=== PATIENT | female | born 1950 | race Caucasian/White ===

== ENCOUNTER 2016-08-17 13:29 | Outpatient (RCR) | payer MEDICARE, OTHER ==
[~2016-08-17 13:29] MED LIST: ACET1TAB38 PO; ALBU8.5H2 IH; ASA; ASP325TEC PO; CA C1TAB26 PO; FRSM40T PO; HCT25T PO; LASIX; LOVA40TA2 PO; METR500T PO; MNTL10T PO; MTF500T PO; OMEG1CAP74 PO; OMEP10CA2 PO; OXYC-12 PO; PGLT30T; PIOG45TA PO; POTA20TA15 PO; TR025C15 TOP
[2016-08-17 13:42] LABS: BASOPHILS % (AUTO) 0 % (0-10); EOSINOPHILS # (AUTO) 0.4 10^3/uL (0.0-0.3); EOSINOPHILS % (AUTO) 4 % (0-10); LYMPHOCYTES # (AUTO) 3.1 X 10^3 (1.0-4.0); LYMPHOCYTES % (AUTO) 29 % (12-44); MEAN CORPUSCULAR HEMOGLOBIN 28 PG (25-34); MEAN CORPUSCULAR HGB CONC 32 G/DL (32-36); MEAN CORPUSCULAR VOLUME 86 FL (80-99); MEAN PLATELET VOLUME 8.5 FL (7.4-10.4); MONOCYTES # (AUTO) 0.7 X 10^3 (0.0-1.0); MONOCYTES % (AUTO) 6 % (0-12); NEUTROPHILS # (AUTO) 6.5 X 10^3 (1.8-7.8); NEUTROPHILS % (AUTO) 61 % (42-75); PLATELET COUNT 478 10^3/uL (130-400); RED BLOOD COUNT 4.18 10^6/uL (4.35-5.85); WHITE BLOOD COUNT 10.7 10^3/uL (4.3-11.0)
[2016-08-17 14:35] LABS: ALANINE AMINOTRANSFERASE 19 U/L (0-55); ALBUMIN 4.3 G/DL (3.2-4.5); ANION GAP 11 MMOL/L (5-14); ASPARTATE AMINO TRANSFERASE 17 U/L (5-34); BILIRUBIN,TOTAL 0.3 MG/DL (0.1-1.0); BLOOD UREA NITROGEN 20 MG/DL (7-18); BUN/CREATININE RATIO 23; CALCIUM 9.7 MG/DL (8.5-10.1); CARBON DIOXIDE 24 MMOL/L (21-32); CHLORIDE 105 MMOL/L (98-107); CREATININE SERUM 0.86 MG/DL (0.60-1.30); GFR ESTIMATED > 60; GLUCOSE 91 MG/DL (70-105); POTASSIUM 4.3 MMOL/L (3.6-5.0); SODIUM 140 MMOL/L (135-145)
[2016-08-17 14:56] LABS: THYROID STIMULATING HORMONE 3.47 UIU/ML (0.35-4.94)
[2016-08-19 15:23] LABS: JAK2 MUTATION Not Detected
== END 2016-11-15 | disposition home or self-care (01) ==
LOC: ONC 13:29
PROVIDERS: ATTEND Internal Medicine Hematology & Oncology
DX: D05.12 Intraductal carcinoma in situ of left breast (principal); D47.3 Essential (hemorrhagic) thrombocythemia; E11.9 Type 2 diabetes mellitus without complications; I10 Essential (primary) hypertension; I25.10 Atherosclerotic heart disease of native coronary artery without angina pectoris; K21.9 Gastro-esophageal reflux disease without esophagitis; E66.01 Morbid (severe) obesity due to excess calories; Z68.42 Body mass index [BMI] 45.0-49.9, adult; Z79.899 Other long term (current) drug therapy; Z92.3 Personal history of irradiation
CPT/HCPCS: 36415; 80053; 81270; 84443; 85025; 86300; 99213

== ENCOUNTER 2017-02-22 12:53 | Outpatient (RCR) | payer MEDICARE, OTHER ==
[2017-02-22 13:29] LABS: BASOPHILS % (AUTO) 0 % (0-10); EOSINOPHILS # (AUTO) 0.4 10^3/uL (0.0-0.3); EOSINOPHILS % (AUTO) 6 % (0-10); LYMPHOCYTES # (AUTO) 1.9 X 10^3 (1.0-4.0); LYMPHOCYTES % (AUTO) 28 % (12-44); MEAN CORPUSCULAR HEMOGLOBIN 27 PG (25-34); MEAN CORPUSCULAR HGB CONC 32 G/DL (32-36); MEAN CORPUSCULAR VOLUME 85 FL (80-99); MEAN PLATELET VOLUME 9.1 FL (7.4-10.4); MONOCYTES # (AUTO) 0.7 X 10^3 (0.0-1.0); MONOCYTES % (AUTO) 11 % (0-12); NEUTROPHILS # (AUTO) 3.8 X 10^3 (1.8-7.8); NEUTROPHILS % (AUTO) 55 % (42-75); PLATELET COUNT 382 10^3/uL (130-400); RED BLOOD COUNT 4.14 10^6/uL (4.35-5.85); RED CELL DISTRIBUTION WIDTH 14.9 % (10.0-14.5)
[2017-02-22 13:53] LABS: BILIRUBIN,TOTAL 0.4 MG/DL (0.1-1.0); CALCIUM 9.3 MG/DL (8.5-10.1); CREATININE SERUM 1.03 MG/DL (0.60-1.30); POTASSIUM 4.5 MMOL/L (3.6-5.0); TOTAL PROTEIN 6.9 G/DL (6.4-8.2)
== END 2017-05-23 | disposition home or self-care (01) ==
LOC: ONC 12:53
PROVIDERS: ATTEND Internal Medicine Hematology & Oncology
DX: D05.12 Intraductal carcinoma in situ of left breast (principal); D64.9 Anemia, unspecified; E11.9 Type 2 diabetes mellitus without complications; I25.10 Atherosclerotic heart disease of native coronary artery without angina pectoris; I10 Essential (primary) hypertension; E78.5 Hyperlipidemia, unspecified; E66.01 Morbid (severe) obesity due to excess calories; Z68.42 Body mass index [BMI] 45.0-49.9, adult; Z92.3 Personal history of irradiation; Z79.84 Long term (current) use of oral hypoglycemic drugs; Z79.899 Other long term (current) drug therapy
CPT/HCPCS: 36415; 80053; 85025; 86300; 99213

== ENCOUNTER → 2017-02-22 | Outpatient (CLI) | payer MEDICARE, OTHER ==
--- NOTE | 2017-02-24 16:07 | Diagnostic Imaging Report ---
EXAMINATION: Bilateral screening mammogram with a Computer Aided Detection (CAD) system. INDICATION: Screening. PERSONAL HISTORY: No current complaints stated on the questionnaire. COMPARISON: 01/27/2016. FINDINGS: Scarring and post surgical changes are seen at the lumpectomy site in the upper outer aspect of the left breast. Benign-appearing calcifications are seen. There is no developing mass, architectural distortion, or suspicious cluster of calcifications. Allowing for technique and positional differences, no suspicious change is seen. IMPRESSION: No significant change. ACR BI-RADS Category 2: Benign findings. Result letter will be mailed to the patient. Note: At least 10% of breast cancer is not imaged by mammography. Dictated on workstation # [id number]
== END ==
LOC: RAD 11:42
PROVIDERS: ATTEND Internal Medicine Hematology & Oncology
DX: Z12.31 Encounter for screening mammogram for malignant neoplasm of breast (principal)
CPT/HCPCS: 77067

== ENCOUNTER 2017-11-28 16:22 | Inpatient (IN) | payer MEDICARE, OTHER ==
[~2017-11-28] VITALS: Ht 157.5 cm; Wt 122.3 kg
--- OUTSIDE RECORDS SUMMARY | 2017-11-28 18:01 | XMS REPORT | Clinical Summary ---
Author Author User, [employer] Organization Padma Sanchez DO, FACP Address Unknown Phone Allergies, Adverse Reactions, Alerts Allergy Name Reaction Description Start Date Severity Status Provider CEPHALOSPORINS Critical Active Padma Sanchez Conditions or Problems Problem Name Problem Code Onset Date Status Entry Date Provider Comment Standard Description Annotate UTI 599.0 Resolved Padma Sanchez Urinary tract infection, site not specified DIABETES MELLITUS, NONINSULIN DEPENDENT (NIDDM) 250.02 Active Padma Sanchez Diabetes mellitus without mention of complication, type II or unspecified type, uncontrolled HYPERTENSION 401.1 Active Padma Sanchez Benign essential hypertension HYPERCHOLESTEROLEMIA 272.0 Active Padma Sanchez Pure hypercholesterolemia UTI'S, RECURRENT 599.0 Resolved Padma Sanchez Urinary tract infection, site not specified INTERSTITIAL CYSTITIS 595.1 Active Padma Sanchez Chronic interstitial cystitis VAGINITIS, ATROPHIC 627.3 Resolved Padma Sanchez Postmenopausal atrophic vaginitis BRONCHITIS 490 Resolved Padma Sanchez Bronchitis, not specified as acute or chronic CELLULITIS 682.9 Resolved Padma Sanchez Cellulitis and abscess of unspecified sites ANKLE SPRAIN 845.00 Resolved Padma Sanchez Unspecified site of ankle sprain ANKLE PAIN, LEFT 719.47 Resolved Padma Sanchez Pain in joint involving ankle and foot THUMB PAIN, LEFT 729.5 Resolved Padma Sanchez Pain in limb ABNORMAL MAMMOGRAM 793.80 Resolved Padma Sanchez Abnormal mammogram, unspecified ADENOCARCINOMA, LEFT BREAST 174.9 Active Padma Sanchez Malignant neoplasm of breast (female), unspecified PALPITATIONS, OCCASIONAL 785.1 Resolved Padma Sanchez Palpitations VERTIGO 780.4 Resolved Padma Sanchez Dizziness and giddiness LYMPHADENOPATHY, LEFT AXILLA 785.6 Resolved Padma Sanchez Enlargement of lymph nodes WHEEZING 786.07 Resolved Padma Sanchez Wheezing COUGH 786.2 Resolved Padma Sanchez Cough ALLERGIC RHINITIS CAUSE UNSPECIFIED 477.9 Active Padma Sanchez Allergic rhinitis, cause unspecified HERPES LABIALIS 054.9 Active Padma Sanchez Herpes simplex without mention of complication HEALTH SCREENING V70.0 Inactive Padma Sanchez Routine general medical examination at a health care facility ASTHMA, CHRN OBST W/(ACUTE) EXACERBATION 493.22 Resolved Padma Sanchez Chronic obstructive asthma, with (acute) exacerbation BRONCHITIS 490 Resolved Padma Sanchez Bronchitis, not specified as acute or chronic HEALTH SCREENING V70.0 Resolved Padma Sanchez Routine general medical examination at a health care facility DEPRESSION 311 Active Padma Sanchez Depressive disorder, not elsewhere classified MEMORY LOSS 780.93 Active Padma Sanchez Memory loss ANXIETY 300.00 Active Padma Sanchez Anxiety state, unspecified Medication List Medication Instructions Start Date Stop Date Generic Name [facility] Status Provider Patient Instruction XANAX 0.25 MG TABS 1 PO Q6hrs prn ALPRAZOLAM 48596664856 Active Padma Sanchez CYMBALTA 30 MG CPEP 1 PO daily DULOXETINE HCL 07080268371 Active Elizabeth Sheridan TOPROL XL 25 MG TB24 1 PO daily METOPROLOL SUCCINATE 28527216459 Active Padma Sanchez ADVAIR DISKUS 100-50 MCG/DOSE MISC 1 puff BID FLUTICASONE-SALMETEROL 86984187716 Active Elizabeth Sheridan GLYBURIDE 1.25 MG TABS 1 PO QD GLYBURIDE 10402060363 Active Elizabeth Sheridan POTASSIUM CHLORIDE ER 10 MEQ CR-CAPS 2 PO DAILY POTASSIUM CHLORIDE 15948052222 Active Elizabeth Sher[facility]: 250.02 [facility] NAMED [facility] 38271043655 No Longer Active Padma Sanchez VALTREX 1 GM TAB 1 PO BID for 3 days at first sign of cold sore as needed VALACYCLOVIR HCL 53208995134 No Longer Active Padma Sanchez VITAMIN D 1000 UNIT TABS 1 PO Daily CHOLECALCIFEROL 97339044860 Active Padma Sanchez LISINOPRIL 10 MG TABS 1 PO daily LISINOPRIL 74623797773 Active Padma Sanchez PREDNISONE 10 MG TAB 2 PO at one time daily for 3 days then one PO daily for 3 days PREDNISONE 93013780943 No Longer Active Padma Sanchez SPIRIVA HANDIHALER 18 MCG CAPS 1 puff daily TIOTROPIUM BROMIDE MONOHYDRATE 30431776167 Active Padma Sanchez ALBUTEROL SULFATE 0.083 % NEBU SOLN 1 nebulizer treatment BID ALBUTEROL SULFATE 24375389295 Active Padma Sanchez PREDNISONE 10 MG TAB 2 PO daily at 1 time for 3 days then 1 PO daily for 3 days. PREDNISONE 35657696471 No Longer Active Padma Sanchez BIAXIN 500 MG TAB 1 PO BID CLARITHROMYCIN 49024535027 No Longer Active Padma Sanchez LEVAQUIN 500 MG TAB 1 PO QD LEVOFLOXACIN 43418084582 No Longer Active Elizabeth hSeridan PYRIDIUM 200 MG TAB 1 PO TID prn urinary urgency PHENAZOPYRIDINE HCL 00547600541 No Longer Active Elizabeth Sheridan DIFLUCAN 100 MG TAB 1 po daily FLUCONAZOLE 59026539465 No Longer Active Padma Sanchez PREDNISONE 20 MG TAB 1 PO daily for 3 days then 1/2 PO daily for 3 days. 2013 PREDNISONE 88151227686 No Longer Active Padma Sanchez ONETOUCH TEST STRP check sugar BID DX: 250.02 GLUCOSE BLOOD 01437915526 Active Elizabeth FAJARDO PROBIOTIC COMPLEX TABS 1 po daily PROBIOTIC PRODUCT 03748008500 Active Padma Sanchez CENTRUM SILVER ULTRA WOMENS TABS 1 po daily MULTIPLE VITAMINS-MINERALS 42825472756 Active Padma Sanchez LEVAQUIN 500 MG TAB 1 PO QD LEVOFLOXACIN 04346828838 No Longer Active Padma Sanchez PREDNISONE 20 MG TAB 2 pills at once for 2 days then 1 pill daily for 5 days PREDNISONE 82825670488 No Longer Active Padma Sanchez PRILOSEC 10 MG CAP CR OMEPRAZOLE 66268339171 No Longer Active Padma Sanchez TRIAMCINOLONE ACETONIDE 0.025 % CREA apply daily prn sparingly TRIAMCINOLONE ACETONIDE (TOP) 81875743743 No Longer Active Padma Sanchez CORICIDIN HBP CONGESTION/COUGH CAPS As Directed PRN DEXTROMETHORPHAN-GUAIFENESIN CAPS 93391821380 No Longer Active Padma Sanchez CICLOPIROX OLAMINE 0.77 % CREA Apply to affected area twice daily CICLOPIROX OLAMINE 56475867007 No Longer Active Padma Sanchez ROBITUSSIN A-C 10-100 MG/5ML SYRUP 1 teaspoon PO Q 4-6 hr prn ROBITUSSIN A-C 10-100 MG/5ML SYRUP No Longer Active Elizabeth Sheridan ATROVENT 0.06 % SOLN 2 puffs each nostril TID prn runny nose 2012 IPRATROPIUM BROMIDE 57475557333 No Longer Active Padma Sanchez DIFLUCAN 150 MG TAB 1 PO QD for 3 days FLUCONAZOLE 84766186056 No Longer Active Yesenia Carlos ADVAIR DISKUS 100-50 MCG/DOSE MISC 1 puff BID FLUTICASONE-SALMETEROL 66383715750 No Longer Active Padma SALCIDO'Flex NASAL SPRAY (DEXAMETHASONE, GENTAMICIN, SALINE) 2 puffs each nostril TID for [address] SALCIDO'Flex NASAL SPRAY ( DEXAMETHASONE, GENTAMICIN, SALINE) No Longer Active Padma Sanchez PREDNISONE 20 MG TAB 2 pills at once for 3 days then 1 pill daily for 2 days PREDNISONE 11196796820 No Longer Active Padma Sanchez LEVAQUIN 500 MG TAB 1 PO QD LEVOFLOXACIN 21641429758 No Longer Active Padma Sanchez TRANSDERM-SCOP 1.5 MG PT72 1 patch behind ear and change every 3 days SCOPOLAMINE BASE 12948763250 No Longer Active Padma Sanchez JANUVIA 100 MG TABS 1 PO daily SITAGLIPTIN PHOSPHATE 60753538800 Active Elizabeth Sheridan CLARITIN 10 MG TAB 1 PO daily LORATADINE 75028693592 Active Elizabeth Sheridan ACTOS 45 MG TABS 1 PO daily PIOGLITAZONE HCL 18295266763 No Longer Active Padma Sanchez FISH OIL 1000 MG CAPS 1 PO daily OMEGA-3 FATTY ACIDS 48296211074 Active Padmaalirio Sanchez BIAXIN XL PAC 500 MG TB24 2 pills at same time daily for 7 days CLARITHROMYCIN 60558433615 No Longer Active Padmaalirio Sanchez SINGULAIR 10 MG TABS 1 po daily MONTELUKAST SODIUM 29086960028 Active Elizabeth Sheridan SINGULAIR 10 MG TABS 1 PO daily MONTELUKAST SODIUM 41826893628 No Longer Active Padma Sanchez SILVADENE 1 % CREA Apply to left lateral foot affected area TID and apply dressing. SILVER SULFADIAZINE 28608338808 No Longer Active Padmaalirio Sanchez PREMARIN 0.625 MG/GM CREA 1 gm intravaginally HS 3 times a week for 4 weeks then twice a week ESTROGENS, CONJUGATED VAGINAL 77610780058 No Longer Active Padma Sanchez BIAXIN XL PAC 500 MG TB24 2 pills at same time daily for 7 days CLARITHROMYCIN 30854438669 No Longer Active Padma Sanchez GLUCOPHAGE 500 MG TABS 2 PO BID METFORMIN HCL 83982959767 Active Elizabeth Sheridan PYRIDIUM 200 MG TAB 1 PO TID prn urinary urgency PHENAZOPYRIDINE HCL 53902024835 No Longer Active Padma Sanchez AMOXICILLIN 500 MG CAP 1 PO TID AMOXICILLIN 45377320554 No Longer Active Padma Sanchez PROAIR HFA 108 (90 BASE) MCG/ACT AERS 2 puffs every 6 hrs prn ALBUTEROL SULFATE 93337978598 Active Phyllis Fisher ACIPHEX 20 MG TBEC 1 PO daily RABEPRAZOLE SODIUM 37576935479 No Longer Active Elizabeth Sheridan HYDROCHLOROTHIAZIDE 25 MG TAB 1 PO QD HYDROCHLOROTHIAZIDE 33959606946 Active Elizabeth Sheridan LASIX 40 MG TAB 1 PO daily FUROSEMIDE 60731394069 Active Elizabeth Sheridan ALTOPREV 40 MG TB24 1 PO daily LOVASTATIN 15037743104 Active Elizabeth Sheridan Immunizations Vaccine Administration Date Value Standard Description Influenza vaccine given DONE influenza virus vaccine, unspecified formulation Influenza vaccine given Done influenza virus vaccine, unspecified formulation Vital Signs Date Name Value Unit Range Description blood pressure, diastolic - 8462-4 80 mm[Hg] BP garcia blood pressure, systolic - 8480-6 136 mm[Hg] BP sys pulse rate E&M - 8867-4 64 /min Heart rate respiratory rate E&M - 9279-1 14 /min Resp rate temperature E&M 97.5 [degF] Body temperature weight E&M - 3141-9 272 [lb_av] Weight Measured blood pressure, diastolic - 8462-4 80 mm[Hg] BP garcia blood pressure, systolic - 8480-6 144 mm[Hg] BP sys pulse rate E&M - 8867-4 68 /min Heart rate respiratory rate E&M - 9279-1 14 /min Resp rate temperature E&M 98.6 [degF] Body temperature weight E&M - 3141-9 275 [lb_av] Weight Measured blood pressure, diastolic - 8462-4 85 mm[Hg] BP garcia blood pressure, systolic - 8480-6 135 mm[Hg] BP sys pulse rate E&M - 8867-4 66 /min Heart rate respiratory rate E&M - 9279-1 14 /min Resp rate weight E&M - 3141-9 272 [lb_av] Weight Measured blood pressure, diastolic - 8462-4 72 mm[Hg] BP garcia blood pressure, systolic - 8480-6 148 mm[Hg] BP sys pulse rate E&M - 8867-4 80 /min Heart rate respiratory rate E&M - 9279-1 14 /min Resp rate weight E&M - 3141-9 282 [lb_av] Weight Measured blood pressure, diastolic - 8462-4 70 mm[Hg] BP garcia blood pressure, systolic - 8480-6 140 mm[Hg] BP sys pulse rate E&M - 8867-4 72 /min Heart rate respiratory rate E&M - 9279-1 14 /min Resp rate temperature E&M 98.6 [degF] Body temperature weight E&M - 3141-9 274 [lb_av] Weight Measured blood pressure, diastolic - 8462-4 80 mm[Hg] BP garcia blood pressure, systolic - 8480-6 120 mm[Hg] BP sys pulse rate E&M - 8867-4 60 /min Heart rate respiratory rate E&M - 9279-1 14 /min Resp rate temperature E&M 98.6 [degF] Body temperature weight E&M - 3141-9 276 [lb_av] Weight Measured blood pressure, diastolic - 8462-4 80 mm[Hg] BP garcia blood pressure, systolic - 8480-6 130 mm[Hg] BP sys pulse rate E&M - 8867-4 66 /min Heart rate respiratory rate E&M - 9279-1 14 /min Resp rate temperature E&M 97.8 [degF] Body temperature Diagnostic Results Date Name Value Unit Range Description Clinical Lists Update: CBC,CMP,TSH,HGA1C - Chemistry Estimated Glomerular Filtration Rate (calc) 89 mL/min/1.73m2 albumin, serum 4.0 g/dL alkaline phosphatase, serum 61 U/L urea nitrogen, blood 17 mg/dL calcium, serum 9.2 mg/dL chloride, serum 99 mmol/L cholesterol, serum 186 mg/dL carbon dioxide, venous blood 31.0 mmol/L creatinine, serum 0.7 mg/dL HDL cholesterol, serum 43.0 mg/dL hemoglobin A1C, blood, as % of total hemoglobin 7.4 % thyroid stimulating hormone, serum 3.41 u[iU]/mL LDL cholesterol, serum 115 mg/dL potassium, serum 4.2 mmol/L protein, total, serum 6.3 g/dL aspartate aminotransferase (SGOT), serum 13 U/L alanine aminotransferase (SGPT), serum 17 U/L bilirubin, serum, total 0.4 mg/dL triglyceride, serum, fasting 141 mg/dL sodium, serum 135 mmol/L anion gap, serum 9 cholesterol/HDL ratio, serum, percent 4.3 glucose, plasma fasting 141 mg/dL Clinical Lists Update: CBC,CMP,TSH,HGA1C - Hematology hematocrit, blood 36 % hemoglobin, blood 11.3 g/dL platelet count 389 10*3/mm3 erythrocyte (RBC) count 4.15 10*6/mm3 mean corpuscular volume, RBC 88 fL red blood cell distribution width 17.3 % leukocyte count, blood 8.9 10*3/mm3 Clinical Lists Update: CMP,Chol,Trig,HgA1c - Chemistry chloride, serum 100 mmol/L alanine aminotransferase (SGPT), serum 18 U/L bilirubin, serum, total 0.3 mg/dL cholesterol, serum 176 mg/dL triglyceride, serum, fasting 166 mg/dL sodium, serum 138 mmol/L carbon dioxide, venous blood 29.0 mmol/L anion gap, serum 13 albumin, serum 4.1 g/dL creatinine, serum 0.8 mg/dL glucose, plasma fasting 168 mg/dL aspartate aminotransferase (SGOT), serum 13 U/L protein, total, serum 6.5 g/dL calcium, serum 9.5 mg/dL potassium, serum 4.2 mmol/L urea nitrogen, blood 30 mg/dL Estimated Glomerular Filtration Rate (calc) 75 mL/min/1.73m2 hemoglobin A1C, blood, as % of total hemoglobin 8.4 % alkaline phosphatase, serum 74 U/L Clinical Lists Update: CMP,FLP,HgA1c,Microalbumin - Chemistry Estimated Glomerular Filtration Rate (calc) 98 mL/min/1.73m2 glucose, plasma fasting 132 mg/dL cholesterol/HDL ratio, serum, percent 4.2 anion gap, serum 11 sodium, serum 138 mmol/L triglyceride, serum, fasting 124 mg/dL bilirubin, serum, total 0.3 mg/dL alanine aminotransferase (SGPT), serum 18 U/L aspartate aminotransferase (SGOT), serum 13 U/L protein, total, serum 6.5 g/dL potassium, serum 4.2 mmol/L LDL cholesterol, serum 108 mg/dL hemoglobin A1C, blood, as % of total hemoglobin 7.2 % HDL cholesterol, serum 42.0 mg/dL creatinine, serum 0.7 mg/dL carbon dioxide, venous blood 31.0 mmol/L cholesterol, serum 175 mg/dL chloride, serum 100 mmol/L calcium, serum 9.3 mg/dL urea nitrogen, blood 20 mg/dL alkaline phosphatase, serum 70 U/L albumin, serum 4.1 g/dL Clinical Lists Update: CMP,FLP,HgA1c,Microalbumin - Urinalysis microalbumin, urine, semiquantitative 0.5 mg/dL Encounters Code Encounter Date Provider Facility CPT-66806 Ofc Vst, Est Level III 15:08:45 CDT Padma Houghcindy Sanchez [facility] CPT-94938 Ofc Vst, Est Level IV 17:59:31 CDT Padma Yamila Daniel [facility] CPT-59329 Ofc Vst, Est Level IV 20:35:52 CDT Padma Yamila Daniel Sanchez, DO, FACP CPT-50473 Ofc Vst, Est Level IV 17:39:19 [employer] Padma Yamila Daniel Sanchez, DO, FACP CPT-74727 Ofc Vst, Est Level IV 15:29:57 CDT Padmaalirio Driscoll Daniel [facility] CPT-24096 Ofc Vst, Est Level III 16:04:17 CDT Padma Yamila Daniel Jamaner, DO, FACP CPT-18059 Ofc Vst, Est Level IV 14:48:46 CDT Padma Yamila Daniel Sanchez, DO, FACP CPT-14447 Ofc Vst, Est Level IV 16:21:06 CDT Padma Yamilazeyad Sanchez, DO, FACP CPT-44075 Ofc Vst, Est Level IV 15:36:57 CDT Padma Yamilazeyad Jamaner, DO, FACP CPT-63349 Ofc Vst, Est Level IV 15:35:57 [employer] Padma Yamilazeyad Sanchez, DO, FACP CPT-19387 Ofc Vst, Est Level IV 13:46:44 [employer] Padma Sanchez, DO, FACP CPT-82604 Ofc Vst, Est Level IV 14:20:29 CDT Padma [facility] OFFICE CPT-74678 Ofc Vst, Est Level IV 14:05:36 [facility]18 Ofc Vst, Est Level IV 13:54:42 CDT Padma [facility] CPT-88444 Ofc Vst, Est Level IV 13:48:44 [employer] Padma [facility] CPT-92633 Ofc Vst, Est Level IV 14:16:17 CDT Padma [facility] CPT-98405 Ofc Vst, Est Level IV 14:06:24 [facility] Ofc Vst, Est Level IV 14:03:09 [employer] Padma [facility] CPT-87975 Ofc Vst, Est Level IV 14:31:46 [employer] Padma [facility] OFF[facility] CPT-39202 Ofc Vst, Est Level III 14:19:18 CDT Padma [facility] CPT-44132 Ofc Vst, Est Level IV 14:17:24 CDT Padma [facility] CPT-51860 Ofc Vst, Est Level IV 14:16:13 CDT Padma [facility] CPT-88041 Ofc Vst, Est Level III 14:46:11 CDT Padma [facility] CPT-30962 Ofc Vst, Est Level III 15:28:13 CDT Padma [facility] CPT-52091 Ofc Vst, Est Level IV 14:51:56 [employer] [facility] OFFICE CPT-33914 Ofc Vst, Est Level III 13:59:11 [employer] Padma [facility] CPT-89550 Ofc Vst, Est Level IV 14:03:19 CDT [facility] CPT-26921 Ofc Vst, Est Level IV 15:24:50 CDT [facility] OFFICE CPT-21649 Ofc Vst, New Level IV 13:42:26 CDT [facility] Procedures Code Procedure Name Date Entry Date Standard Description CPT-50994 Preventive, Est, (40-64) 11:40:53 CDT CPT-70921 Preventive, Est, (40-64) 14:46:08 CDT
--- OUTSIDE RECORDS SUMMARY | 2017-11-28 18:01 | XMS REPORT | Clinical Summary ---
Author Author User, [employer] Padma Sanchez DO, FACP Address Unknown [...] site not specified INTERSTITIAL CYSTITIS 595.1 Active Padam Sanchez Chronic interstitial cystitis VAGINITIS, ATROPHIC 627.3 [...] Instructions Start Date Stop Date Generic Name ND Status Provider Patient Instruction XANAX 0.25 MG TABS 1 PO Q6hrs prn ALPRAZOLAM 19077727582 Active Padma Sanchez CYMBALTA 30 MG CPEP 1 PO daily DULOXETINE HCL 48047057425 Active Elizabeth Sheridan TOPROL XL 25 MG TB24 1 PO daily METOPROLOL SUCCINATE 12647437477 Active Padma Sanchez ADVAIR DISKUS 100-50 MCG/DOSE MISC 1 puff BID FLUTICASONE-SALMETEROL 15709067122 Active Elizabeth Sheridan GLYBURIDE 1.25 MG TABS 1 PO QD GLYBURIDE 07599772836 Active Elizabeth Sheridan POTASSIUM CHLORIDE ER 10 MEQ CR-CAPS 2 PO DAILY POTASSIUM CHLORIDE 13158612302 Active Elizabeth Sheridan [facility] MISC DIRECTED DX: 250.02 [facility] 62055695213 No Longer Active Padma Sanchez VALTREX 1 GM TAB 1 PO BID for 3 days at first sign of cold sore as needed VALACYCLOVIR HCL 72504056649 No Longer Active Padma Sanchez VITAMIN D 1000 UNIT TABS 1 PO Daily CHOLECALCIFEROL 60082864483 Active Padma Sanchez LISINOPRIL 10 MG TABS 1 PO daily LISINOPRIL 83295895237 Active Padma Sanchez PREDNISONE 10 MG TAB 2 PO at one time daily for 3 days then one PO daily for 3 days PREDNISONE 47118197346 No Longer Active Padma Sanchez SPIRIVA HANDIHALER 18 MCG CAPS 1 puff daily TIOTROPIUM BROMIDE MONOHYDRATE 95710100930 Active Padma Sanchez ALBUTEROL SULFATE 0.083 % NEBU SOLN 1 nebulizer treatment BID ALBUTEROL SULFATE 02689952357 Active Padma Sanchez PREDNISONE 10 MG TAB 2 PO daily at 1 time for 3 days then 1 PO daily for 3 days. PREDNISONE 30144826241 No Longer Active Padma Sanchez BIAXIN 500 MG TAB 1 PO BID CLARITHROMYCIN 56865406055 No Longer Active Padma Sanchez LEVAQUIN 500 MG TAB 1 PO QD LEVOFLOXACIN 36640352399 No Longer Active Elizabeth Sheridan PYRIDIUM 200 MG TAB 1 PO TID prn urinary urgency PHENAZOPYRIDINE HCL 32270991246 No Longer Active Elizabeth Sheridan DIFLUCAN 100 MG TAB 1 po daily FLUCONAZOLE 77488983546 No Longer Active Padma Sanchez PREDNISONE 20 MG TAB 1 PO daily for 3 days then 1/2 PO daily for 3 days. 2013 PREDNISONE 58488048111 No Longer Active Padma Sanchez ONETOUCH TEST STRP check sugar BID DX: 250.02 GLUCOSE BLOOD 02253751744 Active Elizabeth FAJARDO PROBIOTIC COMPLEX TABS 1 po daily PROBIOTIC PRODUCT 80828329685 Active Padma Sanchez CENTRUM SILVER ULTRA WOMENS TABS 1 po daily MULTIPLE VITAMINS-MINERALS 02980261838 Active Padma Sanchez LEVAQUIN 500 MG TAB 1 PO QD LEVOFLOXACIN 16355038410 No Longer Active Padma Sanchez PREDNISONE 20 MG TAB 2 pills at once for 2 days then 1 pill daily for 5 days PREDNISONE 43829462237 No Longer Active Padma Sanchez PRILOSEC 10 MG CAP CR OMEPRAZOLE 68583970791 No Longer Active Padma Sanchez TRIAMCINOLONE ACETONIDE 0.025 % CREA apply daily prn sparingly TRIAMCINOLONE ACETONIDE (TOP) 00162580662 No Longer Active Padma Sanchez CORICIDIN HBP CONGESTION/COUGH CAPS As Directed PRN DEXTROMETHORPHAN-GUAIFENESIN CAPS 95776869868 No Longer Active Padma Sanchez CICLOPIROX OLAMINE 0.77 % CREA Apply to affected area twice daily CICLOPIROX OLAMINE 37518617758 No Longer Active Padma Sanchez ROBITUSSIN A-C 10-100 MG/5ML SYRUP 1 teaspoon PO Q 4-6 hr prn ROBITUSSIN A-C 10-100 MG/5ML SYRUP No Longer Active Elizabeth Sheridan ATROVENT 0.06 % SOLN 2 puffs each nostril TID prn runny nose 2012 IPRATROPIUM BROMIDE 33714790201 No Longer Active Padma Sanchez DIFLUCAN 150 MG TAB 1 PO QD for 3 days FLUCONAZOLE 58446815459 No Longer Active Yesenia Carlos ADVAIR DISKUS 100-50 MCG/DOSE MISC 1 puff BID FLUTICASONE-SALMETEROL 52887807201 No Longer Active Padma SALCIDO'S NASAL SPRAY (DEXAMETHASONE, GENTAMICIN, SALINE) 2 puffs each nostril TID for [address] SALCIDO'Flex NASAL SPRAY ( DEXAMETHASONE, GENTAMICIN, SALINE) No Longer Active Padma Sanchez PREDNISONE 20 MG TAB 2 pills at once for 3 days then 1 pill daily for 2 days PREDNISONE 06181210939 No Longer Active Padma Sanchez LEVAQUIN 500 MG TAB 1 PO QD LEVOFLOXACIN 99655068095 No Longer Active Padma Sanchez TRANSDERM-SCOP 1.5 MG PT72 1 patch behind ear and change every 3 days SCOPOLAMINE BASE 26117490602 No Longer Active Padma Sanchez JANUVIA 100 MG TABS 1 PO daily SITAGLIPTIN PHOSPHATE 73033716234 Active Elizabeth Sheridan CLARITIN 10 MG TAB 1 PO daily LORATADINE 22147546520 Active Elizabeth Sheridan ACTOS 45 MG TABS 1 PO daily PIOGLITAZONE HCL 97561304656 No Longer Active Padmaalirio Sanchez FISH OIL 1000 MG CAPS 1 PO daily OMEGA-3 FATTY ACIDS 66436009208 Active Padmaalirio Sanchez BIAXIN XL PAC 500 MG TB24 2 pills at same time daily for 7 days CLARITHROMYCIN 79852254421 No Longer Active Padmaalirio Sanchez SINGULAIR 10 MG TABS 1 po daily MONTELUKAST SODIUM 01532429254 Active Elizabeth Sheridan SINGULAIR 10 MG TABS 1 PO daily MONTELUKAST SODIUM 20695230481 No Longer Active Padma Sanchez SILVADENE 1 % CREA Apply to left lateral foot affected area TID and apply dressing. SILVER SULFADIAZINE 55922404242 No Longer Active Padmaalirio Sanchez PREMARIN 0.625 MG/GM CREA 1 gm intravaginally HS 3 times a week for 4 weeks then twice a week ESTROGENS, CONJUGATED VAGINAL 49097871825 No Longer Active Padma Sanchez BIAXIN XL PAC 500 MG TB24 2 pills at same time daily for 7 days CLARITHROMYCIN 40358198431 No Longer Active Padma Sanchez GLUCOPHAGE 500 MG TABS 2 PO BID METFORMIN HCL 99792884556 Active Elizabeth Sheridan PYRIDIUM 200 MG TAB 1 PO TID prn urinary urgency PHENAZOPYRIDINE HCL 36789587920 No Longer Active Padma Sanchez AMOXICILLIN 500 MG CAP 1 PO TID AMOXICILLIN 22391233331 No Longer Active Padmaalirio Sanchez PROAIR HFA 108 (90 BASE) MCG/ACT AERS 2 puffs every 6 hrs prn ALBUTEROL SULFATE 79799926391 Active Phyllis Fisher ACIPHEX 20 MG TBEC 1 PO daily RABEPRAZOLE SODIUM 36696661930 No Longer Active Elizabeth Sheridan HYDROCHLOROTHIAZIDE 25 MG TAB 1 PO QD HYDROCHLOROTHIAZIDE 60673456959 Active Elizabeth Sheridan LASIX 40 MG TAB 1 PO daily FUROSEMIDE 59342870671 Active Elizabeth Sheridan ALTOPREV 40 MG TB24 1 PO daily LOVASTATIN 31468245012 Active Elizabeth Sheridan Immunizations Vaccine Administration Date [...] mg/dL Encounters Code Encounter Date Provider Facility CPT-15581 Ofc Vst, Est Level III 15:08:45 CDT Padma Yamilazeyad Sanchez [facility] CPT-73437 Ofc Vst, Est Level IV 17:59:31 CDT Padma Yamilazeyad Sanchez [facility] CPT-43109 Ofc Vst, Est Level IV 20:35:52 CDT Padma Yamilazeyad Sanchez, DO, FACP CPT-40428 Ofc Vst, Est Level IV 17:39:19 PLANT PHYSIOLOGIST Padma Sanchez, DO, FACP CPT-55138 Ofc Vst, Est Level IV 15:29:57 CDT Padma Yamilazeyad Sanchez [facility] CPT-09238 Ofc Vst, Est Level III 16:04:17 CDT Padma Yamilazeyad Jamaner, DO, FACP CPT-15624 Ofc Vst, Est Level IV 14:48:46 CDT Padma Sanchez, DO, FACP CPT-01364 Ofc Vst, Est Level IV 16:21:06 CDT Padma Sanchez, DO, FACP CPT-96929 Ofc Vst, Est Level IV 15:36:57 CDT Padma Sanchez, DO, FACP CPT-14906 Ofc Vst, Est Level IV 15:35:57 PLANT PHYSIOLOGIST Padma Sanchez, DO, FACP CPT-02277 Ofc Vst, Est Level IV 13:46:44 PLANT PHYSIOLOGIST Padma Sanchez, DO, FACP CPT-47718 Ofc Vst, Est Level IV 14:20:29 CDT Padma [facility] OFFICE CPT-65608 Ofc Vst, Est Level IV 14:05:36 CDT Padma [facility] CPT-27815 Ofc Vst, Est Level IV 13:54:42 CDT Padma [facility] CPT-62437 Ofc Vst, Est Level IV 13:48:44 PLANT PHYSIOLOGIST Padma [facility] CPT-87017 Ofc Vst, Est Level IV 14:16:17 CDT Padma [facility] CPT-29604 Ofc Vst, Est Level IV 14:06:24 [facility] Ofc Vst, Est Level IV 14:03:09 PLANT PHYSIOLOGIST Padma [facility] CPT-44729 Ofc Vst, Est Level IV 14:31:46 PLANT PHYSIOLOGIST Padma [facility] CPT-91460 Ofc Vst, Est Level III 14:19:18 CDT Padma [facility] CPT-74163 Ofc Vst, Est Level IV 14:17:24 CDT Padma [facility] CPT-16184 Ofc Vst, Est Level IV 14:16:13 CDT Padma [facility] CPT-94315 Ofc Vst, Est Level III 14:46:11 CDT Padma [facility] CPT-62198 Ofc Vst, Est Level III 15:28:13 CDT Padma [facility] CPT-51349 Ofc Vst, Est Level IV 14:51:56 PLANT PHYSIOLOGIST [place] [facility] CPT-39488 Ofc Vst, Est Level III 13:59:11 PLANT PHYSIOLOGIST Padma [facility] OFFICE CPT-87375 Ofc Vst, Est Level IV 14:03:19 CDT [facility] CPT-34254 Ofc Vst, Est Level IV 15:24:50 CDT [place] [facility] CPT-48495 Ofc Vst, New Level IV 13:42:26 CDT [facility] Procedures Code Procedure Name Date Entry Date Standard Description CPT-46365 Preventive, Est, (40-64) 11:40:53 CDT CPT-60849 Preventive, Est, (40-64) 14:46:08 CDT
--- OUTSIDE RECORDS SUMMARY | 2017-11-28 18:02 | XMS REPORT | Clinical Summary ---
Author Author User, [email or web address] Organization Padma Sanchez DO, FACP Address Unknown [...] MG TABS 1 PO Q6hrs prn ALPRAZOLAM 80750339305 Active Padma Sanchez CYMBALTA 30 MG CPEP 1 PO daily DULOXETINE HCL 29975218334 Active Elizabeth Sheridan TOPROL XL 25 MG TB24 1 PO daily METOPROLOL SUCCINATE 64242905536 Active Padma Sanchez ADVAIR DISKUS 100-50 MCG/DOSE MISC 1 puff BID FLUTICASONE-SALMETEROL 17950386376 Active Elizabeth Sheridan GLYBURIDE 1.25 MG TABS 1 PO QD GLYBURIDE 89228800289 Active Elizabeth Sheridan POTASSIUM CHLORIDE ER 10 MEQ CR-CAPS 2 PO DAILY POTASSIUM CHLORIDE 58088382350 Active Elizabeth Sher[facility]: [facility].02 [facility] 68984883397 No Longer Active Padma Sanchez VALTREX 1 GM TAB 1 PO BID for 3 days at first sign of cold sore as needed VALACYCLOVIR HCL 24264317237 No Longer Active Padma Sanchez VITAMIN D 1000 UNIT TABS 1 PO Daily CHOLECALCIFEROL 65029187286 Active Padma Sanchez LISINOPRIL 10 MG TABS 1 PO daily LISINOPRIL 40098063286 Active Padma Sanchez PREDNISONE 10 MG TAB 2 PO at one time daily for 3 days then one PO daily for 3 days PREDNISONE 25411820807 No Longer Active Padma Sanchez SPIRIVA HANDIHALER 18 MCG CAPS 1 puff daily TIOTROPIUM BROMIDE MONOHYDRATE 65849369525 Active Padma Sanchez ALBUTEROL SULFATE 0.083 % NEBU SOLN 1 nebulizer treatment BID ALBUTEROL SULFATE 36062356583 Active Padma Sanchez PREDNISONE 10 MG TAB 2 PO daily at 1 time for 3 days then 1 PO daily for 3 days. PREDNISONE 49613039528 No Longer Active Padma Sanchez BIAXIN 500 MG TAB 1 PO BID CLARITHROMYCIN 27755107760 No Longer Active Padma Sanchez LEVAQUIN 500 MG TAB 1 PO QD LEVOFLOXACIN 48696782254 No Longer Active Elizabeth Sheridan PYRIDIUM 200 MG TAB 1 PO TID prn urinary urgency PHENAZOPYRIDINE HCL 71488444686 No Longer Active Elizabeth Sheridan DIFLUCAN 100 MG TAB 1 po daily FLUCONAZOLE 47907673017 No Longer Active Padma Sanchez PREDNISONE 20 MG TAB 1 PO daily for 3 days then 1/2 PO daily for 3 days. 2013 PREDNISONE 85976663034 No Longer Active Padma Sanchez ONETOUCH TEST STRP check sugar BID DX: 250.02 GLUCOSE BLOOD 67404760206 Active Elizabeth FAJARDO PROBIOTIC COMPLEX TABS 1 po daily PROBIOTIC PRODUCT 72176761247 Active Padma Sanchez CENTRUM SILVER ULTRA WOMENS TABS 1 po daily MULTIPLE VITAMINS-MINERALS 89287311055 Active Padma Sanchez LEVAQUIN 500 MG TAB 1 PO QD LEVOFLOXACIN 97582691430 No Longer Active Padma Sanchez PREDNISONE 20 MG TAB 2 pills at once for 2 days then 1 pill daily for 5 days PREDNISONE 84989000833 No Longer Active Padma Sanchez PRILOSEC 10 MG CAP CR OMEPRAZOLE 24715182477 No Longer Active Padma Sanchez TRIAMCINOLONE ACETONIDE 0.025 % CREA apply daily prn sparingly TRIAMCINOLONE ACETONIDE (TOP) 49843375214 No Longer Active Padma Sanchez CORICIDIN HBP CONGESTION/COUGH CAPS As Directed PRN DEXTROMETHORPHAN-GUAIFENESIN CAPS 83323352646 No Longer Active Padma Sanchez CICLOPIROX OLAMINE 0.77 % CREA Apply to affected area twice daily CICLOPIROX OLAMINE 50354982776 No Longer Active Padma Sanchez ROBITUSSIN A-C 10-100 MG/5ML SYRUP 1 teaspoon PO Q 4-6 hr prn ROBITUSSIN A-C 10-100 MG/5ML SYRUP No Longer Active Elizabeth Sheridan ATROVENT 0.06 % SOLN 2 puffs each nostril TID prn runny nose 2012 IPRATROPIUM BROMIDE 01779572230 No Longer Active Padma Sanchez DIFLUCAN 150 MG TAB 1 PO QD for 3 days FLUCONAZOLE 90361072185 No Longer Active Yesenia Carlos ADVAIR DISKUS 100-50 MCG/DOSE MISC 1 puff BID FLUTICASONE-SALMETEROL 03536574882 No Longer Active Padma SALCIDO'S NASAL SPRAY (DEXAMETHASONE, GENTAMICIN, SALINE) 2 puffs each nostril TID for [address] SALCIDO'Flex NASAL SPRAY ( DEXAMETHASONE, GENTAMICIN, SALINE) No Longer Active Padma Sanchez PREDNISONE 20 MG TAB 2 pills at once for 3 days then 1 pill daily for 2 days PREDNISONE 18357234257 No Longer Active Padma Sanchez LEVAQUIN 500 MG TAB 1 PO QD LEVOFLOXACIN 09679947635 No Longer Active Padma Sanchez TRANSDERM-SCOP 1.5 MG PT72 1 patch behind ear and change every 3 days SCOPOLAMINE BASE 10217514944 No Longer Active Padma Sanchez JANUVIA 100 MG TABS 1 PO daily SITAGLIPTIN PHOSPHATE 27946910009 Active Elizabeth Sheridan CLARITIN 10 MG TAB 1 PO daily LORATADINE 38583423258 Active Elizabeth Sheridan ACTOS 45 MG TABS 1 PO daily PIOGLITAZONE HCL 56735624622 No Longer Active Padmaalirio Sanchez FISH OIL 1000 MG CAPS 1 PO daily OMEGA-3 FATTY ACIDS 17526811493 Active Padmaalirio Sanchez BIAXIN XL PAC 500 MG TB24 2 pills at same time daily for 7 days CLARITHROMYCIN 39757674687 No Longer Active Padmaalirio Sanchez SINGULAIR 10 MG TABS 1 po daily MONTELUKAST SODIUM 06713675723 Active Elizabeth Sheridan SINGULAIR 10 MG TABS 1 PO daily MONTELUKAST SODIUM 61567417280 No Longer Active Padma Sanchez SILVADENE 1 % CREA Apply to left lateral foot affected area TID and apply dressing. SILVER SULFADIAZINE 53714113618 No Longer Active Padmaalirio Sanchez PREMARIN 0.625 MG/GM CREA 1 gm intravaginally HS 3 times a week for 4 weeks then twice a week ESTROGENS, CONJUGATED VAGINAL 08518349642 No Longer Active Padma Sanchez BIAXIN XL PAC 500 MG TB24 2 pills at same time daily for 7 days CLARITHROMYCIN 07255731085 No Longer Active Padma Sanchez GLUCOPHAGE 500 MG TABS 2 PO BID METFORMIN HCL 74343339106 Active Elizabeth Sheridan PYRIDIUM 200 MG TAB 1 PO TID prn urinary urgency PHENAZOPYRIDINE HCL 56184121908 No Longer Active Padma Sanchez AMOXICILLIN 500 MG CAP 1 PO TID AMOXICILLIN 16288043452 No Longer Active Padmaalirio Sanchez PROAIR HFA 108 (90 BASE) MCG/ACT AERS 2 puffs every 6 hrs prn ALBUTEROL SULFATE 17383801991 Active Phyllis Fisher ACIPHEX 20 MG TBEC 1 PO daily RABEPRAZOLE SODIUM 58322471723 No Longer Active Elizabeth Sheridan HYDROCHLOROTHIAZIDE 25 MG TAB 1 PO QD HYDROCHLOROTHIAZIDE 86578882748 Active Elizabeth Sheridan LASIX 40 MG TAB 1 PO daily FUROSEMIDE 32423133627 Active Elizabeth Sheridan ALTOPREV 40 MG TB24 1 PO daily LOVASTATIN 13399437874 Active Elizabeth Sheridan Immunizations Vaccine Administration Date [...] mg/dL Encounters Code Encounter Date Provider Facility CPT-40183 Ofc Vst, Est Level III 15:08:45 CDT Padma Yamilazeyad Sanchez [facility] CPT-87238 Ofc Vst, Est Level IV 17:59:31 CDT Padma Yamilazeyad Sanchez [facility] CPT-67252 Ofc Vst, Est Level IV 20:35:52 CDT Padma Yamilazeyad Sanchez, DO, FACP CPT-93770 Ofc Vst, Est Level IV 17:39:19 STUDIO CAMERA OPERATOR Padma Sanchez, DO, FACP CPT-16593 Ofc Vst, Est Level IV 15:29:57 CDT Padma Yamilazeyad Sanchez [facility] CPT-16724 Ofc Vst, Est Level III 16:04:17 CDT Padma Yamilazeyad Jamaner, DO, FACP CPT-97235 Ofc Vst, Est Level IV 14:48:46 CDT Padma Sanchez, DO, FACP CPT-33278 Ofc Vst, Est Level IV 16:21:06 CDT Padma Sanchez, DO, FACP CPT-32601 Ofc Vst, Est Level IV 15:36:57 CDT Padma Sanchez, DO, FACP CPT-39233 Ofc Vst, Est Level IV 15:35:57 STUDIO CAMERA OPERATOR Padma Sanchez, DO, FACP CPT-45253 Ofc Vst, Est Level IV 13:46:44 STUDIO CAMERA OPERATOR Padma Sanchez, DO, FACP CPT-71343 Ofc Vst, Est Level IV 14:20:29 CDT Padma [facility]ICE CPT-82909 Ofc Vst, Est Level IV 14:05:36 CDT Padma [facility] CPT-85502 Ofc Vst, Est Level IV 13:54:42 CDT Padma [facility] CPT-16676 Ofc Vst, Est Level IV 13:48:44 STUDIO CAMERA OPERATOR Padma [facility] CPT-06994 Ofc Vst, Est Level IV 14:16:17 CDT Padma [facility] CPT-57261 Ofc Vst, Est Level IV 14:06:24 CDT [facility] Ofc Vst, Est Level IV 14:03:09 STUDIO CAMERA OPERATOR Padma [facility] CPT-35852 Ofc Vst, Est Level IV 14:31:46 STUDIO CAMERA OPERATOR Padma [facility] CPT-17331 Ofc Vst, Est Level III 14:19:18 CDT Padma [facility] CPT-76563 Ofc Vst, Est Level IV 14:17:24 CDT Padma [facility] CPT-66153 Ofc Vst, Est Level IV 14:16:13 CDT Padma [facility] CPT-29765 Ofc Vst, Est Level III 14:46:11 CDT Padma [facility] CPT-64819 Ofc Vst, Est Level III 15:28:13 CDT Padma [facility] CPT-62436 Ofc Vst, Est Level IV 14:51:56 STUDIO CAMERA OPERATOR [facility]ICE CPT-99539 Ofc Vst, Est Level III 13:59:11 STUDIO CAMERA OPERATOR Padma [facility] CPT-71199 Ofc Vst, Est Level IV 14:03:19 CDT [facility] CPT-66445 Ofc Vst, Est Level IV 15:24:50 CDT [facility] CPT-78563 Ofc Vst, New Level IV 13:42:26 CDT [facility] Procedures Code Procedure Name Date Entry Date Standard Description CPT-01476 Preventive, Est, (40-64) 11:40:53 CDT CPT-11137 Preventive, Est, (40-64) 14:46:08 CDT
--- OUTSIDE RECORDS SUMMARY | 2017-11-28 18:02 | XMS REPORT | Clinical Summary ---
Author Author User, Mojostreet Organization Padma Sanchez DO, FACP Address Unknown [...] 300.00 Active Padma Sanchez Anxiety state, unspecified ASTHMA, CHRN OBST W/(ACUTE) EXACERBATION 493.22 Active Padma Sanchez Chronic obstructive asthma, with (acute) exacerbation Medication List Medication Instructions Start Date Stop Date Generic Name [facility] Status Provider Patient Instruction ROBITUSSIN A-C 10-100 MG/5ML SYRUP 1 teaspoon PO Q 4-6 hr prn ROBITUSSIN A-C 10-100 MG/5ML SYRUP No Longer Active Padma Sanchez LEVAQUIN 500 MG TAB 1 PO QD LEVOFLOXACIN 82387727698 No Longer Active Padma Sanchez XANAX 0.25 MG TABS 1 PO Q6hrs prn ALPRAZOLAM 37178174929 Active Padma Sanchez CYMBALTA 30 MG CPEP 1 PO daily DULOXETINE HCL 24922562177 Active Elizabeth Sheridan TOPROL XL 25 MG TB24 1 PO daily METOPROLOL SUCCINATE 07948119923 Active Padma Sanchez ADVAIR DISKUS 100-50 MCG/DOSE MISC 1 puff BID FLUTICASONE-SALMETEROL 35781461881 Active Elizabeth Sheridan GLYBURIDE 1.25 MG TABS 1 PO QD GLYBURIDE 59622260079 Active Elizabeth Sheridan POTASSIUM CHLORIDE ER 10 MEQ CR-CAPS 2 PO DAILY POTASSIUM CHLORIDE 76225499262 Active Elizabeth Sher[facility] 56859711491 No Longer Active Padma Sanchez VALTREX 1 GM TAB 1 PO BID for 3 days at first sign of cold sore as needed VALACYCLOVIR HCL 55832447771 No Longer Active Padma Sanchez VITAMIN D 1000 UNIT TABS 1 PO Daily CHOLECALCIFEROL 11931861255 Active Padma Sanchez LISINOPRIL 10 MG TABS 1 PO daily LISINOPRIL 13342416999 Active Padma Sanchez PREDNISONE 10 MG TAB 2 PO at one time daily for 3 days then one PO daily for 3 days PREDNISONE 32157108166 No Longer Active Padma Sanchez SPIRIVA HANDIHALER 18 MCG CAPS 1 puff daily TIOTROPIUM BROMIDE MONOHYDRATE 58404482792 Active Padma Sanchez ALBUTEROL SULFATE 0.083 % NEBU SOLN 1 nebulizer treatment BID ALBUTEROL SULFATE 82579346277 Active Padma Sanchez PREDNISONE 10 MG TAB 2 PO daily at 1 time for 3 days then 1 PO daily for 3 days. PREDNISONE 78800887881 No Longer Active Padma Sanchez BIAXIN 500 MG TAB 1 PO BID CLARITHROMYCIN 30013862521 No Longer Active Padma Sanchez LEVAQUIN 500 MG TAB 1 PO QD LEVOFLOXACIN 59147620736 No Longer Active Elizabeth Sheridan PYRIDIUM 200 MG TAB 1 PO TID prn urinary urgency PHENAZOPYRIDINE HCL 28894905384 No Longer Active Elizabeth Sheridan DIFLUCAN 100 MG TAB 1 po daily FLUCONAZOLE 77139423206 No Longer Active Padma Sanchez PREDNISONE 20 MG TAB 1 PO daily for 3 days then 1/2 PO daily for 3 days. 2013 PREDNISONE 42612168310 No Longer Active Padma Sanchez ONETOUCH TEST STRP check sugar BID DX: 250.02 GLUCOSE BLOOD 23636271601 Active Elizabeth Sheridan PA PROBIOTIC COMPLEX TABS 1 po daily PROBIOTIC PRODUCT 38213476817 Active Padma Sanchez CENTRUM SILVER ULTRA WOMENS TABS 1 po daily MULTIPLE VITAMINS-MINERALS 80815039815 Active Padma Sanchez LEVAQUIN 500 MG TAB 1 PO QD LEVOFLOXACIN 92214925210 No Longer Active Padma Sanchez PREDNISONE 20 MG TAB 2 pills at once for 2 days then 1 pill daily for 5 days PREDNISONE 49916567189 No Longer Active Padma Sanchez PRILOSEC 10 MG CAP CR OMEPRAZOLE 36745068657 No Longer Active Padma Sanchez TRIAMCINOLONE ACETONIDE 0.025 % CREA apply daily prn sparingly TRIAMCINOLONE ACETONIDE (TOP) 40900367289 No Longer Active Padma Sanchez CORICIDIN HBP CONGESTION/COUGH CAPS As Directed PRN DEXTROMETHORPHAN-GUAIFENESIN CAPS 11385976267 No Longer Active Padma Sanchez CICLOPIROX OLAMINE 0.77 % CREA Apply to affected area twice daily CICLOPIROX OLAMINE 37587248408 No Longer Active Padma Sanchez ROBITUSSIN A-C 10-100 MG/5ML SYRUP 1 teaspoon PO Q 4-6 hr prn ROBITUSSIN A-C 10-100 MG/5ML SYRUP No Longer Active Elizabeth Hulen ATROVENT 0.06 % SOLN 2 puffs each nostril TID prn runny nose 2012 IPRATROPIUM BROMIDE 09029265472 No Longer Active Padma Sanchez DIFLUCAN 150 MG TAB 1 PO QD for 3 days FLUCONAZOLE 55830356936 No Longer Active Yesenia Carlos ADVAIR DISKUS 100-50 MCG/DOSE MISC 1 puff BID FLUTICASONE-SALMETEROL 81903348906 No Longer Active Padma SALCIDO'Flex NASAL SPRAY (DEXAMETHASONE, GENTAMICIN, SALINE) 2 puffs each nostril TID for [address] OSEI NASAL SPRAY ( DEXAMETHASONE, GENTAMICIN, SALINE) No Longer Active Padma Sanchez PREDNISONE 20 MG TAB 2 pills at once for 3 days then 1 pill daily for 2 days PREDNISONE 34488786372 No Longer Active Padmaalirio Sanchez LEVAQUIN 500 MG TAB 1 PO QD LEVOFLOXACIN 66073840927 No Longer Active Padma Yamila Sanchez TRANSDERM-SCOP 1.5 MG PT72 1 patch behind ear and change every 3 days SCOPOLAMINE BASE 99095099855 No Longer Active Padma Yamila Sanchez JANUVIA 100 MG TABS 1 PO daily SITAGLIPTIN PHOSPHATE 48309228387 Active Elizabeth Sheridan CLARITIN 10 MG TAB 1 PO daily LORATADINE 75671621960 Active Elizabeth Sheridan ACTOS 45 MG TABS 1 PO daily PIOGLITAZONE HCL 36002013572 No Longer Active Padmaalirio Sanchez FISH OIL 1000 MG CAPS 1 PO daily OMEGA-3 FATTY ACIDS 55535270135 Active Padmaalirio Sanchez BIAXIN XL PAC 500 MG TB24 2 pills at same time daily for 7 days CLARITHROMYCIN 00110762630 No Longer Active Padmaalirio Sanchez SINGULAIR 10 MG TABS 1 po daily MONTELUKAST SODIUM 90310411286 Active Elizabeth Sheridan SINGULAIR 10 MG TABS 1 PO daily MONTELUKAST SODIUM 07093401788 No Longer Active Padmaalirio Sanchez SILVADENE 1 % CREA Apply to left lateral foot affected area TID and apply dressing. SILVER SULFADIAZINE 64768880355 No Longer Active Padmaalirio Sanchez PREMARIN 0.625 MG/GM CREA 1 gm intravaginally HS 3 times a week for 4 weeks then twice a week ESTROGENS, CONJUGATED VAGINAL 56412928879 No Longer Active Padmaalirio Sanchez BIAXIN XL PAC 500 MG TB24 2 pills at same time daily for 7 days CLARITHROMYCIN 93233787886 No Longer Active Padmaalirio Sanchez GLUCOPHAGE 500 MG TABS 2 PO BID METFORMIN HCL 86072745929 Active Elizabeth Sheridan PYRIDIUM 200 MG TAB 1 PO TID prn urinary urgency PHENAZOPYRIDINE HCL 76232627510 No Longer Active Padma Sanchez AMOXICILLIN 500 MG CAP 1 PO TID AMOXICILLIN 61632002881 No Longer Active Padma Sanchez PROAIR HFA 108 (90 BASE) MCG/ACT AERS 2 puffs every 6 hrs prn ALBUTEROL SULFATE 25672196454 Active Phyllis Fisher ACIPHEX 20 MG TBEC 1 PO daily RABEPRAZOLE SODIUM 35169214739 No Longer Active Elizabeth Sheridan HYDROCHLOROTHIAZIDE 25 MG TAB 1 PO QD HYDROCHLOROTHIAZIDE 90593356729 Active Elizabeth Sheridan LASIX 40 MG TAB 1 PO daily FUROSEMIDE 59879303932 Active Elizabeth Sheridan ALTOPREV 40 MG TB24 1 PO daily LOVASTATIN 32905919140 Active Elizabeth Sheridan Immunizations Vaccine Administration Date Value Standard Description Influenza vaccine given DONE influenza virus vaccine, unspecified formulation Influenza vaccine given Done influenza virus vaccine, unspecified formulation Vital Signs Date Name Value Unit Range Description pulse rate E&M - 8867-4 84 /min Heart rate respiratory rate E&M - 9279-1 14 /min Resp rate temperature E&M 97.8 [degF] Body temperature weight E&M - 3141-9 273 [lb_av] Weight Measured blood pressure, diastolic - [...] E&M - 3141-9 274 [lb_av] Weight Measured Diagnostic Results Date Name Value Unit Range Description Clinical Lists Update: CBC,CMP,TSH,HGA1C - Chemistry Estimated Glomerular Filtration Rate (calc) 89 mL/min/1.73m2 glucose, plasma fasting 141 mg/dL albumin, serum 4.0 g/dL alkaline phosphatase, serum 61 U/L urea nitrogen, blood 17 mg/dL calcium, serum 9.2 mg/dL chloride, serum 99 mmol/L cholesterol, serum 186 mg/dL cholesterol/HDL ratio, serum, percent 4.3 anion gap, serum 9 sodium, serum 135 mmol/L triglyceride, serum, fasting 141 mg/dL bilirubin, serum, total 0.4 mg/dL alanine aminotransferase (SGPT), serum 17 U/L aspartate aminotransferase (SGOT), serum 13 U/L protein, total, serum 6.3 g/dL potassium, serum 4.2 mmol/L LDL cholesterol, serum 115 mg/dL thyroid stimulating hormone, serum 3.41 u[iU]/mL hemoglobin A1C, blood, as % of total hemoglobin 7.4 % HDL cholesterol, serum 43.0 mg/dL creatinine, serum 0.7 mg/dL carbon dioxide, venous blood 31.0 mmol/L Clinical Lists Update: CBC,CMP,TSH,HGA1C - Hematology leukocyte count, blood 8.9 10*3/mm3 mean corpuscular volume, RBC 88 fL red blood cell distribution width 17.3 % hemoglobin, blood 11.3 g/dL platelet count 389 10*3/mm3 erythrocyte (RBC) count 4.15 10*6/mm3 hematocrit, blood 36 % Clinical Lists Update: CMP,CHOL,TRIG,HGA1C - Chemistry Estimated Glomerular Filtration Rate (calc) 80 mL/min/1.73m2 glucose, plasma fasting 216 mg/dL anion gap, serum 11 sodium, serum 132 mmol/L triglyceride, serum, fasting 160 mg/dL bilirubin, serum, total 0.3 mg/dL alanine aminotransferase (SGPT), serum 21 U/L aspartate aminotransferase (SGOT), serum 15 U/L protein, total, serum 6.7 g/dL potassium, serum 3.7 mmol/L hemoglobin A1C, blood, as % of total hemoglobin 8.0 % creatinine, serum 0.8 mg/dL carbon dioxide, venous blood 33.0 mmol/L cholesterol, serum 165 mg/dL chloride, serum 92 mmol/L calcium, serum 9.4 mg/dL urea nitrogen, blood 18 mg/dL alkaline phosphatase, serum 95 U/L albumin, serum 4.1 g/dL Clinical Lists Update: CMP,FLP,HgA1c,Microalbumin - Chemistry Estimated [...] mg/dL Encounters Code Encounter Date Provider Facility CPT-59396 Ofc Vst, Est Level III 16:39:25 CDT Padma Yamila [facility] CPT-60130 Ofc Vst, Est Level III 15:08:45 CDT Padma Yamila Sanchez [facility] CPT-66171 Ofc Vst, Est Level IV 17:59:31 CDT Padma Yamilazeyad Sanchez [facility] CPT-34689 Ofc Vst, Est Level IV 20:35:52 CDT Padmaalirio Sanchez, DO, FACP CPT-78060 Ofc Vst, Est Level IV 17:39:19 [facility] Padma Sanchez, DO, FACP CPT-40586 Ofc Vst, Est Level IV 15:29:57 CDT Padmaalirio Houghcindy Sanchez [facility] CPT-75985 Ofc Vst, Est Level III 16:04:17 CDT Padma Sanchez, DO, FACP CPT-20287 Ofc Vst, Est Level IV 14:48:46 CDT Padma Sanchez, DO, FACP CPT-24144 Ofc Vst, Est Level IV 16:21:06 CDT Padma Sanchez, DO, FACP CPT-85034 Ofc Vst, Est Level IV 15:36:57 CDT Padma Sanchez, DO, FACP CPT-64368 Ofc Vst, Est Level IV 15:35:57 [facility] Padma Sanchez, DO, FACP CPT-35368 Ofc Vst, Est Level IV 13:46:44 [facility] Padma Sanchez, DO, FACP CPT-83130 Ofc Vst, Est Level IV 14:20:29 CDT Padma [facility] CPT-63832 Ofc Vst, Est Level IV 14:05:36 CDT Padma [facility] CPT-56541 Ofc Vst, Est Level IV 13:54:42 CDT Padma [facility] CPT-24820 Ofc Vst, Est Level IV 13:48:44 [facility] CPT-46292 Ofc Vst, Est Level IV 14:16:17 CDT [facility] CPT-69287 Ofc Vst, Est Level IV 14:06:24 CDT [facility] CPT-89731 Ofc Vst, Est Level IV 14:03:09 [facility] CPT-12030 Ofc Vst, Est Level IV 14:31:46 [facility] CPT-06753 Ofc Vst, Est Level III 14:19:18 CDT [facility] CPT-33105 Ofc Vst, Est Level IV 14:17:24 CDT [facility] CPT-30472 Ofc Vst, Est Level IV [facility]16[facility], Est Level III 14:46:[facility] Ofc Vst, Est Level III 15:28:13 CDT [facility] CPT-87282 Ofc Vst, Est Level IV 14:51:56 [facility] CPT-97919 Ofc Vst, Est Level III 13:59:11 [facility] CPT-50766 Ofc Vst, Est Level IV 14:03:19 CDT [facility] CPT-14758 Ofc Vst, Est Level IV 15:24:50 CDT [facility] CPT-92428 Ofc Vst, New Level IV 13:42:26 CDT [facility] Procedures Code Procedure Name Date Entry Date Standard Description CPT-73313 Preventive, Est, (40-64) 11:40:53 CDT CPT-63773 Preventive, Est, (40-64) 14:46:08 CDT
--- OUTSIDE RECORDS SUMMARY | 2017-11-28 18:03 | XMS REPORT | Clinical Summary ---
Author Author User, PharmMD Organization Padma Sanchez DO, FACP Address Unknown [...] MG TABS 1 PO Q6hrs prn ALPRAZOLAM 73512588450 Active Padma Sanchez CYMBALTA 30 MG CPEP 1 PO daily DULOXETINE HCL 88163623100 Active Elizabeth Sheridan TOPROL XL 25 MG TB24 1 PO daily METOPROLOL SUCCINATE 71101507186 Active Padma Sanchez ADVAIR DISKUS 100-50 MCG/DOSE MISC 1 puff BID FLUTICASONE-SALMETEROL 55817794319 Active Elizabeth Sheridan GLYBURIDE 1.25 MG TABS 1 PO QD GLYBURIDE 34554235033 Active Elizabeth Sheridan POTASSIUM CHLORIDE ER 10 MEQ CR-CAPS 2 PO DAILY POTASSIUM CHLORIDE 20810606436 Active Elizabeth Sheridan [facility] MISC DIRECTED DX: 250.02 [facility] 44707019068 No Longer Active Padma Sanchez VALTREX 1 GM TAB 1 PO BID for 3 days at first sign of cold sore as needed VALACYCLOVIR HCL 69841045136 No Longer Active Padma Sanchez VITAMIN D 1000 UNIT TABS 1 PO Daily CHOLECALCIFEROL 40576073465 Active Padma Sanchez LISINOPRIL 10 MG TABS 1 PO daily LISINOPRIL 63693079309 Active Padma Sanchez PREDNISONE 10 MG TAB 2 PO at one time daily for 3 days then one PO daily for 3 days PREDNISONE 83311383957 No Longer Active Padma Sanchez SPIRIVA HANDIHALER 18 MCG CAPS 1 puff daily TIOTROPIUM BROMIDE MONOHYDRATE 38430325819 Active Padma Sanchez ALBUTEROL SULFATE 0.083 % NEBU SOLN 1 nebulizer treatment BID ALBUTEROL SULFATE 01047888301 Active Padma Sanchez PREDNISONE 10 MG TAB 2 PO daily at 1 time for 3 days then 1 PO daily for 3 days. PREDNISONE 60581956977 No Longer Active Padma Sanchez BIAXIN 500 MG TAB 1 PO BID CLARITHROMYCIN 78077573649 No Longer Active Padma Sanchez LEVAQUIN 500 MG TAB 1 PO QD LEVOFLOXACIN 37513228337 No Longer Active Elizabeth Sheridan PYRIDIUM 200 MG TAB 1 PO TID prn urinary urgency PHENAZOPYRIDINE HCL 42887066226 No Longer Active Elizabeth Sheridan DIFLUCAN 100 MG TAB 1 po daily FLUCONAZOLE 42189101348 No Longer Active Padma Sanchez PREDNISONE 20 MG TAB 1 PO daily for 3 days then 1/2 PO daily for 3 days. 2013 PREDNISONE 85946024558 No Longer Active Padma Sanchez ONETOUCH TEST STRP check sugar BID DX: 250.02 GLUCOSE BLOOD 18602976949 Active Elizabeth FAJARDO PROBIOTIC COMPLEX TABS 1 po daily PROBIOTIC PRODUCT 46251930879 Active Padma Sanchez CENTRUM SILVER ULTRA WOMENS TABS 1 po daily MULTIPLE VITAMINS-MINERALS 22379093010 Active Padma Snachez LEVAQUIN 500 MG TAB 1 PO QD LEVOFLOXACIN 78389731046 No Longer Active Padma Sanchez PREDNISONE 20 MG TAB 2 pills at once for 2 days then 1 pill daily for 5 days PREDNISONE 69403134130 No Longer Active Padma Sanchez PRILOSEC 10 MG CAP CR OMEPRAZOLE 83982004383 No Longer Active Padma Sanchez TRIAMCINOLONE ACETONIDE 0.025 % CREA apply daily prn sparingly TRIAMCINOLONE ACETONIDE (TOP) 66444662213 No Longer Active Padma Sanchez CORICIDIN HBP CONGESTION/COUGH CAPS As Directed PRN DEXTROMETHORPHAN-GUAIFENESIN CAPS 61191690870 No Longer Active Padma Sanchez CICLOPIROX OLAMINE 0.77 % CREA Apply to affected area twice daily CICLOPIROX OLAMINE 48597883576 No Longer Active Padma Sanchez ROBITUSSIN A-C 10-100 MG/5ML SYRUP 1 teaspoon PO Q 4-6 hr prn ROBITUSSIN A-C 10-100 MG/5ML SYRUP No Longer Active Elizabeth Sheridan ATROVENT 0.06 % SOLN 2 puffs each nostril TID prn runny nose 2012 IPRATROPIUM BROMIDE 73752670921 No Longer Active Padma Sanchez DIFLUCAN 150 MG TAB 1 PO QD for 3 days FLUCONAZOLE 06386449768 No Longer Active Yesenia Carlos ADVAIR DISKUS 100-50 MCG/DOSE MISC 1 puff BID FLUTICASONE-SALMETEROL 87491949579 No Longer Active Padma SALCIDO'S NASAL SPRAY (DEXAMETHASONE, GENTAMICIN, SALINE) 2 puffs each nostril TID for [address] SALCIDO'Flex NASAL SPRAY ( DEXAMETHASONE, GENTAMICIN, SALINE) No Longer Active Padma Sanchez PREDNISONE 20 MG TAB 2 pills at once for 3 days then 1 pill daily for 2 days PREDNISONE 43089774093 No Longer Active Padma Sanchez LEVAQUIN 500 MG TAB 1 PO QD LEVOFLOXACIN 40987583512 No Longer Active Padma Sanchez TRANSDERM-SCOP 1.5 MG PT72 1 patch behind ear and change every 3 days SCOPOLAMINE BASE 54732479020 No Longer Active Padma Sanchez JANUVIA 100 MG TABS 1 PO daily SITAGLIPTIN PHOSPHATE 32289888290 Active Elizabeth Sheridan CLARITIN 10 MG TAB 1 PO daily LORATADINE 42084344718 Active Elizabeth Sheridan ACTOS 45 MG TABS 1 PO daily PIOGLITAZONE HCL 90634510458 No Longer Active Padmaalirio Sanchez FISH OIL 1000 MG CAPS 1 PO daily OMEGA-3 FATTY ACIDS 43552153744 Active Padmaalirio Sanchez BIAXIN XL PAC 500 MG TB24 2 pills at same time daily for 7 days CLARITHROMYCIN 03602379889 No Longer Active Padmaalirio Sanchez SINGULAIR 10 MG TABS 1 po daily MONTELUKAST SODIUM 40881036916 Active Elizabeth Sheridan SINGULAIR 10 MG TABS 1 PO daily MONTELUKAST SODIUM 52781392425 No Longer Active Padma Sanchez SILVADENE 1 % CREA Apply to left lateral foot affected area TID and apply dressing. SILVER SULFADIAZINE 78308543799 No Longer Active Padmaalirio Sanchez PREMARIN 0.625 MG/GM CREA 1 gm intravaginally HS 3 times a week for 4 weeks then twice a week ESTROGENS, CONJUGATED VAGINAL 54864110883 No Longer Active Padma Sanchez BIAXIN XL PAC 500 MG TB24 2 pills at same time daily for 7 days CLARITHROMYCIN 75579737341 No Longer Active Padma Sanchez GLUCOPHAGE 500 MG TABS 2 PO BID METFORMIN HCL 23900781007 Active Elizabeth Sheridan PYRIDIUM 200 MG TAB 1 PO TID prn urinary urgency PHENAZOPYRIDINE HCL 76427412348 No Longer Active Padma Sanchez AMOXICILLIN 500 MG CAP 1 PO TID AMOXICILLIN 16408403590 No Longer Active Padmaalirio Sanchez PROAIR HFA 108 (90 BASE) MCG/ACT AERS 2 puffs every 6 hrs prn ALBUTEROL SULFATE 07391916112 Active Phyllis Fisher ACIPHEX 20 MG TBEC 1 PO daily RABEPRAZOLE SODIUM 96992137167 No Longer Active Elizabeth Sheridan HYDROCHLOROTHIAZIDE 25 MG TAB 1 PO QD HYDROCHLOROTHIAZIDE 02824933287 Active Elizabeth Sheridan LASIX 40 MG TAB 1 PO daily FUROSEMIDE 24049634655 Active Elizabeth Sheridan ALTOPREV 40 MG TB24 1 PO daily LOVASTATIN 18116411111 Active Elizabeth Sheridan Immunizations Vaccine Administration Date [...] mg/dL Encounters Code Encounter Date Provider Facility CPT-54304 Ofc Vst, Est Level III 15:08:45 CDT Padma Yamilazeyad [facility] CPT-01766 Ofc Vst, Est Level IV 17:59:31 CDT Padma Yamilazeyad Sanchez [facility] CPT-06731 Ofc Vst, Est Level IV 20:35:52 CDT Padma Yamilazeyad Sanchez, DO, FACP CPT-23262 Ofc Vst, Est Level IV 17:39:19 [facility] Padma Sanchez, DO, FACP CPT-81947 Ofc Vst, Est Level IV 15:29:57 CDT Padma Yamilazeyad Sanchez [facility] CPT-45793 Ofc Vst, Est Level III 16:04:17 CDT Padma Yamilazeyad Jamaner, DO, FACP CPT-21643 Ofc Vst, Est Level IV 14:48:46 CDT Padma Sanchez, DO, FACP CPT-46988 Ofc Vst, Est Level IV 16:21:06 CDT Padma Sanchez, DO, FACP CPT-35203 Ofc Vst, Est Level IV 15:36:57 CDT Padma Sanchez, DO, FACP CPT-56632 Ofc Vst, Est Level IV 15:35:57 [facility] Padma Sanchez, DO, FACP CPT-10319 Ofc Vst, Est Level IV 13:46:44 [facility] Padma Sanchez, DO, FACP CPT-25623 Ofc Vst, Est Level IV 14:20:29 CDT Padma [facility] OFFICE CPT-28822 Ofc Vst, Est Level IV 14:05:36 CDT Padma [facility] CPT-42942 Ofc Vst, Est Level IV 13:54:42 CDT Padma [facility] CPT-58504 Ofc Vst, Est Level IV 13:48:44 [facility] Padma [facility] CPT-13125 Ofc Vst, Est Level IV 14:16:17 CDT Padma [facility] CPT-31097 Ofc Vst, Est Level IV 14:06:24 CDT [facility] Ofc Vst, Est Level IV 14:03:09 [facility] Padma [facility] CPT-65636 Ofc Vst, Est Level IV 14:31:46 [facility] [employer] Padma [facility] CPT-97915 Ofc Vst, Est Level III 14:19:18 CDT Padma [facility] CPT-60351 Ofc Vst, Est Level IV 14:17:24 CDT Padma [facility] CPT-14733 Ofc Vst, Est Level IV 14:16:13 CDT Padma [facility] CPT-51764 Ofc Vst, Est Level III 14:46:11 CDT Padma [facility] CPT-44001 Ofc Vst, Est Level III 15:28:13 CDT Padma [facility] CPT-97686 Ofc Vst, Est Level IV 14:51:56 HSPT T[facility] OFFICE CPT-72720 Ofc Vst, Est Level III 13:59:11 [facility] Padma [facility] CPT-46737 Ofc Vst, Est Level IV 14:03:19 CDT [facility] CPT-71604 Ofc Vst, Est Level IV 15:24:50 CDT [facility] CPT-86765 Ofc Vst, New Level IV 13:42:26 CDT [facility] Procedures Code Procedure Name Date Entry Date Standard Description CPT-60104 Preventive, Est, (40-64) 11:40:53 CDT CPT-77324 Preventive, Est, (40-64) 14:46:08 CDT
--- OUTSIDE RECORDS SUMMARY | 2017-11-28 18:04 | XMS REPORT | Clinical Summary ---
Author Author User, [employer] Organization Padma Sanchez DO, FACP Address Unknown [...] Instructions Start Date Stop Date Generic Name [facility] Status Provider Patient Instruction XANAX 0.25 MG TABS 1 PO Q6hrs prn ALPRAZOLAM 75294364571 Active Padma Sanchez CYMBALTA 30 MG CPEP 1 PO daily DULOXETINE HCL 55182540975 Active Elizabeth Sheridan TOPROL XL 25 MG TB24 1 PO daily METOPROLOL SUCCINATE 04476081722 Active Padma Sanchez ADVAIR DISKUS 100-50 MCG/DOSE MISC 1 puff BID FLUTICASONE-SALMETEROL 73172525001 Active Elizabeth Sheridan GLYBURIDE 1.25 MG TABS 1 PO QD GLYBURIDE 00459732783 Active Elizabeth Sheridan POTASSIUM CHLORIDE ER 10 MEQ CR-CAPS 2 PO DAILY POTASSIUM CHLORIDE 23969754356 Active [facility]: [facility] 03822829505 No Longer Active Padma Sanchez VALTREX 1 GM TAB 1 PO BID for 3 days at first sign of cold sore as needed VALACYCLOVIR HCL 10473965676 No Longer Active Padma Sanchez VITAMIN D 1000 UNIT TABS 1 PO Daily CHOLECALCIFEROL 31186864651 Active Padma Sanchez LISINOPRIL 10 MG TABS 1 PO daily LISINOPRIL 61737417289 Active Padma Sanchez PREDNISONE 10 MG TAB 2 PO at one time daily for 3 days then one PO daily for 3 days PREDNISONE 10158932689 No Longer Active Padma Sanchez SPIRIVA HANDIHALER 18 MCG CAPS 1 puff daily TIOTROPIUM BROMIDE MONOHYDRATE 40122564182 Active Padma Sanchez ALBUTEROL SULFATE 0.083 % NEBU SOLN 1 nebulizer treatment BID ALBUTEROL SULFATE 44026295546 Active Padma Sanchez PREDNISONE 10 MG TAB 2 PO daily at 1 time for 3 days then 1 PO daily for 3 days. PREDNISONE 29451743808 No Longer Active Padma Sanchez BIAXIN 500 MG TAB 1 PO BID CLARITHROMYCIN 77036098365 No Longer Active Padma Sanchez LEVAQUIN 500 MG TAB 1 PO QD LEVOFLOXACIN 99464571474 No Longer Active Elizabeth Sheridan PYRIDIUM 200 MG TAB 1 PO TID prn urinary urgency PHENAZOPYRIDINE HCL 60172138403 No Longer Active Elizabeth Sheridan DIFLUCAN 100 MG TAB 1 po daily FLUCONAZOLE 26679936567 No Longer Active Padma Sanchez PREDNISONE 20 MG TAB 1 PO daily for 3 days then 1/2 PO daily for 3 days. 2013 PREDNISONE 57788507206 No Longer Active Padma Sanchez ONETOUCH TEST STRP check sugar BID DX: 250.02 GLUCOSE BLOOD 93485044370 Active Elizabeth FAJARDO PROBIOTIC COMPLEX TABS 1 po daily PROBIOTIC PRODUCT 48744709329 Active Padma Sanchez CENTRUM SILVER ULTRA WOMENS TABS 1 po daily MULTIPLE VITAMINS-MINERALS 69954447378 Active Padma Sanchez LEVAQUIN 500 MG TAB 1 PO QD LEVOFLOXACIN 92770756154 No Longer Active Padma Sanchez PREDNISONE 20 MG TAB 2 pills at once for 2 days then 1 pill daily for 5 days PREDNISONE 83612131875 No Longer Active Padma Sanchez PRILOSEC 10 MG CAP CR OMEPRAZOLE 36895513490 No Longer Active Padma Sanchez TRIAMCINOLONE ACETONIDE 0.025 % CREA apply daily prn sparingly TRIAMCINOLONE ACETONIDE (TOP) 22459086707 No Longer Active Padma Sanchez CORICIDIN HBP CONGESTION/COUGH CAPS As Directed PRN DEXTROMETHORPHAN-GUAIFENESIN CAPS 80965647972 No Longer Active Padma Sanchez CICLOPIROX OLAMINE 0.77 % CREA Apply to affected area twice daily CICLOPIROX OLAMINE 90688039595 No Longer Active Padma Sanchez ROBITUSSIN A-C 10-100 MG/5ML SYRUP 1 teaspoon PO Q 4-6 hr prn ROBITUSSIN A-C 10-100 MG/5ML SYRUP No Longer Active Elizabeth Sheridan ATROVENT 0.06 % SOLN 2 puffs each nostril TID prn runny nose 2012 IPRATROPIUM BROMIDE 69674740219 No Longer Active Padma Sanchez DIFLUCAN 150 MG TAB 1 PO QD for 3 days FLUCONAZOLE 31469937053 No Longer Active Yesenia Carlos ADVAIR DISKUS 100-50 MCG/DOSE MISC 1 puff BID FLUTICASONE-SALMETEROL 53586805167 No Longer Active Padma SALCIDO'Flex NASAL SPRAY (DEXAMETHASONE, GENTAMICIN, SALINE) 2 puffs each nostril TID for [address] SALCIDO'Flex NASAL SPRAY ( DEXAMETHASONE, GENTAMICIN, SALINE) No Longer Active Padma Sanchez PREDNISONE 20 MG TAB 2 pills at once for 3 days then 1 pill daily for 2 days PREDNISONE 80798383157 No Longer Active Padma Sanchez LEVAQUIN 500 MG TAB 1 PO QD LEVOFLOXACIN 27381690609 No Longer Active Padma Sanchez TRANSDERM-SCOP 1.5 MG PT72 1 patch behind ear and change every 3 days SCOPOLAMINE BASE 21304858469 No Longer Active Padma Sanchez JANUVIA 100 MG TABS 1 PO daily SITAGLIPTIN PHOSPHATE 81165046287 Active Elizabeth Sheridan CLARITIN 10 MG TAB 1 PO daily LORATADINE 07127206897 Active Elizabeth Sheridan ACTOS 45 MG TABS 1 PO daily PIOGLITAZONE HCL 41898958366 No Longer Active Padma Sanchez FISH OIL 1000 MG CAPS 1 PO daily OMEGA-3 FATTY ACIDS 65011958150 Active Padmaalirio Sanchez BIAXIN XL PAC 500 MG TB24 2 pills at same time daily for 7 days CLARITHROMYCIN 00614607154 No Longer Active Padmaalirio Sanchez SINGULAIR 10 MG TABS 1 po daily MONTELUKAST SODIUM 14785329663 Active Elizabeth Sheridan SINGULAIR 10 MG TABS 1 PO daily MONTELUKAST SODIUM 49347354649 No Longer Active Padma Sanchez SILVADENE 1 % CREA Apply to left lateral foot affected area TID and apply dressing. SILVER SULFADIAZINE 74644890325 No Longer Active Padmaalirio Sanchez PREMARIN 0.625 MG/GM CREA 1 gm intravaginally HS 3 times a week for 4 weeks then twice a week ESTROGENS, CONJUGATED VAGINAL 25642561021 No Longer Active Padma Sanchez BIAXIN XL PAC 500 MG TB24 2 pills at same time daily for 7 days CLARITHROMYCIN 92673096809 No Longer Active Padma Sanchez GLUCOPHAGE 500 MG TABS 2 PO BID METFORMIN HCL 22175500791 Active Elizabeth Sheridan PYRIDIUM 200 MG TAB 1 PO TID prn urinary urgency PHENAZOPYRIDINE HCL 78191628928 No Longer Active Padma Sanchez AMOXICILLIN 500 MG CAP 1 PO TID AMOXICILLIN 37838788917 No Longer Active Padma Sanchez PROAIR HFA 108 (90 BASE) MCG/ACT AERS 2 puffs every 6 hrs prn ALBUTEROL SULFATE 74774204186 Active Phyllis Fisher ACIPHEX 20 MG TBEC 1 PO daily RABEPRAZOLE SODIUM 28378185309 No Longer Active Elizabeth Sheridan HYDROCHLOROTHIAZIDE 25 MG TAB 1 PO QD HYDROCHLOROTHIAZIDE 59820140859 Active Elizabeth Sheridan LASIX 40 MG TAB 1 PO daily FUROSEMIDE 31228833987 Active Elizabeth Sheridan ALTOPREV 40 MG TB24 1 PO daily LOVASTATIN 69206647074 Active Elizabeth Sheridan Immunizations Vaccine Administration Date [...] mg/dL Encounters Code Encounter Date Provider Facility CPT-87039 Ofc Vst, Est Level III 15:08:45 CDT Padma Houghcindy Sanchez [place] CPT-97107 Ofc Vst, Est Level IV 17:59:31 CDT Padma Yamila Daniel [place] [facility] CPT-07011 Ofc Vst, Est Level IV 20:35:52 CDT Padma Yamila Daniel Sanchez, DO, FACP CPT-13300 Ofc Vst, Est Level IV 17:39:19 [employer] Padma Yamila Daniel Sanchez, DO, FACP CPT-22760 Ofc Vst, Est Level IV 15:29:57 CDT Padmaalirio Driscoll Daniel [place] [facility] CPT-78051 Ofc Vst, Est Level III 16:04:17 CDT Padma Yamila Daniel Jamaner, DO, FACP CPT-74896 Ofc Vst, Est Level IV 14:48:46 CDT Padma Yamila Daniel Sanchez, DO, FACP CPT-70303 Ofc Vst, Est Level IV 16:21:06 CDT Padma Yamilazeyad Sanchez, DO, FACP CPT-30010 Ofc Vst, Est Level IV 15:36:57 CDT Padma Yamilazeyad Jamaner, DO, FACP CPT-50080 Ofc Vst, Est Level IV 15:35:57 [employer] Padma Yamilazeyad Sanchez, DO, FACP CPT-53217 Ofc Vst, Est Level IV 13:46:44 [employer] Padma Sanchez, DO, FACP CPT-05913 Ofc Vst, Est Level IV 14:20:29 [address]ma [facility] CPT-60788 Ofc Vst, Est Level IV 14:05:36 [facility] Ofc Vst, Est Level IV 13:54:42 [address] [facility] CPT-40533 Ofc Vst, Est Level IV 13:48:44 [employer] Padma [facility] CPT-23562 Ofc Vst, Est Level IV 14:16:17 CDT Padma [facility] CPT-25550 Ofc Vst, Est Level IV 14:06:24 [facility] Ofc Vst, Est Level IV 14:03:09 [employer] Padma [facility] CPT-17801 Ofc Vst, Est Level IV 14:31:46 [employer] Padma [facility] CPT-95918 Ofc Vst, Est Level III 14:19:18 CDT Padma [facility] CPT-96994 Ofc Vst, Est Level IV 14:17:24 CDT Padma [facility] CPT-76718 Ofc Vst, Est Level IV 14:16:13 CDT Padma [facility] CPT-51625 Ofc Vst, Est Level III 14:46:11 CD[address] Padma [facility] CPT-92654 Ofc Vst, Est Level III 15:28:13 CDT Padma [facility] CPT-39968 Ofc Vst, Est Level IV 14:51:56 [employer] [facility] CPT-67581 Ofc Vst, Est Level III 13:59:11 [employer] Padma [facility] CPT-43086 Ofc Vst, Est Level IV 14:03:19 CDT [facility] CPT-33118 Ofc Vst, Est Level IV 15:24:50 CDT [facility]ICE CPT-15765 Ofc Vst, New Level IV 13:42:26 CDT [facility] Procedures Code Procedure Name Date Entry Date Standard Description CPT-86325 Preventive, Est, (40-64) 11:40:53 CDT CPT-80685 Preventive, Est, (40-64) 14:46:08 CDT
--- OUTSIDE RECORDS SUMMARY | 2017-11-28 18:04 | XMS REPORT | Clinical Summary ---
Author Author User, [employer] Organization Padma Sanchez DO, FACP Address Unknown [...] MG TABS 1 PO Q6hrs prn ALPRAZOLAM 13924536144 Active Padma Sanchez CYMBALTA 30 MG CPEP 1 PO daily DULOXETINE HCL 09703171447 Active Elizabeth Sheridan TOPROL XL 25 MG TB24 1 PO daily METOPROLOL SUCCINATE 10885006651 Active Padma Sanchez ADVAIR DISKUS 100-50 MCG/DOSE MISC 1 puff BID FLUTICASONE-SALMETEROL 44899488089 Active Elizabeth Sheridan GLYBURIDE 1.25 MG TABS 1 PO QD GLYBURIDE 13566260112 Active Elizabeth Sheridan POTASSIUM CHLORIDE ER 10 MEQ CR-CAPS 2 PO DAILY POTASSIUM CHLORIDE 66209500730 Active Elizabeth Sheridan [facility] MISC DIRECTED DX: 250.02 [facility] 75231756148 No Longer Active Padma Sanchez VALTREX 1 GM TAB 1 PO BID for 3 days at first sign of cold sore as needed VALACYCLOVIR HCL 99234166488 No Longer Active Padma Sanchez VITAMIN D 1000 UNIT TABS 1 PO Daily CHOLECALCIFEROL 61731328069 Active Padma Sanchez LISINOPRIL 10 MG TABS 1 PO daily LISINOPRIL 24789587481 Active Padma Sanchez PREDNISONE 10 MG TAB 2 PO at one time daily for 3 days then one PO daily for 3 days PREDNISONE 60923588799 No Longer Active Padma Sanchez SPIRIVA HANDIHALER 18 MCG CAPS 1 puff daily TIOTROPIUM BROMIDE MONOHYDRATE 63150053467 Active Padma Sanchez ALBUTEROL SULFATE 0.083 % NEBU SOLN 1 nebulizer treatment BID ALBUTEROL SULFATE 58966124398 Active Padma Sanchez PREDNISONE 10 MG TAB 2 PO daily at 1 time for 3 days then 1 PO daily for 3 days. PREDNISONE 87778083081 No Longer Active Padma Sanchez BIAXIN 500 MG TAB 1 PO BID CLARITHROMYCIN 43339883509 No Longer Active Padma Sanchez LEVAQUIN 500 MG TAB 1 PO QD LEVOFLOXACIN 28124392966 No Longer Active Elizabeth Sheridan PYRIDIUM 200 MG TAB 1 PO TID prn urinary urgency PHENAZOPYRIDINE HCL 77045267977 No Longer Active Elizabeth Sheridan DIFLUCAN 100 MG TAB 1 po daily FLUCONAZOLE 88028902950 No Longer Active Padma Sanchez PREDNISONE 20 MG TAB 1 PO daily for 3 days then 1/2 PO daily for 3 days. 2013 PREDNISONE 57307994746 No Longer Active Padma Sanchez ONETOUCH TEST STRP check sugar BID DX: 250.02 GLUCOSE BLOOD 48500093856 Active Elizabeth FAJARDO PROBIOTIC COMPLEX TABS 1 po daily PROBIOTIC PRODUCT 02627325065 Active Padma Sanchez CENTRUM SILVER ULTRA WOMENS TABS 1 po daily MULTIPLE VITAMINS-MINERALS 96870953471 Active Padma Sanchez LEVAQUIN 500 MG TAB 1 PO QD LEVOFLOXACIN 22962154587 No Longer Active Padma Sanchez PREDNISONE 20 MG TAB 2 pills at once for 2 days then 1 pill daily for 5 days PREDNISONE 11473095660 No Longer Active Padma Sanchze PRILOSEC 10 MG CAP CR OMEPRAZOLE 87659922842 No Longer Active Padma Sanchez TRIAMCINOLONE ACETONIDE 0.025 % CREA apply daily prn sparingly TRIAMCINOLONE ACETONIDE (TOP) 42157155979 No Longer Active Padma Sanchez CORICIDIN HBP CONGESTION/COUGH CAPS As Directed PRN DEXTROMETHORPHAN-GUAIFENESIN CAPS 91633310411 No Longer Active Padam Sanchez CICLOPIROX OLAMINE 0.77 % CREA Apply to affected area twice daily CICLOPIROX OLAMINE 97852888713 No Longer Active Padma Sanchez ROBITUSSIN A-C 10-100 MG/5ML SYRUP 1 teaspoon PO Q 4-6 hr prn ROBITUSSIN A-C 10-100 MG/5ML SYRUP No Longer Active Elizabeth Sheridan ATROVENT 0.06 % SOLN 2 puffs each nostril TID prn runny nose 2012 IPRATROPIUM BROMIDE 95585311343 No Longer Active Padma Sanchez DIFLUCAN 150 MG TAB 1 PO QD for 3 days FLUCONAZOLE 67994692623 No Longer Active Yesenia Carlos ADVAIR DISKUS 100-50 MCG/DOSE MISC 1 puff BID FLUTICASONE-SALMETEROL 00514389089 No Longer Active Padma SALCIDO'S NASAL SPRAY (DEXAMETHASONE, GENTAMICIN, SALINE) 2 puffs each nostril TID for [address] SALCIDO'Flex NASAL SPRAY ( DEXAMETHASONE, GENTAMICIN, SALINE) No Longer Active Padma Sanchez PREDNISONE 20 MG TAB 2 pills at once for 3 days then 1 pill daily for 2 days PREDNISONE 90242543968 No Longer Active Padma Sanchez LEVAQUIN 500 MG TAB 1 PO QD LEVOFLOXACIN 47628303048 No Longer Active Padma Sanchez TRANSDERM-SCOP 1.5 MG PT72 1 patch behind ear and change every 3 days SCOPOLAMINE BASE 53051368449 No Longer Active Padma Sanchez JANUVIA 100 MG TABS 1 PO daily SITAGLIPTIN PHOSPHATE 51774018351 Active Elizabeth Sheridan CLARITIN 10 MG TAB 1 PO daily LORATADINE 25117398395 Active Elizabeth Sheridan ACTOS 45 MG TABS 1 PO daily PIOGLITAZONE HCL 91780555926 No Longer Active Padmaalirio Sanchez FISH OIL 1000 MG CAPS 1 PO daily OMEGA-3 FATTY ACIDS 99150156324 Active Padmaalirio Sanchez BIAXIN XL PAC 500 MG TB24 2 pills at same time daily for 7 days CLARITHROMYCIN 17096860226 No Longer Active Padmaalirio Sanchez SINGULAIR 10 MG TABS 1 po daily MONTELUKAST SODIUM 97903476999 Active Elizabeth Sheridan SINGULAIR 10 MG TABS 1 PO daily MONTELUKAST SODIUM 84602806267 No Longer Active Padma Sanchez SILVADENE 1 % CREA Apply to left lateral foot affected area TID and apply dressing. SILVER SULFADIAZINE 14115431643 No Longer Active Padmaalirio Sanchez PREMARIN 0.625 MG/GM CREA 1 gm intravaginally HS 3 times a week for 4 weeks then twice a week ESTROGENS, CONJUGATED VAGINAL 20236052813 No Longer Active Padma Sanchez BIAXIN XL PAC 500 MG TB24 2 pills at same time daily for 7 days CLARITHROMYCIN 54559664167 No Longer Active Padma Sanchez GLUCOPHAGE 500 MG TABS 2 PO BID METFORMIN HCL 43473146888 Active Elizabeth Sheridan PYRIDIUM 200 MG TAB 1 PO TID prn urinary urgency PHENAZOPYRIDINE HCL 92684058329 No Longer Active Padma Sanchez AMOXICILLIN 500 MG CAP 1 PO TID AMOXICILLIN 88504015799 No Longer Active Padmaalirio Sanchez PROAIR HFA 108 (90 BASE) MCG/ACT AERS 2 puffs every 6 hrs prn ALBUTEROL SULFATE 30056896605 Active Phyllis Fisher ACIPHEX 20 MG TBEC 1 PO daily RABEPRAZOLE SODIUM 84367599234 No Longer Active Elizabeth Sheridan HYDROCHLOROTHIAZIDE 25 MG TAB 1 PO QD HYDROCHLOROTHIAZIDE 86222683380 Active Elizabeth Sheridan LASIX 40 MG TAB 1 PO daily FUROSEMIDE 20840185016 Active Elizabeth Sheridan ALTOPREV 40 MG TB24 1 PO daily LOVASTATIN 82653487823 Active Elizabeth Sheridan Immunizations Vaccine Administration Date [...] mg/dL Encounters Code Encounter Date Provider Facility CPT-97638 Ofc Vst, Est Level III 15:08:45 CDT Padma Yamilazeyad Sanchez [place] [facility] CPT-73367 Ofc Vst, Est Level IV 17:59:31 CDT Padma Yamilazeyad Sanchez [facility] CPT-20714 Ofc Vst, Est Level IV 20:35:52 CDT Padma Yamilazeyad Sanchez, DO, FACP CPT-41143 Ofc Vst, Est Level IV 17:39:19 ECONOMIC CONSULTANT Padma Sanchez, DO, FACP CPT-14251 Ofc Vst, Est Level IV 15:29:57 CDT Padma Yamilazeyad Sanchez [place] CPT-22949 Ofc Vst, Est Level III 16:04:17 CDT Padma Yamilazeyad Jamaner, DO, FACP CPT-41504 Ofc Vst, Est Level IV 14:48:46 CDT Padma Sanchez, DO, FACP CPT-74858 Ofc Vst, Est Level IV 16:21:06 CDT Padma Sanchez, DO, FACP CPT-03842 Ofc Vst, Est Level IV 15:36:57 CDT Padma Sanchez, DO, FACP CPT-81017 Ofc Vst, Est Level IV 15:35:57 ECONOMIC CONSULTANT Padma Sanchez, DO, FACP CPT-09977 Ofc Vst, Est Level IV 13:46:44 ECONOMIC CONSULTANT Padma Sanchez, DO, FACP CPT-52389 Ofc Vst, Est Level IV 14:20:29 CDT Padma [facility] CPT-99092 Ofc Vst, Est Level IV 14:05:36 CDT Padma [facility] CPT-05020 Ofc Vst, Est Level IV 13:54:42 CDT Padma [facility] CPT-27451 Ofc Vst, Est Level IV 13:48:44 ECONOMIC CONSULTANT Padma [facility] CPT-90892 Ofc Vst, Est Level IV 14:16:17 CDT Padma [facility] CPT-94980 Ofc Vst, Est Level IV 14:06:24 [facility] Ofc Vst, Est Level IV 14:03:09 ECONOMIC CONSULTANT Padma [facility] CPT-01839 Ofc Vst, Est Level IV 14:31:46 ECONOMIC CONSULTANT Padma [facility] CPT-30965 Ofc Vst, Est Level III 14:19:18 CDT Padma [facility] CPT-91779 Ofc Vst, Est Level IV 14:17:24 CDT Padma [facility] CPT-21365 Ofc Vst, Est Level IV 14:16:13 CDT Padma [facility] CPT-69859 Ofc Vst, Est Level III 14:46:11 CDT Padma [facility] CPT-61454 Ofc Vst, Est Level III 15:28:13 CDT Padma [facility] CPT-09360 Ofc Vst, Est Level IV 14:51:56 ECONOMIC CONSULTANT [facility] OFFICE CPT-60268 Ofc Vst, Est Level III 13:59:11 ECONOMIC CONSULTANT Pad[facility] CPT-00763 Ofc Vst, Est Level IV 14:03:19 CDT [facility] CPT-20766 Ofc Vst, Est Level IV 15:24:50 CDT [facility] OFFICE CPT-27208 Ofc Vst, New Level IV 13:42:26 CDT [facility] Procedures Code Procedure Name Date Entry Date Standard Description CPT-47741 Preventive, Est, (40-64) 11:40:53 CDT CPT-54995 Preventive, Est, (40-64) 14:46:08 CDT
--- OUTSIDE RECORDS SUMMARY | 2017-11-28 18:05 | XMS REPORT | Clinical Summary ---
Author Author User, [employer] Organization Padma Sanchez DO, FACP Address Unknown [...] Instructions Start Date Stop Date Generic Name [facility] Status Provider Patient Instruction XANAX 0.25 MG TABS 1 PO Q6hrs prn ALPRAZOLAM 98388860827 Active Padma Sanchez CYMBALTA 30 MG CPEP 1 PO daily DULOXETINE HCL 21864194184 Active Elizabeth Sheridan TOPROL XL 25 MG TB24 1 PO daily METOPROLOL SUCCINATE 38711567561 Active Padma Sanchez ADVAIR DISKUS 100-50 MCG/DOSE MISC 1 puff BID FLUTICASONE-SALMETEROL 47761478109 Active Elizabeth Sheridan GLYBURIDE 1.25 MG TABS 1 PO QD GLYBURIDE 99489363724 Active Elizabeth Sheridan POTASSIUM CHLORIDE ER 10 MEQ CR-CAPS 2 PO DAILY POTASSIUM CHLORIDE 04793100369 Active [facility]: [facility]02 [facility] 64207157270 No Longer Active Padma Sanchez VALTREX 1 GM TAB 1 PO BID for 3 days at first sign of cold sore as needed VALACYCLOVIR HCL 28955052563 No Longer Active Padma Sanchez VITAMIN D 1000 UNIT TABS 1 PO Daily CHOLECALCIFEROL 97920640389 Active Padma Sanchez LISINOPRIL 10 MG TABS 1 PO daily LISINOPRIL 25861036791 Active Padma Sanchez PREDNISONE 10 MG TAB 2 PO at one time daily for 3 days then one PO daily for 3 days PREDNISONE 63359963278 No Longer Active Padma Sanchez SPIRIVA HANDIHALER 18 MCG CAPS 1 puff daily TIOTROPIUM BROMIDE MONOHYDRATE 88103436592 Active Padma Sanchez ALBUTEROL SULFATE 0.083 % NEBU SOLN 1 nebulizer treatment BID ALBUTEROL SULFATE 43759337924 Active Padma Sanchez PREDNISONE 10 MG TAB 2 PO daily at 1 time for 3 days then 1 PO daily for 3 days. PREDNISONE 73865720404 No Longer Active Padma Sanchez BIAXIN 500 MG TAB 1 PO BID CLARITHROMYCIN 11460626481 No Longer Active Padma Sanchez LEVAQUIN 500 MG TAB 1 PO QD LEVOFLOXACIN 04827885595 No Longer Active Elizabeth Sheridan PYRIDIUM 200 MG TAB 1 PO TID prn urinary urgency PHENAZOPYRIDINE HCL 11840692353 No Longer Active Elizabteh Sheridan DIFLUCAN 100 MG TAB 1 po daily FLUCONAZOLE 82076468279 No Longer Active Padma Sanchez PREDNISONE 20 MG TAB 1 PO daily for 3 days then 1/2 PO daily for 3 days. 2013 PREDNISONE 05751326930 No Longer Active Padma Sanchez ONETOUCH TEST STRP check sugar BID DX: 250.02 GLUCOSE BLOOD 61396764184 Active Elizabeth FAJARDO PROBIOTIC COMPLEX TABS 1 po daily PROBIOTIC PRODUCT 91985498225 Active Padma Sanchez CENTRUM SILVER ULTRA WOMENS TABS 1 po daily MULTIPLE VITAMINS-MINERALS 23972134856 Active Padma Sanchez LEVAQUIN 500 MG TAB 1 PO QD LEVOFLOXACIN 81300801024 No Longer Active Padma Sanchez PREDNISONE 20 MG TAB 2 pills at once for 2 days then 1 pill daily for 5 days PREDNISONE 84399726393 No Longer Active Padma Sanchez PRILOSEC 10 MG CAP CR OMEPRAZOLE 97093270152 No Longer Active Padma Sanchez TRIAMCINOLONE ACETONIDE 0.025 % CREA apply daily prn sparingly TRIAMCINOLONE ACETONIDE (TOP) 70720557016 No Longer Active Padma Sanchez CORICIDIN HBP CONGESTION/COUGH CAPS As Directed PRN DEXTROMETHORPHAN-GUAIFENESIN CAPS 05090798406 No Longer Active Padma Sanchez CICLOPIROX OLAMINE 0.77 % CREA Apply to affected area twice daily CICLOPIROX OLAMINE 66371725538 No Longer Active Padma Sanchez ROBITUSSIN A-C 10-100 MG/5ML SYRUP 1 teaspoon PO Q 4-6 hr prn ROBITUSSIN A-C 10-100 MG/5ML SYRUP No Longer Active Elizabeth Sheridan ATROVENT 0.06 % SOLN 2 puffs each nostril TID prn runny nose 2012 IPRATROPIUM BROMIDE 83582401804 No Longer Active Padma Sanchez DIFLUCAN 150 MG TAB 1 PO QD for 3 days FLUCONAZOLE 28452226156 No Longer Active Yesenia Carlos ADVAIR DISKUS 100-50 MCG/DOSE MISC 1 puff BID FLUTICASONE-SALMETEROL 75535607226 No Longer Active Padma SALCIDO'Flex NASAL SPRAY (DEXAMETHASONE, GENTAMICIN, SALINE) 2 puffs each nostril TID for [address] SALCIDO'Flex NASAL SPRAY ( DEXAMETHASONE, GENTAMICIN, SALINE) No Longer Active Padma Sanchez PREDNISONE 20 MG TAB 2 pills at once for 3 days then 1 pill daily for 2 days PREDNISONE 32469754107 No Longer Active Padma Sanchez LEVAQUIN 500 MG TAB 1 PO QD LEVOFLOXACIN 96699073976 No Longer Active Padma Sanchez TRANSDERM-SCOP 1.5 MG PT72 1 patch behind ear and change every 3 days SCOPOLAMINE BASE 13541064761 No Longer Active Padma Sanchez JANUVIA 100 MG TABS 1 PO daily SITAGLIPTIN PHOSPHATE 64378587620 Active Elizbaeth Sheridan CLARITIN 10 MG TAB 1 PO daily LORATADINE 33651424708 Active Elizabeth Sheridan ACTOS 45 MG TABS 1 PO daily PIOGLITAZONE HCL 71933052967 No Longer Active Padma Sanchez FISH OIL 1000 MG CAPS 1 PO daily OMEGA-3 FATTY ACIDS 32202971563 Active Padmaalirio Sanchez BIAXIN XL PAC 500 MG TB24 2 pills at same time daily for 7 days CLARITHROMYCIN 57466945032 No Longer Active Padmaalirio Sanchez SINGULAIR 10 MG TABS 1 po daily MONTELUKAST SODIUM 25523586981 Active Elizabeth Sheridan SINGULAIR 10 MG TABS 1 PO daily MONTELUKAST SODIUM 87639875233 No Longer Active Padma Sanchez SILVADENE 1 % CREA Apply to left lateral foot affected area TID and apply dressing. SILVER SULFADIAZINE 44392217367 No Longer Active Padmaalirio Sanchez PREMARIN 0.625 MG/GM CREA 1 gm intravaginally HS 3 times a week for 4 weeks then twice a week ESTROGENS, CONJUGATED VAGINAL 58349410170 No Longer Active Padma Sanchez BIAXIN XL PAC 500 MG TB24 2 pills at same time daily for 7 days CLARITHROMYCIN 04280594771 No Longer Active Padma Sanchez GLUCOPHAGE 500 MG TABS 2 PO BID METFORMIN HCL 09308390336 Active Elizabeth Sheridan PYRIDIUM 200 MG TAB 1 PO TID prn urinary urgency PHENAZOPYRIDINE HCL 90951495784 No Longer Active Padma Sanchez AMOXICILLIN 500 MG CAP 1 PO TID AMOXICILLIN 84044787307 No Longer Active Padma Sanchez PROAIR HFA 108 (90 BASE) MCG/ACT AERS 2 puffs every 6 hrs prn ALBUTEROL SULFATE 58571020463 Active Phyllis Fisher ACIPHEX 20 MG TBEC 1 PO daily RABEPRAZOLE SODIUM 31414216239 No Longer Active Elizabeth Sheridan HYDROCHLOROTHIAZIDE 25 MG TAB 1 PO QD HYDROCHLOROTHIAZIDE 23551925359 Active Elizabeth Sheridan LASIX 40 MG TAB 1 PO daily FUROSEMIDE 28024455105 Active Elizabeth Sheridan ALTOPREV 40 MG TB24 1 PO daily LOVASTATIN 47812356594 Active Elizabeth Sheridan Immunizations Vaccine Administration Date [...] mg/dL Encounters Code Encounter Date Provider Facility CPT-25239 Ofc Vst, Est Level III 15:08:45 CDT Padma Houghcindy Sanchez [place] [facility] CPT-70039 Ofc Vst, Est Level IV 17:59:31 CDT Padma Yamila Daniel [place] [facility] CPT-00425 Ofc Vst, Est Level IV 20:35:52 CDT Padma Yamila Daniel Sanchez, DO, FACP CPT-26764 Ofc Vst, Est Level IV 17:39:19 AND [employer]UE [employer] Padma Yamila Daniel Sanchez, DO, FACP CPT-44769 Ofc Vst, Est Level IV 15:29:57 CDT Padmaalirio Driscoll Daniel [place] [facility] CPT-34783 Ofc Vst, Est Level III 16:04:17 CDT Padma Yamila Daniel Jamaner, DO, FACP CPT-02311 Ofc Vst, Est Level IV 14:48:46 CDT Padma Yamila Daniel Sanchez, DO, FACP CPT-11129 Ofc Vst, Est Level IV 16:21:06 CDT Padma Yamilazeyad Sanchez, DO, FACP CPT-77787 Ofc Vst, Est Level IV 15:36:57 CDT Padma Yamilazeyad Jamaner, DO, FACP CPT-65054 Ofc Vst, Est Level IV 15:35:57 AND [employer] Padma Yamilazeyad Sanchez, DO, FACP CPT-67887 Ofc Vst, Est Level IV 13:46:44 AND [employer]CUE [employer] Padma Sanchez, DO, FACP CPT-02576 Ofc Vst, Est Level IV 14:20:29 CDT Padma [facility] OFFICE CPT-45731 Ofc Vst, Est Level IV 14:05:36 [facility] Ofc Vst, Est Level IV 13:54:42 CDT Padma [facility] OFFICE CPT-53898 Ofc Vst, Est Level IV 13:48:44 AND RESCUE [employer] Padma [facility] OFFICE CPT-11578 Ofc Vst, Est Level IV 14:16:17 CDT Padma [facility] OFFICE CPT-16975 Ofc Vst, Est Level IV 14:06:24 [facility] Ofc Vst, Est Level IV 14:03:09 AND RESCUE [employer] Padma [facility] CPT-93788 Ofc Vst, Est Level IV 14:31:46 AND RESCUE [employer] Padma [facility] OFFICE CPT-34238 Ofc Vst, Est Level III 14:19:18 CDT Padma [facility] OFFICE CPT-70956 Ofc Vst, Est Level IV 14:17:24 CDT Padma [facility] OFFICE CPT-19501 Ofc Vst, Est Level IV 14:16:13 CDT Padma [facility] OFFICE CPT-85416 Ofc Vst, Est Level III 14:46:11 CDT Padma [facility] OFFICE CPT-98184 Ofc Vst, Est Level III 15:28:13 CDT Padma [facility] OFFICE CPT-69170 Ofc Vst, Est Level IV 14:51:56 AND RESCUE FIRE [employer]HTER [employer] [facility] OFFICE CPT-78832 Ofc Vst, Est Level III 13:59:11 AND RESCUE FI[employer] Padma [facility] OFFICE CPT-15041 Ofc Vst, Est Level IV 14:03:19 CDT [facility] CPT-04958 Ofc Vst, Est Level IV 15:24:50 CDT [facility] OFFICE CPT-80648 Ofc Vst, New Level IV 13:42:26 CDT [facility] Procedures Code Procedure Name Date Entry Date Standard Description CPT-65879 Preventive, Est, (40-64) 11:40:53 CDT CPT-55580 Preventive, Est, (40-64) 14:46:08 CDT
--- OUTSIDE RECORDS SUMMARY | 2017-11-28 18:05 | XMS REPORT | Clinical Summary ---
Author Author User, [employer] Organization Padma Snachez DO, FACP Address Unknown Phone Allergies, Adverse [...] MG TABS 1 PO Q6hrs prn ALPRAZOLAM 99665442937 Active Padma Sanchez CYMBALTA 30 MG CPEP 1 PO daily DULOXETINE HCL 22150970719 Active Elizabeth Sheridan TOPROL XL 25 MG TB24 1 PO daily METOPROLOL SUCCINATE 42673778230 Active Padma Sanchez ADVAIR DISKUS 100-50 MCG/DOSE MISC 1 puff BID FLUTICASONE-SALMETEROL 94380418980 Active Elizabeth Sheridan GLYBURIDE 1.25 MG TABS 1 PO QD GLYBURIDE 87430479585 Active Elizabeth Sheridan POTASSIUM CHLORIDE ER 10 MEQ CR-CAPS 2 PO DAILY POTASSIUM CHLORIDE 93021762989 Active Elizabeth Sheridan [facility] DX: 250.02 [facility] 39737991037 No Longer Active Padma Sanchez VALTREX 1 GM TAB 1 PO BID for 3 days at first sign of cold sore as needed VALACYCLOVIR HCL 45356775685 No Longer Active Padma Sanchez VITAMIN D 1000 UNIT TABS 1 PO Daily CHOLECALCIFEROL 13981589106 Active Padma Sanchez LISINOPRIL 10 MG TABS 1 PO daily LISINOPRIL 30596562170 Active Padma Sanchez PREDNISONE 10 MG TAB 2 PO at one time daily for 3 days then one PO daily for 3 days PREDNISONE 93231307754 No Longer Active Padma Sanchez SPIRIVA HANDIHALER 18 MCG CAPS 1 puff daily TIOTROPIUM BROMIDE MONOHYDRATE 25780687121 Active Padma Sanchez ALBUTEROL SULFATE 0.083 % NEBU SOLN 1 nebulizer treatment BID ALBUTEROL SULFATE 86279415918 Active Padma Sanchez PREDNISONE 10 MG TAB 2 PO daily at 1 time for 3 days then 1 PO daily for 3 days. PREDNISONE 75761337495 No Longer Active Padma Sanchez BIAXIN 500 MG TAB 1 PO BID CLARITHROMYCIN 14230702080 No Longer Active Padma Sanchez LEVAQUIN 500 MG TAB 1 PO QD LEVOFLOXACIN 51798185532 No Longer Active Elizabeth Sheridan PYRIDIUM 200 MG TAB 1 PO TID prn urinary urgency PHENAZOPYRIDINE HCL 84125861529 No Longer Active Elizabeth Sheridan DIFLUCAN 100 MG TAB 1 po daily FLUCONAZOLE 65113964674 No Longer Active Padma Sanchez PREDNISONE 20 MG TAB 1 PO daily for 3 days then 1/2 PO daily for 3 days. 2013 PREDNISONE 91897914986 No Longer Active Padma Sanchez ONETOUCH TEST STRP check sugar BID DX: 250.02 GLUCOSE BLOOD 89040389999 Active Elizabeth FAJARDO PROBIOTIC COMPLEX TABS 1 po daily PROBIOTIC PRODUCT 15262433916 Active Padma Sanchez CENTRUM SILVER ULTRA WOMENS TABS 1 po daily MULTIPLE VITAMINS-MINERALS 35515768975 Active Padma Sanchez LEVAQUIN 500 MG TAB 1 PO QD LEVOFLOXACIN 66427494666 No Longer Active Padam Sanchez PREDNISONE 20 MG TAB 2 pills at once for 2 days then 1 pill daily for 5 days PREDNISONE 54454981466 No Longer Active Padma Sanchez PRILOSEC 10 MG CAP CR OMEPRAZOLE 42901606497 No Longer Active Padma Sanchez TRIAMCINOLONE ACETONIDE 0.025 % CREA apply daily prn sparingly TRIAMCINOLONE ACETONIDE (TOP) 97529034464 No Longer Active Padma Sanchez CORICIDIN HBP CONGESTION/COUGH CAPS As Directed PRN DEXTROMETHORPHAN-GUAIFENESIN CAPS 04001804497 No Longer Active Padma Sanchez CICLOPIROX OLAMINE 0.77 % CREA Apply to affected area twice daily CICLOPIROX OLAMINE 01879929320 No Longer Active Padma Sanchez ROBITUSSIN A-C 10-100 MG/5ML SYRUP 1 teaspoon PO Q 4-6 hr prn ROBITUSSIN A-C 10-100 MG/5ML SYRUP No Longer Active Elizabeth Sheridan ATROVENT 0.06 % SOLN 2 puffs each nostril TID prn runny nose 2012 IPRATROPIUM BROMIDE 39009746065 No Longer Active Padma Sanchez DIFLUCAN 150 MG TAB 1 PO QD for 3 days FLUCONAZOLE 86732745895 No Longer Active Yesenia Carlos ADVAIR DISKUS 100-50 MCG/DOSE MISC 1 puff BID FLUTICASONE-SALMETEROL 19245138316 No Longer Active Padma SALCIDO'S NASAL SPRAY (DEXAMETHASONE, GENTAMICIN, SALINE) 2 puffs each nostril TID for [address] SALCDIO'Flex NASAL SPRAY ( DEXAMETHASONE, GENTAMICIN, SALINE) No Longer Active Padma Sanchez PREDNISONE 20 MG TAB 2 pills at once for 3 days then 1 pill daily for 2 days PREDNISONE 83236127204 No Longer Active Padma Sanchez LEVAQUIN 500 MG TAB 1 PO QD LEVOFLOXACIN 63759943677 No Longer Active Padma Sanchez TRANSDERM-SCOP 1.5 MG PT72 1 patch behind ear and change every 3 days SCOPOLAMINE BASE 30278678031 No Longer Active Padma Sanchez JANUVIA 100 MG TABS 1 PO daily SITAGLIPTIN PHOSPHATE 63097960857 Active Elizabeth Sheridan CLARITIN 10 MG TAB 1 PO daily LORATADINE 55835686222 Active Elizabeth Sheridan ACTOS 45 MG TABS 1 PO daily PIOGLITAZONE HCL 03358978682 No Longer Active Padmaalirio Sanchez FISH OIL 1000 MG CAPS 1 PO daily OMEGA-3 FATTY ACIDS 94716390812 Active Padmaalirio Sanchez BIAXIN XL PAC 500 MG TB24 2 pills at same time daily for 7 days CLARITHROMYCIN 88365721279 No Longer Active Padmaalirio Sanchez SINGULAIR 10 MG TABS 1 po daily MONTELUKAST SODIUM 59181473196 Active Elizabeth Sheridan SINGULAIR 10 MG TABS 1 PO daily MONTELUKAST SODIUM 22820004085 No Longer Active Padma Sanchez SILVADENE 1 % CREA Apply to left lateral foot affected area TID and apply dressing. SILVER SULFADIAZINE 72399672650 No Longer Active Padmaalirio Sanchez PREMARIN 0.625 MG/GM CREA 1 gm intravaginally HS 3 times a week for 4 weeks then twice a week ESTROGENS, CONJUGATED VAGINAL 63284242540 No Longer Active Padma Sanchez BIAXIN XL PAC 500 MG TB24 2 pills at same time daily for 7 days CLARITHROMYCIN 90879264574 No Longer Active Padma Sanchez GLUCOPHAGE 500 MG TABS 2 PO BID METFORMIN HCL 95724404989 Active Elizabeth Sheridan PYRIDIUM 200 MG TAB 1 PO TID prn urinary urgency PHENAZOPYRIDINE HCL 90013950337 No Longer Active Padma Sanchez AMOXICILLIN 500 MG CAP 1 PO TID AMOXICILLIN 96044488823 No Longer Active Padmaalirio Sanchez PROAIR HFA 108 (90 BASE) MCG/ACT AERS 2 puffs every 6 hrs prn ALBUTEROL SULFATE 20526900482 Active Phyllis Fisher ACIPHEX 20 MG TBEC 1 PO daily RABEPRAZOLE SODIUM 86755451692 No Longer Active Elizabeth Sheridan HYDROCHLOROTHIAZIDE 25 MG TAB 1 PO QD HYDROCHLOROTHIAZIDE 09825813382 Active Elizabeth Sheridan LASIX 40 MG TAB 1 PO daily FUROSEMIDE 36357300825 Active Elizabeth Sheridan ALTOPREV 40 MG TB24 1 PO daily LOVASTATIN 02548931100 Active Elizabeth Sheridan Immunizations Vaccine Administration Date [...] mg/dL Encounters Code Encounter Date Provider Facility CPT-25184 Ofc Vst, Est Level III 15:08:45 CDT Padma Yamilazeyad Sanchez [place] [facility] CPT-32733 Ofc Vst, Est Level IV 17:59:31 CDT Padma Yamilazeyad Sanchez [place] [facility] CPT-76857 Ofc Vst, Est Level IV 20:35:52 CDT Padma Yamilazeyad Sanchez, DO, FACP CPT-48286 Ofc Vst, Est Level IV 17:39:19 [employer] ACCOUNT [employer]GER Padma Sanchez, DO, FACP CPT-61532 Ofc Vst, Est Level IV 15:29:57 CDT Padma Yamilazeyad Sanchez [place] [facility] CPT-58007 Ofc Vst, Est Level III 16:04:17 CDT Padma Yamilazeyad Jamaner, DO, FACP CPT-94136 Ofc Vst, Est Level IV 14:48:46 CDT Padma Sanchez, DO, FACP CPT-95983 Ofc Vst, Est Level IV 16:21:06 CDT Padma Sanchez, DO, FACP CPT-93893 Ofc Vst, Est Level IV 15:36:57 CDT Padma Sanchez, DO, FACP CPT-67578 Ofc Vst, Est Level IV 15:35:57 PROJECT ACCOUNT MANAGER Padma Sanchez, DO, FACP CPT-09236 Ofc Vst, Est Level IV 13:46:44 PROJECT ACCOUNT MANAGER Padma Sanchez, DO, FACP CPT-88937 Ofc Vst, Est Level IV 14:20:29 CDT Padma [facility] OFFICE CPT-29333 Ofc Vst, Est Level IV 14:05:36 CDT Padma [facility] OFFICE CPT-49990 Ofc Vst, Est Level IV 13:54:42 CDT Padma [facility] OFFICE CPT-92714 Ofc Vst, Est Level IV 13:48:44 PROJECT ACCOUNT MANAGER Padma [facility] OFFICE CPT-82707 Ofc Vst, Est Level IV 14:16:17 CDT Padma [facility]ICE CPT-46064 Ofc Vst, Est Level IV 14:06:24 [facility] Ofc Vst, Est Level IV 14:03:09 PROJECT ACCOUNT MANAGER Padma [facility] CPT-50904 Ofc Vst, Est Level IV 14:31:46 PROJECT ACCOUNT MANAGER Padma [facility] OFFICE CPT-13100 Ofc Vst, Est Level III 14:19:18 CDT Padma [facility]ICE CPT-29598 Ofc Vst, Est Level IV 14:17:24 CDT Padma [facility] OFFICE CPT-79096 Ofc Vst, Est Level IV 14:16:13 CDT Padma [facility] OFFICE CPT-10644 Ofc Vst, Est Level III 14:46:11 CDT Padma [facility] OFFICE CPT-50049 Ofc Vst, Est Level III 15:28:13 CDT Padma [facility] OFFICE CPT-77221 Ofc Vst, Est Level IV 14:51:56 PROJECT ACCOUNT MANAGER [facility] OFFICE CPT-84522 Ofc Vst, Est Level III 13:59:11 PROJECT ACCOUNT MANAGER Padma [facility] OFFICE CPT-69918 Ofc Vst, Est Level IV 14:03:19 CDT [facility] CPT-43802 Ofc Vst, Est Level IV 15:24:50 CDT [facility] OFFICE CPT-51884 Ofc Vst, New Level IV 13:42:26 CDT [facility] Procedures Code Procedure Name Date Entry Date Standard Description CPT-09458 Preventive, Est, (40-64) 11:40:53 CDT CPT-93786 Preventive, Est, (40-64) 14:46:08 CDT
--- OUTSIDE RECORDS SUMMARY | 2017-11-28 18:06 | XMS REPORT | Clinical Summary ---
Author Author User, [employer] Organization Padma Sanchez DO, FACP Address Unknown [...] Sanchez Chronic obstructive asthma, with (acute) exacerbation HEALTH SCREENING V70.0 Active Padma Sanchez Routine general medical examination at a health care facility Medication List Medication Instructions Start Date Stop Date Generic Name NDC Status Provider Patient Instruction SUDAFED 30 MG TAB 1 po daily PSEUDOEPHEDRINE HCL 37531594675 Active Padma Sanchez CYMBALTA 60 MG CPEP 1 PO daily DULOXETINE HCL 79285053842 Active Padma Sanchez ROBITUSSIN A-C 10-100 MG/5ML SYRUP 1 teaspoon PO Q 4-6 hr prn ROBITUSSIN A-C 10-100 MG/5ML SYRUP No Longer Active Padma Sanchez LEVAQUIN 500 MG TAB 1 PO QD LEVOFLOXACIN 36800435809 No Longer Active Padma Sanchez XANAX 0.25 MG TABS 1 PO Q6hrs prn ALPRAZOLAM 03786448023 Active Padma Sanchez TOPROL XL 25 MG TB24 1 PO daily METOPROLOL SUCCINATE 97109344005 Active Padma Sanchez ADVAIR DISKUS 100-50 MCG/DOSE MISC 1 puff BID FLUTICASONE-SALMETEROL 59194469045 Active Elizabeth Sheridan GLYBURIDE 1.25 MG TABS 1 PO QD GLYBURIDE 67003835133 Active Elizabeth Sheridan POTASSIUM CHLORIDE ER 10 MEQ CR-CAPS 2 PO DAILY POTASSIUM CHLORIDE 75753838979 Active [facility]: 250.02 [facility] 53117949777 No Longer Active Padma Sanchez VALTREX 1 GM TAB 1 PO BID for 3 days at first sign of cold sore as needed VALACYCLOVIR HCL 92689985699 No Longer Active Padma Sanchez VITAMIN D 1000 UNIT TABS 1 PO Daily CHOLECALCIFEROL 04600996787 Active Pdama Sanchez LISINOPRIL 10 MG TABS 1 PO daily LISINOPRIL 06519138383 Active Padma Sanchez PREDNISONE 10 MG TAB 2 PO at one time daily for 3 days then one PO daily for 3 days PREDNISONE 77761185653 No Longer Active Padma Sanchze SPIRIVA HANDIHALER 18 MCG CAPS 1 puff daily TIOTROPIUM BROMIDE MONOHYDRATE 12380416849 Active Padma Sanchez ALBUTEROL SULFATE 0.083 % NEBU SOLN 1 nebulizer treatment BID ALBUTEROL SULFATE 11435836648 Active Padma Sanchez PREDNISONE 10 MG TAB 2 PO daily at 1 time for 3 days then 1 PO daily for 3 days. PREDNISONE 73172802564 No Longer Active Padma Sanchez BIAXIN 500 MG TAB 1 PO BID CLARITHROMYCIN 31650367886 No Longer Active Padma Sanchez LEVAQUIN 500 MG TAB 1 PO QD LEVOFLOXACIN 18938460929 No Longer Active Elizabeth Sheridan PYRIDIUM 200 MG TAB 1 PO TID prn urinary urgency PHENAZOPYRIDINE HCL 61264949470 No Longer Active Elizabeth Sheridan DIFLUCAN 100 MG TAB 1 po daily FLUCONAZOLE 44412506808 No Longer Active Padma Sanchez PREDNISONE 20 MG TAB 1 PO daily for 3 days then 1/2 PO daily for 3 days. 2013 PREDNISONE 95178555269 No Longer Active Padma Sanchez ONETOUCH TEST STRP check sugar BID DX: 250.02 GLUCOSE BLOOD 59709682878 Active Elizabeth FAJARDO PROBIOTIC COMPLEX TABS 1 po daily PROBIOTIC PRODUCT 00075461184 Active Padma Sanchez CENTRUM SILVER ULTRA WOMENS TABS 1 po daily MULTIPLE VITAMINS-MINERALS 09854764081 Active Padmaalirio Sanchez LEVAQUIN 500 MG TAB 1 PO QD LEVOFLOXACIN 08279783453 No Longer Active Padmaalirio Sanchez PREDNISONE 20 MG TAB 2 pills at once for 2 days then 1 pill daily for 5 days PREDNISONE 54198880319 No Longer Active Padmaalirio Sanchez PRILOSEC 10 MG CAP CR OMEPRAZOLE 75586363215 No Longer Active Padmaalirio Sanchez TRIAMCINOLONE ACETONIDE 0.025 % CREA apply daily prn sparingly TRIAMCINOLONE ACETONIDE (TOP) 07922118811 No Longer Active Padma Sanchez CORICIDIN HBP CONGESTION/COUGH CAPS As Directed PRN DEXTROMETHORPHAN-GUAIFENESIN CAPS 66449266893 No Longer Active Padma Sanchez CICLOPIROX OLAMINE 0.77 % CREA Apply to affected area twice daily CICLOPIROX OLAMINE 59315975083 No Longer Active Padma Sanchez ROBITUSSIN A-C 10-100 MG/5ML SYRUP 1 teaspoon PO Q 4-6 hr prn ROBITUSSIN A-C 10-100 MG/5ML SYRUP No Longer Active Elizabeth De Leóntis ATROVENT 0.06 % SOLN 2 puffs each nostril TID prn runny nose 2012 IPRATROPIUM BROMIDE 40012044815 No Longer Active Padma Sanchez DIFLUCAN 150 MG TAB 1 PO QD for 3 days FLUCONAZOLE 66614376456 No Longer Active Yesenia Breanna ADVAIR DISKUS 100-50 MCG/DOSE MISC 1 puff BID FLUTICASONE-SALMETEROL 55658696551 No Longer Active Padma SALCIDO'S NASAL SPRAY (DEXAMETHASONE, GENTAMICIN, SALINE) 2 puffs each nostril TID for [address] SALCIDO'S NASAL SPRAY ( DEXAMETHASONE, GENTAMICIN, SALINE) No Longer Active Padma Sanchez PREDNISONE 20 MG TAB 2 pills at once for 3 days then 1 pill daily for 2 days PREDNISONE 86241471466 No Longer Active Padmaalirio Sanchez LEVAQUIN 500 MG TAB 1 PO QD LEVOFLOXACIN 46966068807 No Longer Active Padmaalirio Sanchez TRANSDERM-SCOP 1.5 MG PT72 1 patch behind ear and change every 3 days SCOPOLAMINE BASE 88179186646 No Longer Active Padmaalirio Sanchez JANUVIA 100 MG TABS 1 PO daily SITAGLIPTIN PHOSPHATE 24292281620 Active Elizabeth Sheridan CLARITIN 10 MG TAB 1 PO daily LORATADINE 72304386628 Active Elizabeth Sheridan ACTOS 45 MG TABS 1 PO daily PIOGLITAZONE HCL 77474099417 No Longer Active Padmaalirio Sanchez FISH OIL 1000 MG CAPS 1 PO daily OMEGA-3 FATTY ACIDS 05992892606 Active Padmaalirio Sanchez BIAXIN XL PAC 500 MG TB24 2 pills at same time daily for 7 days CLARITHROMYCIN 65041469166 No Longer Active Padma Sanchez SINGULAIR 10 MG TABS 1 po daily MONTELUKAST SODIUM 79045117904 Active Elizabeth Sheridan SINGULAIR 10 MG TABS 1 PO daily MONTELUKAST SODIUM 98346817919 No Longer Active Padma Sanchez SILVADENE 1 % CREA Apply to left lateral foot affected area TID and apply dressing. SILVER SULFADIAZINE 31593681817 No Longer Active Padma Sanchez PREMARIN 0.625 MG/GM CREA 1 gm intravaginally HS 3 times a week for 4 weeks then twice a week ESTROGENS, CONJUGATED VAGINAL 22604736826 No Longer Active Padmaalirio Sanchez BIAXIN XL PAC 500 MG TB24 2 pills at same time daily for 7 days CLARITHROMYCIN 63859274613 No Longer Active Padma Sanchez GLUCOPHAGE 500 MG TABS 2 PO BID METFORMIN HCL 16403126552 Active Elizabeth Sheridan PYRIDIUM 200 MG TAB 1 PO TID prn urinary urgency PHENAZOPYRIDINE HCL 47827149711 No Longer Active Padma Sanchez AMOXICILLIN 500 MG CAP 1 PO TID AMOXICILLIN 89315890787 No Longer Active Padma Sanchez PROAIR HFA 108 (90 BASE) MCG/ACT AERS 2 puffs every 6 hrs prn ALBUTEROL SULFATE 35565208827 Active Phyllis Fisher ACIPHEX 20 MG TBEC 1 PO daily RABEPRAZOLE SODIUM 08514960110 No Longer Active Elizabeth Sheridan HYDROCHLOROTHIAZIDE 25 MG TAB 1 PO QD HYDROCHLOROTHIAZIDE 51508093342 Active Elizabeth Sheridan LASIX 40 MG TAB 1 PO daily FUROSEMIDE 14305983928 Active Elizabeth Sheridan ALTOPREV 40 MG TB24 1 PO daily LOVASTATIN 18002968295 Active Elizabeth Sheridan Immunizations Vaccine Administration Date Value Standard Description Influenza vaccine given DONE influenza virus vaccine, unspecified formulation Influenza vaccine given Done influenza virus vaccine, unspecified formulation Vital Signs Date Name Value Unit Range Description blood pressure, diastolic - 8462-4 70 mm[Hg] BP garcia blood pressure, systolic - 8480-6 140 mm[Hg] BP sys pulse rate E&M - 8867-4 70 /min Heart rate respiratory rate E&M - 9279-1 14 /min Resp rate weight E&M - 3141-9 262 [lb_av] Weight Measured pulse rate E&M - 8867-4 84 /min [...] E&M - 3141-9 282 [lb_av] Weight Measured Diagnostic Results Date Name [...] mg/dL Encounters Code Encounter Date Provider Facility CPT-12456 Ofc Vst, Est Level III 16:39:25 CDT Padma Yamila Sanchez [facility] CPT-60081 Ofc Vst, Est Level III 15:08:45 CDT Padma Yamila Sanchez [facility] CPT-16208 Ofc Vst, Est Level IV 17:59:31 CDT Padma Yamila Sanchez [facility] CPT-59003 Ofc Vst, Est Level IV 20:35:52 CDT Padmaalirio Sanchez, DO, FACP CPT-98465 Ofc Vst, Est Level IV 17:39:19 [employer] Padma Sanchez, DO, FACP CPT-59839 Ofc Vst, Est Level IV 15:29:57 CDT Padmaalirio Sanchez [facility] CPT-17714 Ofc Vst, Est Level III 16:04:17 CDT Padma Sanchez, DO, FACP CPT-47077 Ofc Vst, Est Level IV 14:48:46 CDT Padmaalirio Sanchez, DO, FACP CPT-18751 Ofc Vst, Est Level IV 16:21:06 CDT Padma Sanchez, DO, FACP CPT-09237 Ofc Vst, Est Level IV 15:36:57 CDT Padma Sanchez, DO, FACP CPT-48136 Ofc Vst, Est Level IV 15:35:57 [employer] Padma Sanchez, DO, FACP CPT-95050 Ofc Vst, Est Level IV 13:46:44 [employer] Padma Yamila Daniel Rouse Daniel DO, FACP CPT-15148 Ofc Vst, Est Level IV 14:20:29 CDT Padma [facility] CPT-53850 Ofc Vst, Est Level IV 14:05:36 CDT Padma [facility] CPT-68318 Ofc Vst, Est Level IV 13:54:42 CDT Padma [facility] OFF[facility] CPT-90371 Ofc Vst, Est Level IV 13:48:44 [employer] Padma [facility] CPT-78130 Ofc Vst, Est Level IV 14:16:17 CDT Padma [facility] CPT-61557 Ofc Vst, Est Level IV 14:06:24 CDT [facility] Ofc Vst, Est Level IV 14:03:09 [employer] Padma [facility] CPT-26176 Ofc Vst, Est Level IV 14:31:46 [employer] [facility] CPT-48166 Ofc Vst, Est Level III 14:19:18 CDT Padma [facility] CPT-30887 Ofc Vst, Est Level IV 14:17:24 CDT Padma [facility] CPT-84337 Ofc Vst, Est Level IV 14:16:13 CDT Padma [facility] CPT-47417 Ofc Vst, Est Level III 14:46:11 CDT Padma [facility] CPT-77465 Ofc Vst, Est Level III 15:28:13 CDT Padma [facility] OFFICE CPT-01325 Ofc Vst, Est Level IV 14:51:56 [employer] [facility] CPT-22078 Ofc Vst, Est Level III 13:59:11 [employer] [facility] CPT-72542 Ofc Vst, Est Level IV 14:03:19 CDT [facility] CPT-03759 Ofc Vst, Est Level IV 15:24:50 CDT [facility] CPT-70417 Ofc Vst, New Level IV 13:42:26 CDT [facility] Procedures Code Procedure Name Date Entry Date Standard Description CPT-11773 Preventive, Est, (40-64) 21:59:18 CDT CPT-36022 Preventive, Est, (40-64) 11:40:53 CDT CPT-27596 Preventive, Est, (40-64) 14:46:08 CDT
--- OUTSIDE RECORDS SUMMARY | 2017-11-28 18:06 | XMS REPORT | Clinical Summary ---
Author Author User, [employer] Organization Padma Sanchez DO, FACP Address Unknown [...] Instructions Start Date Stop Date Generic Name [facility] Status Provider Patient Instruction XANAX 0.25 MG TABS 1 PO Q6hrs prn ALPRAZOLAM 37615045582 Active Padma Sanchez CYMBALTA 30 MG CPEP 1 PO daily DULOXETINE HCL 96308933840 Active Elizabeth Sheridan TOPROL XL 25 MG TB24 1 PO daily METOPROLOL SUCCINATE 95411758960 Active Padma Sanchez ADVAIR DISKUS 100-50 MCG/DOSE MISC 1 puff BID FLUTICASONE-SALMETEROL 83892947833 Active Elizabeth Sheridan GLYBURIDE 1.25 MG TABS 1 PO QD GLYBURIDE 78651169883 Active Elizabeth Sheridan POTASSIUM CHLORIDE ER 10 MEQ CR-CAPS 2 PO DAILY POTASSIUM CHLORIDE 78217528084 Active [facility]: [facility] 72386284182 No Longer Active Padma Sanchez VALTREX 1 GM TAB 1 PO BID for 3 days at first sign of cold sore as needed VALACYCLOVIR HCL 33983602531 No Longer Active Padma Sanchez VITAMIN D 1000 UNIT TABS 1 PO Daily CHOLECALCIFEROL 02585860693 Active Padma Sanchez LISINOPRIL 10 MG TABS 1 PO daily LISINOPRIL 71004570747 Active Padma Sanchez PREDNISONE 10 MG TAB 2 PO at one time daily for 3 days then one PO daily for 3 days PREDNISONE 32677751929 No Longer Active Padma Sanchez SPIRIVA HANDIHALER 18 MCG CAPS 1 puff daily TIOTROPIUM BROMIDE MONOHYDRATE 07410446424 Active Padma Sanchez ALBUTEROL SULFATE 0.083 % NEBU SOLN 1 nebulizer treatment BID ALBUTEROL SULFATE 09407481652 Active Padma Sanchez PREDNISONE 10 MG TAB 2 PO daily at 1 time for 3 days then 1 PO daily for 3 days. PREDNISONE 07947166245 No Longer Active Padma Sanchez BIAXIN 500 MG TAB 1 PO BID CLARITHROMYCIN 67077826150 No Longer Active Padma Sanchez LEVAQUIN 500 MG TAB 1 PO QD LEVOFLOXACIN 01278434998 No Longer Active Elizabeth Sheridan PYRIDIUM 200 MG TAB 1 PO TID prn urinary urgency PHENAZOPYRIDINE HCL 41789624704 No Longer Active Elizabeth Sheridan DIFLUCAN 100 MG TAB 1 po daily FLUCONAZOLE 98521679995 No Longer Active Padma Sanchez PREDNISONE 20 MG TAB 1 PO daily for 3 days then 1/2 PO daily for 3 days. 2013 PREDNISONE 01282752367 No Longer Active Padma Sanchez ONETOUCH TEST STRP check sugar BID DX: 250.02 GLUCOSE BLOOD 42320333470 Active Elizabeth FAJARDO PROBIOTIC COMPLEX TABS 1 po daily PROBIOTIC PRODUCT 16132184196 Active Padma Sanchez CENTRUM SILVER ULTRA WOMENS TABS 1 po daily MULTIPLE VITAMINS-MINERALS 96967559122 Active Padma Sanchez LEVAQUIN 500 MG TAB 1 PO QD LEVOFLOXACIN 01555760234 No Longer Active Padma Sanchez PREDNISONE 20 MG TAB 2 pills at once for 2 days then 1 pill daily for 5 days PREDNISONE 61776667116 No Longer Active Padma Sanchez PRILOSEC 10 MG CAP CR OMEPRAZOLE 54457446122 No Longer Active Padma Sanchez TRIAMCINOLONE ACETONIDE 0.025 % CREA apply daily prn sparingly TRIAMCINOLONE ACETONIDE (TOP) 16028671596 No Longer Active Padma Sanchez CORICIDIN HBP CONGESTION/COUGH CAPS As Directed PRN DEXTROMETHORPHAN-GUAIFENESIN CAPS 81728793820 No Longer Active Padma Sanchez CICLOPIROX OLAMINE 0.77 % CREA Apply to affected area twice daily CICLOPIROX OLAMINE 84646392970 No Longer Active Padma Sanchez ROBITUSSIN A-C 10-100 MG/5ML SYRUP 1 teaspoon PO Q 4-6 hr prn ROBITUSSIN A-C 10-100 MG/5ML SYRUP No Longer Active Elizabeth Sheridan ATROVENT 0.06 % SOLN 2 puffs each nostril TID prn runny nose 2012 IPRATROPIUM BROMIDE 96695624113 No Longer Active Padma Sanchez DIFLUCAN 150 MG TAB 1 PO QD for 3 days FLUCONAZOLE 89966347273 No Longer Active Yesenia Carlos ADVAIR DISKUS 100-50 MCG/DOSE MISC 1 puff BID FLUTICASONE-SALMETEROL 82647808575 No Longer Active Padma SALCIDO'Flex NASAL SPRAY (DEXAMETHASONE, GENTAMICIN, SALINE) 2 puffs each nostril TID for [address] SALCIDO'Flex NASAL SPRAY ( DEXAMETHASONE, GENTAMICIN, SALINE) No Longer Active Padma Sanchez PREDNISONE 20 MG TAB 2 pills at once for 3 days then 1 pill daily for 2 days PREDNISONE 77418732780 No Longer Active Padma Sanchez LEVAQUIN 500 MG TAB 1 PO QD LEVOFLOXACIN 45632912215 No Longer Active Padma Sanchez TRANSDERM-SCOP 1.5 MG PT72 1 patch behind ear and change every 3 days SCOPOLAMINE BASE 64799378123 No Longer Active Padma Sanchez JANUVIA 100 MG TABS 1 PO daily SITAGLIPTIN PHOSPHATE 91471446314 Active Elizabeth Sheridan CLARITIN 10 MG TAB 1 PO daily LORATADINE 13620665205 Active Elizabeth Sheridan ACTOS 45 MG TABS 1 PO daily PIOGLITAZONE HCL 00674605539 No Longer Active Padma Sanchez FISH OIL 1000 MG CAPS 1 PO daily OMEGA-3 FATTY ACIDS 64455913157 Active Padmaalirio Sanchez BIAXIN XL PAC 500 MG TB24 2 pills at same time daily for 7 days CLARITHROMYCIN 18576577253 No Longer Active Padmaalirio Sanchez SINGULAIR 10 MG TABS 1 po daily MONTELUKAST SODIUM 48818908404 Active Elizabeth Sheridan SINGULAIR 10 MG TABS 1 PO daily MONTELUKAST SODIUM 65083718811 No Longer Active Padma Sanchez SILVADENE 1 % CREA Apply to left lateral foot affected area TID and apply dressing. SILVER SULFADIAZINE 50066870722 No Longer Active Padmaalirio Sanchez PREMARIN 0.625 MG/GM CREA 1 gm intravaginally HS 3 times a week for 4 weeks then twice a week ESTROGENS, CONJUGATED VAGINAL 23151842772 No Longer Active Padma Sanchez BIAXIN XL PAC 500 MG TB24 2 pills at same time daily for 7 days CLARITHROMYCIN 69345630933 No Longer Active Padma Sanchez GLUCOPHAGE 500 MG TABS 2 PO BID METFORMIN HCL 06309160144 Active Elizabeth Sheridan PYRIDIUM 200 MG TAB 1 PO TID prn urinary urgency PHENAZOPYRIDINE HCL 80840458432 No Longer Active Padma Sanchez AMOXICILLIN 500 MG CAP 1 PO TID AMOXICILLIN 56413412835 No Longer Active Padma Sanchez PROAIR HFA 108 (90 BASE) MCG/ACT AERS 2 puffs every 6 hrs prn ALBUTEROL SULFATE 90254870149 Active Phyllis Fisher ACIPHEX 20 MG TBEC 1 PO daily RABEPRAZOLE SODIUM 42672451172 No Longer Active Elizabeth Sheridan HYDROCHLOROTHIAZIDE 25 MG TAB 1 PO QD HYDROCHLOROTHIAZIDE 21761752293 Active Elizabeth Sheridan LASIX 40 MG TAB 1 PO daily FUROSEMIDE 50561714970 Active Elizabeth Sheridan ALTOPREV 40 MG TB24 1 PO daily LOVASTATIN 10869555588 Active Elizabeth Sheridan Immunizations Vaccine Administration Date [...] mg/dL Encounters Code Encounter Date Provider Facility CPT-46610 Ofc Vst, Est Level III 15:08:45 CDT Padma Houghcindy Sanchez [facility] CPT-04060 Ofc Vst, Est Level IV 17:59:31 CDT Padma Yamila Daniel [facility] CPT-85741 Ofc Vst, Est Level IV 20:35:52 CDT Padma Yamila Daniel Sanchez, DO, FACP CPT-13019 Ofc Vst, Est Level IV 17:39:19 BLOOD SPLATTER ANALYST Padma Yamila Daniel Sanchez, DO, FACP CPT-75025 Ofc Vst, Est Level IV 15:29:57 CDT Padmaalirio Driscoll Daniel [facility] CPT-81507 Ofc Vst, Est Level III 16:04:17 CDT Padma Yamila Daniel Jamaner, DO, FACP CPT-58354 Ofc Vst, Est Level IV 14:48:46 CDT Padma Yamila Daniel Sanchez, DO, FACP CPT-85263 Ofc Vst, Est Level IV 16:21:06 CDT Padma Yamilazeyad Sanchez, DO, FACP CPT-25691 Ofc Vst, Est Level IV 15:36:57 CDT Padma Yamilazeyad Jamaner, DO, FACP CPT-51802 Ofc Vst, Est Level IV 15:35:57 BLOOD SPLATTER ANALYST Padma Yamilazeyad Sanchez, DO, FACP CPT-83502 Ofc Vst, Est Level IV 13:46:44 BLOOD SPLATTER ANALYST Padma Sanchez, DO, FACP CPT-33365 Ofc Vst, Est Level IV 14:20:29 CDT Padma [facility] CPT-39022 Ofc Vst, Est Level IV 14:05:36 [facility] Ofc Vst, Est Level IV 13:54:42 CDT Padma [facility] CPT-02961 Ofc Vst, Est Level IV 13:48:44 BLOOD SPLATTER ANALYST Padma [facility] CPT-87090 Ofc Vst, Est Level IV 14:16:17 CDT Padma [facility] CPT-60099 Ofc Vst, Est Level IV 14:06:24 [facility] Ofc Vst, Est Level IV 14:03:09 BLOOD SPLATTER ANALYST Padma [facility] CPT-35110 Ofc Vst, Est Level IV 14:31:46 BLOOD SPLATTER ANALYST Padma [facility] CPT-49849 Ofc Vst, Est Level III 14:19:18 CDT Padma [facility] CPT-32465 Ofc Vst, Est Level IV 14:17:24 CDT Padma [facility] CPT-47818 Ofc Vst, Est Level IV 14:16:13 CDT Padma [facility] CPT-79903 Ofc Vst, Est Level III 14:46:11 CDT Padma [facility] CPT-62379 Ofc Vst, Est Level III 15:28:13 CDT Padma [facility] CPT-47789 Ofc Vst, Est Level IV 14:51:56 BLOOD SPLATTER ANALYST [facility] OFFICE CPT-60250 Ofc Vst, Est Level III 13:59:11 BLOOD SPLATTER ANALYST Padma [facility] CPT-90359 Ofc Vst, Est Level IV 14:03:19 CDT [facility] CPT-26754 Ofc Vst, Est Level IV 15:24:50 CDT [facility] OFFICE CPT-12455 Ofc Vst, New Level IV 13:42:26 CDT [facility] Procedures Code Procedure Name Date Entry Date Standard Description CPT-38108 Preventive, Est, (40-64) 11:40:53 CDT CPT-43637 Preventive, Est, (40-64) 14:46:08 CDT
--- OUTSIDE RECORDS SUMMARY | 2017-11-28 18:07 | XMS REPORT | Clinical Summary ---
Author Author User, [employer] Organization Padma Sanchez DO, FACP Address Unknown [...] Instructions Start Date Stop Date Generic Name [facility] Status Provider Patient Instruction ROBITUSSIN A-C 10-100 MG/5ML SYRUP 1 teaspoon PO Q 4-6 hr prn ROBITUSSIN A-C 10-100 MG/5ML SYRUP No Longer Active Padma Sanchez LEVAQUIN 500 MG TAB 1 PO QD LEVOFLOXACIN 72471314644 No Longer Active Padma Sanchez XANAX 0.25 MG TABS 1 PO Q6hrs prn ALPRAZOLAM 64013157423 Active Padma Sanchez CYMBALTA 30 MG CPEP 1 PO daily DULOXETINE HCL 55868761946 Active Elizabeth Sheridan TOPROL XL 25 MG TB24 1 PO daily METOPROLOL SUCCINATE 40826769767 Active Padma Sanchez ADVAIR DISKUS 100-50 MCG/DOSE MISC 1 puff BID FLUTICASONE-SALMETEROL 69028041268 Active Elizabeth Sheridan GLYBURIDE 1.25 MG TABS 1 PO QD GLYBURIDE 77615646415 Active Elizabeth Sheridan POTASSIUM CHLORIDE ER 10 MEQ CR-CAPS 2 PO DAILY POTASSIUM CHLORIDE 60469804907 Active Elizabeth Sheridan [facility]: [facility] No Longer Active Padma Sanchez VALTREX 1 GM TAB 1 PO BID for 3 days at first sign of cold sore as needed VALACYCLOVIR HCL 03720657479 No Longer Active Padma Sanchez VITAMIN D 1000 UNIT TABS 1 PO Daily CHOLECALCIFEROL 75292483715 Active Padma Sanchez LISINOPRIL 10 MG TABS 1 PO daily LISINOPRIL 99579482904 Active Padma Sanchez PREDNISONE 10 MG TAB 2 PO at one time daily for 3 days then one PO daily for 3 days PREDNISONE 01601024414 No Longer Active Padma Sanchez SPIRIVA HANDIHALER 18 MCG CAPS 1 puff daily TIOTROPIUM BROMIDE MONOHYDRATE 29566162146 Active Padma Sanchez ALBUTEROL SULFATE 0.083 % NEBU SOLN 1 nebulizer treatment BID ALBUTEROL SULFATE 57467862738 Active Padma Sanchez PREDNISONE 10 MG TAB 2 PO daily at 1 time for 3 days then 1 PO daily for 3 days. PREDNISONE 49884122003 No Longer Active Padma Sanchez BIAXIN 500 MG TAB 1 PO BID CLARITHROMYCIN 98717943573 No Longer Active Padma Sanchez LEVAQUIN 500 MG TAB 1 PO QD LEVOFLOXACIN 36488892184 No Longer Active Elizabeth Sheridan PYRIDIUM 200 MG TAB 1 PO TID prn urinary urgency PHENAZOPYRIDINE HCL 76067920316 No Longer Active Elizabeth Sheridan DIFLUCAN 100 MG TAB 1 po daily FLUCONAZOLE 24712638711 No Longer Active Padma Sanchez PREDNISONE 20 MG TAB 1 PO daily for 3 days then 1/2 PO daily for 3 days. 2013 PREDNISONE 63135363847 No Longer Active Padma Sanchez ONETOUCH TEST STRP check sugar BID DX: 250.02 GLUCOSE BLOOD 05256438622 Active Elizabeth Sheridan PA PROBIOTIC COMPLEX TABS 1 po daily PROBIOTIC PRODUCT 66217526432 Active Padma Sanchez CENTRUM SILVER ULTRA WOMENS TABS 1 po daily MULTIPLE VITAMINS-MINERALS 81898942498 Active Padma Sanchez LEVAQUIN 500 MG TAB 1 PO QD LEVOFLOXACIN 80469079637 No Longer Active Padma Sanchez PREDNISONE 20 MG TAB 2 pills at once for 2 days then 1 pill daily for 5 days PREDNISONE 41882845767 No Longer Active Padma Sanchez PRILOSEC 10 MG CAP CR OMEPRAZOLE 16452598520 No Longer Active Padma Sanchez TRIAMCINOLONE ACETONIDE 0.025 % CREA apply daily prn sparingly TRIAMCINOLONE ACETONIDE (TOP) 32164829781 No Longer Active Padma Sanchez CORICIDIN HBP CONGESTION/COUGH CAPS As Directed PRN DEXTROMETHORPHAN-GUAIFENESIN CAPS 45463969836 No Longer Active Padma Sanchez CICLOPIROX OLAMINE 0.77 % CREA Apply to affected area twice daily CICLOPIROX OLAMINE 93953542944 No Longer Active Padma Sanchez ROBITUSSIN A-C 10-100 MG/5ML SYRUP 1 teaspoon PO Q 4-6 hr prn ROBITUSSIN A-C 10-100 MG/5ML SYRUP No Longer Active Elizabeth Paxton ATROVENT 0.06 % SOLN 2 puffs each nostril TID prn runny nose 2012 IPRATROPIUM BROMIDE 27179440482 No Longer Active Padma Sanchez DIFLUCAN 150 MG TAB 1 PO QD for 3 days FLUCONAZOLE 92068365554 No Longer Active Yesenia Carlos ADVAIR DISKUS 100-50 MCG/DOSE MISC 1 puff BID FLUTICASONE-SALMETEROL 72435444129 No Longer Active Padma SALCIDO'Flex NASAL SPRAY (DEXAMETHASONE, GENTAMICIN, SALINE) 2 puffs each nostril TID for [address] OSEI NASAL SPRAY ( DEXAMETHASONE, GENTAMICIN, SALINE) No Longer Active Padma Sanchez PREDNISONE 20 MG TAB 2 pills at once for 3 days then 1 pill daily for 2 days PREDNISONE 04921735144 No Longer Active Padmaalirio Sanchez LEVAQUIN 500 MG TAB 1 PO QD LEVOFLOXACIN 52681846775 No Longer Active Padma Yamila Sanchez TRANSDERM-SCOP 1.5 MG PT72 1 patch behind ear and change every 3 days SCOPOLAMINE BASE 89690245292 No Longer Active Padma Yamila Sanchez JANUVIA 100 MG TABS 1 PO daily SITAGLIPTIN PHOSPHATE 23584724833 Active Elizabeth Sheridan CLARITIN 10 MG TAB 1 PO daily LORATADINE 31849334856 Active Elizabeth Sheridan ACTOS 45 MG TABS 1 PO daily PIOGLITAZONE HCL 99230110054 No Longer Active Padmaalirio Sanchez FISH OIL 1000 MG CAPS 1 PO daily OMEGA-3 FATTY ACIDS 40813271420 Active Padmaalirio Sanchez BIAXIN XL PAC 500 MG TB24 2 pills at same time daily for 7 days CLARITHROMYCIN 11655360326 No Longer Active Padmaalirio Sanchez SINGULAIR 10 MG TABS 1 po daily MONTELUKAST SODIUM 52235879649 Active Elizabeth Sheridan SINGULAIR 10 MG TABS 1 PO daily MONTELUKAST SODIUM 94211518839 No Longer Active Padmaalirio Sanchez SILVADENE 1 % CREA Apply to left lateral foot affected area TID and apply dressing. SILVER SULFADIAZINE 65343481250 No Longer Active Padmaalirio Sanchez PREMARIN 0.625 MG/GM CREA 1 gm intravaginally HS 3 times a week for 4 weeks then twice a week ESTROGENS, CONJUGATED VAGINAL 47912240744 No Longer Active Padmaalirio Sanchez BIAXIN XL PAC 500 MG TB24 2 pills at same time daily for 7 days CLARITHROMYCIN 21741118674 No Longer Active Padmaalirio Sanchez GLUCOPHAGE 500 MG TABS 2 PO BID METFORMIN HCL 85453632277 Active Elizabeth Sheridan PYRIDIUM 200 MG TAB 1 PO TID prn urinary urgency PHENAZOPYRIDINE HCL 20516195138 No Longer Active Padma Sanchez AMOXICILLIN 500 MG CAP 1 PO TID AMOXICILLIN 89655863464 No Longer Active Padma Sanchez PROAIR HFA 108 (90 BASE) MCG/ACT AERS 2 puffs every 6 hrs prn ALBUTEROL SULFATE 92526776724 Active Phyllis Fisher ACIPHEX 20 MG TBEC 1 PO daily RABEPRAZOLE SODIUM 17859960744 No Longer Active Elizabeth Sheridan HYDROCHLOROTHIAZIDE 25 MG TAB 1 PO QD HYDROCHLOROTHIAZIDE 67003912325 Active Elizabeth Sheridan LASIX 40 MG TAB 1 PO daily FUROSEMIDE 52423166671 Active Elizabeth Sheridan ALTOPREV 40 MG TB24 1 PO daily LOVASTATIN 40549797134 Active Elizabeth Sheridan Immunizations Vaccine Administration Date [...] (calc) 89 mL/min/1.73m2 albumin, serum 4.0 g/dL cholesterol/HDL ratio, serum, percent 4.3 anion gap, [...] dioxide, venous blood 31.0 mmol/L cholesterol, serum 186 mg/dL chloride, serum 99 mmol/L calcium, serum 9.2 mg/dL urea nitrogen, blood 17 mg/dL alkaline phosphatase, serum 61 U/L glucose, plasma fasting 141 mg/dL Clinical Lists Update: CBC,CMP,TSH,HGA1C - Hematology hemoglobin, blood 11.3 g/dL hematocrit, blood 36 % platelet count 389 10*3/mm3 erythrocyte (RBC) count 4.15 10*6/mm3 leukocyte count, blood 8.9 10*3/mm3 mean corpuscular volume, RBC 88 fL red blood cell distribution width 17.3 % Clinical Lists Update: CMP,Chol,Trig,HgA1c - Chemistry aspartate aminotransferase (SGOT), serum 13 U/L Estimated Glomerular Filtration Rate (calc) 75 mL/min/1.73m2 potassium, serum 4.2 mmol/L hemoglobin A1C, blood, as % of total hemoglobin 8.4 % creatinine, serum 0.8 mg/dL carbon dioxide, venous blood 29.0 mmol/L cholesterol, serum 176 mg/dL chloride, serum 100 mmol/L calcium, serum 9.5 mg/dL urea nitrogen, blood 30 mg/dL alkaline phosphatase, serum 74 U/L albumin, serum 4.1 g/dL alanine aminotransferase (SGPT), serum 18 U/L bilirubin, serum, total 0.3 mg/dL triglyceride, serum, fasting 166 mg/dL sodium, serum 138 mmol/L anion gap, serum 13 glucose, plasma fasting 168 mg/dL protein, total, serum 6.5 g/dL Clinical Lists Update: CMP,FLP,HgA1c,Microalbumin - Chemistry [...] mg/dL Encounters Code Encounter Date Provider Facility CPT-77414 Ofc Vst, Est Level III 16:39:25 CDT Padma Yamila Sanchez [facility] CPT-85823 Ofc Vst, Est Level III 15:08:45 CDT Padma Yamila Sanchez [facility] CPT-36802 Ofc Vst, Est Level IV 17:59:31 CDT Padma Yamilazeyad Sanchez [facility] CPT-55496 Ofc Vst, Est Level IV 20:35:52 CDT Padmaalirio Sanchez, DO, FACP CPT-82478 Ofc Vst, Est Level IV 17:39:19 [employer] Padma Sanchez, DO, FACP CPT-80981 Ofc Vst, Est Level IV 15:29:57 CDT Padmaalirio Houghcindy Sanchez [facility] CPT-30767 Ofc Vst, Est Level III 16:04:17 CDT Padma Sanchez, DO, FACP CPT-59859 Ofc Vst, Est Level IV 14:48:46 CDT Padma Sanchez, DO, FACP CPT-42570 Ofc Vst, Est Level IV 16:21:06 CDT Padma Sanchez, DO, FACP CPT-89190 Ofc Vst, Est Level IV 15:36:57 CDT Padma Sanchez, DO, FACP CPT-23401 Ofc Vst, Est Level IV 15:35:57 [employer] Padma Sanchez, DO, FACP CPT-55594 Ofc Vst, Est Level IV 13:46:44 [employer] Padma Sanchez, DO, FACP CPT-26038 Ofc Vst, Est Level IV 14:20:29 CDT Padma [facility] CPT-79883 Ofc Vst, Est Level IV 14:05:36 CDT Padma [facility] CPT-68157 Ofc Vst, Est Level IV 13:54:42 CDT Padma [facility] CPT-81308 Ofc Vst, Est Level IV 13:48:44 [employer] [facility] CPT-61313 Ofc Vst, Est Level IV 14:16:17 CDT [facility] CPT-50600 Ofc Vst, Est Level IV 14:06:24 CDT [facility] CPT-15857 Ofc Vst, Est Level IV 14:03:09 [employer] [facility] CPT-11569 Ofc Vst, Est Level IV 14:31:46 [employer] [facility] CPT-97101 Ofc Vst, Est Level III 14:19:18 CDT [facility] CPT-42076 Ofc Vst, Est Level IV 14:17:24 CDT [facility] CPT-88452 Ofc Vst, Est Level IV [facility]16:[facility]st, Est Level III 14:46:11 [facility] Ofc Vst, Est Level III 15:28:13 CDT [facility] CPT-02870 Ofc Vst, Est Level IV 14:51:56 [employer] [facility] CPT-84100 Ofc Vst, Est Level III 13:59:11 [employer] [facility] CPT-91465 Ofc Vst, Est Level IV 14:03:19 CDT [facility] CPT-46665 Ofc Vst, Est Level IV 15:24:50 CDT [facility] CPT-40933 Ofc Vst, New Level IV 13:42:26 CDT [facility] Procedures Code Procedure Name Date Entry Date Standard Description CPT-69337 Preventive, Est, (40-64) 11:40:53 CDT CPT-83390 Preventive, Est, (40-64) 14:46:08 CDT
--- OUTSIDE RECORDS SUMMARY | 2017-11-28 18:08 | XMS REPORT | Clinical Summary ---
Author Author User, [employer] Organization Padma Sanchez DO, FACP Address Unknown [...] of complication HEALTH SCREENING V70.0 Inactive Padma aSnchez Routine general medical examination at a health care facility ASTHMA, CHRN OBST W/(ACUTE) EXACERBATION 493.22 Resolved Pdama Sanchez Chronic obstructive asthma, with (acute) exacerbation [...] Instructions Start Date Stop Date Generic Name [facility] Status Provider Patient Instruction ROBITUSSIN A-C 10-100 MG/5ML SYRUP 1 teaspoon PO Q 4-6 hr prn ROBITUSSIN A-C 10-100 MG/5ML SYRUP No Longer Active Padma Sanchez LEVAQUIN 500 MG TAB 1 PO QD LEVOFLOXACIN 19451354179 Active Padma Sanchez XANAX 0.25 MG TABS 1 PO Q6hrs prn ALPRAZOLAM 92624890785 Active Padma Sanchez CYMBALTA 30 MG CPEP 1 PO daily DULOXETINE HCL 72826592150 Active Elizabeth Sheridan TOPROL XL 25 MG TB24 1 PO daily METOPROLOL SUCCINATE 27052742997 Active Padma Sanchez ADVAIR DISKUS 100-50 MCG/DOSE MISC 1 puff BID FLUTICASONE-SALMETEROL 88142936715 Active Elizabeth Sheridan GLYBURIDE 1.25 MG TABS 1 PO QD GLYBURIDE 82793864626 Active Elizabeth Sheridan POTASSIUM CHLORIDE ER 10 MEQ CR-CAPS 2 PO DAILY POTASSIUM CHLORIDE 53520897281 Active Elizabeth Sher[facility]: [facility] 82758036996 No Longer Active Padma Sanchez VALTREX 1 GM TAB 1 PO BID for 3 days at first sign of cold sore as needed VALACYCLOVIR HCL 55358189301 No Longer Active Padma Sanchez VITAMIN D 1000 UNIT TABS 1 PO Daily CHOLECALCIFEROL 86878106345 Active Padma Sanchez LISINOPRIL 10 MG TABS 1 PO daily LISINOPRIL 26492346143 Active Padma Sanchez PREDNISONE 10 MG TAB 2 PO at one time daily for 3 days then one PO daily for 3 days PREDNISONE 90108671583 No Longer Active Padma Sanchez SPIRIVA HANDIHALER 18 MCG CAPS 1 puff daily TIOTROPIUM BROMIDE MONOHYDRATE 96571010928 Active Padma Sanchez ALBUTEROL SULFATE 0.083 % NEBU SOLN 1 nebulizer treatment BID ALBUTEROL SULFATE 72194232553 Active Padma Sanchez PREDNISONE 10 MG TAB 2 PO daily at 1 time for 3 days then 1 PO daily for 3 days. PREDNISONE 67637389704 No Longer Active Padma Sanchez BIAXIN 500 MG TAB 1 PO BID CLARITHROMYCIN 35300155273 No Longer Active Padma Sanchez LEVAQUIN 500 MG TAB 1 PO QD LEVOFLOXACIN 66573721284 No Longer Active Elizabeth Sheridan PYRIDIUM 200 MG TAB 1 PO TID prn urinary urgency PHENAZOPYRIDINE HCL 10787597270 No Longer Active Elizabeth Sheridan DIFLUCAN 100 MG TAB 1 po daily FLUCONAZOLE 02544307166 No Longer Active Padma Sanchez PREDNISONE 20 MG TAB 1 PO daily for 3 days then 1/2 PO daily for 3 days. 2013 PREDNISONE 21734662277 No Longer Active Padma Sanchez ONETOUCH TEST STRP check sugar BID DX: 250.02 GLUCOSE BLOOD 03176735158 Active Elizabeth Sheirdan PA PROBIOTIC COMPLEX TABS 1 po daily PROBIOTIC PRODUCT 37912921463 Active Padma Sanchez CENTRUM SILVER ULTRA WOMENS TABS 1 po daily MULTIPLE VITAMINS-MINERALS 00822366727 Active Padma Sanchez LEVAQUIN 500 MG TAB 1 PO QD LEVOFLOXACIN 10642260360 No Longer Active Padma Sanchez PREDNISONE 20 MG TAB 2 pills at once for 2 days then 1 pill daily for 5 days PREDNISONE 71315240298 No Longer Active Padma Sanchez PRILOSEC 10 MG CAP CR OMEPRAZOLE 82045107840 No Longer Active Padma Sanchez TRIAMCINOLONE ACETONIDE 0.025 % CREA apply daily prn sparingly TRIAMCINOLONE ACETONIDE (TOP) 32246163658 No Longer Active Padmaalirio Sanchez CORICIDIN HBP CONGESTION/COUGH CAPS As Directed PRN DEXTROMETHORPHAN-GUAIFENESIN CAPS 36875098316 No Longer Active Padmaalirio Sanchez CICLOPIROX OLAMINE 0.77 % CREA Apply to affected area twice daily CICLOPIROX OLAMINE 10289906348 No Longer Active Padma Sanchez ROBITUSSIN A-C 10-100 MG/5ML SYRUP 1 teaspoon PO Q 4-6 hr prn ROBITUSSIN A-C 10-100 MG/5ML SYRUP No Longer Active Elizabeth [place] ATROVENT 0.06 % SOLN 2 puffs each nostril TID prn runny nose 2012 IPRATROPIUM BROMIDE 94599328988 No Longer Active Padma Sanchez DIFLUCAN 150 MG TAB 1 PO QD for 3 days FLUCONAZOLE 74545085306 No Longer Active Yesenia Carlos ADVAIR DISKUS 100-50 MCG/DOSE MISC 1 puff BID FLUTICASONE-SALMETEROL 47730401947 No Longer Active Padma SALCIDO'Flex NASAL SPRAY (DEXAMETHASONE, GENTAMICIN, SALINE) 2 puffs each nostril TID for [address] OSEI NASAL SPRAY ( DEXAMETHASONE, GENTAMICIN, SALINE) No Longer Active Padma Sanchez PREDNISONE 20 MG TAB 2 pills at once for 3 days then 1 pill daily for 2 days PREDNISONE 84843296135 No Longer Active Padmaalirio Sanchez LEVAQUIN 500 MG TAB 1 PO QD LEVOFLOXACIN 12405611645 No Longer Active Padma Yamila Sanchez TRANSDERM-SCOP 1.5 MG PT72 1 patch behind ear and change every 3 days SCOPOLAMINE BASE 04521076615 No Longer Active Padma Yamila Sanchez JANUVIA 100 MG TABS 1 PO daily SITAGLIPTIN PHOSPHATE 51107758690 Active Elizabeth Sheridan CLARITIN 10 MG TAB 1 PO daily LORATADINE 00008056232 Active Elizabeth Sheridan ACTOS 45 MG TABS 1 PO daily PIOGLITAZONE HCL 35611082103 No Longer Active Padma Yamila Sanchez FISH OIL 1000 MG CAPS 1 PO daily OMEGA-3 FATTY ACIDS 27329344314 Active Padmaalirio Sanchez BIAXIN XL PAC 500 MG TB24 2 pills at same time daily for 7 days CLARITHROMYCIN 54321818894 No Longer Active Padmaalirio Sanchez SINGULAIR 10 MG TABS 1 po daily MONTELUKAST SODIUM 98065898851 Active Elizabeth Sheridan SINGULAIR 10 MG TABS 1 PO daily MONTELUKAST SODIUM 51099114807 No Longer Active Padmaalirio Sanchez SILVADENE 1 % CREA Apply to left lateral foot affected area TID and apply dressing. SILVER SULFADIAZINE 49446298278 No Longer Active Padmaalirio Sanchez PREMARIN 0.625 MG/GM CREA 1 gm intravaginally HS 3 times a week for 4 weeks then twice a week ESTROGENS, CONJUGATED VAGINAL 78151789607 No Longer Active Padmaalirio Sanchez BIAXIN XL PAC 500 MG TB24 2 pills at same time daily for 7 days CLARITHROMYCIN 72636974260 No Longer Active Padmaalirio Sanchez GLUCOPHAGE 500 MG TABS 2 PO BID METFORMIN HCL 54337355027 Active Elizabeth Sheridan PYRIDIUM 200 MG TAB 1 PO TID prn urinary urgency PHENAZOPYRIDINE HCL 68275769562 No Longer Active Padma Sanchez AMOXICILLIN 500 MG CAP 1 PO TID AMOXICILLIN 62227760940 No Longer Active Padma Sanchez PROAIR HFA 108 (90 BASE) MCG/ACT AERS 2 puffs every 6 hrs prn ALBUTEROL SULFATE 89936180232 Active Phyllis Fisher ACIPHEX 20 MG TBEC 1 PO daily RABEPRAZOLE SODIUM 05630393775 No Longer Active Elizabeth Sheridan HYDROCHLOROTHIAZIDE 25 MG TAB 1 PO QD HYDROCHLOROTHIAZIDE 73292063433 Active Elizabeth Sheridan LASIX 40 MG TAB 1 PO daily FUROSEMIDE 75778230771 Active Elizabeth Sheridan ALTOPREV 40 MG TB24 1 PO daily LOVASTATIN 05458442509 Active Elizabeth Sheridan Immunizations Vaccine Administration Date [...] E&M - [id number] [id number] [lb_av] Weight Measured Diagnostic Results Date Name [...] mg/dL Encounters Code Encounter Date Provider Facility CPT-78531 Ofc Vst, Est Level III 16:39:25 CDT Padma Yamila Sanchez [facility] CPT-28275 Ofc Vst, Est Level III 15:08:45 CDT Padma Yamila Sanchez [facility] CPT-76007 Ofc Vst, Est Level IV 17:59:31 CDT Padma Yamila Sanchez [facility] CPT-88155 Ofc Vst, Est Level IV 20:35:52 CDT Padma Sanchez DO, FACP CPT-84627 Ofc Vst, Est Level IV 17:39:19 [employer] Padma Sanchez DO, FACP CPT-28393 Ofc Vst, Est Level IV 15:29:57 CDT Padma Sanchez [facility] CPT-67712 Ofc Vst, Est Level III 16:04:17 CDT Padma Sanchez DO, FACP CPT-62852 Ofc Vst, Est Level IV 14:48:46 CDT Padma Sanchez DO, FACP CPT-74850 Ofc Vst, Est Level IV 16:21:06 CDT Padma Yamila Sanchez Padma S Sanchez, DO, FACP CPT-17322 Ofc Vst, Est Level IV 15:36:57 CDT Padma Yamila Mccord Daniel, DO, FACP CPT-99112 Ofc Vst, Est Level IV 15:35:57 [employer]INE [employer]PER[employer] Padma Yamila Mccord Dainel, DO, FACP CPT-24781 Ofc Vst, Est Level IV 13:46:44 [employer]INE [employer]PER[employer] Padma Yamila Mccord Daniel, DO, FACP CPT-68470 Ofc Vst, Est Level IV 14:20:29 CDT Padma [facility] CPT-46604 Ofc Vst, Est Level IV 14:05:36 CDT Padma [facility] CPT-65723 Ofc Vst, Est Level IV 13:54:42 CDT Padma [facility] CPT-88913 Ofc Vst, Est Level IV 13:48:44 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 CPT-49218 Ofc Vst, Est Level IV 14:16:17 [facility] Ofc Vst, Est Level IV 14:06:24 CDT [facility] Ofc Vst, Est Level IV 14:03:09 [employer] MACHINE [facility]PER[employer] [facility] Ofc Vst, Est Level IV 14:31:46 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 CPT-60422 Ofc Vst, Est Level III 14:19:18 [facility] Ofc Vst, Est Level IV 14:17:24 CDT [facility] OFFICE CPT-26239 Ofc Vst, Est Level IV 14:16:13 CDT Padma [facility]ICE CPT-03519 Ofc Vst, Est Level III 14:46:11 CDT [facility] CPT-21071 Ofc Vst, Est Level III 15:28:13 CDT [facility] CPT-33895 Ofc Vst, Est Level IV 14:51:56 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
--- OUTSIDE RECORDS SUMMARY | 2017-11-28 18:08 | XMS REPORT | Clinical Summary ---
Author Author User, [employer] Organization Padma Sanchez DO, FACP Address Unknown [...] MG TABS 1 PO Q6hrs prn ALPRAZOLAM 21734810622 Active Padma Sanchez CYMBALTA 30 MG CPEP 1 PO daily DULOXETINE HCL 47271884218 Active Elizabeth Sheridan TOPROL XL 25 MG TB24 1 PO daily METOPROLOL SUCCINATE 28331337451 Active Padma Sanchez ADVAIR DISKUS 100-50 MCG/DOSE MISC 1 puff BID FLUTICASONE-SALMETEROL 25704888132 Active Elizabeth Sheridan GLYBURIDE 1.25 MG TABS 1 PO QD GLYBURIDE 99489530029 Active Elizabeth Sheridan POTASSIUM CHLORIDE ER 10 MEQ CR-CAPS 2 PO DAILY POTASSIUM CHLORIDE 46050939865 Active Elizabeth Sheridan [facility]: [facility]02 [facility] 60364474701 No Longer Active Padma Sanchez VALTREX 1 GM TAB 1 PO BID for 3 days at first sign of cold sore as needed VALACYCLOVIR HCL 41127165224 No Longer Active Padma Sanchez VITAMIN D 1000 UNIT TABS 1 PO Daily CHOLECALCIFEROL 22819567871 Active Padma Sanchez LISINOPRIL 10 MG TABS 1 PO daily LISINOPRIL 11600985754 Active Padma Sanchez PREDNISONE 10 MG TAB 2 PO at one time daily for 3 days then one PO daily for 3 days PREDNISONE 20500385551 No Longer Active Padma Sanchez SPIRIVA HANDIHALER 18 MCG CAPS 1 puff daily TIOTROPIUM BROMIDE MONOHYDRATE 96727937417 Active Padma Sanchez ALBUTEROL SULFATE 0.083 % NEBU SOLN 1 nebulizer treatment BID ALBUTEROL SULFATE 62399314589 Active Padma Sanchez PREDNISONE 10 MG TAB 2 PO daily at 1 time for 3 days then 1 PO daily for 3 days. PREDNISONE 12814869241 No Longer Active Padma Sanchez BIAXIN 500 MG TAB 1 PO BID CLARITHROMYCIN 79637756624 No Longer Active Padma Sanchez LEVAQUIN 500 MG TAB 1 PO QD LEVOFLOXACIN 30700504036 No Longer Active Elizabeth Sheridan PYRIDIUM 200 MG TAB 1 PO TID prn urinary urgency PHENAZOPYRIDINE HCL 95234625016 No Longer Active Elizabeth Sheridan DIFLUCAN 100 MG TAB 1 po daily FLUCONAZOLE 16365770745 No Longer Active Padma Sanchez PREDNISONE 20 MG TAB 1 PO daily for 3 days then 1/2 PO daily for 3 days. 2013 PREDNISONE 70543182525 No Longer Active Padma Sanchez ONETOUCH TEST STRP check sugar BID DX: 250.02 GLUCOSE BLOOD 75561058414 Active Elizabeth FAJARDO PROBIOTIC COMPLEX TABS 1 po daily PROBIOTIC PRODUCT 53632415049 Active Padma Sanchez CENTRUM SILVER ULTRA WOMENS TABS 1 po daily MULTIPLE VITAMINS-MINERALS 67331775987 Active Padma Sanchez LEVAQUIN 500 MG TAB 1 PO QD LEVOFLOXACIN 37977788406 No Longer Active Padma Sanchez PREDNISONE 20 MG TAB 2 pills at once for 2 days then 1 pill daily for 5 days PREDNISONE 11888509310 No Longer Active Padma Sanchez PRILOSEC 10 MG CAP CR OMEPRAZOLE 15213666499 No Longer Active Padma Sanchez TRIAMCINOLONE ACETONIDE 0.025 % CREA apply daily prn sparingly TRIAMCINOLONE ACETONIDE (TOP) 68024687703 No Longer Active Padma Sanchez CORICIDIN HBP CONGESTION/COUGH CAPS As Directed PRN DEXTROMETHORPHAN-GUAIFENESIN CAPS 83450808364 No Longer Active Padma Sanchez CICLOPIROX OLAMINE 0.77 % CREA Apply to affected area twice daily CICLOPIROX OLAMINE 66790001958 No Longer Active Padma Sanchez ROBITUSSIN A-C 10-100 MG/5ML SYRUP 1 teaspoon PO Q 4-6 hr prn ROBITUSSIN A-C 10-100 MG/5ML SYRUP No Longer Active Elizabeth Sheridan ATROVENT 0.06 % SOLN 2 puffs each nostril TID prn runny nose 2012 IPRATROPIUM BROMIDE 28799892463 No Longer Active Padma Sanchez DIFLUCAN 150 MG TAB 1 PO QD for 3 days FLUCONAZOLE 38563325358 No Longer Active Yesenia Carlos ADVAIR DISKUS 100-50 MCG/DOSE MISC 1 puff BID FLUTICASONE-SALMETEROL 19190906152 No Longer Active Padma SALCIDO'S NASAL SPRAY (DEXAMETHASONE, GENTAMICIN, SALINE) 2 puffs each nostril TID for [address] SLACIDO'Flex NASAL SPRAY ( DEXAMETHASONE, GENTAMICIN, SALINE) No Longer Active Padma Sanchez PREDNISONE 20 MG TAB 2 pills at once for 3 days then 1 pill daily for 2 days PREDNISONE 00942643911 No Longer Active Padma Sanchez LEVAQUIN 500 MG TAB 1 PO QD LEVOFLOXACIN 36429154980 No Longer Active Padma Sanchez TRANSDERM-SCOP 1.5 MG PT72 1 patch behind ear and change every 3 days SCOPOLAMINE BASE 17524674408 No Longer Active Padma Sanchez JANUVIA 100 MG TABS 1 PO daily SITAGLIPTIN PHOSPHATE 96871376349 Active Elizabeth Sheridan CLARITIN 10 MG TAB 1 PO daily LORATADINE 92133563599 Active Elizabeth Sheridan ACTOS 45 MG TABS 1 PO daily PIOGLITAZONE HCL 72522417018 No Longer Active Padmaalirio Sanchez FISH OIL 1000 MG CAPS 1 PO daily OMEGA-3 FATTY ACIDS 92309829030 Active Padmaalirio Sanchez BIAXIN XL PAC 500 MG TB24 2 pills at same time daily for 7 days CLARITHROMYCIN 32485897495 No Longer Active Padmaalirio Sanchez SINGULAIR 10 MG TABS 1 po daily MONTELUKAST SODIUM 35872834922 Active Elizabeth Sheridan SINGULAIR 10 MG TABS 1 PO daily MONTELUKAST SODIUM 38888685250 No Longer Active Padma Sanchez SILVADENE 1 % CREA Apply to left lateral foot affected area TID and apply dressing. SILVER SULFADIAZINE 42394907230 No Longer Active Padmaalirio Sanchez PREMARIN 0.625 MG/GM CREA 1 gm intravaginally HS 3 times a week for 4 weeks then twice a week ESTROGENS, CONJUGATED VAGINAL 36971667001 No Longer Active Padma Sanchez BIAXIN XL PAC 500 MG TB24 2 pills at same time daily for 7 days CLARITHROMYCIN 37514619458 No Longer Active Padma Sanchez GLUCOPHAGE 500 MG TABS 2 PO BID METFORMIN HCL 13693317692 Active Elizabeth Sheridan PYRIDIUM 200 MG TAB 1 PO TID prn urinary urgency PHENAZOPYRIDINE HCL 89616543142 No Longer Active Padma Sanchez AMOXICILLIN 500 MG CAP 1 PO TID AMOXICILLIN 85497048715 No Longer Active Padmaalirio Sanchez PROAIR HFA 108 (90 BASE) MCG/ACT AERS 2 puffs every 6 hrs prn ALBUTEROL SULFATE 00016720878 Active Phyllis Fisher ACIPHEX 20 MG TBEC 1 PO daily RABEPRAZOLE SODIUM 87177513285 No Longer Active Elizabeth Sheridan HYDROCHLOROTHIAZIDE 25 MG TAB 1 PO QD HYDROCHLOROTHIAZIDE 03604714302 Active Elizabeth Sheridan LASIX 40 MG TAB 1 PO daily FUROSEMIDE 63028658490 Active Elizabeth Sheridan ALTOPREV 40 MG TB24 1 PO daily LOVASTATIN 42821601589 Active Elizabeth Sheridan Immunizations Vaccine Administration Date [...] mg/dL Encounters Code Encounter Date Provider Facility CPT-79995 Ofc Vst, Est Level III 15:08:45 CDT Padma Yamilazeyad Sanchez [facility] CPT-52550 Ofc Vst, Est Level IV 17:59:31 CDT Padma Yamilazeyad Sanchez [facility] CPT-98179 Ofc Vst, Est Level IV 20:35:52 CDT Padma Yamilazeyad Sanchez, DO, FACP CPT-99968 Ofc Vst, Est Level IV 17:39:19 [employer]KE WORK[employer] Padma Sanchez, DO, FACP CPT-87693 Ofc Vst, Est Level IV 15:29:57 CDT Padma Yamilazeyad Sanchez [facility] CPT-04976 Ofc Vst, Est Level III 16:04:17 CDT Padma Yamilazeyad Jamaner, DO, FACP CPT-27779 Ofc Vst, Est Level IV 14:48:46 CDT Padma Sanchez, DO, FACP CPT-58250 Ofc Vst, Est Level IV 16:21:06 CDT Padma Sanchez, DO, FACP CPT-54277 Ofc Vst, Est Level IV 15:36:57 CDT Padma Sanchez, DO, FACP CPT-43170 Ofc Vst, Est Level IV 15:35:57 [employer]KE WORK[employer] Padma Sanchez, DO, FACP CPT-96886 Ofc Vst, Est Level IV 13:46:44 [employer] WORK[employer] Padma Sanchez, DO, FACP CPT-69626 Ofc Vst, Est Level IV 14:20:29 CDT Padma [facility] OFFICE CPT-22656 Ofc Vst, Est Level IV 14:05:36 CDT Padma [facility] OFFICE CPT-03078 Ofc Vst, Est Level IV 13:54:42 CDT Padma [facility] OFFICE CPT-63497 Ofc Vst, Est Level IV 13:48:44 [employer]KE WORKER Padma [facility] OFFICE CPT-44386 Ofc Vst, Est Level IV 14:16:17 CDT Padma [facility] OFFICE CPT-47277 Ofc Vst, Est Level IV 14:06:24 [facility] Ofc Vst, Est Level IV 14:03:09 COKE WORKER Padma [facility] CPT-62454 Ofc Vst, Est Level IV 14:31:46 COKE WORKER Padma [facility] OFFICE CPT-99765 Ofc Vst, Est Level III 14:19:18 CDT Padma [facility] OFFICE CPT-20428 Ofc Vst, Est Level IV 14:17:24 CDT Padma [facility] OFFICE CPT-17234 Ofc Vst, Est Level IV 14:16:13 CDT Padma [facility] OFFICE CPT-87018 Ofc Vst, Est Level III 14:46:11 CDT Padma [facility] OFFICE CPT-83463 Ofc Vst, Est Level III 15:28:13 CDT Padma [facility] OFFICE CPT-27320 Ofc Vst, Est Level IV 14:51:[address] [facility] OFFICE CPT-73118 Ofc Vst, Est Level III 13:59:11 COKE WORKER Padma [facility] OFFICE CPT-45309 Ofc Vst, Est Level IV 14:03:19 CDT [facility] CPT-68730 Ofc Vst, Est Level IV 15:24:[address] [facility] OFFICE CPT-69319 Ofc Vst, New Level IV 13:42:26 CDT [facility] Procedures Code Procedure Name Date Entry Date Standard Description CPT-02593 Preventive, Est, (40-64) 11:40:53 CDT CPT-64873 Preventive, Est, (40-64) 14:46:08 CDT
--- OUTSIDE RECORDS SUMMARY | 2017-11-28 18:09 | XMS REPORT | Clinical Summary ---
Author Author User, [employer] Organization Padma Sanchez DO, FACP Address Unknown [...] or unspecified type, uncontrolled HYPERTENSION 401.1 Active Pdama Sanchez Benign essential hypertension HYPERCHOLESTEROLEMIA 272.0 Active [...] MG TABS 1 PO Q6hrs prn ALPRAZOLAM 04620332806 Active Padma Sanchez CYMBALTA 30 MG CPEP 1 PO daily DULOXETINE HCL 05224947341 Active Elizabeth Sheridan TOPROL XL 25 MG TB24 1 PO daily METOPROLOL SUCCINATE 49797416302 Active Padma Sanchez ADVAIR DISKUS 100-50 MCG/DOSE MISC 1 puff BID FLUTICASONE-SALMETEROL 11746955746 Active Elizabeth Sheridan GLYBURIDE 1.25 MG TABS 1 PO QD GLYBURIDE 66223177468 Active Elizabeth Sheridan POTASSIUM CHLORIDE ER 10 MEQ CR-CAPS 2 PO DAILY POTASSIUM CHLORIDE 78692473527 Active Elizabeth Sheridan [facility] MISC DIRECTED DX: 250.02 [facility] 12866355418 No Longer Active Padma Sanchez VALTREX 1 GM TAB 1 PO BID for 3 days at first sign of cold sore as needed VALACYCLOVIR HCL 43872627654 No Longer Active Padma Sanchez VITAMIN D 1000 UNIT TABS 1 PO Daily CHOLECALCIFEROL 16631864311 Active Padma Sanchez LISINOPRIL 10 MG TABS 1 PO daily LISINOPRIL 07860079663 Active Padma Sanchez PREDNISONE 10 MG TAB 2 PO at one time daily for 3 days then one PO daily for 3 days PREDNISONE 96635247248 No Longer Active Padma Sanchez SPIRIVA HANDIHALER 18 MCG CAPS 1 puff daily TIOTROPIUM BROMIDE MONOHYDRATE 59007628461 Active Padma Sanchez ALBUTEROL SULFATE 0.083 % NEBU SOLN 1 nebulizer treatment BID ALBUTEROL SULFATE 87221385798 Active Padma Sanchez PREDNISONE 10 MG TAB 2 PO daily at 1 time for 3 days then 1 PO daily for 3 days. PREDNISONE 57537952474 No Longer Active Padma Sanchez BIAXIN 500 MG TAB 1 PO BID CLARITHROMYCIN 40549791494 No Longer Active Padma Sanchez LEVAQUIN 500 MG TAB 1 PO QD LEVOFLOXACIN 48127440524 No Longer Active Elizabeth Sheridan PYRIDIUM 200 MG TAB 1 PO TID prn urinary urgency PHENAZOPYRIDINE HCL 19506777632 No Longer Active Elizabeth Sheridan DIFLUCAN 100 MG TAB 1 po daily FLUCONAZOLE 39551318872 No Longer Active Padma Sanchez PREDNISONE 20 MG TAB 1 PO daily for 3 days then 1/2 PO daily for 3 days. 2013 PREDNISONE 75318507644 No Longer Active Padma Sanchez ONETOUCH TEST STRP check sugar BID DX: 250.02 GLUCOSE BLOOD 03007349909 Active Elizabeth FAJARDO PROBIOTIC COMPLEX TABS 1 po daily PROBIOTIC PRODUCT 62461263710 Active Padma Sanchez CENTRUM SILVER ULTRA WOMENS TABS 1 po daily MULTIPLE VITAMINS-MINERALS 44534164130 Active Padma Sanchez LEVAQUIN 500 MG TAB 1 PO QD LEVOFLOXACIN 79666733366 No Longer Active Padma Sanchez PREDNISONE 20 MG TAB 2 pills at once for 2 days then 1 pill daily for 5 days PREDNISONE 06556697478 No Longer Active Padma Sanchez PRILOSEC 10 MG CAP CR OMEPRAZOLE 97373367855 No Longer Active Padma Sanchez TRIAMCINOLONE ACETONIDE 0.025 % CREA apply daily prn sparingly TRIAMCINOLONE ACETONIDE (TOP) 12326341209 No Longer Active Padma Sanchez CORICIDIN HBP CONGESTION/COUGH CAPS As Directed PRN DEXTROMETHORPHAN-GUAIFENESIN CAPS 35048005847 No Longer Active Padma Sanchez CICLOPIROX OLAMINE 0.77 % CREA Apply to affected area twice daily CICLOPIROX OLAMINE 92110345445 No Longer Active Padma Sanchez ROBITUSSIN A-C 10-100 MG/5ML SYRUP 1 teaspoon PO Q 4-6 hr prn ROBITUSSIN A-C 10-100 MG/5ML SYRUP No Longer Active Elizabeth Sheridan ATROVENT 0.06 % SOLN 2 puffs each nostril TID prn runny nose 2012 IPRATROPIUM BROMIDE 08795069139 No Longer Active Padma Sanchez DIFLUCAN 150 MG TAB 1 PO QD for 3 days FLUCONAZOLE 70321407105 No Longer Active Yesenia Carlos ADVAIR DISKUS 100-50 MCG/DOSE MISC 1 puff BID FLUTICASONE-SALMETEROL 44232634985 No Longer Active Padma SALCIDO'S NASAL SPRAY (DEXAMETHASONE, GENTAMICIN, SALINE) 2 puffs each nostril TID for [address] SALCIDO'Flex NASAL SPRAY ( DEXAMETHASONE, GENTAMICIN, SALINE) No Longer Active Padma Sanchez PREDNISONE 20 MG TAB 2 pills at once for 3 days then 1 pill daily for 2 days PREDNISONE 63564285522 No Longer Active Padma Sanchez LEVAQUIN 500 MG TAB 1 PO QD LEVOFLOXACIN 24815417938 No Longer Active Padma Sanchez TRANSDERM-SCOP 1.5 MG PT72 1 patch behind ear and change every 3 days SCOPOLAMINE BASE 48758859624 No Longer Active Padma Sanchez JANUVIA 100 MG TABS 1 PO daily SITAGLIPTIN PHOSPHATE 77265105406 Active Elizabeth Sheridan CLARITIN 10 MG TAB 1 PO daily LORATADINE 96504183428 Active Elizabeth Sheridan ACTOS 45 MG TABS 1 PO daily PIOGLITAZONE HCL 65264618469 No Longer Active Padmaalirio Sanchez FISH OIL 1000 MG CAPS 1 PO daily OMEGA-3 FATTY ACIDS 33702796227 Active Padmaalirio Sanchez BIAXIN XL PAC 500 MG TB24 2 pills at same time daily for 7 days CLARITHROMYCIN 04541115235 No Longer Active Padmaalirio Sanchez SINGULAIR 10 MG TABS 1 po daily MONTELUKAST SODIUM 59820962011 Active Elizabeth Sheridan SINGULAIR 10 MG TABS 1 PO daily MONTELUKAST SODIUM 44242332523 No Longer Active Padma Sanchez SILVADENE 1 % CREA Apply to left lateral foot affected area TID and apply dressing. SILVER SULFADIAZINE 13525074762 No Longer Active Padmaalirio Sanchez PREMARIN 0.625 MG/GM CREA 1 gm intravaginally HS 3 times a week for 4 weeks then twice a week ESTROGENS, CONJUGATED VAGINAL 35670840415 No Longer Active Padma Sanchez BIAXIN XL PAC 500 MG TB24 2 pills at same time daily for 7 days CLARITHROMYCIN 46198790827 No Longer Active Padma Sanchez GLUCOPHAGE 500 MG TABS 2 PO BID METFORMIN HCL 65389993543 Active Elizabeth Sheridan PYRIDIUM 200 MG TAB 1 PO TID prn urinary urgency PHENAZOPYRIDINE HCL 94622155787 No Longer Active Padma Sanchez AMOXICILLIN 500 MG CAP 1 PO TID AMOXICILLIN 93230283894 No Longer Active Padmaalirio Sanchez PROAIR HFA 108 (90 BASE) MCG/ACT AERS 2 puffs every 6 hrs prn ALBUTEROL SULFATE 84517872486 Active Phyllis Fisher ACIPHEX 20 MG TBEC 1 PO daily RABEPRAZOLE SODIUM 02650458652 No Longer Active Elizabeth Sheridan HYDROCHLOROTHIAZIDE 25 MG TAB 1 PO QD HYDROCHLOROTHIAZIDE 35419094928 Active Elizabeth Sheridan LASIX 40 MG TAB 1 PO daily FUROSEMIDE 60415323807 Active Elizabeth Sheridan ALTOPREV 40 MG TB24 1 PO daily LOVASTATIN 34016442206 Active Elizabeth Sheridan Immunizations Vaccine Administration Date [...] mg/dL Encounters Code Encounter Date Provider Facility CPT-32957 Ofc Vst, Est Level III 15:08:45 CDT Padma Yamilazeyad Sanchez [facility] CPT-32334 Ofc Vst, Est Level IV 17:59:31 CDT Padma Yamilazeyad Sanchez [facility] CPT-66339 Ofc Vst, Est Level IV 20:35:52 CDT Padma Yamilazeyad Sanchez, DO, FACP CPT-55061 Ofc Vst, Est Level IV 17:39:19 [employer]OLLER INSTRUCTOR Padma Sanchez, DO, FACP CPT-57030 Ofc Vst, Est Level IV 15:29:57 CDT Padma Yamilazeyad Sanchez [facility] CPT-45206 Ofc Vst, Est Level III 16:04:17 CDT Padma Yamilazeyad Jamaner, DO, FACP CPT-32780 Ofc Vst, Est Level IV 14:48:46 CDT Padma Sanchez, DO, FACP CPT-44005 Ofc Vst, Est Level IV 16:21:06 CDT Padma Sanchez, DO, FACP CPT-15047 Ofc Vst, Est Level IV 15:36:57 CDT Padma Sanchez, DO, FACP CPT-99556 Ofc Vst, Est Level IV 15:35:57 [employer]OLLER INSTRUCTOR Padma Sanchez, DO, FACP CPT-50771 Ofc Vst, Est Level IV 13:46:44 [employer]OLLER INSTRUCTOR Padma Sanchez, DO, FACP CPT-09704 Ofc Vst, Est Level IV 14:20:29 CDT Padma [facility] OFFICE CPT-92237 Ofc Vst, Est Level IV 14:05:36 CDT Padma [facility] OFFICE CPT-54739 Ofc Vst, Est Level IV 13:54:42 CDT Padma [facility] OFFICE CPT-08502 Ofc Vst, Est Level IV 13:48:44 [employer]OLLER INSTRUCTOR Padma [facility] OFFICE CPT-38497 Ofc Vst, Est Level IV 14:16:17 CDT Padma [facility] OFFICE CPT-91753 Ofc Vst, Est Level IV 14:06:24 [facility] Ofc Vst, Est Level IV 14:03:09 CONTROLLER INSTRUCTOR Padma [facility] CPT-04599 Ofc Vst, Est Level IV 14:31:46 [employer]OLLER INSTRUCTOR Padma [facility] OFFICE CPT-25635 Ofc Vst, Est Level III 14:19:18 CDT Padma [facility] OFFICE CPT-33457 Ofc Vst, Est Level IV 14:17:24 CDT Padma [facility] OFFICE CPT-83695 Ofc Vst, Est Level IV 14:16:13 CDT Padma [facility] OFFICE CPT-65426 Ofc Vst, Est Level III 14:46:11 CDT Padma [facility] OFFICE CPT-45041 Ofc Vst, Est Level III 15:28:13 CDT Padma [facility] OFFICE CPT-05646 Ofc Vst, Est Level IV 14:51:56 CONTROLLER INSTRUCTOR [facility] OFFICE CPT-17867 Ofc Vst, Est Level III 13:59:11 CONTROLLER INSTRUCTOR Padma [facility] OFFICE CPT-98521 Ofc Vst, Est Level IV 14:03:19 CDT [facility] CPT-42867 Ofc Vst, Est Level IV 15:24:50 CDT [facility] OFFICE CPT-89486 Ofc Vst, New Level IV 13:42:26 CDT [facility] Procedures Code Procedure Name Date Entry Date Standard Description CPT-42190 Preventive, Est, (40-64) 11:40:53 CDT CPT-56530 Preventive, Est, (40-64) 14:46:08 CDT
--- OUTSIDE RECORDS SUMMARY | 2017-11-28 18:10 | XMS REPORT | Clinical Summary ---
Author Author User, [employer] Organization Padma Sanchez DO, FACP Address Unknown [...] MG TABS 1 PO Q6hrs prn ALPRAZOLAM 75394176208 Active Padma Sanchez CYMBALTA 30 MG CPEP 1 PO daily DULOXETINE HCL 51840738994 Active Elizabeth Sheridan TOPROL XL 25 MG TB24 1 PO daily METOPROLOL SUCCINATE 41001953803 Active Padma Sanchez ADVAIR DISKUS 100-50 MCG/DOSE MISC 1 puff BID FLUTICASONE-SALMETEROL 41339155858 Active Elizabeth Sheridan GLYBURIDE 1.25 MG TABS 1 PO QD GLYBURIDE 40669435853 Active Elizabeth Sheridan POTASSIUM CHLORIDE ER 10 MEQ CR-CAPS 2 PO DAILY POTASSIUM CHLORIDE 70631510804 Active Elizabeth Sheridan [facility] MISC DIRECTED DX: 250.02 [facility] 91752669814 No Longer Active Padma Sanchez VALTREX 1 GM TAB 1 PO BID for 3 days at first sign of cold sore as needed VALACYCLOVIR HCL 00875264130 No Longer Active Padma Sanchez VITAMIN D 1000 UNIT TABS 1 PO Daily CHOLECALCIFEROL 43510022069 Active Padma Sanchez LISINOPRIL 10 MG TABS 1 PO daily LISINOPRIL 97512386871 Active Padma Sanchez PREDNISONE 10 MG TAB 2 PO at one time daily for 3 days then one PO daily for 3 days PREDNISONE 89666593417 No Longer Active Padma Sanchez SPIRIVA HANDIHALER 18 MCG CAPS 1 puff daily TIOTROPIUM BROMIDE MONOHYDRATE 41177770209 Active Padma Sanchez ALBUTEROL SULFATE 0.083 % NEBU SOLN 1 nebulizer treatment BID ALBUTEROL SULFATE 80665227365 Active Padma Sanchez PREDNISONE 10 MG TAB 2 PO daily at 1 time for 3 days then 1 PO daily for 3 days. PREDNISONE 17694003229 No Longer Active Padma Sanchez BIAXIN 500 MG TAB 1 PO BID CLARITHROMYCIN 27144663947 No Longer Active Padma Sanchez LEVAQUIN 500 MG TAB 1 PO QD LEVOFLOXACIN 27316484900 No Longer Active Elizabeth Sheridan PYRIDIUM 200 MG TAB 1 PO TID prn urinary urgency PHENAZOPYRIDINE HCL 79854561380 No Longer Active Elizabeth Sheridan DIFLUCAN 100 MG TAB 1 po daily FLUCONAZOLE 27332613728 No Longer Active Padma Sanchez PREDNISONE 20 MG TAB 1 PO daily for 3 days then 1/2 PO daily for 3 days. 2013 PREDNISONE 10690709304 No Longer Active Padma Sanchez ONETOUCH TEST STRP check sugar BID DX: 250.02 GLUCOSE BLOOD 14387499261 Active Elizabeth FAJARDO PROBIOTIC COMPLEX TABS 1 po daily PROBIOTIC PRODUCT 72039204222 Active Padma Sanchez CENTRUM SILVER ULTRA WOMENS TABS 1 po daily MULTIPLE VITAMINS-MINERALS 13532264482 Active Padma Sanchez LEVAQUIN 500 MG TAB 1 PO QD LEVOFLOXACIN 80509773279 No Longer Active Padma Sanchez PREDNISONE 20 MG TAB 2 pills at once for 2 days then 1 pill daily for 5 days PREDNISONE 52073735027 No Longer Active Padma Sanchez PRILOSEC 10 MG CAP CR OMEPRAZOLE 64736282879 No Longer Active Padma Sanchez TRIAMCINOLONE ACETONIDE 0.025 % CREA apply daily prn sparingly TRIAMCINOLONE ACETONIDE (TOP) 75529528565 No Longer Active Padma Sanchez CORICIDIN HBP CONGESTION/COUGH CAPS As Directed PRN DEXTROMETHORPHAN-GUAIFENESIN CAPS 44098811004 No Longer Active Padma Sanchez CICLOPIROX OLAMINE 0.77 % CREA Apply to affected area twice daily CICLOPIROX OLAMINE 07668400314 No Longer Active Padma Sanchez ROBITUSSIN A-C 10-100 MG/5ML SYRUP 1 teaspoon PO Q 4-6 hr prn ROBITUSSIN A-C 10-100 MG/5ML SYRUP No Longer Active Elizabeth Sheridan ATROVENT 0.06 % SOLN 2 puffs each nostril TID prn runny nose 2012 IPRATROPIUM BROMIDE 12223620691 No Longer Active Padma Sanchez DIFLUCAN 150 MG TAB 1 PO QD for 3 days FLUCONAZOLE 10910782249 No Longer Active Yesenia Carlos ADVAIR DISKUS 100-50 MCG/DOSE MISC 1 puff BID FLUTICASONE-SALMETEROL 16143566083 No Longer Active Padma SALCIDO'S NASAL SPRAY (DEXAMETHASONE, GENTAMICIN, SALINE) 2 puffs each nostril TID for [address] SALCIDO'Flex NASAL SPRAY ( DEXAMETHASONE, GENTAMICIN, SALINE) No Longer Active Padma Sanchez PREDNISONE 20 MG TAB 2 pills at once for 3 days then 1 pill daily for 2 days PREDNISONE 73225313638 No Longer Active Padma Sanchez LEVAQUIN 500 MG TAB 1 PO QD LEVOFLOXACIN 28076280184 No Longer Active Padma Sanchez TRANSDERM-SCOP 1.5 MG PT72 1 patch behind ear and change every 3 days SCOPOLAMINE BASE 97993476588 No Longer Active Padma Sanchez JANUVIA 100 MG TABS 1 PO daily SITAGLIPTIN PHOSPHATE 48505860387 Active Elizabeth Sheridan CLARITIN 10 MG TAB 1 PO daily LORATADINE 24486025863 Active Elizabeth Sheridan ACTOS 45 MG TABS 1 PO daily PIOGLITAZONE HCL 47845141033 No Longer Active Padmaalirio Sanchez FISH OIL 1000 MG CAPS 1 PO daily OMEGA-3 FATTY ACIDS 03805072843 Active Padmaalirio Sanchez BIAXIN XL PAC 500 MG TB24 2 pills at same time daily for 7 days CLARITHROMYCIN 03449000988 No Longer Active Padmaalirio Sanchez SINGULAIR 10 MG TABS 1 po daily MONTELUKAST SODIUM 85815745162 Active Elizabeth Sheridan SINGULAIR 10 MG TABS 1 PO daily MONTELUKAST SODIUM 13021659373 No Longer Active Padma Sanchez SILVADENE 1 % CREA Apply to left lateral foot affected area TID and apply dressing. SILVER SULFADIAZINE 13622056607 No Longer Active Padmaalirio Sanchez PREMARIN 0.625 MG/GM CREA 1 gm intravaginally HS 3 times a week for 4 weeks then twice a week ESTROGENS, CONJUGATED VAGINAL 20025393683 No Longer Active Padma Sanchez BIAXIN XL PAC 500 MG TB24 2 pills at same time daily for 7 days CLARITHROMYCIN 70826977818 No Longer Active Padma Sanchez GLUCOPHAGE 500 MG TABS 2 PO BID METFORMIN HCL 32187821418 Active Elizabeth Sheridan PYRIDIUM 200 MG TAB 1 PO TID prn urinary urgency PHENAZOPYRIDINE HCL 23984845459 No Longer Active Padma Sanchez AMOXICILLIN 500 MG CAP 1 PO TID AMOXICILLIN 12365178010 No Longer Active Padmaalirio Sanchez PROAIR HFA 108 (90 BASE) MCG/ACT AERS 2 puffs every 6 hrs prn ALBUTEROL SULFATE 78393795453 Active Phyllis Fisher ACIPHEX 20 MG TBEC 1 PO daily RABEPRAZOLE SODIUM 37264750156 No Longer Active Elizabeth Sheridan HYDROCHLOROTHIAZIDE 25 MG TAB 1 PO QD HYDROCHLOROTHIAZIDE 98986996165 Active Elizabeth Sheridan LASIX 40 MG TAB 1 PO daily FUROSEMIDE 02329138089 Active Elizabeth Sheridan ALTOPREV 40 MG TB24 1 PO daily LOVASTATIN 72633106918 Active Elizabeth Sheridan Immunizations Vaccine Administration Date [...] mg/dL Encounters Code Encounter Date Provider Facility CPT-60262 Ofc Vst, Est Level III 15:08:45 CDT Padma Yamilazeyad Sanchez [facility] CPT-97766 Ofc Vst, Est Level IV 17:59:31 CDT Padma Yamilazeyad Sanchez [facility] CPT-61979 Ofc Vst, Est Level IV 20:35:52 CDT Padma Yamilazeyad Sanchez, DO, FACP CPT-64808 Ofc Vst, Est Level IV 17:39:19 [employer] Padma Sanchez, DO, FACP CPT-66042 Ofc Vst, Est Level IV 15:29:57 CDT Padma Yamilazeyad Sanchez [facility] CPT-15408 Ofc Vst, Est Level III 16:04:17 CDT Padma Yamilazeyad Jamaner, DO, FACP CPT-12764 Ofc Vst, Est Level IV 14:48:46 CDT Padma Sanchez, DO, FACP CPT-45633 Ofc Vst, Est Level IV 16:21:06 CDT Padma Sanchez, DO, FACP CPT-27550 Ofc Vst, Est Level IV 15:36:57 CDT Padma Sanchez, DO, FACP CPT-90562 Ofc Vst, Est Level IV 15:35:57 [employer] Padma Sanchez, DO, FACP CPT-14702 Ofc Vst, Est Level IV 13:46:44 [employer] Padma Sanchez, DO, FACP CPT-31347 Ofc Vst, Est Level IV 14:20:29 CDT Padma [facility] OFFICE CPT-54659 Ofc Vst, Est Level IV 14:05:36 CDT Padma [facility] CPT-20394 Ofc Vst, Est Level IV 13:54:42 CDT Padma [facility] CPT-77239 Ofc Vst, Est Level IV 13:48:44 [employer] Padma [facility] CPT-19704 Ofc Vst, Est Level IV 14:16:17 CDT Padma [facility] CPT-39797 Ofc Vst, Est Level IV 14:06:24 [facility] Ofc Vst, Est Level IV 14:03:09 [employer] Padma [facility] CPT-18964 Ofc Vst, Est Level IV 14:31:46 [employer] Padma [facility]ICE CPT-08254 Ofc Vst, Est Level III 14:19:18 CDT Padma [facility]ICE CPT-97185 Ofc Vst, Est Level IV 14:17:24 CDT Padma [facility]ICE CPT-66434 Ofc Vst, Est Level IV 14:16:13 CDT Padma [facility] CPT-52817 Ofc Vst, Est Level III 14:46:11 CDT Padma [facility] OFFICE CPT-44616 Ofc Vst, Est Level III 15:28:13 CDT Padma [facility]ICE CPT-83986 Ofc Vst, Est Level IV 14:51:56 [employer] [facility] OFFICE CPT-04972 Ofc Vst, Est Level III 13:59:11 [employer] Padma [facility]ICE CPT-20347 Ofc Vst, Est Level IV 14:03:19 CDT [facility] CPT-44806 Ofc Vst, Est Level IV 15:24:[address] [facility] OFFICE CPT-78080 Ofc Vst, New Level IV 13:42:26 CDT [facility] Procedures Code Procedure Name Date Entry Date Standard Description CPT-56378 Preventive, Est, (40-64) 11:40:53 CDT CPT-74669 Preventive, Est, (40-64) 14:46:08 CDT
--- OUTSIDE RECORDS SUMMARY | 2017-11-28 18:11 | XMS REPORT | Clinical Summary ---
Author Author User, [employer] Organization Padma Sanchez DO, FACP Address Unknown Phone Allergies, Adverse Reactions, Alerts Allergy Name Reaction Description Start Date Severity Status Provider CEPHALOSPORINS Critical Active Padma Snachez Conditions or Problems Problem Name Problem Code [...] Instructions Start Date Stop Date Generic Name [facility] Status Provider Patient Instruction XANAX 0.25 MG TABS 1 PO Q6hrs prn ALPRAZOLAM 02371551009 Active Padma Sanchez CYMBALTA 30 MG CPEP 1 PO daily DULOXETINE HCL 18320292400 Active Elizabeth Sheridan TOPROL XL 25 MG TB24 1 PO daily METOPROLOL SUCCINATE 18395778813 Active Padma Sanchez ADVAIR DISKUS 100-50 MCG/DOSE MISC 1 puff BID FLUTICASONE-SALMETEROL 75037029121 Active Elizabeth Sheridan GLYBURIDE 1.25 MG TABS 1 PO QD GLYBURIDE 98122776477 Active Elizabeth Sheridan POTASSIUM CHLORIDE ER 10 MEQ CR-CAPS 2 PO DAILY POTASSIUM CHLORIDE 32400417541 Active [facility]: [facility].02 [facility] 98647979191 No Longer Active Padma Sanchez VALTREX 1 GM TAB 1 PO BID for 3 days at first sign of cold sore as needed VALACYCLOVIR HCL 34244503415 No Longer Active Padma Sanchez VITAMIN D 1000 UNIT TABS 1 PO Daily CHOLECALCIFEROL 17687622557 Active Padma Sanchez LISINOPRIL 10 MG TABS 1 PO daily LISINOPRIL 56568690849 Active Padma Sanchez PREDNISONE 10 MG TAB 2 PO at one time daily for 3 days then one PO daily for 3 days PREDNISONE 35390186871 No Longer Active Padma Sanchez SPIRIVA HANDIHALER 18 MCG CAPS 1 puff daily TIOTROPIUM BROMIDE MONOHYDRATE 81728742599 Active Padma Sanchez ALBUTEROL SULFATE 0.083 % NEBU SOLN 1 nebulizer treatment BID ALBUTEROL SULFATE 20827335039 Active Padma Sanchez PREDNISONE 10 MG TAB 2 PO daily at 1 time for 3 days then 1 PO daily for 3 days. PREDNISONE 62460369584 No Longer Active Padma Sanchez BIAXIN 500 MG TAB 1 PO BID CLARITHROMYCIN 91024182000 No Longer Active Padma Sanchez LEVAQUIN 500 MG TAB 1 PO QD LEVOFLOXACIN 89133882575 No Longer Active Elizabeth Sheridan PYRIDIUM 200 MG TAB 1 PO TID prn urinary urgency PHENAZOPYRIDINE HCL 71496194238 No Longer Active Elizabeth Sheridan DIFLUCAN 100 MG TAB 1 po daily FLUCONAZOLE 41487598635 No Longer Active Padma Sanchez PREDNISONE 20 MG TAB 1 PO daily for 3 days then 1/2 PO daily for 3 days. 2013 PREDNISONE 70919495035 No Longer Active Padma Sanchez ONETOUCH TEST STRP check sugar BID DX: 250.02 GLUCOSE BLOOD 29194699859 Active Elizabeth FAJARDO PROBIOTIC COMPLEX TABS 1 po daily PROBIOTIC PRODUCT 57659030518 Active Padma Sanchez CENTRUM SILVER ULTRA WOMENS TABS 1 po daily MULTIPLE VITAMINS-MINERALS 68840933947 Active Padma Sanchez LEVAQUIN 500 MG TAB 1 PO QD LEVOFLOXACIN 61479570223 No Longer Active Padma Sanchez PREDNISONE 20 MG TAB 2 pills at once for 2 days then 1 pill daily for 5 days PREDNISONE 03341158641 No Longer Active Padma Sanchez PRILOSEC 10 MG CAP CR OMEPRAZOLE 85807642573 No Longer Active Padma Sanchez TRIAMCINOLONE ACETONIDE 0.025 % CREA apply daily prn sparingly TRIAMCINOLONE ACETONIDE (TOP) 43698363392 No Longer Active Padma Sanchez CORICIDIN HBP CONGESTION/COUGH CAPS As Directed PRN DEXTROMETHORPHAN-GUAIFENESIN CAPS 18741908778 No Longer Active Padma Sanchez CICLOPIROX OLAMINE 0.77 % CREA Apply to affected area twice daily CICLOPIROX OLAMINE 60565289553 No Longer Active Padma Sanchez ROBITUSSIN A-C 10-100 MG/5ML SYRUP 1 teaspoon PO Q 4-6 hr prn ROBITUSSIN A-C 10-100 MG/5ML SYRUP No Longer Active Elizabeth Sheridan ATROVENT 0.06 % SOLN 2 puffs each nostril TID prn runny nose 2012 IPRATROPIUM BROMIDE 84721404914 No Longer Active Padma Sanchez DIFLUCAN 150 MG TAB 1 PO QD for 3 days FLUCONAZOLE 41245001697 No Longer Active Yesenia Carlos ADVAIR DISKUS 100-50 MCG/DOSE MISC 1 puff BID FLUTICASONE-SALMETEROL 40638289252 No Longer Active Padma SALCIDO'Flex NASAL SPRAY (DEXAMETHASONE, GENTAMICIN, SALINE) 2 puffs each nostril TID for [address] SALCIDO'Flex NASAL SPRAY ( DEXAMETHASONE, GENTAMICIN, SALINE) No Longer Active Padma Sanchez PREDNISONE 20 MG TAB 2 pills at once for 3 days then 1 pill daily for 2 days PREDNISONE 54145922334 No Longer Active Padma Sanchez LEVAQUIN 500 MG TAB 1 PO QD LEVOFLOXACIN 45093247360 No Longer Active Padma Sanchez TRANSDERM-SCOP 1.5 MG PT72 1 patch behind ear and change every 3 days SCOPOLAMINE BASE 71460041676 No Longer Active Padma Sanchez JANUVIA 100 MG TABS 1 PO daily SITAGLIPTIN PHOSPHATE 82151384627 Active Elizabeth Sheridan CLARITIN 10 MG TAB 1 PO daily LORATADINE 66794897941 Active Elizabeth Sheridan ACTOS 45 MG TABS 1 PO daily PIOGLITAZONE HCL 71275300963 No Longer Active Padma Sanchez FISH OIL 1000 MG CAPS 1 PO daily OMEGA-3 FATTY ACIDS 34999885363 Active Padmaalirio Sanchez BIAXIN XL PAC 500 MG TB24 2 pills at same time daily for 7 days CLARITHROMYCIN 49207090594 No Longer Active Padmaalirio Sanchez SINGULAIR 10 MG TABS 1 po daily MONTELUKAST SODIUM 61184435535 Active Elizabeth Sheridan SINGULAIR 10 MG TABS 1 PO daily MONTELUKAST SODIUM 12425370411 No Longer Active Padma Sanchez SILVADENE 1 % CREA Apply to left lateral foot affected area TID and apply dressing. SILVER SULFADIAZINE 20130434382 No Longer Active Padmaalirio Sanchez PREMARIN 0.625 MG/GM CREA 1 gm intravaginally HS 3 times a week for 4 weeks then twice a week ESTROGENS, CONJUGATED VAGINAL 33103507438 No Longer Active Padma Sanchez BIAXIN XL PAC 500 MG TB24 2 pills at same time daily for 7 days CLARITHROMYCIN 79441169457 No Longer Active Padma Sanchez GLUCOPHAGE 500 MG TABS 2 PO BID METFORMIN HCL 92137453357 Active Elizabeth Sheridan PYRIDIUM 200 MG TAB 1 PO TID prn urinary urgency PHENAZOPYRIDINE HCL 33723964022 No Longer Active Padma Sanchez AMOXICILLIN 500 MG CAP 1 PO TID AMOXICILLIN 79818312105 No Longer Active Padma Sanchez PROAIR HFA 108 (90 BASE) MCG/ACT AERS 2 puffs every 6 hrs prn ALBUTEROL SULFATE 92591910368 Active Phyllis Fisher ACIPHEX 20 MG TBEC 1 PO daily RABEPRAZOLE SODIUM 82511389169 No Longer Active Elizabeth Sheridan HYDROCHLOROTHIAZIDE 25 MG TAB 1 PO QD HYDROCHLOROTHIAZIDE 10966449786 Active Elizabeth Sheridan LASIX 40 MG TAB 1 PO daily FUROSEMIDE 99758838858 Active Elizabeth Sheridan ALTOPREV 40 MG TB24 1 PO daily LOVASTATIN 70403168832 Active Elizabeth Sheridan Immunizations Vaccine Administration Date [...] mg/dL Encounters Code Encounter Date Provider Facility CPT-25638 Ofc Vst, Est Level III 15:08:45 CDT Padma Houghcindy Sanchez [place] [facility] CPT-59817 Ofc Vst, Est Level IV 17:59:31 CDT Padma Yamila Daniel [place] [facility] CPT-40341 Ofc Vst, Est Level IV 20:35:52 CDT Padma Yamila Daniel Sanchez, DO, FACP CPT-51669 Ofc Vst, Est Level IV 17:39:19 THIRD RIGGER Padma Yamila Daniel Sanchez, DO, FACP CPT-39163 Ofc Vst, Est Level IV 15:29:57 CDT Padmaalirio Driscoll Daniel [place] [facility] CPT-44818 Ofc Vst, Est Level III 16:04:17 CDT Padma Yamila Daniel Jamaner, DO, FACP CPT-04514 Ofc Vst, Est Level IV 14:48:46 CDT Padma Yamila Daniel Sanchez, DO, FACP CPT-22610 Ofc Vst, Est Level IV 16:21:06 CDT Padma Yamilazeyad Sanchez, DO, FACP CPT-55094 Ofc Vst, Est Level IV 15:36:57 CDT Padma Yamilazeyad Jamaner, DO, FACP CPT-95936 Ofc Vst, Est Level IV 15:35:57 THIRD RIGGER Padma Yamilazeyad Sanchez, DO, FACP CPT-79945 Ofc Vst, Est Level IV 13:46:44 THIRD RIGGER Padma Sanchez, DO, FACP CPT-92361 Ofc Vst, Est Level IV 14:20:29 CDT Padma [facility] OFFICE CPT-87314 Ofc Vst, Est Level IV 14:05:36 [facility]77 Ofc Vst, Est Level IV 13:54:42 CDT Padma [facility] CPT-49983 Ofc Vst, Est Level IV 13:48:44 THIRD RIGGER Padma [facility] CPT-96354 Ofc Vst, Est Level IV 14:16:17 CDT Padma [facility] CPT-80453 Ofc Vst, Est Level IV 14:06:24 [facility] Ofc Vst, Est Level IV 14:03:[address] [facility] CPT-98191 Ofc Vst, Est Level IV 14:31:46 THIRD RIGGER Padma [facility] CPT-93103 Ofc Vst, Est Level III 14:19:18 CDT Padma [facility] CPT-23744 Ofc Vst, Est Level IV 14:17:24 CDT Padma [facility] CPT-12697 Ofc Vst, Est Level IV 14:16:13 CDT Padma [facility] CPT-83639 Ofc Vst, Est Level III 14:46:11 CDT Padma [facility] CPT-31394 Ofc Vst, Est Level III 15:28:13 CDT Padma [facility] CPT-45436 Ofc Vst, Est Level IV 14:51:56 THIRD RIGGER [place] [facility] CPT-59033 Ofc Vst, Est Level III 13:59:11 THIRD RIGGER Padma [facility] CPT-82347 Ofc Vst, Est Level IV 14:03:19 CDT [facility] CPT-25937 Ofc Vst, Est Level IV 15:24:50 CDT [place] [facility] CPT-87591 Ofc Vst, New Level IV 13:42:26 CDT [facility] Procedures Code Procedure Name Date Entry Date Standard Description CPT-19035 Preventive, Est, (40-64) 11:40:53 CDT CPT-49888 Preventive, Est, (40-64) 14:46:08 CDT
--- OUTSIDE RECORDS SUMMARY | 2017-11-28 18:11 | XMS REPORT | Clinical Summary ---
Author Author User, [employer] Organization Padma Sanchez DO, FACP Address [...] Start Date Stop Date Generic Name [facility] Status Provider Patient Instruction ROBITUSSIN A-C 10-100 MG/5ML SYRUP 1 teaspoon PO Q 4-6 hr prn ROBITUSSIN A-C 10-100 MG/5ML SYRUP No Longer Active Padma Sanchez LEVAQUIN 500 MG TAB 1 PO QD LEVOFLOXACIN 35964187464 No Longer Active Padma Sanchez XANAX 0.25 MG TABS 1 PO Q6hrs prn ALPRAZOLAM 60352069548 Active Padma Sanchez CYMBALTA 30 MG CPEP 1 PO daily DULOXETINE HCL 28181038969 Active Elizabeth Sheridan TOPROL XL 25 MG TB24 1 PO daily METOPROLOL SUCCINATE 83530454664 Active Padma Sanchez ADVAIR DISKUS 100-50 MCG/DOSE MISC 1 puff BID FLUTICASONE-SALMETEROL 95338775057 Active Elizabeth Sheridan GLYBURIDE 1.25 MG TABS 1 PO QD GLYBURIDE 19050456581 Active Elizabeth Sheridan POTASSIUM CHLORIDE ER 10 MEQ CR-CAPS 2 PO DAILY POTASSIUM CHLORIDE 93334048154 Active Elizabeth Sher[facility]: 250.02 [facility] 39683241749 No Longer Active Padma Sanchez VALTREX 1 GM TAB 1 PO BID for 3 days at first sign of cold sore as needed VALACYCLOVIR HCL 08172724116 No Longer Active Padma Sanchez VITAMIN D 1000 UNIT TABS 1 PO Daily CHOLECALCIFEROL 00120387073 Active Padma Sanchez LISINOPRIL 10 MG TABS 1 PO daily LISINOPRIL 23288407441 Active Padma Sanchez PREDNISONE 10 MG TAB 2 PO at one time daily for 3 days then one PO daily for 3 days PREDNISONE 08513780411 No Longer Active Padma Sanchez SPIRIVA HANDIHALER 18 MCG CAPS 1 puff daily TIOTROPIUM BROMIDE MONOHYDRATE 14641294880 Active Padma Sanchez ALBUTEROL SULFATE 0.083 % NEBU SOLN 1 nebulizer treatment BID ALBUTEROL SULFATE 60955403927 Active Padma Sanchez PREDNISONE 10 MG TAB 2 PO daily at 1 time for 3 days then 1 PO daily for 3 days. PREDNISONE 10476201684 No Longer Active Padma Sanchez BIAXIN 500 MG TAB 1 PO BID CLARITHROMYCIN 49572094478 No Longer Active Padma Sanchez LEVAQUIN 500 MG TAB 1 PO QD LEVOFLOXACIN 33049553784 No Longer Active Elizabeth Sheridan PYRIDIUM 200 MG TAB 1 PO TID prn urinary urgency PHENAZOPYRIDINE HCL 42963980157 No Longer Active Elizabeth Sheridan DIFLUCAN 100 MG TAB 1 po daily FLUCONAZOLE 86765836809 No Longer Active Padma Sanchez PREDNISONE 20 MG TAB 1 PO daily for 3 days then 1/2 PO daily for 3 days. 2013 PREDNISONE 28966287644 No Longer Active Padma Sanchez ONETOUCH TEST STRP check sugar BID DX: 250.02 GLUCOSE BLOOD 14839133690 Active Elizabeth Sheridan PA PROBIOTIC COMPLEX TABS 1 po daily PROBIOTIC PRODUCT 75719866755 Active Padma Sanchez CENTRUM SILVER ULTRA WOMENS TABS 1 po daily MULTIPLE VITAMINS-MINERALS 01218619190 Active Padma Sanchez LEVAQUIN 500 MG TAB 1 PO QD LEVOFLOXACIN 16629638107 No Longer Active Padma Sanchez PREDNISONE 20 MG TAB 2 pills at once for 2 days then 1 pill daily for 5 days PREDNISONE 13728806916 No Longer Active Padma Sanchez PRILOSEC 10 MG CAP CR OMEPRAZOLE 81099930556 No Longer Active Padma Sanchez TRIAMCINOLONE ACETONIDE 0.025 % CREA apply daily prn sparingly TRIAMCINOLONE ACETONIDE (TOP) 06277494935 No Longer Active Padma Sanchez CORICIDIN HBP CONGESTION/COUGH CAPS As Directed PRN DEXTROMETHORPHAN-GUAIFENESIN CAPS 79949955107 No Longer Active Padma Sanchez CICLOPIROX OLAMINE 0.77 % CREA Apply to affected area twice daily CICLOPIROX OLAMINE 51669770613 No Longer Active Padma Sanchez ROBITUSSIN A-C 10-100 MG/5ML SYRUP 1 teaspoon PO Q 4-6 hr prn ROBITUSSIN A-C 10-100 MG/5ML SYRUP No Longer Active Elizabeth Birmingham ATROVENT 0.06 % SOLN 2 puffs each nostril TID prn runny nose 2012 IPRATROPIUM BROMIDE 06731189888 No Longer Active Padma Sanchez DIFLUCAN 150 MG TAB 1 PO QD for 3 days FLUCONAZOLE 59279844598 No Longer Active Yesenia Carlos ADVAIR DISKUS 100-50 MCG/DOSE MISC 1 puff BID FLUTICASONE-SALMETEROL 86078318379 No Longer Active Padma SALCIDO'Flex NASAL SPRAY (DEXAMETHASONE, GENTAMICIN, SALINE) 2 puffs each nostril TID for [address] OSEI NASAL SPRAY ( DEXAMETHASONE, GENTAMICIN, SALINE) No Longer Active Padma Sanchez PREDNISONE 20 MG TAB 2 pills at once for 3 days then 1 pill daily for 2 days PREDNISONE 04128160510 No Longer Active Padmaalirio Sanchez LEVAQUIN 500 MG TAB 1 PO QD LEVOFLOXACIN 42867986509 No Longer Active Padma Yamila Sanchez TRANSDERM-SCOP 1.5 MG PT72 1 patch behind ear and change every 3 days SCOPOLAMINE BASE 96012325242 No Longer Active Padma Yamila Sanchez JANUVIA 100 MG TABS 1 PO daily SITAGLIPTIN PHOSPHATE 82516062402 Active Elizabeth Sheridan CLARITIN 10 MG TAB 1 PO daily LORATADINE 02274566578 Active Elizabeth Sheridan ACTOS 45 MG TABS 1 PO daily PIOGLITAZONE HCL 99206470907 No Longer Active Padmaalirio Sanchez FISH OIL 1000 MG CAPS 1 PO daily OMEGA-3 FATTY ACIDS 87836359346 Active Padmaalirio Sanchez BIAXIN XL PAC 500 MG TB24 2 pills at same time daily for 7 days CLARITHROMYCIN 10144772752 No Longer Active Padmaalirio Sanchez SINGULAIR 10 MG TABS 1 po daily MONTELUKAST SODIUM 12891114628 Active Elizabeth Sheridan SINGULAIR 10 MG TABS 1 PO daily MONTELUKAST SODIUM 76194231958 No Longer Active Padmaalirio Sanchez SILVADENE 1 % CREA Apply to left lateral foot affected area TID and apply dressing. SILVER SULFADIAZINE 82964397605 No Longer Active Padmaalirio Sanchez PREMARIN 0.625 MG/GM CREA 1 gm intravaginally HS 3 times a week for 4 weeks then twice a week ESTROGENS, CONJUGATED VAGINAL 27687960755 No Longer Active Padmaalirio Sanchez BIAXIN XL PAC 500 MG TB24 2 pills at same time daily for 7 days CLARITHROMYCIN 05129413644 No Longer Active Padmaalirio Sanchez GLUCOPHAGE 500 MG TABS 2 PO BID METFORMIN HCL 79158815316 Active Elizabeth Sheridan PYRIDIUM 200 MG TAB 1 PO TID prn urinary urgency PHENAZOPYRIDINE HCL 00486641251 No Longer Active Padma Sanchez AMOXICILLIN 500 MG CAP 1 PO TID AMOXICILLIN 53206375425 No Longer Active Padma Sanchez PROAIR HFA 108 (90 BASE) MCG/ACT AERS 2 puffs every 6 hrs prn ALBUTEROL SULFATE 94894341313 Active Phyllis Fisher ACIPHEX 20 MG TBEC 1 PO daily RABEPRAZOLE SODIUM 38498425924 No Longer Active Elizabeth Sheridan HYDROCHLOROTHIAZIDE 25 MG TAB 1 PO QD HYDROCHLOROTHIAZIDE 51746798868 Active Elizabeth Sheridan LASIX 40 MG TAB 1 PO daily FUROSEMIDE 00395080857 Active Elizabeth Sherdian ALTOPREV 40 MG TB24 1 PO daily LOVASTATIN 51171954486 Active Elizabeth Sheridan Immunizations Vaccine Administration Date [...] mg/dL Encounters Code Encounter Date Provider Facility CPT-90234 Ofc Vst, Est Level III 16:39:25 CDT Padma Yamila Sanchez [facility] CPT-46622 Ofc Vst, Est Level III 15:08:45 CDT Padma Yamila Sanchez [facility] CPT-30820 Ofc Vst, Est Level IV 17:59:31 CDT Padma Yamilazeyad Sanchez [facility] CPT-80224 Ofc Vst, Est Level IV 20:35:52 CDT Padmaalirio Sanchez, DO, FACP CPT-70398 Ofc Vst, Est Level IV 17:39:19 [facility] Padma Sanchez, DO, FACP CPT-26111 Ofc Vst, Est Level IV 15:29:57 CDT Padmaalirio Houghcindy Sanchez [facility] CPT-20727 Ofc Vst, Est Level III 16:04:17 CDT Padma Sanchez, DO, FACP CPT-89343 Ofc Vst, Est Level IV 14:48:46 CDT Padma Sanchez, DO, FACP CPT-12402 Ofc Vst, Est Level IV 16:21:06 CDT Padma Sanchez, DO, FACP CPT-43582 Ofc Vst, Est Level IV 15:36:57 CDT Padma Sanchez, DO, FACP CPT-19982 Ofc Vst, Est Level IV 15:35:57 [facility] Padma Sanchez, DO, FACP CPT-60130 Ofc Vst, Est Level IV 13:46:44 [facility] Padma Sanchez, DO, FACP CPT-98158 Ofc Vst, Est Level IV 14:20:29 CDT Padma [facility] CPT-70300 Ofc Vst, Est Level IV 14:05:36 CDT Padma [facility] CPT-04080 Ofc Vst, Est Level IV 13:54:42 CDT Padma [facility] CPT-63515 Ofc Vst, Est Level IV 13:48:[address] [facility] CPT-43348 Ofc Vst, Est Level IV 14:16:[address] [facility] CPT-26852 Ofc Vst, Est Level IV 14:06:24 CDT [facility] CPT-18072 Ofc Vst, Est Level IV 14:03:[address] [facility] CPT-28098 Ofc Vst, Est Level IV 14:31:[address] [facility] CPT-17056 Ofc Vst, Est Level III 14:19:[address] [facility] CPT-40364 Ofc Vst, Est Level IV 14:17:[address] [facility] CPT-66571 Ofc Vst, Est Level IV 14:16:[facility], Est Level III 14:46:11 [facility] Ofc Vst, Est Level III 15:28:[address] [facility] CPT-61896 Ofc Vst, Est Level IV 14:51:[address] [facility] CPT-43997 Ofc Vst, Est Level III 13:59:[address] [facility] CPT-37959 Ofc Vst, Est Level IV 14:03:[address] [facility] CPT-64962 Ofc Vst, Est Level IV 15:24:[address] [facility] CPT-30999 Ofc Vst, New Level IV 13:42:[address] [facility] Procedures Code Procedure Name Date Entry Date Standard Description CPT-87455 Preventive, Est, (40-64) 11:40:53 CDT CPT-44735 Preventive, Est, (40-64) 14:46:08 CDT
--- OUTSIDE RECORDS SUMMARY | 2017-11-28 18:12 | XMS REPORT | Clinical Summary ---
Author Author User, [employer] Organization Padma Sanchez DO, FACP Address Unknown [...] MG TABS 1 PO Q6hrs prn ALPRAZOLAM 14205301246 Active Padma Sanchez CYMBALTA 30 MG CPEP 1 PO daily DULOXETINE HCL 12490876461 Active Elizabeth Sheridan TOPROL XL 25 MG TB24 1 PO daily METOPROLOL SUCCINATE 51317813160 Active Padma Sanchez ADVAIR DISKUS 100-50 MCG/DOSE MISC 1 puff BID FLUTICASONE-SALMETEROL 50907371581 Active Elizabeth Sheridan GLYBURIDE 1.25 MG TABS 1 PO QD GLYBURIDE 25679978807 Active Elizabeth Sheridan POTASSIUM CHLORIDE ER 10 MEQ CR-CAPS 2 PO DAILY POTASSIUM CHLORIDE 76439978856 Active Elizabeth Sher[facility]: [facility] 67356174979 No Longer Active Padma Sanchez VALTREX 1 GM TAB 1 PO BID for 3 days at first sign of cold sore as needed VALACYCLOVIR HCL 72790402713 No Longer Active Padma Sanchez VITAMIN D 1000 UNIT TABS 1 PO Daily CHOLECALCIFEROL 83321248586 Active Padma Snachez LISINOPRIL 10 MG TABS 1 PO daily LISINOPRIL 74123111509 Active Padma Sanchez PREDNISONE 10 MG TAB 2 PO at one time daily for 3 days then one PO daily for 3 days PREDNISONE 31326438164 No Longer Active Padma Sanchez SPIRIVA HANDIHALER 18 MCG CAPS 1 puff daily TIOTROPIUM BROMIDE MONOHYDRATE 12213646939 Active Padma Sanchez ALBUTEROL SULFATE 0.083 % NEBU SOLN 1 nebulizer treatment BID ALBUTEROL SULFATE 02527061375 Active Padma Sanchez PREDNISONE 10 MG TAB 2 PO daily at 1 time for 3 days then 1 PO daily for 3 days. PREDNISONE 91195888382 No Longer Active Padma Sanchez BIAXIN 500 MG TAB 1 PO BID CLARITHROMYCIN 86865494129 No Longer Active Padma Sanchez LEVAQUIN 500 MG TAB 1 PO QD LEVOFLOXACIN 50086234159 No Longer Active Elizabeth Sheridan PYRIDIUM 200 MG TAB 1 PO TID prn urinary urgency PHENAZOPYRIDINE HCL 91325933274 No Longer Active Elizabeth Sheridan DIFLUCAN 100 MG TAB 1 po daily FLUCONAZOLE 84827977975 No Longer Active Padma Sanchez PREDNISONE 20 MG TAB 1 PO daily for 3 days then 1/2 PO daily for 3 days. 2013 PREDNISONE 54313100012 No Longer Active Padma Sanchez ONETOUCH TEST STRP check sugar BID DX: 250.02 GLUCOSE BLOOD 40379036791 Active Elizabeth FAJARDO PROBIOTIC COMPLEX TABS 1 po daily PROBIOTIC PRODUCT 25507492645 Active Padma Sanchez CENTRUM SILVER ULTRA WOMENS TABS 1 po daily MULTIPLE VITAMINS-MINERALS 85015113530 Active Padma Sanchez LEVAQUIN 500 MG TAB 1 PO QD LEVOFLOXACIN 43771841665 No Longer Active Padma Sanchez PREDNISONE 20 MG TAB 2 pills at once for 2 days then 1 pill daily for 5 days PREDNISONE 18301944209 No Longer Active Padma Sanchez PRILOSEC 10 MG CAP CR OMEPRAZOLE 21050713009 No Longer Active Padma Sanchez TRIAMCINOLONE ACETONIDE 0.025 % CREA apply daily prn sparingly TRIAMCINOLONE ACETONIDE (TOP) 69830440451 No Longer Active Padma Sanchez CORICIDIN HBP CONGESTION/COUGH CAPS As Directed PRN DEXTROMETHORPHAN-GUAIFENESIN CAPS 35709502953 No Longer Active Padma Sanchez CICLOPIROX OLAMINE 0.77 % CREA Apply to affected area twice daily CICLOPIROX OLAMINE 92505433265 No Longer Active Padma Sanchez ROBITUSSIN A-C 10-100 MG/5ML SYRUP 1 teaspoon PO Q 4-6 hr prn ROBITUSSIN A-C 10-100 MG/5ML SYRUP No Longer Active Elizabeth Sheridan ATROVENT 0.06 % SOLN 2 puffs each nostril TID prn runny nose 2012 IPRATROPIUM BROMIDE 18346319391 No Longer Active Padma Sanchez DIFLUCAN 150 MG TAB 1 PO QD for 3 days FLUCONAZOLE 26003889645 No Longer Active Yesenia Carlos ADVAIR DISKUS 100-50 MCG/DOSE MISC 1 puff BID FLUTICASONE-SALMETEROL 79029515597 No Longer Active Padma SALCIDO'S NASAL SPRAY (DEXAMETHASONE, GENTAMICIN, SALINE) 2 puffs each nostril TID for [address] SALCIDO'Flex NASAL SPRAY ( DEXAMETHASONE, GENTAMICIN, SALINE) No Longer Active Padma Sanchez PREDNISONE 20 MG TAB 2 pills at once for 3 days then 1 pill daily for 2 days PREDNISONE 79384493833 No Longer Active Padma Sanchez LEVAQUIN 500 MG TAB 1 PO QD LEVOFLOXACIN 90558528272 No Longer Active Padma Sanchez TRANSDERM-SCOP 1.5 MG PT72 1 patch behind ear and change every 3 days SCOPOLAMINE BASE 68761069882 No Longer Active Padma Sanchez JANUVIA 100 MG TABS 1 PO daily SITAGLIPTIN PHOSPHATE 75850419848 Active Elizabeth Sheridan CLARITIN 10 MG TAB 1 PO daily LORATADINE 82110373996 Active Elizabeth Sheridan ACTOS 45 MG TABS 1 PO daily PIOGLITAZONE HCL 87772513024 No Longer Active Padmaalirio Sanchez FISH OIL 1000 MG CAPS 1 PO daily OMEGA-3 FATTY ACIDS 34010574122 Active Padmaalirio Sanchez BIAXIN XL PAC 500 MG TB24 2 pills at same time daily for 7 days CLARITHROMYCIN 26609741784 No Longer Active Padmaalirio Sanchez SINGULAIR 10 MG TABS 1 po daily MONTELUKAST SODIUM 44698036159 Active Elizabeth Sheridan SINGULAIR 10 MG TABS 1 PO daily MONTELUKAST SODIUM 48647475973 No Longer Active Padma Sanchez SILVADENE 1 % CREA Apply to left lateral foot affected area TID and apply dressing. SILVER SULFADIAZINE 22821649244 No Longer Active Padmaalirio Sanchez PREMARIN 0.625 MG/GM CREA 1 gm intravaginally HS 3 times a week for 4 weeks then twice a week ESTROGENS, CONJUGATED VAGINAL 10613877619 No Longer Active Padma Sanchez BIAXIN XL PAC 500 MG TB24 2 pills at same time daily for 7 days CLARITHROMYCIN 66573806746 No Longer Active Padma Sanchez GLUCOPHAGE 500 MG TABS 2 PO BID METFORMIN HCL 49891394731 Active Elizabeth Sheridan PYRIDIUM 200 MG TAB 1 PO TID prn urinary urgency PHENAZOPYRIDINE HCL 32594168423 No Longer Active Padma Sanchez AMOXICILLIN 500 MG CAP 1 PO TID AMOXICILLIN 91057455014 No Longer Active Padmaalirio Sanchez PROAIR HFA 108 (90 BASE) MCG/ACT AERS 2 puffs every 6 hrs prn ALBUTEROL SULFATE 70173459507 Active Phyllis Fisher ACIPHEX 20 MG TBEC 1 PO daily RABEPRAZOLE SODIUM 51208493607 No Longer Active Elizabeth Sheridan HYDROCHLOROTHIAZIDE 25 MG TAB 1 PO QD HYDROCHLOROTHIAZIDE 33529875965 Active Elizabeth Sheridan LASIX 40 MG TAB 1 PO daily FUROSEMIDE 26686250368 Active Elizabeth Sheridan ALTOPREV 40 MG TB24 1 PO daily LOVASTATIN 23733928057 Active Elizabeth Sheridan Immunizations Vaccine Administration Date [...] mg/dL Encounters Code Encounter Date Provider Facility CPT-45915 Ofc Vst, Est Level III 15:08:45 CDT Padma Yamilazeyad Sanchez [facility] CPT-48036 Ofc Vst, Est Level IV 17:59:31 CDT Padma Yamilazeyad Sanchez [facility] CPT-36398 Ofc Vst, Est Level IV 20:35:52 CDT Padma Yamilazeyad Sanchez, DO, FACP CPT-17744 Ofc Vst, Est Level IV 17:39:19 RESPITE COORDINATOR Padma Sanchez, DO, FACP CPT-00114 Ofc Vst, Est Level IV 15:29:57 CDT Padma Yamilazeyad Sanchez [facility] CPT-24601 Ofc Vst, Est Level III 16:04:17 CDT Padma Yamilazeyad Jamaner, DO, FACP CPT-14255 Ofc Vst, Est Level IV 14:48:46 CDT Padma Sanchez, DO, FACP CPT-46401 Ofc Vst, Est Level IV 16:21:06 CDT Padma Sanchez, DO, FACP CPT-38006 Ofc Vst, Est Level IV 15:36:57 CDT Padma Sanchez, DO, FACP CPT-80411 Ofc Vst, Est Level IV 15:35:57 RESPITE COORDINATOR Padma Sanchez, DO, FACP CPT-88569 Ofc Vst, Est Level IV 13:46:44 RESPITE COORDINATOR Padma Sanchez, DO, FACP CPT-45493 Ofc Vst, Est Level IV 14:20:29 CDT Padma [facility] CPT-03740 Ofc Vst, Est Level IV 14:05:36 CDT Padma [facility] CPT-92208 Ofc Vst, Est Level IV 13:54:42 CDT Padma [facility] CPT-52815 Ofc Vst, Est Level IV 13:48:44 RESPITE COORDINATOR Padma [facility] CPT-33819 Ofc Vst, Est Level IV 14:16:17 CDT Padma [facility] CPT-45854 Ofc Vst, Est Level IV 14:06:24 [facility] Ofc Vst, Est Level IV 14:03:[address] [facility] CPT-24295 Ofc Vst, Est Level IV 14:31:46 RESPITE COORDINATOR Padma [facility] CPT-79300 Ofc Vst, Est Level III 14:19:18 CDT Padma [facility] CPT-24079 Ofc Vst, Est Level IV 14:17:24 CDT Padma [facility] CPT-81831 Ofc Vst, Est Level IV 14:16:13 CDT Padma [facility] CPT-49590 Ofc Vst, Est Level III 14:46:11 CDT Padma [facility] CPT-09223 Ofc Vst, Est Level III 15:28:13 CDT Padma [facility] CPT-68708 Ofc Vst, Est Level IV 14:51:56 RESPITE COORDINATOR [facility] CPT-27461 Ofc Vst, Est Level III 13:59:11 RESPITE COORDINATOR Padma [facility] CPT-81026 Ofc Vst, Est Level IV 14:03:19 CDT [facility] CPT-84707 Ofc Vst, Est Level IV 15:24:50 CDT [facility] CPT-07797 Ofc Vst, New Level IV 13:42:26 CDT [facility] Procedures Code Procedure Name Date Entry Date Standard Description CPT-64927 Preventive, Est, (40-64) 11:40:53 CDT CPT-98879 Preventive, Est, (40-64) 14:46:08 CDT
--- OUTSIDE RECORDS SUMMARY | 2017-11-28 18:13 | XMS REPORT | Clinical Summary ---
Author Author User, [employer] Organization Padma Sanchez DO, FACP Address Unknown [...] Generic Name NDC Status Provider Patient Instruction CYMBALTA 60 MG CPEP 1 PO daily DULOXETINE HCL 53158023906 Active Padma Sanchez ROBITUSSIN A-C 10-100 MG/5ML SYRUP 1 teaspoon PO Q 4-6 hr prn ROBITUSSIN A-C 10-100 MG/5ML SYRUP No Longer Active Padma Sanchez LEVAQUIN 500 MG TAB 1 PO QD LEVOFLOXACIN 99300596767 No Longer Active Padma Sanchez XANAX 0.25 MG TABS 1 PO Q6hrs prn ALPRAZOLAM 37472190615 Active Padma Sanchez TOPROL XL 25 MG TB24 1 PO daily METOPROLOL SUCCINATE 33540028695 Active Padma Sanchez ADVAIR DISKUS 100-50 MCG/DOSE MISC 1 puff BID FLUTICASONE-SALMETEROL 17915946409 Active Elizabeth Sheridan GLYBURIDE 1.25 MG TABS 1 PO QD GLYBURIDE 19922929548 Active Elizabeth Sheridan POTASSIUM CHLORIDE ER 10 MEQ CR-CAPS 2 PO DAILY POTASSIUM CHLORIDE 91174025545 Active Elizabeth Sheridan LANCETS MISC DIRECTED DX: 250.02 [facility] 16213971059 No Longer Active Padma Sanchez VALTREX 1 GM TAB 1 PO BID for 3 days at first sign of cold sore as needed VALACYCLOVIR HCL 92747021630 No Longer Active Padma Sanchez VITAMIN D 1000 UNIT TABS 1 PO Daily CHOLECALCIFEROL 05694605279 Active Padma Sanchez LISINOPRIL 10 MG TABS 1 PO daily LISINOPRIL 74822193243 Active Padma Sanchez PREDNISONE 10 MG TAB 2 PO at one time daily for 3 days then one PO daily for 3 days PREDNISONE 63898311538 No Longer Active Padma Sanchez SPIRIVA HANDIHALER 18 MCG CAPS 1 puff daily TIOTROPIUM BROMIDE MONOHYDRATE 09164772722 Active Padma Sanchez ALBUTEROL SULFATE 0.083 % NEBU SOLN 1 nebulizer treatment BID ALBUTEROL SULFATE 67061563699 Active Padma Sanchez PREDNISONE 10 MG TAB 2 PO daily at 1 time for 3 days then 1 PO daily for 3 days. PREDNISONE 55860072501 No Longer Active Padma Sanchez BIAXIN 500 MG TAB 1 PO BID CLARITHROMYCIN 57303170414 No Longer Active Padma Sanchez LEVAQUIN 500 MG TAB 1 PO QD LEVOFLOXACIN 80519389014 No Longer Active Elizabeth Sheridan PYRIDIUM 200 MG TAB 1 PO TID prn urinary urgency PHENAZOPYRIDINE HCL 08943466781 No Longer Active Elizabeth Sheridan DIFLUCAN 100 MG TAB 1 po daily FLUCONAZOLE 10824148481 No Longer Active Padma Sanchez PREDNISONE 20 MG TAB 1 PO daily for 3 days then 1/2 PO daily for 3 days. 2013 PREDNISONE 33658516752 No Longer Active Padma Sanchez ONETOUCH TEST STRP check sugar BID DX: 250.02 GLUCOSE BLOOD 87996158308 Active Elizabeth FAJARDO PROBIOTIC COMPLEX TABS 1 po daily PROBIOTIC PRODUCT 60873610992 Active Padma Sanchez CENTRUM SILVER ULTRA WOMENS TABS 1 po daily MULTIPLE VITAMINS-MINERALS 32157986806 Active Padma Sanchez LEVAQUIN 500 MG TAB 1 PO QD LEVOFLOXACIN 64921683627 No Longer Active Padma Sanchez PREDNISONE 20 MG TAB 2 pills at once for 2 days then 1 pill daily for 5 days PREDNISONE 38960286383 No Longer Active Padma Sanchez PRILOSEC 10 MG CAP CR OMEPRAZOLE 66227727465 No Longer Active Padma Sanchez TRIAMCINOLONE ACETONIDE 0.025 % CREA apply daily prn sparingly TRIAMCINOLONE ACETONIDE (TOP) 30881587633 No Longer Active Padma Sanchez CORICIDIN HBP CONGESTION/COUGH CAPS As Directed PRN DEXTROMETHORPHAN-GUAIFENESIN CAPS 32112434518 No Longer Active Padma Sanchez CICLOPIROX OLAMINE 0.77 % CREA Apply to affected area twice daily CICLOPIROX OLAMINE 24114940677 No Longer Active Padma Sanchez ROBITUSSIN A-C 10-100 MG/5ML SYRUP 1 teaspoon PO Q 4-6 hr prn ROBITUSSIN A-C 10-100 MG/5ML SYRUP No Longer Active Elizabeth Sheridan ATROVENT 0.06 % SOLN 2 puffs each nostril TID prn runny nose 2012 IPRATROPIUM BROMIDE 17786560022 No Longer Active Padma Sanchez DIFLUCAN 150 MG TAB 1 PO QD for 3 days FLUCONAZOLE 72134725944 No Longer Active Yesenia Breanna ADVAIR DISKUS 100-50 MCG/DOSE MISC 1 puff BID FLUTICASONE-SALMETEROL 48061851272 No Longer Active Padma OSEI NASAL SPRAY (DEXAMETHASONE, GENTAMICIN, SALINE) 2 puffs each nostril TID for [address] OSEI NASAL SPRAY ( DEXAMETHASONE, GENTAMICIN, SALINE) No Longer Active Padma Sanchez PREDNISONE 20 MG TAB 2 pills at once for 3 days then 1 pill daily for 2 days PREDNISONE 75868101385 No Longer Active Padma Yamila Sanchez LEVAQUIN 500 MG TAB 1 PO QD LEVOFLOXACIN 53614354446 No Longer Active Padmaalirio Sanchez TRANSDERM-SCOP 1.5 MG PT72 1 patch behind ear and change every 3 days SCOPOLAMINE BASE 16890288251 No Longer Active Padmaalirio Sanchez JANUVIA 100 MG TABS 1 PO daily SITAGLIPTIN PHOSPHATE 84017966012 Active Elizabeth Sheridan CLARITIN 10 MG TAB 1 PO daily LORATADINE 25447284196 Active Elizabeth Sheridan ACTOS 45 MG TABS 1 PO daily PIOGLITAZONE HCL 65829249116 No Longer Active Padmaalirio Sanchez FISH OIL 1000 MG CAPS 1 PO daily OMEGA-3 FATTY ACIDS 61932087935 Active Padmaaliroi Sanchez BIAXIN XL PAC 500 MG TB24 2 pills at same time daily for 7 days CLARITHROMYCIN 04961767645 No Longer Active Padma Sanchez SINGULAIR 10 MG TABS 1 po daily MONTELUKAST SODIUM 04225064593 Active Elizabeth Sheridan SINGULAIR 10 MG TABS 1 PO daily MONTELUKAST SODIUM 96927912638 No Longer Active Padmaalirio Sanchez SILVADENE 1 % CREA Apply to left lateral foot affected area TID and apply dressing. SILVER SULFADIAZINE 97716146763 No Longer Active Padmaalirio Sanchez PREMARIN 0.625 MG/GM CREA 1 gm intravaginally HS 3 times a week for 4 weeks then twice a week ESTROGENS, CONJUGATED VAGINAL 99862569157 No Longer Active Padmaalirio Sanchez BIAXIN XL PAC 500 MG TB24 2 pills at same time daily for 7 days CLARITHROMYCIN 41969662245 No Longer Active Padmaalirio Sanchez GLUCOPHAGE 500 MG TABS 2 PO BID METFORMIN HCL 18613037026 Active Elizabeth Fatimah PYRIDIUM 200 MG TAB 1 PO TID prn urinary urgency PHENAZOPYRIDINE HCL 19317447596 No Longer Active Padma Parisanncindy Sanchez AMOXICILLIN 500 MG CAP 1 PO TID AMOXICILLIN 15799902709 No Longer Active Padmaalirio Houghe Daniel PROAIR HFA 108 (90 BASE) MCG/ACT AERS 2 puffs every 6 hrs prn ALBUTEROL SULFATE 46016348511 Active Phyllis Fisher ACIPHEX 20 MG TBEC 1 PO daily RABEPRAZOLE SODIUM 44960483752 No Longer Active Elizabethleandro Sheridan HYDROCHLOROTHIAZIDE 25 MG TAB 1 PO QD HYDROCHLOROTHIAZIDE 27946908256 Active Elizabeth Fatimah LASIX 40 MG TAB 1 PO daily FUROSEMIDE 99702028790 Active Elizabeth Fatimah ALTOPREV 40 MG TB24 1 PO daily LOVASTATIN 71776122482 Active Elizabeth Fatimah Immunizations Vaccine Administration Date Value Standard Description [...] mg/dL Encounters Code Encounter Date Provider Facility CPT-72289 Ofc Vst, Est Level III 16:39:25 CDT Padma Yamilazeyad Sanchez [facility] CPT-62887 Ofc Vst, Est Level III 15:08:45 CDT Padma Yamila Sanchez [facility] CPT-79942 Ofc Vst, Est Level IV 17:59:31 CDT Padma Yamilazeyad Sanchez [facility] CPT-39884 Ofc Vst, Est Level IV 20:35:52 CDT Padmaalirio Sanchez, DO, FACP CPT-95632 Ofc Vst, Est Level IV 17:39:19 [employer] Padma Sanchez, DO, FACP CPT-09245 Ofc Vst, Est Level IV 15:29:57 CDT Padma Yamilazeyad Sanchez [facility] CPT-17877 Ofc Vst, Est Level III 16:04:17 CDT Padmaalirio Sanchez, DO, FACP CPT-62520 Ofc Vst, Est Level IV 14:48:46 CDT Padmaalirio Sanchez, DO, FACP CPT-76809 Ofc Vst, Est Level IV 16:21:06 CDT Padma Sanchez, DO, FACP CPT-94155 Ofc Vst, Est Level IV 15:36:57 CDT Padma Sanchez, DO, FACP CPT-62135 Ofc Vst, Est Level IV 15:35:57 [employer] Padma Sanchez, DO, FACP CPT-62740 Ofc Vst, Est Level IV 13:46:44 [employer] Padma [facility] Padma S DO Daniel, [facility] CPT-99281 Ofc Vst, Est Level IV 14:20:29 CDT Padma [facility] CPT-56396 Ofc Vst, Est Level IV 14:05:36 CDT Padma [facility] CPT-54971 Ofc Vst, Est Level IV 13:54:42 CDT Padma [facility] CPT-47160 Ofc Vst, Est Level IV 13:48:44 [employer] Padma [facility] CPT-03049 Ofc Vst, Est Level IV 14:16:17 CDT Padma [facility] CPT-46760 Ofc Vst, Est Level IV 14:06:24 CDT Padma [facility] CPT-56335 Ofc Vst, Est Level IV 14:03:09 [employer] [facility] CPT-47179 Ofc Vst, Est Level IV 14:31:46 [employer] [facility] CPT-11632 Ofc Vst, Est Level III 14:19:18 CDT [facility] CPT-91769 Ofc Vst, Est Level IV 14:17:24 [facility] Ofc Vst, Est Level IV 14:16:13 CDT Padma [facility] CPT-50618 Ofc Vst, Est Level III 14:46:11 [facility] CPT-70331 Ofc Vst, Est Level III 15:28:13 CDT [facility] CPT-28586 Ofc Vst, Est Level IV 14:51:56 [employer] [facility] CPT-24196 Ofc Vst, Est Level III 13:59:[address] [facility] CPT-02124 Ofc Vst, Est Level IV 14:03:[address] [facility] CPT-78424 Ofc Vst, Est Level IV 15:24:[address] [facility] CPT-32743 Ofc Vst, New Level IV 13:42:[address] [facility] OFF[facility] Procedures Code Procedure Name Date Entry Date Standard Description CPT-09745 Preventive, Est, (40-64) 21:59:18 CDT CPT-29249 Preventive, Est, (40-64) 11:40:53 CDT CPT-54222 Preventive, Est, (40-64) 14:46:08 CDT
--- OUTSIDE RECORDS SUMMARY | 2017-11-28 18:14 | XMS REPORT | Clinical Summary ---
Author Author User, [employer] Organization Padma Sanchez DO, FACP Address Unknown [...] MG TABS 1 PO Q6hrs prn ALPRAZOLAM 03157028706 Active Padma Sanchez CYMBALTA 30 MG CPEP 1 PO daily DULOXETINE HCL 24899579504 Active Elizabeth Sheridan TOPROL XL 25 MG TB24 1 PO daily METOPROLOL SUCCINATE 20600774475 Active Padma Sanhcez ADVAIR DISKUS 100-50 MCG/DOSE MISC 1 puff BID FLUTICASONE-SALMETEROL 73522992261 Active Elizabeth Sheridan GLYBURIDE 1.25 MG TABS 1 PO QD GLYBURIDE 80983106101 Active Elizabeth Sheridan POTASSIUM CHLORIDE ER 10 MEQ CR-CAPS 2 PO DAILY POTASSIUM CHLORIDE 74529980832 Active Elizabeth Sheridan [facility] MISC DIRECTED DX: 250.02 [facility] 37308902868 No Longer Active Padma Sanchez VALTREX 1 GM TAB 1 PO BID for 3 days at first sign of cold sore as needed VALACYCLOVIR HCL 44039641621 No Longer Active Padma Sanchez VITAMIN D 1000 UNIT TABS 1 PO Daily CHOLECALCIFEROL 97096186133 Active Padma Sanchez LISINOPRIL 10 MG TABS 1 PO daily LISINOPRIL 69820948385 Active Padma Sanchez PREDNISONE 10 MG TAB 2 PO at one time daily for 3 days then one PO daily for 3 days PREDNISONE 78898234465 No Longer Active Padma Sanchez SPIRIVA HANDIHALER 18 MCG CAPS 1 puff daily TIOTROPIUM BROMIDE MONOHYDRATE 43382865505 Active Padma Sanchez ALBUTEROL SULFATE 0.083 % NEBU SOLN 1 nebulizer treatment BID ALBUTEROL SULFATE 24071656792 Active Padma Sanchez PREDNISONE 10 MG TAB 2 PO daily at 1 time for 3 days then 1 PO daily for 3 days. PREDNISONE 20826488617 No Longer Active Padma Sanchez BIAXIN 500 MG TAB 1 PO BID CLARITHROMYCIN 11679061896 No Longer Active Padma Sanchez LEVAQUIN 500 MG TAB 1 PO QD LEVOFLOXACIN 75638038898 No Longer Active Elizabeth Sheridan PYRIDIUM 200 MG TAB 1 PO TID prn urinary urgency PHENAZOPYRIDINE HCL 95475709592 No Longer Active Elizabeth Sheridan DIFLUCAN 100 MG TAB 1 po daily FLUCONAZOLE 29973811202 No Longer Active Padma Sanchez PREDNISONE 20 MG TAB 1 PO daily for 3 days then 1/2 PO daily for 3 days. 2013 PREDNISONE 01052115230 No Longer Active Padma Sanchez ONETOUCH TEST STRP check sugar BID DX: 250.02 GLUCOSE BLOOD 90053257290 Active Elizabeth FAJARDO PROBIOTIC COMPLEX TABS 1 po daily PROBIOTIC PRODUCT 50438744256 Active Padma Sanchez CENTRUM SILVER ULTRA WOMENS TABS 1 po daily MULTIPLE VITAMINS-MINERALS 16735068514 Active Padma Sanchez LEVAQUIN 500 MG TAB 1 PO QD LEVOFLOXACIN 25284959612 No Longer Active Padma Sanchez PREDNISONE 20 MG TAB 2 pills at once for 2 days then 1 pill daily for 5 days PREDNISONE 16993825548 No Longer Active Padma Sanchez PRILOSEC 10 MG CAP CR OMEPRAZOLE 85724383671 No Longer Active Padma Sanchez TRIAMCINOLONE ACETONIDE 0.025 % CREA apply daily prn sparingly TRIAMCINOLONE ACETONIDE (TOP) 06559983746 No Longer Active Padma Sanchez CORICIDIN HBP CONGESTION/COUGH CAPS As Directed PRN DEXTROMETHORPHAN-GUAIFENESIN CAPS 99865319312 No Longer Active Padma Sanchez CICLOPIROX OLAMINE 0.77 % CREA Apply to affected area twice daily CICLOPIROX OLAMINE 31883671378 No Longer Active Padma Sanchez ROBITUSSIN A-C 10-100 MG/5ML SYRUP 1 teaspoon PO Q 4-6 hr prn ROBITUSSIN A-C 10-100 MG/5ML SYRUP No Longer Active Elizabeth Sheridan ATROVENT 0.06 % SOLN 2 puffs each nostril TID prn runny nose 2012 IPRATROPIUM BROMIDE 71631666273 No Longer Active Padma Sanchez DIFLUCAN 150 MG TAB 1 PO QD for 3 days FLUCONAZOLE 75798322265 No Longer Active Yesenia Carlos ADVAIR DISKUS 100-50 MCG/DOSE MISC 1 puff BID FLUTICASONE-SALMETEROL 77522120531 No Longer Active Padma SALCIDO'S NASAL SPRAY (DEXAMETHASONE, GENTAMICIN, SALINE) 2 puffs each nostril TID for [address] SALCIDO'Flex NASAL SPRAY ( DEXAMETHASONE, GENTAMICIN, SALINE) No Longer Active Padma Sanchez PREDNISONE 20 MG TAB 2 pills at once for 3 days then 1 pill daily for 2 days PREDNISONE 66334874642 No Longer Active Padma Sanchez LEVAQUIN 500 MG TAB 1 PO QD LEVOFLOXACIN 67051642680 No Longer Active Padma Sanchez TRANSDERM-SCOP 1.5 MG PT72 1 patch behind ear and change every 3 days SCOPOLAMINE BASE 60756625622 No Longer Active Padma Sanchez JANUVIA 100 MG TABS 1 PO daily SITAGLIPTIN PHOSPHATE 00166174339 Active Elizabeth Sheridan CLARITIN 10 MG TAB 1 PO daily LORATADINE 56320369928 Active Elizabeth Sheridan ACTOS 45 MG TABS 1 PO daily PIOGLITAZONE HCL 57656934935 No Longer Active Padmaalirio Sanchez FISH OIL 1000 MG CAPS 1 PO daily OMEGA-3 FATTY ACIDS 38836254794 Active Padmaalirio Sanchez BIAXIN XL PAC 500 MG TB24 2 pills at same time daily for 7 days CLARITHROMYCIN 53823328965 No Longer Active Padmaalirio Sanchez SINGULAIR 10 MG TABS 1 po daily MONTELUKAST SODIUM 62778418934 Active Elizabeth Sheridan SINGULAIR 10 MG TABS 1 PO daily MONTELUKAST SODIUM 65204839156 No Longer Active Padma Sanchez SILVADENE 1 % CREA Apply to left lateral foot affected area TID and apply dressing. SILVER SULFADIAZINE 96453539009 No Longer Active Padmaalirio Sanchez PREMARIN 0.625 MG/GM CREA 1 gm intravaginally HS 3 times a week for 4 weeks then twice a week ESTROGENS, CONJUGATED VAGINAL 22832358773 No Longer Active Padma Sanchez BIAXIN XL PAC 500 MG TB24 2 pills at same time daily for 7 days CLARITHROMYCIN 70274189378 No Longer Active Padma Sanchez GLUCOPHAGE 500 MG TABS 2 PO BID METFORMIN HCL 11155804669 Active Elizabeth Sheridan PYRIDIUM 200 MG TAB 1 PO TID prn urinary urgency PHENAZOPYRIDINE HCL 45704219945 No Longer Active Padma Sanchez AMOXICILLIN 500 MG CAP 1 PO TID AMOXICILLIN 28113147848 No Longer Active Padmaalirio Sanchez PROAIR HFA 108 (90 BASE) MCG/ACT AERS 2 puffs every 6 hrs prn ALBUTEROL SULFATE 22567777118 Active Phyllis Fisher ACIPHEX 20 MG TBEC 1 PO daily RABEPRAZOLE SODIUM 70087339692 No Longer Active Elizabeth Sheridan HYDROCHLOROTHIAZIDE 25 MG TAB 1 PO QD HYDROCHLOROTHIAZIDE 07579004895 Active Elizabeth Sheridan LASIX 40 MG TAB 1 PO daily FUROSEMIDE 47683582065 Active Elizabeth Sheridan ALTOPREV 40 MG TB24 1 PO daily LOVASTATIN 77511778902 Active Elizabeth Sheridan Immunizations Vaccine Administration Date [...] mg/dL Encounters Code Encounter Date Provider Facility CPT-70386 Ofc Vst, Est Level III 15:08:45 CDT Padma Yamilazeyad Sanchez [place] CPT-59064 Ofc Vst, Est Level IV 17:59:31 CDT Padma Yamilazeyad Sanchez [place] CPT-46795 Ofc Vst, Est Level IV 20:35:52 CDT Padma Yamilazeyad Sanchez, DO, FACP CPT-56499 Ofc Vst, Est Level IV 17:39:19 [facility] [facility] Padma Sanchez, DO, FACP CPT-47708 Ofc Vst, Est Level IV 15:29:57 CDT Padma Yamilazeyad Sanchez [place] [facility] CPT-77471 Ofc Vst, Est Level III 16:04:17 CDT Padma Yamilazeyad Jamaner, DO, FACP CPT-88217 Ofc Vst, Est Level IV 14:48:46 CDT Padma Sanchez, DO, FACP CPT-64781 Ofc Vst, Est Level IV 16:21:06 CDT Padma Sanchez, DO, FACP CPT-60435 Ofc Vst, Est Level IV 15:36:57 CDT Padma Sanchez, DO, FACP CPT-92074 Ofc Vst, Est Level IV 15:35:57 [employer] [facility] [facility] Padma Sanchez, DO, FACP CPT-47080 Ofc Vst, Est Level IV 13:46:44 [employer] [facility] [facility] Padma Sanchez, DO, FACP CPT-91222 Ofc Vst, Est Level IV 14:20:29 CDT Padma [facility] OFFICE CPT-16115 Ofc Vst, Est Level IV 14:05:36 CDT Padma [facility] CPT-76525 Ofc Vst, Est Level IV 13:54:42 CDT Padma [facility] CPT-00387 Ofc Vst, Est Level IV 13:48:44 [employer] [facility] [facility] Padma [facility] CPT-31466 Ofc Vst, Est Level IV 14:16:17 CDT Padma [facility] CPT-14377 Ofc Vst, Est Level IV 14:06:24 [facility] Ofc Vst, Est Level IV 14:03:09 [employer] [facility] [facility] Padma [facility] CPT-20332 Ofc Vst, Est Level IV 14:31:46 [employer] [facility] [facility] Padma [facility] CPT-06554 Ofc Vst, Est Level III 14:19:18 CDT Padma [facility] CPT-50237 Ofc Vst, Est Level IV 14:17:24 CDT Padma [facility] CPT-81020 Ofc Vst, Est Level IV 14:16:13 CDT Padma [facility] CPT-59067 Ofc Vst, Est Level III 14:46:11 CDT Padma [facility] CPT-91653 Ofc Vst, Est Level III 15:28:13 CDT Padma [facility] CPT-63997 Ofc Vst, Est Level IV 14:51:56 [employer] [facility] [facility] [facility] CPT-11953 Ofc Vst, Est Level III 13:59:11 [employer] [facility] [facility] Padma [facility] CPT-23655 Ofc Vst, Est Level IV 14:03:19 CDT [facility] CPT-41165 Ofc Vst, Est Level IV 15:24:50 CDT [facility] CPT-86576 Ofc Vst, New Level IV 13:42:26 CDT [facility] Procedures Code Procedure Name Date Entry Date Standard Description CPT-18134 Preventive, Est, (40-64) 11:40:53 CDT CPT-87219 Preventive, Est, (40-64) 14:46:08 CDT
--- OUTSIDE RECORDS SUMMARY | 2017-11-28 18:14 | XMS REPORT | Clinical Summary ---
Author Author User, [employer] Organization Padma Sanchez DO, FACP Address [...] Chronic interstitial cystitis VAGINITIS, ATROPHIC 627.3 Resolved Pdama Sanchez Postmenopausal atrophic vaginitis BRONCHITIS 490 Resolved [...] Padma Sanchez Memory loss ANXIETY 300.00 Active Padam Sanchez Anxiety state, unspecified ASTHMA, CHRN OBST W/(ACUTE) EXACERBATION 493.22 Active Padma Sanchez Chronic obstructive asthma, with (acute) exacerbation Medication List Medication Instructions Start Date Stop Date Generic Name [facility] Status Provider Patient Instruction ROBITUSSIN A-C 10-100 MG/5ML SYRUP 1 teaspoon PO Q 4-6 hr prn ROBITUSSIN A-C 10-100 MG/5ML SYRUP Active Padma Sacnhez LEVAQUIN 500 MG TAB 1 PO QD LEVOFLOXACIN 34066401597 Active Padma Sanchez XANAX 0.25 MG TABS 1 PO Q6hrs prn ALPRAZOLAM 54312373419 Active Padma Sanchez CYMBALTA 30 MG CPEP 1 PO daily DULOXETINE HCL 70005618679 Active Elizabeth Sheridan TOPROL XL 25 MG TB24 1 PO daily METOPROLOL SUCCINATE 32336738151 Active Padma Sanchez ADVAIR DISKUS 100-50 MCG/DOSE MISC 1 puff BID FLUTICASONE-SALMETEROL 53223561642 Active Elizabeth Sheridan GLYBURIDE 1.25 MG TABS 1 PO QD GLYBURIDE 50872746381 Active Elizabeth Sheridan POTASSIUM CHLORIDE ER 10 MEQ CR-CAPS 2 PO DAILY POTASSIUM CHLORIDE 19515726429 Active Elizabeth Sheridan [facility] DX: 250.02 [facility] 07212839839 No Longer Active Padma Sanchez VALTREX 1 GM TAB 1 PO BID for 3 days at first sign of cold sore as needed VALACYCLOVIR HCL 17403063369 No Longer Active Padma Sanchez VITAMIN D 1000 UNIT TABS 1 PO Daily CHOLECALCIFEROL 12588780557 Active Padma Sanchez LISINOPRIL 10 MG TABS 1 PO daily LISINOPRIL 78815143023 Active Padma Sanchez PREDNISONE 10 MG TAB 2 PO at one time daily for 3 days then one PO daily for 3 days PREDNISONE 52195422739 No Longer Active Padma Sanchez SPIRIVA HANDIHALER 18 MCG CAPS 1 puff daily TIOTROPIUM BROMIDE MONOHYDRATE 91711169901 Active Padma Sanchez ALBUTEROL SULFATE 0.083 % NEBU SOLN 1 nebulizer treatment BID ALBUTEROL SULFATE 59039766839 Active Padma Sanchez PREDNISONE 10 MG TAB 2 PO daily at 1 time for 3 days then 1 PO daily for 3 days. PREDNISONE 64990714769 No Longer Active Padma Sanchez BIAXIN 500 MG TAB 1 PO BID CLARITHROMYCIN 79129890541 No Longer Active Padma Sanchez LEVAQUIN 500 MG TAB 1 PO QD LEVOFLOXACIN 95422286702 No Longer Active Elizabeth Sheridan PYRIDIUM 200 MG TAB 1 PO TID prn urinary urgency PHENAZOPYRIDINE HCL 03276157043 No Longer Active Elizabeth Sheridan DIFLUCAN 100 MG TAB 1 po daily FLUCONAZOLE 81967481022 No Longer Active Padma Sanchez PREDNISONE 20 MG TAB 1 PO daily for 3 days then 1/2 PO daily for 3 days. 2013 PREDNISONE 58312647436 No Longer Active Padma Sanchez ONETOUCH TEST STRP check sugar BID DX: 250.02 GLUCOSE BLOOD 60524101876 Active Elizabeth Sheridan PA PROBIOTIC COMPLEX TABS 1 po daily PROBIOTIC PRODUCT 43035441486 Active Padma Sanchez CENTRUM SILVER ULTRA WOMENS TABS 1 po daily MULTIPLE VITAMINS-MINERALS 73358927919 Active Padma Sanchez LEVAQUIN 500 MG TAB 1 PO QD LEVOFLOXACIN 13849096457 No Longer Active Padma Sanchez PREDNISONE 20 MG TAB 2 pills at once for 2 days then 1 pill daily for 5 days PREDNISONE 45193381094 No Longer Active Padma Sanchez PRILOSEC 10 MG CAP CR OMEPRAZOLE 87802365658 No Longer Active Padma Sanchez TRIAMCINOLONE ACETONIDE 0.025 % CREA apply daily prn sparingly TRIAMCINOLONE ACETONIDE (TOP) 94104531484 No Longer Active Padma Sanchez CORICIDIN HBP CONGESTION/COUGH CAPS As Directed PRN DEXTROMETHORPHAN-GUAIFENESIN CAPS 09479090076 No Longer Active Padmaalirio Sanchez CICLOPIROX OLAMINE 0.77 % CREA Apply to affected area twice daily CICLOPIROX OLAMINE 40846783202 No Longer Active Padma Sanchez ROBITUSSIN A-C 10-100 MG/5ML SYRUP 1 teaspoon PO Q 4-6 hr prn ROBITUSSIN A-C 10-100 MG/5ML SYRUP No Longer Active Elizabeth [place] ATROVENT 0.06 % SOLN 2 puffs each nostril TID prn runny nose 2012 IPRATROPIUM BROMIDE 30892574661 No Longer Active Padma Sanchez DIFLUCAN 150 MG TAB 1 PO QD for 3 days FLUCONAZOLE 01221737506 No Longer Active Yesenia Carlos ADVAIR DISKUS 100-50 MCG/DOSE MISC 1 puff BID FLUTICASONE-SALMETEROL 66295486359 No Longer Active Padma SALCIDO'Flex NASAL SPRAY (DEXAMETHASONE, GENTAMICIN, SALINE) 2 puffs each nostril TID for [address] OSEI NASAL SPRAY ( DEXAMETHASONE, GENTAMICIN, SALINE) No Longer Active Padma Sanchez PREDNISONE 20 MG TAB 2 pills at once for 3 days then 1 pill daily for 2 days PREDNISONE 83906813400 No Longer Active Padma Yamila Sanchez LEVAQUIN 500 MG TAB 1 PO QD LEVOFLOXACIN 74124628515 No Longer Active Padma Yamila Sanchez TRANSDERM-SCOP 1.5 MG PT72 1 patch behind ear and change every 3 days SCOPOLAMINE BASE 85010450866 No Longer Active Padma Yamila Sanchez JANUVIA 100 MG TABS 1 PO daily SITAGLIPTIN PHOSPHATE 28087305626 Active Elizabeth Sheridan CLARITIN 10 MG TAB 1 PO daily LORATADINE 79765387248 Active Elizabeth Sheridan ACTOS 45 MG TABS 1 PO daily PIOGLITAZONE HCL 25104779378 No Longer Active Padmaalirio Sanchez FISH OIL 1000 MG CAPS 1 PO daily OMEGA-3 FATTY ACIDS 87113479303 Active Padmaalirio Sanchez BIAXIN XL PAC 500 MG TB24 2 pills at same time daily for 7 days CLARITHROMYCIN 94819965885 No Longer Active Padmaalirio Sanchez SINGULAIR 10 MG TABS 1 po daily MONTELUKAST SODIUM 28323909594 Active Elizabeth Sheridan SINGULAIR 10 MG TABS 1 PO daily MONTELUKAST SODIUM 88863296875 No Longer Active Padmaalirio Sanchez SILVADENE 1 % CREA Apply to left lateral foot affected area TID and apply dressing. SILVER SULFADIAZINE 32864596368 No Longer Active Padmaalirio Sanchez PREMARIN 0.625 MG/GM CREA 1 gm intravaginally HS 3 times a week for 4 weeks then twice a week ESTROGENS, CONJUGATED VAGINAL 62705518616 No Longer Active Padmaalirio Sanchez BIAXIN XL PAC 500 MG TB24 2 pills at same time daily for 7 days CLARITHROMYCIN 09328337244 No Longer Active Padmaalirio Sanchez GLUCOPHAGE 500 MG TABS 2 PO BID METFORMIN HCL 18754767242 Active Elizabeth Sheridan PYRIDIUM 200 MG TAB 1 PO TID prn urinary urgency PHENAZOPYRIDINE HCL 87175837313 No Longer Active Padma Driscoll Daniel AMOXICILLIN 500 MG CAP 1 PO TID AMOXICILLIN 62658988000 No Longer Active Padma Sanchez PROAIR HFA 108 (90 BASE) MCG/ACT AERS 2 puffs every 6 hrs prn ALBUTEROL SULFATE 96041338907 Active Phyllis Fisher ACIPHEX 20 MG TBEC 1 PO daily RABEPRAZOLE SODIUM 97434997564 No Longer Active Elizabeth Sheridan HYDROCHLOROTHIAZIDE 25 MG TAB 1 PO QD HYDROCHLOROTHIAZIDE 11832843776 Active Elizabeth Sheridan LASIX 40 MG TAB 1 PO daily FUROSEMIDE 03122677665 Active Elizabeth Sheridan ALTOPREV 40 MG TB24 1 PO daily LOVASTATIN 69106828226 Active Elizabeth Sheridan Immunizations Vaccine Administration Date [...] Description Clinical Lists Update: CBC,CMP,TSH,HGA1C - Chemistry chloride, serum 99 mmol/L sodium, serum 135 mmol/L cholesterol, serum 186 mg/dL carbon dioxide, venous blood 31.0 mmol/L creatinine, serum 0.7 mg/dL Estimated Glomerular Filtration Rate (calc) 89 mL/min/1.73m2 glucose, plasma fasting 141 mg/dL cholesterol/HDL ratio, serum, percent 4.3 alanine aminotransferase (SGPT), serum 17 U/L aspartate aminotransferase (SGOT), serum 13 U/L protein, total, serum 6.3 g/dL potassium, serum 4.2 mmol/L thyroid stimulating hormone, serum 3.41 u[iU]/mL triglyceride, serum, fasting 141 mg/dL HDL cholesterol, serum 43.0 mg/dL hemoglobin A1C, blood, as % of total hemoglobin 7.4 % LDL cholesterol, serum 115 mg/dL albumin, serum 4.0 g/dL alkaline phosphatase, serum 61 U/L anion gap, serum 9 bilirubin, serum, total 0.4 mg/dL urea nitrogen, blood 17 mg/dL calcium, serum 9.2 mg/dL Clinical Lists Update: CBC,CMP,TSH,HGA1C - Hematology mean corpuscular volume, RBC 88 fL platelet count 389 10*3/mm3 red blood cell distribution width 17.3 % erythrocyte (RBC) count 4.15 10*6/mm3 hemoglobin, blood 11.3 g/dL leukocyte count, blood 8.9 10*3/mm3 hematocrit, blood 36 % Clinical Lists Update: CMP,Chol,Trig,HgA1c - Chemistry chloride, serum 100 mmol/L cholesterol, serum 176 mg/dL carbon dioxide, venous blood 29.0 mmol/L creatinine, serum 0.8 mg/dL Estimated Glomerular Filtration Rate (calc) 75 mL/min/1.73m2 glucose, plasma fasting 168 mg/dL hemoglobin A1C, blood, as % of total hemoglobin 8.4 % albumin, serum 4.1 g/dL alkaline phosphatase, serum 74 U/L anion gap, serum 13 bilirubin, serum, total 0.3 mg/dL urea nitrogen, blood 30 mg/dL calcium, serum 9.5 mg/dL triglyceride, serum, fasting 166 mg/dL potassium, serum 4.2 mmol/L protein, total, serum 6.5 g/dL aspartate aminotransferase (SGOT), serum 13 U/L alanine aminotransferase (SGPT), serum 18 U/L sodium, serum 138 mmol/L Clinical Lists Update: CMP,FLP,HgA1c,Microalbumin - Chemistry chloride, serum 100 mmol/L sodium, serum 138 mmol/L cholesterol, serum 175 mg/dL carbon dioxide, venous blood 31.0 mmol/L creatinine, serum 0.7 mg/dL Estimated Glomerular Filtration Rate (calc) 98 mL/min/1.73m2 glucose, plasma fasting 132 mg/dL HDL cholesterol, serum 42.0 mg/dL hemoglobin A1C, blood, as % of total hemoglobin 7.2 % LDL cholesterol, serum 108 mg/dL albumin, serum 4.1 g/dL alkaline phosphatase, serum 70 U/L anion gap, serum 11 bilirubin, serum, total 0.3 mg/dL urea nitrogen, blood 20 mg/dL calcium, serum 9.3 mg/dL cholesterol/HDL ratio, serum, percent 4.2 triglyceride, serum, fasting 124 mg/dL potassium, serum 4.2 mmol/L protein, total, serum 6.5 g/dL aspartate aminotransferase (SGOT), serum 13 U/L alanine aminotransferase (SGPT), serum 18 U/L Clinical Lists Update: CMP,FLP,HgA1c,Microalbumin - Urinalysis microalbumin, urine, semiquantitative 0.5 mg/dL Encounters Code Encounter Date Provider Facility CPT-87751 Ofc Vst, Est Level III 16:39:25 CDT Padma Yamila Sanchez [facility] CPT-70747 Ofc Vst, Est Level III 15:08:45 CDT Padma Yamila Sanchez [facility] CPT-52437 Ofc Vst, Est Level IV 17:59:31 CDT Padma Yamila Sanchez [facility] CPT-19175 Ofc Vst, Est Level IV 20:35:52 CDT Padmaalirio Sanchez DO, FACP CPT-01184 Ofc Vst, Est Level IV 17:39:19 WORKFORCE ANALYST Padmaalirio Sanchez DO, FACP CPT-28369 Ofc Vst, Est Level IV 15:29:57 CDT Padmaalirio Sanchez [facility] CPT-52084 Ofc Vst, Est Level III 16:04:17 CDT Padma Sanchez DO, FACP CPT-65728 Ofc Vst, Est Level IV 14:48:46 CDT Padma Sanchez DO, FACP CPT-68294 Ofc Vst, Est Level IV 16:21:06 CDT Padma Yamila Sanchez Padma S Sanchez, DO, FACP CPT-64832 Ofc Vst, Est Level IV 15:36:57 CDT Padma Yamila Mccord Daniel, DO, FACP CPT-42029 Ofc Vst, Est Level IV 15:35:57 WORKFORCE ANALYST Padma Mccord Daniel, DO, FACP CPT-14605 Ofc Vst, Est Level IV 13:46:44 WORKFORCE ANALYST Padma Yamila Mccord Sanchez, DO, FACP CPT-45922 Ofc Vst, Est Level IV 14:20:29 CDT [facility] Ofc Vst, Est Level IV 14:05:36 CDT [facility] CPT-39296 Ofc Vst, Est Level IV 13:54:42 CDT Padma [facility] CPT-06688 Ofc Vst, Est Level IV 13:48:44 WORKFORCE ANALYST [facility] OFFICE CPT-40720 Ofc Vst, Est Level IV 14:16:17 CDT [facility] CPT-39789 Ofc Vst, Est Level IV 14:06:24 CDT [facility] Yamila Sanchez [facility] CPT-40573 Ofc Vst, Est Level IV 14:03:09 WORKFORCE ANALYST [facility]31225 Ofc Vst, Est Level IV 14:31:46 WORKFORCE ANALYST [facility] OFFICE CPT-07885 Ofc Vst, Est Level III 14:19:18 CDT [facility] CPT-37035 Ofc Vst, Est Level IV 14:17:24 CDT [facility] OFFICE CPT-41193 Ofc Vst, Est Level IV [facility]:16:[facility] Ofc Vst, Est Level III 14:46:11 CDT [facility] CPT-44558 Ofc Vst, Est Level III 15:28:13 CDT [facility] CPT-34353 Ofc Vst, Est Level IV 14:51:56 WORKFORCE ANALYST [facility] CPT-66287 Ofc Vst, Est Level III 13:59:11 WORKFORCE ANALYST [facility] CPT-41766 Ofc Vst, Est Level IV 14:03:19 CDT [facility] CPT-80383 Ofc Vst, Est Level IV 15:24:50 CDT [facility] CPT-09074 Ofc Vst, New Level IV 13:42:26 CDT [facility] Procedures Code Procedure Name Date Entry Date Standard Description CPT-33714 Preventive, Est, (40-64) 11:40:53 CDT CPT-27231 Preventive, Est, (40-64) 14:46:08 CDT
[2017-11-28] MEDS ORDERED: ONDANSETRON 4 MG/2 ML (SDV) Z0FRAN IVP PRN (18:15)
[2017-11-28] MEDS ORDERED: HYDROcodone/APAP 5 MG/325 MG (LORTAB) TAB PO PRN (18:15)
[2017-11-28] MEDS ORDERED: fentaNYL INJECTION 100 MCG/2 ML AMP IVP PRN (18:15)
[2017-11-28] MEDS ORDERED: ACETAMINOPHEN 500 MG TAB (TYLENOL) PO PRN (18:15)
[2017-11-28] MEDS ORDERED: ALPRAZolam 0.25 MG (XANAX) TAB PO PRN (18:15)
[2017-11-28] MEDS ORDERED: RT-ALBUTEROL SULF 2.5 MG/3 ML PRE-MIX VIAL INH NR (18:15)
--- OUTSIDE RECORDS SUMMARY | 2017-11-28 18:15 | XMS REPORT | Clinical Summary ---
Author Author User, [employer] Organization Padma Sanchez DO, FACP Address Unknown [...] MG TABS 1 PO Q6hrs prn ALPRAZOLAM 18476252435 Active Padma Sanchez CYMBALTA 30 MG CPEP 1 PO daily DULOXETINE HCL 78329739369 Active Elizabeth Sheridan TOPROL XL 25 MG TB24 1 PO daily METOPROLOL SUCCINATE 33474692029 Active Padma Sanchez ADVAIR DISKUS 100-50 MCG/DOSE MISC 1 puff BID FLUTICASONE-SALMETEROL 83194514455 Active Elizabeth Sheridan GLYBURIDE 1.25 MG TABS 1 PO QD GLYBURIDE 02324161556 Active Elizabeth Sheridan POTASSIUM CHLORIDE ER 10 MEQ CR-CAPS 2 PO DAILY POTASSIUM CHLORIDE 42654029412 Active [facility]: 250.02 [facility] 63181035658 No Longer Active Padma Sanchez VALTREX 1 GM TAB 1 PO BID for 3 days at first sign of cold sore as needed VALACYCLOVIR HCL 60266112843 No Longer Active Padma Sanchez VITAMIN D 1000 UNIT TABS 1 PO Daily CHOLECALCIFEROL 24467435266 Active Padma Sanchez LISINOPRIL 10 MG TABS 1 PO daily LISINOPRIL 16030276943 Active Padma Sanchez PREDNISONE 10 MG TAB 2 PO at one time daily for 3 days then one PO daily for 3 days PREDNISONE 99502459241 No Longer Active Padma Sanchez SPIRIVA HANDIHALER 18 MCG CAPS 1 puff daily TIOTROPIUM BROMIDE MONOHYDRATE 25680330129 Active Padma Sanchez ALBUTEROL SULFATE 0.083 % NEBU SOLN 1 nebulizer treatment BID ALBUTEROL SULFATE 22378785909 Active Padma Sanchez PREDNISONE 10 MG TAB 2 PO daily at 1 time for 3 days then 1 PO daily for 3 days. PREDNISONE 13304365283 No Longer Active Padma Sanchez BIAXIN 500 MG TAB 1 PO BID CLARITHROMYCIN 84703185599 No Longer Active Padma Sanchez LEVAQUIN 500 MG TAB 1 PO QD LEVOFLOXACIN 05415926187 No Longer Active Elizabeth Sheridan PYRIDIUM 200 MG TAB 1 PO TID prn urinary urgency PHENAZOPYRIDINE HCL 71675349005 No Longer Active Elizabeth Sheridan DIFLUCAN 100 MG TAB 1 po daily FLUCONAZOLE 41541282966 No Longer Active Padma Sanchez PREDNISONE 20 MG TAB 1 PO daily for 3 days then 1/2 PO daily for 3 days. 2013 PREDNISONE 62275539253 No Longer Active Padma Sanchez ONETOUCH TEST STRP check sugar BID DX: 250.02 GLUCOSE BLOOD 24068400656 Active Elizabeth FAJARDO PROBIOTIC COMPLEX TABS 1 po daily PROBIOTIC PRODUCT 03271067879 Active Padma Sanchez CENTRUM SILVER ULTRA WOMENS TABS 1 po daily MULTIPLE VITAMINS-MINERALS 64273096506 Active Padma Sanchez LEVAQUIN 500 MG TAB 1 PO QD LEVOFLOXACIN 43830660027 No Longer Active Padma Sanchez PREDNISONE 20 MG TAB 2 pills at once for 2 days then 1 pill daily for 5 days PREDNISONE 32783780793 No Longer Active Padma Sanchez PRILOSEC 10 MG CAP CR OMEPRAZOLE 66046764907 No Longer Active Padma Sanchez TRIAMCINOLONE ACETONIDE 0.025 % CREA apply daily prn sparingly TRIAMCINOLONE ACETONIDE (TOP) 19717740926 No Longer Active Padma Sanchez CORICIDIN HBP CONGESTION/COUGH CAPS As Directed PRN DEXTROMETHORPHAN-GUAIFENESIN CAPS 91281763617 No Longer Active Padma Sanchez CICLOPIROX OLAMINE 0.77 % CREA Apply to affected area twice daily CICLOPIROX OLAMINE 22104519853 No Longer Active Padma Sanchez ROBITUSSIN A-C 10-100 MG/5ML SYRUP 1 teaspoon PO Q 4-6 hr prn ROBITUSSIN A-C 10-100 MG/5ML SYRUP No Longer Active Elizabeth Sheridan ATROVENT 0.06 % SOLN 2 puffs each nostril TID prn runny nose 2012 IPRATROPIUM BROMIDE 19719915163 No Longer Active Padma Sanchez DIFLUCAN 150 MG TAB 1 PO QD for 3 days FLUCONAZOLE 63455211057 No Longer Active Yesenia Carlos ADVAIR DISKUS 100-50 MCG/DOSE MISC 1 puff BID FLUTICASONE-SALMETEROL 18207972917 No Longer Active Padma SALCIDO'S NASAL SPRAY (DEXAMETHASONE, GENTAMICIN, SALINE) 2 puffs each nostril TID for [address] SALCIDO'Flex NASAL SPRAY ( DEXAMETHASONE, GENTAMICIN, SALINE) No Longer Active Padma Sanchez PREDNISONE 20 MG TAB 2 pills at once for 3 days then 1 pill daily for 2 days PREDNISONE 93236678643 No Longer Active Padma Sanchez LEVAQUIN 500 MG TAB 1 PO QD LEVOFLOXACIN 57856029823 No Longer Active Padma Sanchez TRANSDERM-SCOP 1.5 MG PT72 1 patch behind ear and change every 3 days SCOPOLAMINE BASE 03443767014 No Longer Active Padma Sanchez JANUVIA 100 MG TABS 1 PO daily SITAGLIPTIN PHOSPHATE 11049686136 Active Elizabeth Sheridan CLARITIN 10 MG TAB 1 PO daily LORATADINE 22498271275 Active Elizabeth Sheridan ACTOS 45 MG TABS 1 PO daily PIOGLITAZONE HCL 74313606047 No Longer Active Padmaalirio Sanchez FISH OIL 1000 MG CAPS 1 PO daily OMEGA-3 FATTY ACIDS 37239432284 Active Padmaalirio Sanchez BIAXIN XL PAC 500 MG TB24 2 pills at same time daily for 7 days CLARITHROMYCIN 48794921534 No Longer Active Padmaalirio Sanchez SINGULAIR 10 MG TABS 1 po daily MONTELUKAST SODIUM 81398048725 Active Elizabeth Sheridan SINGULAIR 10 MG TABS 1 PO daily MONTELUKAST SODIUM 59517684063 No Longer Active Padma Sanchez SILVADENE 1 % CREA Apply to left lateral foot affected area TID and apply dressing. SILVER SULFADIAZINE 53580893543 No Longer Active Padmaalirio Sanchez PREMARIN 0.625 MG/GM CREA 1 gm intravaginally HS 3 times a week for 4 weeks then twice a week ESTROGENS, CONJUGATED VAGINAL 50876626842 No Longer Active Padma Sanchez BIAXIN XL PAC 500 MG TB24 2 pills at same time daily for 7 days CLARITHROMYCIN 80613683972 No Longer Active Padma Sanchez GLUCOPHAGE 500 MG TABS 2 PO BID METFORMIN HCL 03317212624 Active Elizabeth Sheridan PYRIDIUM 200 MG TAB 1 PO TID prn urinary urgency PHENAZOPYRIDINE HCL 61302348960 No Longer Active Padma Sanchez AMOXICILLIN 500 MG CAP 1 PO TID AMOXICILLIN 64787409105 No Longer Active Padmaalirio Sanchez PROAIR HFA 108 (90 BASE) MCG/ACT AERS 2 puffs every 6 hrs prn ALBUTEROL SULFATE 96666114386 Active Phyllis Fisher ACIPHEX 20 MG TBEC 1 PO daily RABEPRAZOLE SODIUM 04875367934 No Longer Active Elizabeth Sheridan HYDROCHLOROTHIAZIDE 25 MG TAB 1 PO QD HYDROCHLOROTHIAZIDE 30026385973 Active Elizabeth Sheridan LASIX 40 MG TAB 1 PO daily FUROSEMIDE 77666505095 Active Elizabeth Sheridan ALTOPREV 40 MG TB24 1 PO daily LOVASTATIN 57366326234 Active Elizabeth Sheridan Immunizations Vaccine Administration Date [...] mg/dL Encounters Code Encounter Date Provider Facility CPT-24598 Ofc Vst, Est Level III 15:08:45 CDT Padma Yamilazeyad Sanchez [place] [facility] CPT-94361 Ofc Vst, Est Level IV 17:59:31 CDT Padma Yamilazeyad Sanchez [place] [facility] CPT-16694 Ofc Vst, Est Level IV 20:35:52 CDT Padma Yamilazeyad Sanchez, DO, FACP CPT-75748 Ofc Vst, Est Level IV 17:39:19 INFORMATION TECHNOLOGY COORDINATOR Padma Sanchez, DO, FACP CPT-32353 Ofc Vst, Est Level IV 15:29:57 CDT Padma Yamilazeyad Sanchez [place] [facility] CPT-62595 Ofc Vst, Est Level III 16:04:17 CDT Padma Yamilazeyad Jamaner, DO, FACP CPT-51832 Ofc Vst, Est Level IV 14:48:46 CDT Padma Sanchez, DO, FACP CPT-69832 Ofc Vst, Est Level IV 16:21:06 CDT Padma Sanchez, DO, FACP CPT-64325 Ofc Vst, Est Level IV 15:36:57 CDT Padma Sanchez, DO, FACP CPT-99254 Ofc Vst, Est Level IV 15:35:57 INFORMATION TECHNOLOGY COORDINATOR Padma Sanchez, DO, FACP CPT-88726 Ofc Vst, Est Level IV 13:46:44 INFORMATION TECHNOLOGY COORDINATOR Padma Sanchez, DO, FACP CPT-55046 Ofc Vst, Est Level IV 14:20:29 CDT Padma [facility] OFFICE CPT-16126 Ofc Vst, Est Level IV 14:05:36 CDT Padma [facility] OFFICE CPT-51844 Ofc Vst, Est Level IV 13:54:42 CDT Padma [facility] OFFICE CPT-82223 Ofc Vst, Est Level IV 13:48:44 INFORMATION TECHNOLOGY COORDINATOR Padma [facility] OFFICE CPT-25242 Ofc Vst, Est Level IV 14:16:17 CDT Padma [facility] OFFICE CPT-93877 Ofc Vst, Est Level IV 14:06:24 [facility] Ofc Vst, Est Level IV 14:03:09 INFORMATION TECHNOLOGY COORDINATOR Padma [facility] CPT-46230 Ofc Vst, Est Level IV 14:31:46 INFORMATION TECHNOLOGY COORDINATOR Padma [facility] OFFICE CPT-08537 Ofc Vst, Est Level III 14:19:18 CDT Padma [facility] OFFICE CPT-54800 Ofc Vst, Est Level IV 14:17:24 CDT Padma [facility] OFFICE CPT-41082 Ofc Vst, Est Level IV 14:16:13 CDT Padma [facility] OFFICE CPT-54904 Ofc Vst, Est Level III 14:46:11 CDT Padma [facility] OFFICE CPT-50472 Ofc Vst, Est Level III 15:28:13 CDT Padma [facility] OFFICE CPT-01014 Ofc Vst, Est Level IV 14:51:56 INFORMATION TECHNOLOGY COORDINATOR [facility] OFFICE CPT-27566 Ofc Vst, Est Level III 13:59:11 INFORMATION TECHNOLOGY COORDINATOR Padma [facility] OFFICE CPT-70276 Ofc Vst, Est Level IV 14:03:19 CDT [facility] CPT-77804 Ofc Vst, Est Level IV 15:24:50 CDT [facility] OFFICE CPT-76907 Ofc Vst, New Level IV 13:42:26 CDT [facility] Procedures Code Procedure Name Date Entry Date Standard Description CPT-74306 Preventive, Est, (40-64) 11:40:53 CDT CPT-91665 Preventive, Est, (40-64) 14:46:08 CDT
--- OUTSIDE RECORDS SUMMARY | 2017-11-28 18:16 | XMS REPORT | Continuity of Care Document ---
Author Author [facility] Organization [facility] Address Unknown Phone Unavailable Allergies Active Description Code Type Severity Reaction Onset Reported/Identified Relationship to Patient Clinical Status Yes Cephalosporins [id number] Drug Allergy Mild N/A 09/07/2011 Medications There is no data. Problems Date Dx Coded Attending Type Code Diagnosis Diagnosed By 05/03/2009 Ot 787.91 01/14/2011 Ot 250.00 DIAB BANDAR WO COMPL, TYPE II OR UNSPEC TY 01/14/2011 Ot 305.1 TOBACCO USE DISORDER 01/14/2011 Ot 401.9 HYPERTENSION NOS 01/14/2011 Ot 414.01 CORONARY ATHEROSCLEROSIS OF [place] CORON 01/14/2011 Ot 416.8 CHR PULMON HEART DIS NEC 01/14/2011 Ot 786.09 RESPIRATORY ABNORM NEC 01/14/2011 Ot 794.30 ABN CARDIOVASC STUDY NOS 02/26/2011 Ot 327.23 OBSTRUCTIVE SLEEP APNEA (ADULT) (PEDIATR 02/26/2011 Ot 327.51 PERIODIC LIMB MOVEMENT DISORDER 09/07/2011 Ot 233.0 CA IN SITU BREAST 09/07/2011 Ot 455.0 INT HEMORRHOID W/O COMPL 09/07/2011 Ot 455.3 EXT HEMORRHOID W/O COMPL 09/07/2011 Ot 562.10 DIVERTICULOSIS COLON (W/O MENT OF HEMORR 09/07/2011 Ot 569.3 RECTAL ANAL HEMORRHAGE 09/22/2011 Ot 233.0 CA IN SITU BREAST 02/13/2012 Ot 233.0 CA IN SITU BREAST 02/13/2012 Ot 250.00 DIAB BANDAR WO COMPL, TYPE II OR UNSPEC TY 02/13/2012 Ot 401.9 HYPERTENSION NOS 02/13/2012 Ot 414.00 CORON ATHEROSCLER NOS TYPE VESSEL, NATIV 02/13/2012 Ot 530.81 ESOPHAGEAL REFLUX 02/13/2012 Ot V58.0 ENCOUNTER FOR RADIOTHERAPY 02/13/2012 Ot V58.69 OTH MED,LT, CURRENT USE 06/04/2012 Ot 233.0 CA IN SITU BREAST 10/08/2012 Ot 233.0 CA IN SITU BREAST 10/08/2012 Ot 250.00 DIAB BANDAR WO COMPL, TYPE II OR UNSPEC TY 10/08/2012 Ot 401.9 HYPERTENSION NOS 10/08/2012 Ot 414.00 CORON ATHEROSCLER NOS TYPE VESSEL, NATIV 10/08/2012 Ot 530.81 ESOPHAGEAL REFLUX 10/08/2012 Ot V58.69 OTH MED,LT, CURRENT USE 10/01/2014 MAGDA CAPPS, NUPUR Ot 233.0 10/01/2014 MAGDA CAPPS, [facility] Ot V76.11 10/14/2014 Ot 787.91 10/14/2014 Ot V76.12 10/14/2014 Ot V76.12 10/14/2014 Ot V76.12 10/14/2014 Ot 396.3 10/14/2014 Ot 397.0 10/14/2014 Ot 401.9 10/14/2014 Ot 429.3 10/14/2014 Ot 782.3 10/14/2014 Ot 793.81 10/14/2014 Ot 493.90 10/14/2014 Ot 250.00 10/14/2014 Ot 401.9 10/14/2014 Ot 611.72 10/14/2014 Ot V12.61 10/14/2014 Ot V72.63 10/14/2014 Ot V72.81 10/14/2014 Ot V74.8 10/14/2014 Ot 174.9 10/14/2014 Ot 174.9 10/14/2014 Ot 722.4 10/14/2014 Ot 793.89 10/14/2014 Ot V10.3 10/14/2014 Ot V76.11 10/14/2014 Ot 250.02 10/14/2014 Ot 272.0 10/14/2014 Ot 401.1 10/14/2014 MAGDA CAPPS, NUPUR Ot 233.0 10/14/2014 MAGDA CAPPS, [facility]ONT[facility]NA[facility] Ot 250.00 10/14/2014 MAGDA CAPPS, DONTENATHANAEL Ot 401.9 10/14/2014 MAGDA CAPPS, [facility] Ot 414.00 10/14/2014 [facility] CAPPS, [facility] Ot 530.81 10/14/2014 MAGDA CAPPS, NUPUR Ot V58.69 10/14/2014 RIAZ CAPPS, RAJI Cannon Ot 396.3 10/14/2014 RIAZ CAPPS, BASHAR J Ot 397.0 10/14/2014 RIAZ CAPPS, BASHAR J Ot 429.3 10/14/2014 MAGDA CAPPS, [facility] Ot 174.9 10/14/2014 MAGDA CAPPS, [facility] Ot 782.2 10/14/2014 MAGDA CAPPS, [facility] Ot 174.9 10/14/2014 MAGDA CAPPS, [facility] Ot V10.3 10/14/2014 MAGDA CAPPS, [facility] Ot V76.11 10/14/2014 MAGDA CAPPS, [facility] Ot 233.0 10/14/2014 MAGDA CAPPS, [facility] Ot 250.00 10/14/2014 MAGDA CAPPS, [facility] Ot 401.9 10/14/2014 MAGDA CAPPS, [facility] Ot 414.00 10/14/2014 MAGDA CAPPS, [facility] Ot 530.81 10/14/2014 MAGDA CAPPS, [facility] Ot V58.69 10/14/2014 RIAZ CAPPS, RAJI Cannon Ot 401.9 10/14/2014 RIAZ CAPPS, RAJI Cannon Ot 414.00 10/14/2014 RIAZ CAPPS, BASMANJU J Ot 785.1 10/14/2014 CHAPARRITA MCCLURE, BEE Ot 493.90 10/14/2014 MAGDA CAPPS, [facility] Ot 233.0 10/14/2014 MAGDA CAPPS, [facility] Ot 250.00 10/14/2014 MAGDA CAPPS, [facility] Ot 401.9 10/14/2014 MAGDA CAPPS, [facility] Ot 414.00 10/14/2014 MAGDA CAPPS, [facility] Ot 530.81 10/14/2014 MAGDA CAPPS, [facility] Ot V58.69 10/14/2014 MAGDA CAPPS, [facility] Ot 233.0 10/14/2014 MAGDA CAPPS, [facility] Ot V76.11 10/27/2014 MAGDA CAPPS, [facility] Ot 233.0 10/27/2014 MAGDA CAPPS, [facility] Ot 250.00 10/27/2014 MAGDA CAPPS, [facility] Ot 401.9 10/27/2014 MAGDA CAPPS, [facility] Ot 414.00 10/27/2014 MAGDA CAPPS, [facility] Ot 530.81 10/27/2014 MAGDA CAPPS, [facility] Ot V58.69 11/12/2014 RIAZ CAPPS, RAJI Cannon Ot 272.4 11/12/2014 RIAZ CAPPS, RAJI Cannon Ot 401.9 11/12/2014 RIAZ CAPPS, RAJI Cannon Ot 414.00 11/12/2014 RIAZ CAPPS, RAJI Cannon Ot 785.1 12/16/2014 MAGDA CAPPS, NUPUR Ot 233.0 CA IN SITU BREAST 12/16/2014 MAGDA CAPPS, NUPUR Ot 250.00 DIAB BANDAR WO COMPL, TYPE II OR UNSPEC TY 12/16/2014 MAGDA CAPPS, NUPUR Ot 401.9 HYPERTENSION NOS 12/16/2014 MAGDA CAPPS, NUPUR Ot 414.00 CORON ATHEROSCLER NOS TYPE VESSEL, NATIV 12/16/2014 MAGDA CAPPS, NUPUR Ot 530.81 ESOPHAGEAL REFLUX 12/16/2014 MAGDA CAPPS, NUPUR Ot V58.69 OT MED,LT,CURRENT USE 02/25/2015 MAGDA CAPPS, NUPUR Ot 233.0 02/25/2015 MAGDA CAPPS, NUPUR Ot 250.00 02/25/2015 MAGDA CAPPS, NUPUR Ot 401.9 02/25/2015 MAGDA CAPPS, NUPUR Ot 414.00 02/25/2015 MAGDA CAPPS, NUPUR Ot 530.81 02/25/2015 MAGDA CAPPS, NUPUR Ot V58.69 08/04/2015 MAGDA CAPPS, NUPUR Ot 233.0 08/04/2015 MAGDA CAPPS, NUPUR Ot 250.00 08/04/2015 MAGDA CAPPS, NUPUR Ot 401.9 08/04/2015 MAGDA CAPPS, NUPUR Ot 414.00 08/04/2015 MAGDA CAPPS, NUPUR Ot 530.81 08/04/2015 MAGDA CAPPS, NUPUR Ot V58.69 12/14/2015 Ot 396.3 12/14/2015 Ot 397.0 12/14/2015 Ot 401.9 12/14/2015 Ot 429.3 12/14/2015 Ot 782.3 12/14/2015 Ot 793.81 12/14/2015 Ot 493.90 12/14/2015 Ot 250.00 12/14/2015 Ot 401.9 12/14/2015 Ot 611.72 12/14/2015 Ot V12.61 12/14/2015 Ot V72.63 12/14/2015 Ot V72.81 12/14/2015 Ot V74.8 12/14/2015 Ot 174.9 12/14/2015 Ot 174.9 12/14/2015 Ot 722.4 12/14/2015 Ot 793.89 12/14/2015 Ot V10.3 12/14/2015 Ot V76.11 12/14/2015 Ot 250.02 12/14/2015 Ot 272.0 12/14/2015 Ot 401.1 12/14/2015 MAGDA CAPPS, [facility] Ot 233.0 12/14/2015 MAGDA CAPPS, [facility] Ot 250.00 12/14/2015 MAGDA CAPPS, [facility] Ot 401.9 12/14/2015 MAGDA CAPPS, [facility] Ot 414.00 12/14/2015 MAGDA CAPPS, [facility] Ot 530.81 12/14/2015 MAGDA CAPPS, [facility] Ot V58.69 12/14/2015 RIAZ CAPPS, BASHAR J Ot 396.3 12/14/2015 RIAZ CAPPS, BASHAR J Ot 397.0 12/14/2015 RIAZ CAPPS, BASHAR J Ot 429.3 12/14/2015 MAGDA CAPPS, [facility] Ot 174.9 12/14/2015 MAGDA CAPPS, [facility] Ot 782.2 12/14/2015 MAGDA CAPPS, [facility] Ot 174.9 12/14/2015 MAGDA CAPPS, [facility] Ot V10.3 12/14/2015 MAGDA CAPPS, [facility] Ot V76.11 12/14/2015 MAGDA CAPPS, DONTE-NATHANAEL Ot 233.0 12/14/2015 MAGDA CAPPS, [facility] Ot 250.00 12/14/2015 MAGDA CAPPS, [facility] Ot 401.9 12/14/2015 MAGDA CAPPS, [facility] Ot 414.00 12/14/2015 MAGDA CAPPS, [facility] Ot 530.81 12/14/2015 MAGDA CAPPS, [facility] Ot V58.69 12/14/2015 RIAZ CAPPS, BASMANJU J Ot 401.9 12/14/2015 RIAZ CAPPS, BASHAR J Ot 414.00 12/14/2015 RIAZ CAPPS, BASHAR J Ot 785.1 12/14/2015 BEE CHEATHAM DO Ot 493.90 12/14/2015 MAGDA CAPPS, [facility] Ot 233.0 12/14/2015 MAGDA CAPPS, [facility] Ot V76.11 12/14/2015 RIAZ CAPPS, RAJI Cannon Ot 272.4 12/14/2015 RIAZ CAPPS, RAJI J Ot 401.9 12/14/2015 RIAZ CAPPS, RAJI J Ot 414.00 12/14/2015 RIAZ CAPPS, RAJI J Ot 785.1 12/14/2015 MAGDA CAPPS, [facility] Ot 233.0 12/14/2015 MAGDA CAPPS, [facility] Ot 250.00 12/14/2015 MAGDA CAPPS, [place] Ot 401.9 12/14/2015 MAGDA CAPPS, [facility] Ot 414.00 12/14/2015 [facility]DA CAPPS[facility] Ot 530.81 12/14/2015 MAGDA CAPPS, [facility] Ot V58.69 12/15/2015 Ot 396.3 12/15/2015 Ot 397.0 12/15/2015 Ot 401.9 12/15/2015 Ot 429.3 12/15/2015 Ot 782.3 12/15/2015 Ot 793.81 12/15/2015 Ot 493.90 12/15/2015 Ot 250.00 12/15/2015 Ot 401.9 12/15/2015 Ot 611.72 12/15/2015 Ot V12.61 12/15/2015 Ot V72.63 12/15/2015 Ot V72.81 12/15/2015 Ot V74.8 12/15/2015 Ot 174.9 12/15/2015 Ot 174.9 12/15/2015 Ot 722.4 12/15/2015 Ot 793.89 12/15/2015 Ot V10.3 12/15/2015 Ot V76.11 12/15/2015 Ot 250.02 12/15/2015 Ot 272.0 12/15/2015 Ot 401.1 12/15/2015 MAGDA CAPPS, [facility] Ot 233.0 12/15/2015 MAGDA CAPPS, [facility] Ot 250.00 12/15/2015 MAGDA CAPPS, [facility] Ot 401.9 12/15/2015 MAGDA CAPPS, [facility] Ot 414.00 12/15/2015 MAGDA CAPPS, [facility] Ot 530.81 12/15/2015 MAGDA CAPPS, [facility] Ot V58.69 12/15/2015 RIAZ CAPPS, BASHAR J Ot 396.3 12/15/2015 RIAZ CAPPS, BASHAR J Ot 397.0 12/15/2015 RIAZ CAPPS, BASHAR J Ot 429.3 12/15/2015 MAGDA CAPPS, [facility] Ot 174.9 12/15/2015 MAGDA CAPPS, [facility] Ot 782.2 12/15/2015 MAGDA CAPPS, [facility] Ot 174.9 12/15/2015 MAGDA CAPPS, [facility] Ot V10.3 12/15/2015 MAGDA CAPPS, [facility] Ot V76.11 12/15/2015 MAGDA CAPPS, [facility] Ot 233.0 12/15/2015 MAGDA CAPPS, [facility] Ot 250.00 12/15/2015 MAGDA CAPPS, [facility] Ot 401.9 12/15/2015 MAGDA CAPPS, [facility] Ot 414.00 12/15/2015 MAGDA CAPPS, [facility] Ot 530.81 12/15/2015 MAGDA CAPPS, [facility] Ot V58.69 12/15/2015 RIAZ CAPPS, BASHAR J Ot 401.9 12/15/2015 RIAZ CAPPS, BASHAR J Ot 414.00 12/15/2015 RIAZ CAPPS, BASHAR J Ot 785.1 12/15/2015 BEE CHEATHAM DO Ot 493.90 12/15/2015 MAGDA CAPPS, DONTE[facility]NATHANA[facility] Ot 233.0 12/15/2015 MAGDA CAPPS, [facility] Ot V76.11 12/15/2015 RIAZ CAPPS, BASHAR J Ot 272.4 12/15/2015 RIAZ CAPPS, BASHAR J Ot 401.9 12/15/2015 RIAZ CAPPS, BASHAR J Ot 414.00 12/15/2015 RIAZ CAPPS, BASHAR J Ot 785.1 12/15/2015 MAGDA CAPPS, [facility] Ot 233.0 12/15/2015 MAGDA CAPPS, [facility] Ot 250.00 12/15/2015 MAGDA CAPPS, DON[facility]NAT[facility]NA[facility] Ot 401.9 12/15/2015 MAGDA CAPPS, [facility] Ot 414.00 12/15/2015 MAGDA CAPPS, [facility] Ot 530.81 12/15/2015 MAGDA CAPPS, NUPUR Ot V58.69 12/16/2015 ULISES GANDHI Ot E78.2 12/16/2015 PAULA PA, ULISES Ames Ot I10 12/16/2015 PAULA PA, ULISES Ames Ot I25.10 12/16/2015 PAULA PA, ULISES Ames Ot Q25.3 01/05/2016 PAULA PA, ULISES Ames Ot E78.2 01/05/2016 PAULA PA, ULISES Ames Ot I10 01/05/2016 PAULA PA, ULISES Ames Ot I25.10 01/05/2016 PAULA PA, ULISES Ames Ot Q25.3 01/12/2016 MAGDA ACPPS, [facility] Ot 233.0 01/12/2016 MAGDA CAPPS, [facility] Ot 250.00 01/12/2016 MAGDA CAPPS, [facility] Ot 401.9 01/12/2016 MAGDA CAPPS, [facility] Ot 414.00 01/12/2016 MAGDA CAPPS, [facility] Ot 530.81 01/12/2016 MAGDA CAPPS, [facility] Ot V58.69 01/19/2016 Ot 396.3 MITRAL/ AORTIC ROBI INSUFF 01/19/2016 Ot 397.0 TRICUSPID VALVE DISEASE 01/19/2016 Ot 401.9 HYPERTENSION NOS 01/19/2016 Ot 429.3 CARDIOMEGALY 01/19/2016 Ot 782.3 EDEMA 01/19/2016 Ot 793.81 MAMMOGRAPHIC MICROCLACIFICATION 01/19/2016 Ot 493.90 ASTHMA, UNSPECIFIED 01/19/2016 Ot 250.00 DIAB BANDAR WO COMPL, TYPE II OR UNSPEC TY 01/19/2016 Ot 401.9 HYPERTENSION NOS 01/19/2016 Ot 611.72 LUMP OR MASS IN BREAST 01/19/2016 Ot V12.61 PERSONAL HISTORY, PNEUMONIA (RECURRENT) 01/19/2016 Ot V72.63 PRE- PROCEDURAL LABORATORY EXAMINATION 01/19/2016 Ot V72.81 EXAM-PRE- OPERATIVE CARDIOVASCULAR 01/19/2016 Ot V74.8 SCREEN- BACTERIAL DIS NEC 01/19/2016 Ot 174.9 MALIGN NEOPL BREAST NOS 01/19/2016 Ot 174.9 MALIGN NEOPL BREAST NOS 01/19/2016 Ot 722.4 CERVICAL DISC DEGEN 01/19/2016 Ot 793.89 OTH (ABN) FINDINGS ON RADIOLOGICAL EXAMI 01/19/2016 Ot V10.3 HX OF BREAST MALIGNANCY 01/19/2016 Ot V76.11 SCRN MAMMO- HIGH RISK PT, MALIGNANT NEOPL 01/19/2016 Ot 250.02 DIAB BANDAR WO COMPL, TYPE II OR UNSPEC TY 01/19/2016 Ot 272.0 PURE HYPERCHOLESTEROLEM 01/19/2016 Ot 401.1 BENIGN HYPERTENSION 01/19/2016 NUPUR MAN MD Ot 233.0 CA IN SITU BREAST 01/19/2016 NUPUR MAN MD Ot 250.00 DIAB BANDAR WO COMPL, TYPE II OR UNSPEC TY 01/19/2016 NUPUR MAN MD Ot 401.9 HYPERTENSION NOS 01/19/2016 NUPUR MAN MD Ot 414.00 CORON ATHEROSCLER NOS TYPE VESSEL, NATIV 01/19/2016 NUPUR MAN MD Ot 530.81 ESOPHAGEAL REFLUX 01/19/2016 NUPUR MAN MD Ot V58.69 OT MED,LT,CURRENT USE 01/19/2016 RIAZ CAPPS, RAJI Cannon Ot 396.3 MITRAL/AORTIC ROBI INSUFF 01/19/2016 RIAZ CAPPS, RAJI J Ot 397.0 TRICUSPID VALVE DISEASE 01/19/2016 RIAZ CAPPS, RAJI J Ot 429.3 CARDIOMEGALY 01/19/2016 NUPUR MAN MD Ot 174.9 MALIGN NEOPL BREAST NOS 01/19/2016 NUPUR MAN MD Ot 782.2 LOCAL SUPRFICIAL SWELLNG 01/19/2016 NUPUR MAN MD Ot 174.9 MALIGN NEOPL BREAST NOS 01/19/2016 NUPUR MAN MD Ot V10.3 HX OF BREAST MALIGNANCY 01/19/2016 NUPUR MAN MD Ot V76.11 SCRN MAMMO-HIGH RISK PT, MALIGNANT NEOPL 01/19/2016 NUPUR MAN MD Ot 233.0 CA IN SITU BREAST 01/19/2016 NUPUR MNA MD Ot 250.00 DIAB BANDAR WO COMPL, TYPE II OR UNSPEC TY 01/19/2016 NUPUR MAN MD Ot 401.9 HYPERTENSION NOS 01/19/2016 NUPUR MAN MD Ot 414.00 CORON ATHEROSCLER NOS TYPE VESSEL, NATIV 01/19/2016 NUPUR MAN MD Ot 530.81 ESOPHAGEAL REFLUX 01/19/2016 NUPUR MAN MD Ot V58.69 OTH MED,LT,CURRENT USE 01/19/2016 RAJI MELLO MD Ot 401.9 HYPERTENSION NOS 01/19/2016 RAJI MELLO MD Ot 414.00 CORON ATHEROSCLER NOS TYPE VESSEL, NATIV 01/19/2016 RAJI MELLO MD Ot 785.1 PALPITATIONS 01/19/2016 BEE CHEATHAM DO Ot 493.90 ASTHMA, UNSPECIFIED 01/19/2016 NUPUR MAN MD Ot 233.0 CA IN SITU BREAST 01/19/2016 NUPUR MAN MD Ot V76.11 SCRN MAMMO-HIGH RISK PT, MALIGNANT NEOPL 01/19/2016 RAJI MELLO MD Ot 272.4 HYPERLIPIDEMIA NEC/NOS 01/19/2016 RAJI MELLO MD Ot 401.9 HYPERTENSION NOS 01/19/2016 RAJI MELLO MD Ot 414.00 CORON ATHEROSCLER NOS TYPE VESSEL, NATIV 01/19/2016 RAJI MELLO MD Ot 785.1 PALPITATIONS 01/19/2016 NUPUR MAN MD Ot 233.0 CA IN SITU BREAST 01/19/2016 NUPUR MAN MD Ot 250.00 DIAB BANDAR WO COMPL, TYPE II OR UNSPEC TY 01/19/2016 NUPUR MAN MD Ot 401.9 HYPERTENSION NOS 01/19/2016 NUPUR MAN MD Ot 414.00 CORON ATHEROSCLER NOS TYPE VESSEL, NATIV 01/19/2016 NUPUR MAN MD Ot 530.81 ESOPHAGEAL REFLUX 01/19/2016 NUPUR MAN MD Ot V58.69 OTH MED,LT,CURRENT USE 01/19/2016 ULISES GANDHI Ot E78.2 MIXED HYPERLIPIDEMIA 01/19/2016 ULISES GANDHI Ot I10 ESSENTIAL (PRIMARY) HYPERTENSION 01/19/2016 ULISES GANDHI Ot I25.10 ATHSCL HEART DISEASE OF [place] CORONARY 01/19/2016 ULISES GANDHI Ot Q25.3 SUPRAVALVULAR AORTIC STENOSIS 01/20/2016 NUPUR MAN MD Ot 233.0 01/20/2016 NUPUR MAN MD Ot 250.00 01/20/2016 NUPUR MAN MD Ot 401.9 01/20/2016 MAGDA CAPPS, NUPUR Ot 414.00 01/20/2016 MAGDA CAPPS, NUPUR Ot 530.81 01/20/2016 NUPUR MAN MD Ot V58.69 01/27/2016 Ot 396.3 MITRAL/ AORTIC ROBI INSUFF 01/27/2016 Ot 397.0 TRICUSPID VALVE DISEASE 01/27/2016 Ot 401.9 HYPERTENSION NOS 01/27/2016 Ot 429.3 CARDIOMEGALY 01/27/2016 Ot 782.3 EDEMA 01/27/2016 Ot 793.81 MAMMOGRAPHIC MICROCLACIFICATION 01/27/2016 Ot 493.90 ASTHMA, UNSPECIFIED 01/27/2016 Ot 250.00 DIAB BANDAR WO COMPL, TYPE II OR UNSPEC TY 01/27/2016 Ot 401.9 HYPERTENSION NOS 01/27/2016 Ot 611.72 LUMP OR MASS IN BREAST 01/27/2016 Ot V12.61 PERSONAL HISTORY, PNEUMONIA (RECURRENT) 01/27/2016 Ot V72.63 PRE- PROCEDURAL LABORATORY EXAMINATION 01/27/2016 Ot V72.81 EXAM-PRE- OPERATIVE CARDIOVASCULAR 01/27/2016 Ot V74.8 SCREEN- BACTERIAL DIS NEC 01/27/2016 Ot 174.9 MALIGN NEOPL BREAST NOS 01/27/2016 Ot 174.9 MALIGN NEOPL BREAST NOS 01/27/2016 Ot 722.4 CERVICAL DISC DEGEN 01/27/2016 Ot 793.89 OTH (ABN) FINDINGS ON RADIOLOGICAL EXAMI 01/27/2016 Ot V10.3 HX OF BREAST MALIGNANCY 01/27/2016 Ot V76.11 SCRN MAMMO- HIGH RISK PT, MALIGNANT NEOPL 01/27/2016 Ot 250.02 DIAB BANDAR WO COMPL, TYPE II OR UNSPEC TY 01/27/2016 Ot 272.0 PURE HYPERCHOLESTEROLEM 01/27/2016 Ot 401.1 BENIGN HYPERTENSION 01/27/2016 NUPUR MAN MD Ot 233.0 CA IN SITU BREAST 01/27/2016 MAGDA CAPPS, NUPUR Ot 250.00 DIAB BANDAR WO COMPL, TYPE II OR UNSPEC TY 01/27/2016 NUPUR MAN MD Ot 401.9 HYPERTENSION NOS 01/27/2016 MAGDA CAPPS, NUPUR Ot 414.00 CORON ATHEROSCLER NOS TYPE VESSEL, NATIV 01/27/2016 MAGDA CAPPS, NUPUR Ot 530.81 ESOPHAGEAL REFLUX 01/27/2016 NUPUR MAN MD Ot V58.69 OTH MED,LT,CURRENT USE 01/27/2016 RAJI MELLO MD Ot 396.3 MITRAL/AORTIC ROBI INSUFF 01/27/2016 RAJI MELLO MD Ot 397.0 TRICUSPID VALVE DISEASE 01/27/2016 RAJI MELLO MD Ot 429.3 CARDIOMEGALY 01/27/2016 NUPUR MAN MD Ot 174.9 MALIGN NEOPL BREAST NOS 01/27/2016 NUPUR MAN MD Ot 782.2 LOCAL SUPRFICIAL SWELLNG 01/27/2016 NUPUR MAN MD Ot 174.9 MALIGN NEOPL BREAST NOS 01/27/2016 NUPUR MAN MD Ot V10.3 HX OF BREAST MALIGNANCY 01/27/2016 NUPUR MAN MD, Ot V76.11 SCRN MAMMO-HIGH RISK PT, MALIGNANT NEOPL 01/27/2016 NUPUR MAN MD Ot 233.0 CA IN SITU BREAST 01/27/2016 NUPUR MAN MD Ot 250.00 DIAB BANDAR WO COMPL, TYPE II OR UNSPEC TY 01/27/2016 NUPUR MAN MD Ot 401.9 HYPERTENSION NOS 01/27/2016 NUPUR MAN MD Ot 414.00 CORON ATHEROSCLER NOS TYPE VESSEL, NATIV 01/27/2016 NUPUR MAN MD Ot 530.81 ESOPHAGEAL REFLUX 01/27/2016 NUPUR MAN MD Ot V58.69 OTH MED,LT,CURRENT USE 01/27/2016 RAJI MELLO MD Ot 401.9 HYPERTENSION NOS 01/27/2016 RAJI MELLO MD Ot 414.00 CORON ATHEROSCLER NOS TYPE VESSEL, NATIV 01/27/2016 RAJI MELLO MD Ot 785.1 PALPITATIONS 01/27/2016 BEE CHEATHAM DO Ot 493.90 ASTHMA, UNSPECIFIED 01/27/2016 NUPUR MAN MD Ot 233.0 CA IN SITU BREAST 01/27/2016 NUPUR MAN MD Ot V76.11 SCRN MAMMO-HIGH RISK PT, MALIGNANT NEOPL 01/27/2016 RAJI MELLO MD Ot 272.4 HYPERLIPIDEMIA NEC/NOS 01/27/2016 RAJI MELLO MD Ot 401.9 HYPERTENSION NOS 01/27/2016 RAJI MELLO MD Ot 414.00 CORON ATHEROSCLER NOS TYPE VESSEL, NATIV 01/27/2016 RAJI MELLO MD Ot 785.1 PALPITATIONS 01/27/2016 NUPUR MAN MD, Ot D05.92 UNSPECIFIED TYPE OF CARCINOMA IN SITU OF 01/27/2016 NUPUR MAN MD, Ot D47.3 ESSENTIAL (HEMORRHAGIC) THROMBOCYTHEMIA 01/27/2016 NUPUR MAN MD Ot E11.9 TYPE 2 DIABETES MELLITUS WITHOUT COMPLIC 01/27/2016 NUPUR MAN MD, Ot E66.01 MORBID (SEVERE) OBESITY DUE TO EXCESS CA 01/27/2016 NUPUR MAN MD, Ot I10 ESSENTIAL (PRIMARY) HYPERTENSION 01/27/2016 NUPUR MAN MD, Ot I25.10 ATHSCL HEART DISEASE OF [place] CORONARY 01/27/2016 NUPUR MAN MD, Ot K21.9 GASTRO-ESOPHAGEAL REFLUX DISEASE WITHOUT 01/27/2016 NUPUR MAN MD, Ot Z68.42 BODY MASS INDEX (BMI) 45.0-49.9, ADULT 01/27/2016 NUPUR MAN MD, Ot Z79.899 OTHER ORTHODONTIST (CURRENT) DRUG THERAPY 01/27/2016 NUPUR MAN MD, Ot Z92.3 PERSONAL HISTORY OF IRRADIATION 01/27/2016 ULISES GANDHI Ot E78.2 MIXED HYPERLIPIDEMIA 01/27/2016 ULISES GANDHI Ot I10 ESSENTIAL (PRIMARY) HYPERTENSION 01/27/2016 ULISES GANDHI Ot I25.10 ATHSCL HEART DISEASE OF [place] CORONARY 01/27/2016 ULISES GANDHI Ot Q25.3 SUPRAVALVULAR AORTIC STENOSIS 01/29/2016 NUPUR MAN MD, Ot 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 01/29/2016 NUPUR MAN MD, Ot Z12.31 ENCNTR SCREEN MAMMOGRAM FOR MALIGNANT NE 01/29/2016 NUPUR MAN MD, Ot 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 01/29/2016 NUPUR MAN MD, Ot Z12.31 ENCNTR SCREEN MAMMOGRAM FOR MALIGNANT NE 02/17/2016 NUPUR MAN MD, Ot 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 02/17/2016 NUPUR MAN MD, Ot Z12.31 ENCNTR SCREEN MAMMOGRAM FOR MALIGNANT NE 02/22/2016 NUPUR MAN MD, Ot D05.92 UNSPECIFIED TYPE OF CARCINOMA IN SITU OF 02/22/2016 NUPUR MAN MD, Ot D47.3 ESSENTIAL (HEMORRHAGIC) THROMBOCYTHEMIA 02/22/2016 NUPUR MAN MD, Ot E11.9 TYPE 2 DIABETES MELLITUS WITHOUT COMPLIC 02/22/2016 NUPUR MAN MD, Ot E66.01 MORBID (SEVERE) OBESITY DUE TO EXCESS CA 02/22/2016 NUPUR MAN MD, Ot I10 ESSENTIAL (PRIMARY) HYPERTENSION 02/22/2016 NUPUR MAN MD, Ot I25.10 ATHSCL HEART DISEASE OF [place] CORONARY 02/22/2016 NUPUR MAN MD, Ot K21.9 GASTRO-ESOPHAGEAL REFLUX DISEASE WITHOUT 02/22/2016 NUPUR MAN MD, Ot Z68.42 BODY MASS INDEX (BMI) 45.0-49.9, ADULT 02/22/2016 NUPUR MAN MD, Ot Z79.899 OTHER ORTHODONTIST (CURRENT) DRUG THERAPY 02/22/2016 NUPUR MAN MD, Ot Z92.3 PERSONAL HISTORY OF IRRADIATION 04/18/2016 NUPUR MAN MD, Ot D05.92 UNSPECIFIED TYPE OF CARCINOMA IN SITU OF 04/18/2016 NUPUR MAN MD, Ot D47.3 ESSENTIAL (HEMORRHAGIC) THROMBOCYTHEMIA 04/18/2016 NUPUR MAN MD, Ot E11.9 TYPE 2 DIABETES MELLITUS WITHOUT COMPLIC 04/18/2016 NUPUR MAN MD, Ot E66.01 MORBID (SEVERE) OBESITY DUE TO EXCESS CA 04/18/2016 NUPUR MAN MD, Ot I10 ESSENTIAL (PRIMARY) HYPERTENSION 04/18/2016 NUPUR MAN MD, Ot I25.10 ATHSCL HEART DISEASE OF [place] CORONARY 04/18/2016 NUPUR MAN MD, Ot K21.9 GASTRO-ESOPHAGEAL REFLUX DISEASE WITHOUT 04/18/2016 NUPUR MAN MD, Ot Z68.42 BODY MASS INDEX (BMI) 45.0-49.9, ADULT 04/18/2016 NUPUR MAN MD, Ot Z79.899 OTHER [place] (CURRENT) DRUG THERAPY 04/18/2016 NUPUR MAN MD, Ot Z92.3 PERSONAL HISTORY OF IRRADIATION 09/23/2016 NUPUR MAN MD, Ot 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 11/15/2016 NUPUR MAN MD, Ot 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 11/15/2016 NUPUR MAN MD Ot D47.3 ESSENTIAL (HEMORRHAGIC) THROMBOCYTHEMIA 11/15/2016 NUPUR MAN MD Ot E11.9 TYPE 2 DIABETES MELLITUS WITHOUT COMPLIC 11/15/2016 NUPUR MAN MD Ot E66.01 MORBID (SEVERE) OBESITY DUE TO EXCESS CA 11/15/2016 NUPUR MAN MD Ot I10 ESSENTIAL (PRIMARY) HYPERTENSION 11/15/2016 NUPUR MAN MD, Ot I25.10 ATHSCL HEART DISEASE OF [place] CORONARY 11/15/2016 NUPUR MAN MD, Ot K21.9 GASTRO-ESOPHAGEAL REFLUX DISEASE WITHOUT 11/15/2016 NUPUR MAN MD, Ot Z68.42 BODY MASS INDEX (BMI) 45.0-49.9, ADULT 11/15/2016 NUPUR MAN MD, Ot Z79.899 OTHER [place] (CURRENT) DRUG THERAPY 11/15/2016 NUPUR MAN MD, Ot Z92.3 PERSONAL HISTORY OF IRRADIATION 11/16/2016 NUPUR MAN MD, Ot 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 11/16/2016 NUPUR MAN MD, Ot D47.3 ESSENTIAL (HEMORRHAGIC) THROMBOCYTHEMIA 11/16/2016 NUPUR MAN MD, Ot E11.9 TYPE 2 DIABETES MELLITUS WITHOUT COMPLIC 11/16/2016 NUPUR MAN MD, Ot E66.01 MORBID (SEVERE) OBESITY DUE TO EXCESS CA 11/16/2016 NUPUR MAN MD Ot I10 ESSENTIAL (PRIMARY) HYPERTENSION 11/16/2016 NUPUR MAN MD, Ot I25.10 ATHSCL HEART DISEASE OF [place] CORONARY 11/16/2016 NUPUR MAN MD, Ot K21.9 GASTRO-ESOPHAGEAL REFLUX DISEASE WITHOUT 11/16/2016 NUPUR MAN MD, Ot Z68.42 BODY MASS INDEX (BMI) 45.0-49.9, ADULT 11/16/2016 NUPUR MAN MD Ot Z79.899 OTHER ORTHODONTIST (CURRENT) DRUG THERAPY 11/16/2016 NUPUR MAN MD Ot Z92.3 PERSONAL HISTORY OF IRRADIATION 01/27/2017 NUPUR MAN MD Ot Z12.31 ENCNTR SCREEN MAMMOGRAM FOR MALIGNANT NE 01/27/2017 Ot 250.00 DIAB BANDAR WO COMPL, TYPE II OR UNSPEC TY 01/27/2017 Ot 401.9 HYPERTENSION NOS 01/27/2017 Ot 611.72 LUMP OR MASS IN BREAST 01/27/2017 Ot V12.61 PERSONAL HISTORY, PNEUMONIA (RECURRENT) 01/27/2017 Ot V72.63 PRE- PROCEDURAL LABORATORY EXAMINATION 01/27/2017 Ot V72.81 EXAM-PRE- OPERATIVE CARDIOVASCULAR 01/27/2017 Ot V74.8 SCREEN- BACTERIAL DIS NEC 01/27/2017 Ot 174.9 MALIGN NEOPL BREAST NOS 01/27/2017 Ot 174.9 MALIGN NEOPL BREAST NOS 01/27/2017 Ot 722.4 CERVICAL DISC DEGEN 01/27/2017 Ot 793.89 OTH (ABN) FINDINGS ON RADIOLOGICAL EXAMI 01/27/2017 Ot V10.3 HX OF BREAST MALIGNANCY 01/27/2017 Ot V76.11 SCRN MAMMO- HIGH RISK PT, MALIGNANT NEOPL 01/27/2017 Ot 250.02 DIAB BANDAR WO COMPL, TYPE II OR UNSPEC TY 01/27/2017 Ot 272.0 PURE HYPERCHOLESTEROLEM 01/27/2017 Ot 401.1 BENIGN HYPERTENSION 01/27/2017 NUPUR MAN MD Ot 233.0 CA IN SITU BREAST 01/27/2017 NUPUR MAN MD Ot 250.00 DIAB BANDAR WO COMPL, TYPE II OR UNSPEC TY 01/27/2017 NUPUR MAN MD Ot 401.9 HYPERTENSION NOS 01/27/2017 NUPUR MAN MD Ot 414.00 CORON ATHEROSCLER NOS TYPE VESSEL, NATIV 01/27/2017 NUPUR MAN MD Ot 530.81 ESOPHAGEAL REFLUX 01/27/2017 NUPUR MAN MD Ot V58.69 OTH MED,LT,CURRENT USE 01/27/2017 RIAZ CAPPS, RAJI Cannon Ot 396.3 MITRAL/AORTIC ROBI INSUFF 01/27/2017 RAJI MELLO MD Ot 397.0 TRICUSPID VALVE DISEASE 01/27/2017 RAJI MELLO MD Ot 429.3 CARDIOMEGALY 01/27/2017 NUPUR MAN MD Ot 174.9 MALIGN NEOPL BREAST NOS 01/27/2017 NUPUR MAN MD Ot 782.2 LOCAL SUPRFICIAL SWELLNG 01/27/2017 NUPUR MAN MD Ot 174.9 MALIGN NEOPL BREAST NOS 01/27/2017 NUPUR MAN MD Ot V10.3 HX OF BREAST MALIGNANCY 01/27/2017 NUPUR MAN MD Ot V76.11 SCRN MAMMO-HIGH RISK PT, MALIGNANT NEOPL 01/27/2017 NUPUR MAN MD Ot 233.0 CA IN SITU BREAST 01/27/2017 NUPUR MAN MD Ot 250.00 DIAB BANDAR WO COMPL, TYPE II OR UNSPEC TY 01/27/2017 NUPUR MAN MD Ot 401.9 HYPERTENSION NOS 01/27/2017 NUPUR MAN MD Ot 414.00 CORON ATHEROSCLER NOS TYPE VESSEL, NATIV 01/27/2017 NUPUR MAN MD Ot 530.81 ESOPHAGEAL REFLUX 01/27/2017 NUPUR MAN MD Ot V58.69 OT MED,LT,CURRENT USE 01/27/2017 RAJI MELLO MD Ot 401.9 HYPERTENSION NOS 01/27/2017 RAJI MELLO MD Ot 414.00 CORON ATHEROSCLER NOS TYPE VESSEL, NATIV 01/27/2017 RAJI MELLO MD Ot 785.1 PALPITATIONS 01/27/2017 CHEATHAM DO, BEE Ot 493.90 ASTHMA, UNSPECIFIED 01/27/2017 NUPUR MAN MD Ot 233.0 CA IN SITU BREAST 01/27/2017 NUPUR MAN MD Ot V76.11 SCRN MAMMO-HIGH RISK PT, MALIGNANT NEOPL 01/27/2017 RAJI MELLO MD Ot 272.4 HYPERLIPIDEMIA NEC/NOS 01/27/2017 RAJI MELLO MD Ot 401.9 HYPERTENSION NOS 01/27/2017 RAJI MELLO MD Ot 414.00 CORON ATHEROSCLER NOS TYPE VESSEL, NATIV 01/27/2017 RAJI MELLO MD Ot 785.1 PALPITATIONS 01/27/2017 ULISES GANDHI Ot E78.2 MIXED HYPERLIPIDEMIA 01/27/2017 ULISES GANDHI Ot I10 ESSENTIAL (PRIMARY) HYPERTENSION 01/27/2017 ULISES GANDHI Ot I25.10 ATHSCL HEART DISEASE OF [place] CORONARY 01/27/2017 ULISES GANDHI Ot Q25.3 SUPRAVALVULAR AORTIC STENOSIS 01/27/2017 NUPUR MAN MD Ot 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 01/27/2017 NUPUR MAN MD Ot Z12.31 ENCNTR SCREEN MAMMOGRAM FOR MALIGNANT NE 01/27/2017 NUPUR MAN MD, Ot Z12.31 ENCNTR SCREEN MAMMOGRAM FOR MALIGNANT NE 01/27/2017 NUPUR MAN MD Ot 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 02/21/2017 NUPUR MAN MD, Ot Z12.31 ENCNTR SCREEN MAMMOGRAM FOR MALIGNANT NE 02/22/2017 Ot 250.00 DIAB BANDAR WO COMPL, TYPE II OR UNSPEC TY 02/22/2017 Ot 401.9 HYPERTENSION NOS 02/22/2017 Ot 611.72 LUMP OR MASS IN BREAST 02/22/2017 Ot V12.61 PERSONAL HISTORY, PNEUMONIA (RECURRENT) 02/22/2017 Ot V72.63 PRE- PROCEDURAL LABORATORY EXAMINATION 02/22/2017 Ot V72.81 EXAM-PRE- OPERATIVE CARDIOVASCULAR 02/22/2017 Ot V74.8 SCREEN- BACTERIAL DIS NEC 02/22/2017 Ot 174.9 MALIGN NEOPL BREAST NOS 02/22/2017 Ot 174.9 MALIGN NEOPL BREAST NOS 02/22/2017 Ot 722.4 CERVICAL DISC DEGEN 02/22/2017 Ot 793.89 OTH (ABN) FINDINGS ON RADIOLOGICAL EXAMI 02/22/2017 Ot V10.3 HX OF BREAST MALIGNANCY 02/22/2017 Ot V76.11 SCRN MAMMO- HIGH RISK PT, MALIGNANT NEOPL 02/22/2017 Ot 250.02 DIAB BANDAR WO COMPL, TYPE II OR UNSPEC TY 02/22/2017 Ot 272.0 PURE HYPERCHOLESTEROLEM 02/22/2017 Ot 401.1 BENIGN HYPERTENSION 02/22/2017 NUPUR MAN MD Ot 233.0 CA IN SITU BREAST 02/22/2017 NUPUR MAN MD Ot 250.00 DIAB BANDAR WO COMPL, TYPE II OR UNSPEC TY 02/22/2017 NUPUR MAN MD Ot 401.9 HYPERTENSION NOS 02/22/2017 NUPUR MAN MD Ot 414.00 CORON ATHEROSCLER NOS TYPE VESSEL, NATIV 02/22/2017 NUPUR MAN MD Ot 530.81 ESOPHAGEAL REFLUX 02/22/2017 NUPUR MAN MD, Ot V58.69 OT MED,LT,CURRENT USE 02/22/2017 RAJI MELLO MD Ot 396.3 MITRAL/AORTIC ROBI INSUFF 02/22/2017 RAJI MELLO MD Ot 397.0 TRICUSPID VALVE DISEASE 02/22/2017 RAJI MELLO MD Ot 429.3 CARDIOMEGALY 02/22/2017 NUPUR MAN MD Ot 174.9 MALIGN NEOPL BREAST NOS 02/22/2017 NUPUR MAN MD Ot 782.2 LOCAL SUPRFICIAL SWELLNG 02/22/2017 NUPUR MAN MD Ot 174.9 MALIGN NEOPL BREAST NOS 02/22/2017 NUPUR MAN MD Ot V10.3 HX OF BREAST MALIGNANCY 02/22/2017 NUPUR MAN MD Ot V76.11 SCRN MAMMO-HIGH RISK PT, MALIGNANT NEOPL 02/22/2017 NUPUR MAN MD Ot 233.0 CA IN SITU BREAST 02/22/2017 NUPUR MAN MD Ot 250.00 DIAB BANDAR WO COMPL, TYPE II OR UNSPEC TY 02/22/2017 NUPUR MAN MD Ot 401.9 HYPERTENSION NOS 02/22/2017 NUPUR MAN MD Ot 414.00 CORON ATHEROSCLER NOS TYPE VESSEL, NATIV 02/22/2017 NUPUR MAN MD Ot 530.81 ESOPHAGEAL REFLUX 02/22/2017 NUPUR MAN MD Ot V58.69 OT MED,LT,CURRENT USE 02/22/2017 RAJI MELLO MD Ot 401.9 HYPERTENSION NOS 02/22/2017 RAJI MELLO MD Ot 414.00 CORON ATHEROSCLER NOS TYPE VESSEL, NATIV 02/22/2017 RAJI MELLO MD Ot 785.1 PALPITATIONS 02/22/2017 BEE CHEATHAM DO Ot 493.90 ASTHMA, UNSPECIFIED 02/22/2017 NUPUR MAN MD Ot 233.0 CA IN SITU BREAST 02/22/2017 NUPUR MAN MD Ot V76.11 SCRN MAMMO-HIGH RISK PT, MALIGNANT NEOPL 02/22/2017 RAJI MELLO MD Ot 272.4 HYPERLIPIDEMIA NEC/NOS 02/22/2017 RAJI MELLO MD Ot 401.9 HYPERTENSION NOS 02/22/2017 RAJI MELLO MD Ot 414.00 CORON ATHEROSCLER NOS TYPE VESSEL, NATIV 02/22/2017 RAJI MELLO MD Ot 785.1 PALPITATIONS 02/22/2017 ULISES GANDHI Ot E78.2 MIXED HYPERLIPIDEMIA 02/22/2017 ULISES GANDHI Ot I10 ESSENTIAL (PRIMARY) HYPERTENSION 02/22/2017 ULISES GANDHI Ot I25.10 ATHSCL HEART DISEASE OF [place] CORONARY 02/22/2017 ULISES GANDHI Ot Q25.3 SUPRAVALVULAR AORTIC STENOSIS 02/22/2017 NUPUR MAN MD Ot 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 02/22/2017 NUPUR MAN MD, Ot Z12.31 ENCNTR SCREEN MAMMOGRAM FOR MALIGNANT NE 02/22/2017 NUPUR MAN MD, Ot Z12.31 ENCNTR SCREEN MAMMOGRAM FOR MALIGNANT NE 02/22/2017 NUPUR MAN MD Ot 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 02/22/2017 NUPUR MAN MD, Ot Z12.31 ENCNTR SCREEN MAMMOGRAM FOR MALIGNANT NE 02/22/2017 NUPUR MAN MD, Ot Z12.31 ENCNTR SCREEN MAMMOGRAM FOR MALIGNANT NE 02/22/2017 NUPUR MAN MD, Ot Z12.31 ENCNTR SCREEN MAMMOGRAM FOR MALIGNANT NE 02/22/2017 Ot 250.00 DIAB BANDAR WO COMPL, TYPE II OR UNSPEC TY 02/22/2017 Ot 401.9 HYPERTENSION NOS 02/22/2017 Ot 611.72 LUMP OR MASS IN BREAST 02/22/2017 Ot V12.61 PERSONAL HISTORY, PNEUMONIA (RECURRENT) 02/22/2017 Ot V72.63 PRE- PROCEDURAL LABORATORY EXAMINATION 02/22/2017 Ot V72.81 EXAM-PRE- OPERATIVE CARDIOVASCULAR 02/22/2017 Ot V74.8 SCREEN- BACTERIAL DIS NEC 02/22/2017 Ot 174.9 MALIGN NEOPL BREAST NOS 02/22/2017 Ot 174.9 MALIGN NEOPL BREAST NOS 02/22/2017 Ot 722.4 CERVICAL DISC DEGEN 02/22/2017 Ot 793.89 OTH (ABN) FINDINGS ON RADIOLOGICAL EXAMI 02/22/2017 Ot V10.3 HX OF BREAST MALIGNANCY 02/22/2017 Ot V76.11 SCRN MAMMO- HIGH RISK PT, MALIGNANT NEOPL 02/22/2017 Ot 250.02 DIAB BANDAR WO COMPL, TYPE II OR UNSPEC TY 02/22/2017 Ot 272.0 PURE HYPERCHOLESTEROLEM 02/22/2017 Ot 401.1 BENIGN HYPERTENSION 02/22/2017 NUPUR MAN MD Ot 233.0 CA IN SITU BREAST 02/22/2017 NUPUR MAN MD Ot 250.00 DIAB BANDAR WO COMPL, TYPE II OR UNSPEC TY 02/22/2017 NUPUR MAN MD Ot 401.9 HYPERTENSION NOS 02/22/2017 NUPUR MAN MD Ot 414.00 CORON ATHEROSCLER NOS TYPE VESSEL, NATIV 02/22/2017 NUPUR MAN MD Ot 530.81 ESOPHAGEAL REFLUX 02/22/2017 NUPUR MAN MD Ot V58.69 OT MED,LT,CURRENT USE 02/22/2017 RIAZ CAPPS, RAJI Cannon Ot 396.3 MITRAL/AORTIC ROBI INSUFF 02/22/2017 RIAZ CAPPS, RAJI Cannon Ot 397.0 TRICUSPID VALVE DISEASE 02/22/2017 RIAZ CAPPS, RAJI Cannon Ot 429.3 CARDIOMEGALY 02/22/2017 NUPUR MAN MD Ot 174.9 MALIGN NEOPL BREAST NOS 02/22/2017 NUPUR MAN MD Ot 782.2 LOCAL SUPRFICIAL SWELLNG 02/22/2017 NUPUR MAN MD Ot 174.9 MALIGN NEOPL BREAST NOS 02/22/2017 NUPUR MAN MD Ot V10.3 HX OF BREAST MALIGNANCY 02/22/2017 NUPUR MAN MD Ot V76.11 SCRN MAMMO-HIGH RISK PT, MALIGNANT NEOPL 02/22/2017 NUPUR MAN MD Ot 233.0 CA IN SITU BREAST 02/22/2017 NUPUR MAN MD Ot 250.00 DIAB BANDAR WO COMPL, TYPE II OR UNSPEC TY 02/22/2017 NUPUR MAN MD Ot 401.9 HYPERTENSION NOS 02/22/2017 NUPUR MAN MD Ot 414.00 CORON ATHEROSCLER NOS TYPE VESSEL, NATIV 02/22/2017 NUPUR MAN MD Ot 530.81 ESOPHAGEAL REFLUX 02/22/2017 NUPUR MAN MD, Ot V58.69 OTH MED,LT,CURRENT USE 02/22/2017 RAJI MELLO MD Ot 401.9 HYPERTENSION NOS 02/22/2017 RAJI MELLO MD Ot 414.00 CORON ATHEROSCLER NOS TYPE VESSEL, NATIV 02/22/2017 RAJI MELLO MD Ot 785.1 PALPITATIONS 02/22/2017 BEE CHEATHAM DO Ot 493.90 ASTHMA, UNSPECIFIED 02/22/2017 NUPUR MAN MD Ot 233.0 CA IN SITU BREAST 02/22/2017 NUPUR MAN MD Ot V76.11 SCRN MAMMO-HIGH RISK PT, MALIGNANT NEOPL 02/22/2017 RAJI MELLO MD Ot 272.4 HYPERLIPIDEMIA NEC/NOS 02/22/2017 RAJI MELLO MD Ot 401.9 HYPERTENSION NOS 02/22/2017 RAJI MELLO MD Ot 414.00 CORON ATHEROSCLER NOS TYPE VESSEL, NATIV 02/22/2017 RAJI MELLO MD Ot 785.1 PALPITATIONS 02/22/2017 ULISES GANDHI Ot E78.2 MIXED HYPERLIPIDEMIA 02/22/2017 ULISES GANDHI Ot I10 ESSENTIAL (PRIMARY) HYPERTENSION 02/22/2017 ULISES GANDHI Ot I25.10 ATHSCL HEART DISEASE OF [place] CORONARY 02/22/2017 ULISES GANDHI Ot Q25.3 SUPRAVALVULAR AORTIC STENOSIS 02/22/2017 NUPUR MAN MD, Ot 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 02/22/2017 NUPUR MAN MD Ot Z12.31 ENCNTR SCREEN MAMMOGRAM FOR MALIGNANT NE 02/22/2017 NUPUR MAN MD Ot Z12.31 ENCNTR SCREEN MAMMOGRAM FOR MALIGNANT NE 02/22/2017 NUPUR MAN MD Ot 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 02/23/2017 NUPUR MAN MD Ot 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 03/15/2017 NUPUR MAN MD, Ot Z12.31 ENCNTR SCREEN MAMMOGRAM FOR MALIGNANT NE 03/24/2017 NUPUR MAN MD, Ot 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 03/24/2017 NUPUR MAN MD, Ot D64.9 ANEMIA, UNSPECIFIED 03/24/2017 NUPUR MAN MD, Ot E11.9 TYPE 2 DIABETES MELLITUS WITHOUT COMPLIC 03/24/2017 NUPUR MAN MD, Ot E66.01 MORBID (SEVERE) OBESITY DUE TO EXCESS CA 03/24/2017 NUPUR MAN MD, Ot E78.5 HYPERLIPIDEMIA, UNSPECIFIED 03/24/2017 NUPUR MAN MD, Ot I10 ESSENTIAL (PRIMARY) HYPERTENSION 03/24/2017 NUPUR MAN MD, Ot I25.10 ATHSCL HEART DISEASE OF [place] CORONARY 03/24/2017 NUPUR MAN MD, Ot Z68.42 BODY MASS INDEX (BMI) 45.0-49.9, ADULT 03/24/2017 NUPUR MAN MD, Ot Z79.84 ORTHODONTIST (CURRENT) USE OF ORAL HYPOGLYC 03/24/2017 NUPUR MAN MD, Ot Z79.899 OTHER ORTHODONTIST (CURRENT) DRUG THERAPY 03/24/2017 NUPUR MAN MD, Ot Z92.3 PERSONAL HISTORY OF IRRADIATION 05/23/2017 NUPUR MAN MD, Ot 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 05/23/2017 NUPUR MAN MD, Ot D64.9 ANEMIA, UNSPECIFIED 05/23/2017 NUPUR MAN MD, Ot E11.9 TYPE 2 DIABETES MELLITUS WITHOUT COMPLIC 05/23/2017 NUPUR MAN MD, Ot E66.01 MORBID (SEVERE) OBESITY DUE TO EXCESS CA 05/23/2017 NUPUR MAN MD, Ot E78.5 HYPERLIPIDEMIA, UNSPECIFIED 05/23/2017 NUPUR MAN MD, Ot I10 ESSENTIAL (PRIMARY) HYPERTENSION 05/23/2017 NUPUR MAN MD, Ot I25.10 ATHSCL HEART DISEASE OF [place] CORONARY 05/23/2017 NUPUR MAN MD, Ot Z68.42 BODY MASS INDEX (BMI) 45.0-49.9, ADULT 05/23/2017 NUPUR MAN MD, Ot Z79.84 HALFWAY (CURRENT) USE OF ORAL HYPOGLYC 05/23/2017 NUPUR MAN MD, Ot Z79.899 OTHER ORTHODONTIST (CURRENT) DRUG THERAPY 05/23/2017 NUPUR MAN MD, Ot Z92.3 PERSONAL HISTORY OF IRRADIATION 05/29/2017 NUPUR MAN MD, Ot 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 05/29/2017 NUPUR MAN MD, Ot D64.9 ANEMIA, UNSPECIFIED 05/29/2017 NUPUR MAN MD, Ot E11.9 TYPE 2 DIABETES MELLITUS WITHOUT COMPLIC 05/29/2017 NUPUR MAN MD, Ot E66.01 MORBID (SEVERE) OBESITY DUE TO EXCESS CA 05/29/2017 NUPUR MAN MD, Ot E78.5 HYPERLIPIDEMIA, UNSPECIFIED 05/29/2017 NUPUR MAN MD, Ot I10 ESSENTIAL (PRIMARY) HYPERTENSION 05/29/2017 NUPUR MAN MD, Ot I25.10 ATHSCL HEART DISEASE OF [place] CORONARY 05/29/2017 NUPUR MAN MD, Ot Z68.42 BODY MASS INDEX (BMI) 45.0-49.9, ADULT 05/29/2017 NUPUR MAN MD Ot Z79.84 ORTHODONTIST (CURRENT) USE OF ORAL HYPOGLYC 05/29/2017 NUPUR MAN MD, Ot Z79.899 OTHER ORTHODONTIST (CURRENT) DRUG THERAPY 05/29/2017 NUPUR MAN MD, Ot Z92.3 PERSONAL HISTORY OF IRRADIATION Procedures There is no data. Results There is no data. Encounters ACCT No. Visit Date/Time Discharge Status Pt. Type Provider Facility Loc./Unit Complaint [id number] 05/24/2017 00:15:00 05/24/2017 23:59:59 CLS Preadmit NUPUR MAN MD [facility] ONC [id number] 02/22/2017 12:53:00 05/23/2017 00:01:00 DIS Outpatient NUPUR MAN MD [facility] ONC [id number] 02/22/2017 11:42:00 02/22/2017 23:59:59 CLS Outpatient NUPUR MAN MD [facility] RAD SCREENING [id number] 08/17/2016 13:29:00 11/15/2016 00:01:00 DIS Outpatient NUPUR MAN MD [facility] ONC [id number] 01/19/2016 09:07:00 04/18/2016 00:01:00 DIS Outpatient NUPUR MAN MD [facility] ONC [id number] 01/27/2016 10:47:00 01/27/2016 23:59:59 CLS Outpatient NUPUR MAN MD [facility] RAD SCREENING [id number] 12/15/2015 10:06:00 12/15/2015 23:59:59 CLS Outpatient ULISES GANDHI [facility] CARD AORTIC STENOSIS,HTN,MIXED HLP,CAD [id number] 10/14/2014 11:12:00 10/14/2014 23:59:59 CLS Outpatient RAJI MELLO MD [facility] CARD CAD,HTN, [id number] 09/17/2014 13:32:00 09/17/2014 23:59:59 CLS Outpatient NUPUR MAN MD [facility] ONC [id number] 09/11/2014 09:31:00 09/11/2014 23:59:59 CLS Outpatient NUPUR MAN MD [facility] RAD SCREENING [id number] 05/07/2014 07:15:00 05/07/2014 23:59:59 CLS Outpatient BEE CHEATHAM DO [facility] RT ASTHMA [id number] 02/12/2014 08:32:00 02/12/2014 23:59:59 CLS Outpatient RAJI MELLO MD [facility] CARD CAD,HYPERTENSION,AORTIC STENOSIS [id number] 11/26/2013 10:08:00 11/26/2013 23:59:59 CLS Outpatient NUPUR MAN MD [facility] ONC [id number] 09/10/2013 08:30:00 09/10/2013 23:59:59 CLS Outpatient NUPUR MAN MD [facility] RAD LT BREAST CA [id number] 05/06/2013 09:31:00 05/06/2013 23:59:59 CLS Outpatient NUUPR MAN MD [facility] ONC [id number] 02/14/2013 10:02:00 02/14/2013 23:59:59 CLS Outpatient NUPUR MAN MD [facility] RAD RT AXILLARY PALPABLE NODULE,HX BREAST CA [id number] 02/06/2013 14:06:00 02/06/2013 23:59:59 CLS Outpatient NUPUR MAN MD [facility] ONC [id number] 01/29/2013 09:51:00 01/29/2013 23:59:59 CLS Outpatient RAJI MELLO MD [facility] CARD [id number] 10/14/2014 11:12:00 Document Registration [id number] 10/14/2014 11:12:00 Document Registration [id number] 09/08/2012 07:51:00 Document Registration [id number] 09/07/2012 13:37:00 Document Registration [id number] 07/10/2012 13:24:00 Document Registration [id number] 04/03/2012 14:26:00 Document Registration [id number] 03/14/2012 14:30:00 Document Registration [id number] 01/25/2012 13:39:00 Document Registration [id number] 11/02/2011 13:39:00 Document Registration [id number] 10/12/2011 14:25:00 Document Registration [id number] 09/22/2011 05:36:00 Document Registration [id number] 09/19/2011 09:24:00 Document Registration [id number] 09/07/2011 07:02:00 Document Registration [id number] 08/01/2011 13:27:00 Document Registration [id number] 07/06/2011 16:20:00 Document Registration [id number] 02/25/2011 21:17:00 Document Registration [id number] 01/14/2011 08:03:00 Document Registration [id number] 01/11/2011 09:28:00 Document Registration [id number] 05/20/2010 12:18:00 Document Registration [id number] 05/12/2010 10:33:00 Document Registration [id number] 05/19/2009 13:07:00 Document Registration [id number] 05/04/2009 00:00:00 Document Registration [id number] 02/02/2009 10:46:00 Document Registration
[2017-11-28] MEDS ORDERED: LISI10TA2 PO (18:23)
[2017-11-28] MEDS ORDERED: ATOR40TA70 PO (18:23)
[2017-11-28] MEDS ORDERED: METF500T4 PO (18:23)
[2017-11-28] MEDS ORDERED: POTA10CA43 PO (18:23)
[2017-11-28] MEDS ORDERED: DULO60CA58 PO (18:23)
[2017-11-28] MEDS ORDERED: MONT10TA24 PO (18:23)
[2017-11-28] MEDS ORDERED: ALPR0.254 PO (18:23)
[2017-11-28] MEDS ORDERED: FURO40TA4 PO (18:23)
[2017-11-28] MEDS ORDERED: LEVO50TA6 PO (18:23)
[2017-11-28] MEDS ORDERED: METO-387 PO (18:23)
[2017-11-28] MEDS ORDERED: SITA100T12 PO (18:23)
[2017-11-28] MEDS ORDERED: GLYB1.253 PO (18:35)
[2017-11-28] MEDS ORDERED: CHOL100048 PO (18:52)
[2017-11-28] MEDS ORDERED: ASPI-983 PO (18:52)
--- NOTE | 2017-11-28 18:58 | Diagnostic Imaging Report ---
INDICATION: Coughing, wheezing, and weakness. TIME OF EXAM: 7:12 p.m. COMPARISON: Comparison is made with prior study from 09/19/2011. FINDINGS: The heart size is normal. The pulmonary vascularity is unremarkable. The lungs are clear. No infiltrate, effusion or pneumothorax is detected. IMPRESSION: No acute cardiopulmonary process is detected. Dictated by: Dictated on workstation # [id number]
[2017-11-28 19:03] LABS: BASOPHILS # (AUTO) 0.1 10^3/uL (0.0-0.1); BASOPHILS % (AUTO) 1 % (0-10); EOSINOPHILS # (AUTO) 0.4 10^3/uL (0.0-0.3); EOSINOPHILS % (AUTO) 6 % (0-10); HEMATOCRIT 33 % (35-52); HEMOGLOBIN 10.8 G/DL (11.5-16.0); LYMPHOCYTES # (AUTO) 2.2 X 10^3 (1.0-4.0); LYMPHOCYTES % (AUTO) 34 % (12-44); MEAN CORPUSCULAR HEMOGLOBIN 27 PG (25-34); MEAN CORPUSCULAR HGB CONC 33 G/DL (32-36); MEAN CORPUSCULAR VOLUME 83 FL (80-99); MEAN PLATELET VOLUME 9.2 FL (7.4-10.4); MONOCYTES # (AUTO) 0.5 X 10^3 (0.0-1.0); MONOCYTES % (AUTO) 8 % (0-12); NEUTROPHILS # (AUTO) 3.3 X 10^3 (1.8-7.8); NEUTROPHILS % (AUTO) 52 % (42-75); PLATELET COUNT 344 10^3/uL (130-400); RED CELL DISTRIBUTION WIDTH 15.6 % (10.0-14.5); WHITE BLOOD COUNT 6.4 10^3/uL (4.3-11.0)
[2017-11-28 19:07] VITALS: BP 146/62
[2017-11-28 19:27] LABS: ALANINE AMINOTRANSFERASE 20 U/L (0-55); ALBUMIN 3.9 GM/DL (3.2-4.5); ALKALINE PHOSPHATASE 99 U/L (40-136); BILIRUBIN,TOTAL 0.3 MG/DL (0.1-1.0); BUN/CREATININE RATIO 18; CALCIUM 8.8 MG/DL (8.5-10.1); CARBON DIOXIDE 23 MMOL/L (21-32); CHLORIDE 106 MMOL/L (98-107); CREATININE SERUM 0.88 MG/DL (0.60-1.30); GFR ESTIMATED > 60; GLUCOSE 81 MG/DL (70-105); SODIUM 138 MMOL/L (135-145); TOTAL PROTEIN 6.9 GM/DL (6.4-8.2)
[2017-11-28] MEDS: LEVOFLOXACIN 750 MG/150 ML IV 150 ML IV SCH (19:54)
[2017-11-28] MEDS: ENOXAPARIN 40 MG/0.4 ML (LOVENOX) SYR SC SCH (19:54)
[2017-11-28 20:22] VITALS: BP 146/62
[2017-11-28] MEDS ORDERED: NON-FORMULARY MEDICATION 1 EA EA (Potassium Chloride 10 MEQ) PO SCH (21:00)
[2017-11-28] MEDS ORDERED: KCL 10 MEQ TAB (MICRO K) PO ONE (21:25)
[2017-11-28] MEDS: metFORMIN 500 MG (GLUCOPHAGE) TAB PO SCH (21:30)
[2017-11-28] MEDS: inSUlin ASPART (NovoLOG) 1 UNIT/0.01 ML (CHARGE PER UNIT) SC SCH (21:30)
[2017-11-28] MEDS ORDERED: RT-ALBUTEROL SULF 2.5 MG/3 ML PRE-MIX VIAL INH PRN (23:30)
[2017-11-28] MEDS: RT-BUDESONIDE NEBS 0.5 MG/2ML (PULMICORT) AMP INH SCH (23:34)
[2017-11-29] VITALS: BP 106/57
[2017-11-29] MEDS: methylPREDNISolone 40 MG/ML (Solu-MEDROL) VIAL IV SCH ×5 (00:25→23:43)
[2017-11-29 04:00] VITALS: BP 136/72
[2017-11-29 05:52] LABS: BASOPHILS % (AUTO) 1 % (0-10); EOSINOPHILS % (AUTO) 1 % (0-10); HEMATOCRIT 35 % (35-52); HEMOGLOBIN 11.3 G/DL (11.5-16.0); LYMPHOCYTES % (AUTO) 24 % (12-44); MEAN CORPUSCULAR HEMOGLOBIN 27 PG (25-34); MEAN CORPUSCULAR HGB CONC 33 G/DL (32-36); MEAN CORPUSCULAR VOLUME 83 FL (80-99); MEAN PLATELET VOLUME 9.3 FL (7.4-10.4); MONOCYTES # (AUTO) 0.1 X 10^3 (0.0-1.0); MONOCYTES % (AUTO) 2 % (0-12); NEUTROPHILS # (AUTO) 3.2 X 10^3 (1.8-7.8); NEUTROPHILS % (AUTO) 73 % (42-75); PLATELET COUNT 313 10^3/uL (130-400); RED BLOOD COUNT 4.22 10^6/uL (4.35-5.85); RED CELL DISTRIBUTION WIDTH 15.4 % (10.0-14.5); WHITE BLOOD COUNT 4.4 10^3/uL (4.3-11.0)
[2017-11-29 06:16] LABS: ALANINE AMINOTRANSFERASE 18 U/L (0-55); ALBUMIN 3.8 GM/DL (3.2-4.5); ALKALINE PHOSPHATASE 93 U/L (40-136); BILIRUBIN,TOTAL 0.2 MG/DL (0.1-1.0); BUN/CREATININE RATIO 20; CALCIUM 8.7 MG/DL (8.5-10.1); CARBON DIOXIDE 20 MMOL/L (21-32); CHLORIDE 106 MMOL/L (98-107); CREATININE SERUM 0.89 MG/DL (0.60-1.30); GFR ESTIMATED > 60; GLUCOSE 196 MG/DL (70-105); POTASSIUM 4.6 MMOL/L (3.6-5.0); SODIUM 136 MMOL/L (135-145); TOTAL PROTEIN 6.8 GM/DL (6.4-8.2)
[2017-11-29] MEDS: inSUlin ASPART (NovoLOG) 1 UNIT/0.01 ML (CHARGE PER UNIT) SC SCH ×4 (06:45→21:32)
[2017-11-29] MEDS: KCL 10 MEQ TAB (MICRO K) PO SCH ×2 (06:45→17:04)
--- NOTE | 2017-11-29 07:48 | Pulmonary Consultation ---
History of Present Illness History of Present Illness Date of Consultation 11/29/17 07:44 Date of Admission Allergies and Home Medications Allergies Coded Allergies: Cephalosporins (Verified Allergy, Mild, 11/28/17) Home Medications Alprazolam 0.25 Mg Tablet, 0.25 MG PO Q6H PRN for ANXIETY, (Reported) Aspirin 81 Mg Tablet.dr, 162 MG PO DAILY, (Reported) TAKES 2 (81 MG) TABLETS Atorvastatin Calcium 40 Mg Tablet, 40 MG PO HS, (Reported) Cholecalciferol (Vitamin D3) 1,000 Unit Capsule, 1,000 UNIT PO DAILY, (Reported) Duloxetine HCl 60 Mg Capsule.dr, 60 MG PO DAILY, (Reported) Furosemide 40 Mg Tablet, 40 MG PO DAILY, (Reported) Glyburide 1.25 Mg Tablet, 1.25 MG PO DAILY, (Reported) Levothyroxine Sodium 50 Mcg Tablet, 50 MCG PO DAILY, (Reported) Lisinopril 10 Mg Tablet, 10 MG PO DAILY, (Reported) Metformin HCl 500 Mg Tablet, 1,000 MG PO BID, (Reported) TAKES 2 (500 MG) TABLETS Metoprolol Succinate 25 Mg Tab.er.24h, 25 MG PO DAILY, (Reported) Montelukast Sodium 10 Mg Tablet, 10 MG PO DAILY, (Reported) Potassium Chloride 10 Meq Capsule.er, 10 MEQ PO BID, (Reported) LAST FILLED 10/03/17 #60 Sitagliptin Phosphate 100 Mg Tablet, 100 MG PO DAILY, (Reported) Past Yydzyqc-Elawfa-Bjkbrg Hx Patient Social History Alcohol Use: Occasionally Uses Number of Drinks Today: 0 Alcohol Beverage of Choice: Whiskey Recreational Drug Use: No Smoking Status: Current Someday Smoker Type Used: Cigarettes Former Smoker, Quit: Nov 28, 1999 Recent Foreign Travel: No Contact w/Someone Who Travel: No Recent Infectious Disease Expo: No Recent Hopitalizations: No Immunizations Up To Date Date of Pneumonia Vaccine: Oct 28, 2017 Date of Influenza Vaccine: Aug 02, 2017 Seasonal Allergies Seasonal Allergies: Yes Respiratory History of Respiratory Disorde: Yes Respiratory Disorders: Asthma, Pneumonia, Chronic Bronchitis, Sleep Apnea Currently Using CPAP: Yes Currently Using BIPAP: No Cardiovascular History of Cardiac Disorders: Yes (HEART MURMUR, CAD) Neurological History of Neurological Disord: No Reproductive System Hx Reproductive Disorders: No Sexually Transmitted Disease: No Genitourinary History of Genitourinary Disor: No Gastrointestinal History of Gastrointestinal Di: Yes Gastrointestinal Disorders: Hemorrhoids Musculoskeletal History of Musculoskeletal Dis: No Endocrine History of Endocrine Disorders: Yes HEENT History of HEENT Disorders: No Cancer History of Cancer: No Cancer: Breast Psychosocial History of Psychiatric Problem: No Integumentary History of Skin or Integumenta: No Blood Transfusions History of Blood Disorders: No Family Medical History Family Medial History: Patient reports no known family medical history. Exam Exam Vital Signs Date Time Temp Pulse Resp B/P (MAP) Pulse Ox O2 Delivery O2 Flow Rate FiO2 11/29/17 07:00 60 11/29/17 04:00 95.7 60 16 136/72 (93) 94 Room Air 11/29/17 01:00 53 11/29/17 00:00 97.5 60 16 106/57 (73) 93 Room Air 11/28/17 21:00 96 Room Air 11/28/17 20:22 49 97 11/28/17 19:30 Room Air 11/28/17 19:07 97.1 63 18 146/62 (90) 96 Room Air 11/28/17 19:00 52 I & O 11/29/17 07:00 Intake Total 820 ml Output Total 800 ml Balance 20 ml General Appearance: No Apparent Distress, WD/WN HEENT: PERRL/EOMI, Normal ENT Inspection, Pharynx Normal Respiratory: Decreased Breath Sounds, Wheezing (exp wheezing) Gastrointestinal: non tender, soft Neurologic/Psychiatric: Alert, Oriented x3 Skin: Normal Color, Warm/Dry Lymphatic: No Adenopathy Results Lab Laboratory Tests 11/28/17 18:40 11/29/17 05:17 Assessment/Plan Assessment/Plan Asthma AE - failed out patient treatment -SVNS- D/C MAT protocol. Change to DuoNeb Q4hrs and Q2 PRN (RT MAT placed pt on only PRN albuterol txs.) -Continue Solumedrol -Start Claritin, and Singulair Hx of tobacco use -Will do PFT as out patient CXR and LAbs reviewed. 254 LANEY DELACRUZ DO Nov 29, 2017 07:48
[2017-11-29 08:00] VITALS: BP 139/60
[2017-11-29] MEDS ORDERED: NON-FORMULARY MEDICATION 1 EA EA (Cholecalciferol (Vitamin D3) (Vitamin D) 1,000 UNIT) PO SCH (09:00)
[2017-11-29] MEDS ORDERED: GLYBURIDE 1.25 MG PO SCH (09:00)
[2017-11-29] MEDS ORDERED: RT-ALBUTEROL/IPRATROPIUM 3 ML (DUONEB) VIAL INH PRN (09:00)
[2017-11-29] MEDS ORDERED: NON-FORMULARY MEDICATION 1 EA EA (Sitagliptin Phosphate (Januvia) 100 MG) PO SCH (09:00)
[2017-11-29] MEDS ORDERED: lisINopril 10 MG (PRINIVIL) TABLET PO SCH (09:00)
[2017-11-29] MEDS ORDERED: NON-FORMULARY MEDICATION 1 EA EA (Duloxetine HCl 60 MG) PO SCH (09:00)
[2017-11-29] MEDS ORDERED: ALBU2.5V4 NEB (09:11)
[2017-11-29] MEDS: RT-BUDESONIDE NEBS 0.5 MG/2ML (PULMICORT) AMP INH SCH ×2 (09:15→18:30)
[2017-11-29] MEDS: RT-ALBUTEROL/IPRATROPIUM 3 ML (DUONEB) VIAL INH SCH ×4 (09:15→21:33)
[2017-11-29] MEDS: glyBURIDE 2.5 MG (MICRONASE) TAB PO SCH (09:31)
[2017-11-29] MEDS: ASPIRIN E.C. 81 MG (ECOTRIN) TAB PO SCH (09:31)
[2017-11-29] MEDS: DULoxetine 30 MG (CYMBALTA) CAP PO SCH (09:31)
[2017-11-29] MEDS: MONTELUKAST 10 MG (SINGULAIR) TAB PO SCH (09:31)
[2017-11-29] MEDS: FUROSEMIDE 40 MG (LASIX) TAB PO SCH (09:31)
[2017-11-29] MEDS: LINAGLIPTIN (TRADJENTA) 5 MG TABLET PO SCH (09:32)
[2017-11-29] MEDS: metFORMIN 500 MG (GLUCOPHAGE) TAB PO SCH ×2 (09:32→21:31)
[2017-11-29] MEDS: VITAMIN D3 1,000 UNITS (CHOLECALCIFEROL) TABLET PO SCH (09:34)
--- NOTE | 2017-11-29 10:29 | Consultation-Cardiology ---
HPI-Cardiology Cardiology Consultation Date of Consultation 11/29/17 Date of Admission Time Seen by Provider: 09:50 Indication: Dyspnea HPI Patient is a 67 y/o female with history of mild , asthma, HTN. Was direct admit from Dr. Sanchez's office for AE asthma. Patient reports dyspnea is slightly improved today. Denies any CP, dizziness, lightheadedness or syncope. No other complaints at this time. This Dr. Rousseau, I have seen Mrs. Perez, she is 67 years old lady with history of mild aortic stenosis, bronchial asthma and hypertension. Was admitted from Dr. Sanchez's office for increasing dyspnea and acute extirpation of asthma. On my evaluation was feeling better, having mild shortness of breath , denied any chest pain, palpitation, syncope or near syncopal episodes. No claudications Home Medications & Allergies Allergies: Coded Allergies: Cephalosporins (Verified Allergy, Mild, 11/28/17) Home Medication List Reviewed: Yes LXH-Hfwafu-Zanzre Hx Patient Social History Marital Status: Alcohol Use: Occasionally Uses Recreational Drug Use: No Smoking Status: Current Someday Smoker Type Used: Cigarettes Recent Foreign Travel: No Recent Infectious Disease Expo: No Recent Hopitalizations: No Physical Abuse Screen: No Sexual Abuse: No Immunizations Up To Date Date of Pneumonia Vaccine: Oct 28, 2017 Date of Influenza Vaccine: Aug 02, 2017 Past Medical History , HTN, HLP, asthma Family Medical History Family History: Patient reports no known family medical history. Constitutional: No chills, No diaphoresis, No dizziness, No fever, No malaise EENTM: No blurred vision, No double vision Respiratory: cough, dyspnea on exertion Cardiovascular: No chest pain, No edema, No palpitations Gastrointestinal: No abdominal pain, No constipation Genitourinary: No dysuria, No frequency Musculoskeletal: No back pain, No neck pain Skin: No dryness, No lesions, No rash Psychiatric/Neurological: Denies Anxiety, Denies Depressed Reviewed Test Results Reviewed Test Results Lab Laboratory Tests 11/28/17 18:40: White Blood Count 6.4, Red Blood Count 4.00L, Hemoglobin 10.8L, Hematocrit 33L, Mean Corpuscular Volume 83, Mean Corpuscular Hemoglobin 27, Mean Corpuscular Hemoglobin Concent 33, Red Cell Distribution Width 15.6H, Platelet Count 344, Mean Platelet Volume 9.2, Neutrophils (%) (Auto) 52, Lymphocytes (%) (Auto) 34, Monocytes (%) (Auto) 8, Eosinophils (%) (Auto) 6, Basophils (%) (Auto) 1, Neutrophils # (Auto) 3.3, Lymphocytes # (Auto) 2.2, Monocytes # (Auto) 0.5, Eosinophils # (Auto) 0.4H, Basophils # (Auto) 0.1, Sodium Level 138, Potassium Level 4.0, Chloride Level 106, Carbon Dioxide Level 23, Anion Gap 9, Blood Urea Nitrogen 16, Creatinine 0.88, Estimat Glomerular Filtration Rate > 60, BUN/ Creatinine Ratio 18, Glucose Level 81, Lactic Acid Level 1.38, Calcium Level 8.8 , Total Bilirubin 0.3, Aspartate Amino Transf (AST/SGOT) 17, Alanine Aminotransferase (ALT/SGPT) 20, Alkaline Phosphatase 99, Troponin I < 0.30, B- Type Natriuretic Peptide 40.4, Total Protein 6.9, Albumin 3.9 11/28/17 21:03: Glucometer 137H 11/29/17 04:29: Glucometer 166H 11/29/17 05:17: White Blood Count 4.4, Red Blood Count 4.22L, Hemoglobin 11.3L, Hematocrit 35, Mean Corpuscular Volume 83, Mean Corpuscular Hemoglobin 27, Mean Corpuscular Hemoglobin Concent 33, Red Cell Distribution Width 15.4H, Platelet Count 313, Mean Platelet Volume 9.3, Neutrophils (%) (Auto) 73, Lymphocytes (%) (Auto) 24, Monocytes (%) (Auto) 2, Eosinophils (%) (Auto) 1, Basophils (%) (Auto) 1, Neutrophils # (Auto) 3.2, Lymphocytes # (Auto) 1.0, Monocytes # (Auto) 0.1, Eosinophils # (Auto) 0.0, Basophils # (Auto) 0.0, Sodium Level 136, Potassium Level 4.6, Chloride Level 106, Carbon Dioxide Level 20L, Anion Gap 10, Blood Urea Nitrogen 18, Creatinine 0.89, Estimat Glomerular Filtration Rate > 60, BUN/ Creatinine Ratio 20, Glucose Level 196H, Calcium Level 8.7, Total Bilirubin 0.2 , Aspartate Amino Transf (AST/SGOT) 18, Alanine Aminotransferase (ALT/SGPT) 18, Alkaline Phosphatase 93, Total Protein 6.8, Albumin 3.8 Microbiology 11/28/17 Influenza Types A,B Antigen (WON) - Final, Complete ECG Impression ECG Initial ECG Rhythm: Normal Sinus Physical Exam Vital Signs Vital Signs - First Documented 11/28/17 11/28/17 19:00 19:07 Temp 97.1 Pulse 52 Resp 18 B/P (MAP) 146/62 (90) Pulse Ox 96 O2 Delivery Room Air Capillary Refill : General Appearance: No Apparent Distress, WD/WN HEENT: Normal ENT Inspection Neck: Full Range of Motion, Non Tender, Supple Respiratory: Chest Non Tender, Rhonci, Wheezing Cardiovascular: Regular Rate, Rhythm, No Edema, No Gallop, No JVD, No Murmur Gastrointestinal: Non Tender, Soft Rectal: Deferred Back: No CVA Tenderness Extremity: Non Tender, No Calf Tenderness Neurologic/Psychiatric: Alert, Oriented x3 A/P-Cardiology Admission Diagnosis Dyspnea/AE asthma HTN HLP Assessment/Plan Dyspnea/AE asthma- Dr. Pedro and medical services following. Continue current medication and continue to monitor. Coronary artery disease, mild disease nonobstructive disease by cardiac catheterization in 2010. Currently asymptomatic. continue to monitor at this time. Aortic valve stenosis, mild per cardiac echocardiogram done in December 2015, did not change compared to the previous study, moderate LVH, EF 60 percent, diastolic dysfunction, PA pressure 25 mmHg. I will reevaluate 2D Echocardiogram Hypertension, controlled. Continue monitor blood pressure/heart rate. Recurrent palpitation, Holter monitor revealed occasional PAC, PVC. Maintained on beta eagle and tolerating well. Denies any recent palpitations. Hyperlipidemia, monitored as outpatient. Mild bilateral carotid stenosis, ultrasound was done in December 2015. 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 Echevarria, history of lumpectomy and radiation therapy Obesity, BMI is 48, discussed diet and exercise for weight loss. Diabetes mellitus, followed and managed by primary care physician. Gastroesophageal reflux disease, currently asymptomatic. 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 Thank you for allowing us to participate in the management of Ms. Perez. This is Dorothy Witt PA-C as a scribe for Dr. Rousseau. This is Dr. Rousseau, I have seen and evaluated patient with Dorothy, interview the patient perform physical examination, I agree with the current scribe. She is a 67 years old lady with history of bronchial asthma, mild coronary artery disease and mild aortic valve stenosis, admitted for acute exacerbation of asthma with shortness of breath, still having some bilateral rhonchi on examination with systolic murmur at the left sternal border. Her coronary artery disease appeared to be stable, I will evaluate 2-D echocardiogram, evaluate pulmonary artery pressure, restart home medication monitor blood pressure and lipids. Clinical Quality Measures DVT/VTE Risk/Contraindication: Risk Factor Score Per Nursin RFS Level Per Nursing on Admit: 3=High DOROTHY MITCHELL Nov 29, 2017 10:29 RAJI ROUSSEAU MD Nov 29, 2017 16:07
[2017-11-29] MEDS: LORATADINE (CLARITIN) 10 MG TAB PO SCH (10:46)
[2017-11-29] MEDS: LEVOTHYROXINE 50 MCG (LEVOTHROID) TAB PO SCH (10:46)
--- NOTE | 2017-11-29 11:08 | History & Physical-Hospitalist ---
HPI History of Present Illness: HPI/Chief Complaint CC: Wheezing HPI: This is a 67 yoWF clinic pt of mine who presented to clinic due to cough. CXR negative for pneumonia, labs all with in normal limits; blood sugars elevated due to sugars Pt Interview: Pt was having breathing treatment during interview Pt confirms seeing Dr. Pedro but is unsure if she sees him in his clinic CXR discussed and showed no pneumonia Physical exam stable. Wheeze noted on exam Pt denies seeing Dr. Rousseau since her admission. Pt was encouraged to ambulate Pt is okay with possible DC tomorrow Pt asked if she has COPD. This was discussed and pt has asthma, which she was informed is under the same umbrella Scribed by Amber Horton under direct supervision of Dr. Padma Cheatham. Source: patient Exam Limitations: no limitations Date Seen 11/29/17 Time Seen by Provider: 09:15 Attending Physician Padma Cheatham DO PCP Padma Cheatham DO Referring Physician Date of Admission Nov 28, 2017 at 17:51 Home Medications & Allergies Home Medications Reviewed patient Home Medication Reconciliation Form Allergies Allergies Coded Allergies Cephalosporins (Verified Allergy, Mild, 11/28/17) Past Vvtgafd-Yziegf-Frinfq Hx Patient Social History Marrital Status: Alcohol Use: Occasionally Uses Number of Drinks Today: 0 Alcohol Beverage of Choice: Whiskey Recreational Drug Use: No Smoking Status: Current Someday Smoker Former Smoker, Quit: Nov 28, 1999 Type Used: Cigarettes Physical Abuse Screen: No Sexual Abuse: No Recent Foreign Travel: No Contact w/other who traveled: No Recent Hopitalizations: No Recent Infectious Disease Expo: No Immunizations Up To Date Date of Pneumonia Vaccine: Oct 28, 2017 Date of Influenza Vaccine: Aug 02, 2017 Seasonal Allergies Seasonal Allergies: Yes Surgeries Yes Breast Respiratory Yes Asthma, COPD, Sleep Apnea Currently Using CPAP: Yes Currently Using BIPAP: No Cardiovascular Yes (HEART MURMUR, CAD) Coronary Artery Disease, High Cholesterol, Hypertension Neurological No Reproductive System Hx Reproductive Disorders: No Sexually Transmitted Disease: No Genitourinary Yes Bladder Infection Gastrointestinal Yes Hemorrhoids Musculoskeletal Yes Degenerate Disk Disease, Arthritis Endocrine History of Endocrine Disorders: Yes Endocrine Disorders: Diabetes, Non-Insulin dep HEENT History of HEENT Disorders: No Cancer Yes Breast Did You Recieve Any Treatments: Yes Psychosocial History of Psychiatric Problem: Yes Behavioral Health Disorders: Anxiety, Depression Integumentary History of Skin or Integumenta: No Blood Transfusions History of Blood Disorders: No Family Medical History Family Hx: Patient reports no known family medical history. Review of Systems Constitutional: see HPI, weakness EENTM: no symptoms reported Respiratory: cough, short of breath, wheezing Cardiovascular: no symptoms reported Gastrointestinal: no symptoms reported Genitourinary: no symptoms reported Musculoskeletal: no symptoms reported Skin: no symptoms reported Psychiatric/Neurological: No Symptoms Reported All Other Systems Reviewed Negative Unless Noted: Yes Physical Exam Physical Exam Vital Signs Vital Signs - First Documented 11/28/17 11/28/17 19:00 19:07 Temp 97.1 Pulse 52 Resp 18 B/P (MAP) 146/62 (90) Pulse Ox 96 O2 Delivery Room Air Capillary Refill : General Appearance: No Apparent Distress, WD/WN, Chronically ill, Obese Eyes: Bilateral Eye Normal Inspection, Bilateral Eye PERRL HEENT: PERRL/EOMI, Normal ENT Inspection, Pharynx Normal Neck: Full Range of Motion, Normal Inspection, Non Tender, Supple, Carotid Bruit Respiratory: Chest Non Tender, No Accessory Muscle Use, No Respiratory Distress , Crackles, Decreased Breath Sounds, Wheezing Cardiovascular: Regular Rate, Rhythm, No Edema, No Gallop, No JVD, No Murmur, Normal Peripheral Pulses Gastrointestinal: Normal Bowel Sounds, No Organomegaly, No Pulsatile Mass, Non Tender, Soft Back: Normal Inspection, No CVA Tenderness, No Vertebral Tenderness Extremity: Normal Capillary Refill, Normal Inspection, Normal Range of Motion, Non Tender, No Calf Tenderness, No Pedal Edema Neurologic/Psychiatric: Alert, Oriented x3, No Motor/Sensory Deficits, Normal Mood/Affect Skin: Normal Color, Warm/Dry Lymphatic: No Adenopathy Results Results/Procedures Lab Laboratory Tests 11/28/17 18:40 11/29/17 05:17 Assessment/Plan Admission Diagnosis Assessment: Acute exacerbation of asthma Obstructive sleep apnea compliant with CPAP 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 Meng Hypertension Hyperlipidemia Admission Status: Observation Assessment and Plan Plan: Ambulate DC telemetry Possible DC tomorrow Antibiotics IV steroids Sliding scale insulin Home meds Lovenox Clinical Quality Measures DVT/VTE Risk/Contraindication: Risk Factor Score Per Nursin RFS Level Per Nursing on Admit: 3=High PADMA CHEATHAM DO Nov 29, 2017 11:08
[2017-11-29 11:52] VITALS: BP 159/68
[2017-11-29 15:44] VITALS: BP 110/55
[2017-11-29] MEDS: LEVOFLOXACIN 750 MG/150 ML IV 150 ML IV SCH (17:05)
[2017-11-29] MEDS: ENOXAPARIN 40 MG/0.4 ML (LOVENOX) SYR SC SCH (17:06)
[2017-11-29 19:35] VITALS: BP 143/70
[2017-11-29] MEDS ORDERED: MONTELUKAST 10 MG (SINGULAIR) TAB PO SCH (21:00)
[2017-11-30] VITALS: BP 136/63
[2017-11-30] MEDS: RT-ALBUTEROL/IPRATROPIUM 3 ML (DUONEB) VIAL INH SCH ×4 (01:08→20:45)
[2017-11-30 04:00] VITALS: BP 177/76
--- NOTE | 2017-11-30 06:15 | Pulmonary Progress Note ---
Subjective Time Seen by Provider: 06:13 Subjective/Events-last exam Pt is feeling better. No complications noted. Exam Exam Vital Signs Date Time Temp Pulse Resp B/P (MAP) Pulse Ox O2 Delivery O2 Flow Rate FiO2 11/30/17 04:00 97.7 78 18 177/76 (109) 98 Nasal Cannula 1.00 11/30/17 01:08 93 Nasal Cannula 1.00 11/30/17 00:00 98.0 74 17 136/63 (87) 92 Nasal Cannula 1.00 11/29/17 21:33 91 Nasal Cannula 1.00 11/29/17 20:30 Room Air 11/29/17 19:35 97.0 85 22 143/70 (94) 93 Nasal Cannula 1.00 11/29/17 18:36 Nasal Cannula 1.00 11/29/17 18:30 89 Room Air 11/29/17 15:44 98.0 73 16 110/55 (73) 92 Room Air 11/29/17 14:20 92 Room Air 11/29/17 11:52 98.8 60 20 159/68 (98) 94 Room Air 11/29/17 09:56 Room Air 11/29/17 09:18 93 Room Air 11/29/17 08:00 97.3 64 20 139/60 (86) 93 Room Air 11/29/17 07:00 60 I & O 11/30/17 07:00 Intake Total 1770 ml Output Total 1800 ml Balance -30 ml General Appearance: No Apparent Distress, WD/WN HEENT: Normal ENT Inspection Neck: Full Range of Motion, Non Tender, Supple Respiratory: Chest Non Tender, Rhonci, Wheezing Cardiovascular: Regular Rate, Rhythm, No Edema, No Gallop, No JVD, No Murmur Gastrointestinal: non tender, soft Extremity: Non Tender, No Calf Tenderness Neurologic/Psychiatric: Alert, Oriented x3 Skin: Normal Color, Warm/Dry Lymphatic: No Adenopathy Results Lab Laboratory Tests 11/28/17 18:40 11/29/17 05:17 Assessment/Plan Assessment/Plan Asthma AE - failed out patient treatment -SVNS- DuoNeb Q6hrs and Q2 PRN -Pulmicort BID -Decrease Solumedrol Claritin, and Singulair Hx of tobacco use -Will do PFT as out patient 232 LANEY DELACRUZ DO Nov 30, 2017 06:15
[2017-11-30 06:26] LABS: BASOPHILS % (AUTO) 0 % (0-10); EOSINOPHILS % (AUTO) 0 % (0-10); LYMPHOCYTES # (AUTO) 0.9 X 10^3 (1.0-4.0); LYMPHOCYTES % (AUTO) 13 % (12-44); MEAN CORPUSCULAR HGB CONC 33 G/DL (32-36); MEAN CORPUSCULAR VOLUME 83 FL (80-99); MONOCYTES # (AUTO) 0.4 X 10^3 (0.0-1.0); MONOCYTES % (AUTO) 6 % (0-12); NEUTROPHILS # (AUTO) 5.4 X 10^3 (1.8-7.8); NEUTROPHILS % (AUTO) 81 % (42-75); RED CELL DISTRIBUTION WIDTH 15.4 % (10.0-14.5)
[2017-11-30] MEDS: RT-BUDESONIDE NEBS 0.5 MG/2ML (PULMICORT) AMP INH SCH ×2 (06:26→20:46)
[2017-11-30 06:32] LABS: HEMATOCRIT 32 % (35-52); HEMOGLOBIN 10.3 G/DL (11.5-16.0); MEAN CORPUSCULAR HEMOGLOBIN 27 PG (25-34); PLATELET COUNT 335 10^3/uL (130-400); WHITE BLOOD COUNT 7.4 10^3/uL (4.3-11.0)
[2017-11-30] MEDS: inSUlin ASPART (NovoLOG) 1 UNIT/0.01 ML (CHARGE PER UNIT) SC SCH ×4 (06:57→20:55)
[2017-11-30] MEDS: KCL 10 MEQ TAB (MICRO K) PO SCH ×2 (06:57→16:37)
[2017-11-30 07:30] LABS: ALANINE AMINOTRANSFERASE 18 U/L (0-55); ALBUMIN 3.9 GM/DL (3.2-4.5); ALKALINE PHOSPHATASE 81 U/L (40-136); BILIRUBIN,TOTAL 0.2 MG/DL (0.1-1.0); BUN/CREATININE RATIO 26; CALCIUM 8.7 MG/DL (8.5-10.1); CARBON DIOXIDE 18 MMOL/L (21-32); CHLORIDE 106 MMOL/L (98-107); CREATININE SERUM 0.89 MG/DL (0.60-1.30); GFR ESTIMATED > 60; GLUCOSE 257 MG/DL (70-105); POTASSIUM 4.5 MMOL/L (3.6-5.0); SODIUM 137 MMOL/L (135-145); TOTAL PROTEIN 6.3 GM/DL (6.4-8.2)
[2017-11-30 08:00] VITALS: BP 132/63
--- NOTE | 2017-11-30 08:20 | Cardiology Progress Note ---
Subjective Date Seen by Provider: Nov 30, 2017 Time Seen by Provider: 08:18 Subjective/Events-last exam Patient is sitting up in bed. No new complaint. Continues to c/o some dyspnea, but reports improvement from yesterday. Denies any CP, dizziness or lightheadedness. Objective-Cardiology Exam Last Set of Vital Signs Vital Signs 11/30/17 11/30/17 04:00 06:28 Temp 97.7 Pulse 78 Resp 18 B/P (MAP) 177/76 (109) Pulse Ox 96 O2 Delivery Nasal Cannula O2 Flow Rate 1.00 Capillary Refill : I&O Intake and Output 11/30/17 00:00 Intake Total 2170 ml Output Total 2600 ml Balance -430 ml Intake Oral 2170 ml Output Urine Total 2600 ml General: Alert, Oriented X3, Cooperative HEENT: Atraumatic, PERRLA Lungs: Normal Air Movement, Other (bilat exp wheezing) Heart: Regular Rate, Normal S1, Normal S2, No Murmurs Abdomen: Normal Bowel Sounds, Soft, No Tenderness, No Hepatosplenomegaly, No Masses Extremities: No Clubbing, No Cyanosis, No Edema, Normal Pulses, No Tenderness/ Swelling Skin: No Rashes, No Significant Lesion Neuro: Normal Gait, Normal Speech, Cranial Nerves 3-12 NL Psych/Mental Status: Mental Status NL, Mood NL Results Lab Laboratory Tests 11/30/17 06:20 A/P-Cardiology Admission Diagnosis Dyspnea/AE asthma HTN HLP Assessment/Plan Dyspnea/AE asthma- Dr. Pedro and medical services following. Improving. Continue current medication and continue to monitor. Coronary artery disease, mild disease nonobstructive disease by cardiac catheterization in 2010. Currently asymptomatic. continue to monitor at this time. Aortic valve stenosis, mild per cardiac echocardiogram done in 2016, did not change compared to the previous study, EF 55-60 percent, diastolic dysfunction,continue to monitor. Hypertension, controlled. Continue monitor blood pressure/heart rate. Recurrent palpitation, Holter monitor revealed occasional PAC, PVC. Maintained on beta eagle and tolerating well. Denies any recent palpitations. Hyperlipidemia, monitored as outpatient. Mild bilateral carotid stenosis, ultrasound was done in December 2015. 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 Echevarria, history of lumpectomy and radiation therapy Obesity, BMI is 48, discussed diet and exercise for weight loss. Diabetes mellitus, followed and managed by primary care physician. Gastroesophageal reflux disease, currently asymptomatic. History of fistula of the colon status post repair in 1970. Clinical Quality Measures DVT/VTE Risk/Contraindication: Risk Factor Score Per Nursin RFS Level Per Nursing on Admit: 3=High ULISES MITCHELL Nov 30, 2017 08:20
--- NOTE | 2017-11-30 08:30 | Cardiology Progress Note ---
Subjective Date Seen by Provider: Nov 30, 2017 Time Seen by Provider: 08:29 Subjective/Events-last exam Patient is laying down in bed, feeling better. Still short of breath and wheezing Review of Systems General: No Chills, No Night Sweats, No Fatigue, No Malaise, No Appetite, No Other HEENT: No Head Aches, No Visual Changes, No Eye Pain, No Ear Pain, No Dysphasia , No Sinus Congestion, No Post Nasal Drip, No Sore Throat, No Other Pulmonary: Dyspnea, No Cough, No Pleuritic Chest Pain, No Other Cardiovascular: No: Chest Pain, Palpitations, Orthopnea, Paroxysmal Noc. Dyspnea, Edema, Lt Headedness, Other Objective-Cardiology Exam Last Set of Vital Signs Vital Signs 11/30/17 11/30/17 04:00 06:28 Temp 97.7 Pulse 78 Resp 18 B/P (MAP) 177/76 (109) Pulse Ox 96 O2 Delivery Nasal Cannula O2 Flow Rate 1.00 Capillary Refill : I&O Intake and Output 11/30/17 00:00 Intake Total 2170 ml Output Total 2600 ml Balance -430 ml Intake Oral 2170 ml Output Urine Total 2600 ml General: Alert, Oriented X3, Cooperative HEENT: Atraumatic, PERRLA Lungs: Normal Air Movement, Other (bilat exp wheezing) Heart: Regular Rate, Normal S1, Normal S2, No Murmurs Abdomen: Normal Bowel Sounds, Soft, No Tenderness, No Hepatosplenomegaly, No Masses Extremities: No Clubbing, No Cyanosis, No Edema, Normal Pulses, No Tenderness/ Swelling Skin: No Rashes, No Significant Lesion Neuro: Normal Gait, Normal Speech, Cranial Nerves 3-12 NL Psych/Mental Status: Mental Status NL, Mood NL Results Lab Laboratory Tests 11/30/17 06:20 A/P-Cardiology Admission Diagnosis Dyspnea/AE asthma HTN P Assessment/Plan Dyspnea/AE asthma- Dr. Pedro and medical services following. Improving. Continue current medication and continue to monitor. Coronary artery disease, mild disease nonobstructive disease by cardiac catheterization in 2010. Currently asymptomatic. continue to monitor at this time. Aortic valve stenosis, mild per cardiac echocardiogram done in 2016, did not change compared to the previous study, EF 55-60 percent, diastolic dysfunction,continue to monitor. Hypertension, elevated today, probably due to the steroid dose. We'll increase lisinopril to 20 mg daily Recurrent palpitation, Holter monitor revealed occasional PAC, PVC. Maintained on beta eagle and tolerating well. Denies any recent palpitations. Hyperlipidemia, monitored as outpatient. Mild bilateral carotid stenosis, ultrasound was done in December 2015. 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 Echevarria, history of lumpectomy and radiation therapy Obesity, BMI is 48, discussed diet and exercise for weight loss. Diabetes mellitus, followed and managed by primary care physician. Gastroesophageal reflux disease, currently asymptomatic. 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 Clinical Quality Measures DVT/VTE Risk/Contraindication: Risk Factor Score Per Nursin RFS Level Per Nursing on Admit: 3=High RAJI MELLO MD Nov 30, 2017 08:30
[2017-11-30] MEDS ORDERED: RT-ALBUTEROL/IPRATROPIUM 3 ML (DUONEB) VIAL INH SCH (09:00)
[2017-11-30] MEDS ORDERED: SENNA W/DOCUSATE (SENOKOT S) TABLET PO NR (09:15)
[2017-11-30] MEDS: glyBURIDE 2.5 MG (MICRONASE) TAB PO SCH (09:55)
[2017-11-30] MEDS: DULoxetine 30 MG (CYMBALTA) CAP PO SCH (09:55)
[2017-11-30] MEDS: LINAGLIPTIN (TRADJENTA) 5 MG TABLET PO SCH (09:55)
[2017-11-30] MEDS: lisINopril 20 MG (PRINIVIL) TABLET PO SCH (09:55)
[2017-11-30] MEDS: MONTELUKAST 10 MG (SINGULAIR) TAB PO SCH (09:56)
[2017-11-30] MEDS: FUROSEMIDE 40 MG (LASIX) TAB PO SCH (09:56)
[2017-11-30] MEDS: LORATADINE (CLARITIN) 10 MG TAB PO SCH (09:56)
[2017-11-30] MEDS: LEVOTHYROXINE 50 MCG (LEVOTHROID) TAB PO SCH (09:56)
[2017-11-30] MEDS: metFORMIN 500 MG (GLUCOPHAGE) TAB PO SCH ×2 (09:56→20:55)
[2017-11-30] MEDS: VITAMIN D3 1,000 UNITS (CHOLECALCIFEROL) TABLET PO SCH (09:56)
--- NOTE | 2017-11-30 10:12 | Progress Note-Hospitalist ---
Progress Note HPI/CC on Admission CC: Wheezing HPI: This is a 67 yoWF clinic pt of mine who presented to clinic due to cough. CXR negative for pneumonia, labs all with in normal limits; blood sugars elevated due to sugars Pt Interview: Pt was having breathing treatment during interview Pt confirms seeing Dr. Pedro but is unsure if she sees him in his clinic CXR discussed and showed no pneumonia Physical exam stable. Wheeze noted on exam Pt denies seeing Dr. Rousseau since her admission. Pt was encouraged to ambulate Pt is okay with possible DC tomorrow Pt asked if she has COPD. This was discussed and pt has asthma, which she was informed is under the same umbrella Scribed by Amber Horton under direct supervision of Dr. Padma Cheatham. Progress Notes/Assess & Plan Date Seen 11/30/17 Time Seen by Provider: 09:30 Admission Dx/Process Assessment: Acute exacerbation of asthma Obstructive sleep apnea compliant with CPAP 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 Meng Hypertension Hyperlipidemia Diagonsis/Assessment & Plan Chart Review: Conferred with Dr. Rousseau to increase Lisinopril due to elevated BP Hgb 10.3 CMP normal Sugars elevated due to steroids Pt Interview: Pt states she is doing well but is fatigued and is breathing well. Pt denies having BM and would like some meds Physical exam stable. Wheeze noted Pt states the breathing treatments have helped. Pt denies use of CPAP at home, but states she would like to use it now. Pt was informed that I will have her tested for home O2 Pt was informed that I will lower the amount of steroids she is on Pt states her CPAP was not working well enough at home No fever, but pressure elevated, pleasant, improved, flushed Regular rate and rhythm, wheezing all persaud but improved from yesterday no tachypnea no use of accessory muscles No edema Laboratory Tests 11/30/17 06:20 Assessment: Acute exacerbation of asthma with continued wheezing today after IV steroids and nebulizer treatments and continued use of oxygen Obstructive sleep apnea non-compliant with CPAP 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 Meng Hypertension Hyperlipidemia Constipation Plan: Ambulate Antibiotics IV steroids Sliding scale insulin Home meds Lovenox Home O2 eval today Ambulate Decreased Solu-Medrol 40 q8 Lactulose + Senna DC home tomorrow Scribed by Amber Horton under direct supervision of Dr. Padma Cheatham. PADMA CHEATHAM DO Nov 30, 2017 10:12
[2017-11-30] MEDS: ASPIRIN E.C. 81 MG (ECOTRIN) TAB PO SCH (10:25)
[2017-11-30] MEDS: LEVOFLOXACIN 750 MG TAB (LEVAQUIN) PO SCH (10:25)
[2017-11-30] MEDS: LACTULOSE SYRUP 10GM/15ML (ENULOSE) 30ML UDC PO SCH ×2 (10:26→20:54)
[2017-11-30 12:00] VITALS: BP 136/64
[2017-11-30] MEDS ORDERED: methylPREDNISolone 40 MG/ML (Solu-MEDROL) VIAL IV SCH (12:00)
[2017-11-30] MEDS: methylPREDNISolone 40 MG/ML (Solu-MEDROL) VIAL IV SCH ×2 (13:41→21:00)
[2017-11-30 15:51] VITALS: BP 130/71
[2017-11-30] MEDS: ENOXAPARIN 40 MG/0.4 ML (LOVENOX) SYR SC SCH (16:37)
[2017-11-30 19:19] VITALS: BP 145/62
[2017-11-30] MEDS: SENNA W/DOCUSATE (SENOKOT S) TABLET PO SCH (20:55)
[2017-12-01] VITALS: BP 106/57
[2017-12-01] MEDS: RT-ALBUTEROL/IPRATROPIUM 3 ML (DUONEB) VIAL INH SCH ×4 (02:41→23:33)
[2017-12-01 04:00] VITALS: BP 126/55
--- NOTE | 2017-12-01 05:18 | Pulmonary Progress Note ---
Subjective Time Seen by Provider: 05:18 Subjective/Events-last exam Pt feels improved. NO complications noted. Exam Exam Vital Signs Date Time Temp Pulse Resp B/P (MAP) Pulse Ox O2 Delivery O2 Flow Rate FiO2 12/01/17 04:00 98.2 78 20 126/55 (78) 95 Room Air 12/01/17 02:42 93 Room Air 12/01/17 00:00 97.3 82 20 106/57 (73) 93 Room Air 11/30/17 20:58 94 Room Air 11/30/17 20:54 Room Air 11/30/17 20:46 91 Room Air 11/30/17 19:19 99.1 68 16 145/62 (89) 94 Room Air 11/30/17 15:51 98.4 72 16 130/71 (90) 98 Room Air 11/30/17 14:11 94 11/30/17 12:00 98.6 75 20 136/64 (88) 94 Room Air 11/30/17 10:13 1 96.00 11/30/17 08:54 Nasal Cannula 11/30/17 08:00 98.7 81 20 132/63 (86) 96 Nasal Cannula 1.00 11/30/17 06:28 96 Nasal Cannula 1.00 I & O 12/01/17 07:00 Intake Total 1810 ml Output Total 2000 ml Balance -190 ml General Appearance: No Apparent Distress, WD/WN HEENT: Normal ENT Inspection Neck: Full Range of Motion, Non Tender, Supple Respiratory: Chest Non Tender, Wheezing Cardiovascular: Regular Rate, Rhythm, No Edema, No Gallop, No JVD, No Murmur Gastrointestinal: non tender, soft Extremity: Non Tender, No Calf Tenderness Neurologic/Psychiatric: Alert, Oriented x3 Skin: Normal Color, Warm/Dry Lymphatic: No Adenopathy Results Lab Laboratory Tests 11/29/17 05:17 11/30/17 06:20 Assessment/Plan Assessment/Plan Asthma AE - failed out patient treatment -SVNS- DuoNeb Q6hrs and Q2 PRN -Pulmicort BID - Solumedrol change to prednisone taper Claritin, and Singulair Hx of tobacco use -Will do PFT as out patient Upon discharge pt will need steroid INH, rescue INH and prednisone taper. 232 LANEY DELACRUZ DO Dec 01, 2017 05:18
[2017-12-01] MEDS: KCL 10 MEQ TAB (MICRO K) PO SCH ×2 (06:09→16:28)
[2017-12-01] MEDS: inSUlin ASPART (NovoLOG) 1 UNIT/0.01 ML (CHARGE PER UNIT) SC SCH ×4 (06:10→20:16)
[2017-12-01 06:17] LABS: BASOPHILS % (AUTO) 0 % (0-10); EOSINOPHILS % (AUTO) 0 % (0-10); HEMATOCRIT 32 % (35-52); HEMOGLOBIN 10.5 G/DL (11.5-16.0); LYMPHOCYTES % (AUTO) 12 % (12-44); MEAN CORPUSCULAR HEMOGLOBIN 27 PG (25-34); MEAN CORPUSCULAR HGB CONC 33 G/DL (32-36); MEAN CORPUSCULAR VOLUME 83 FL (80-99); MEAN PLATELET VOLUME 8.8 FL (7.4-10.4); MONOCYTES # (AUTO) 0.6 X 10^3 (0.0-1.0); MONOCYTES % (AUTO) 7 % (0-12); NEUTROPHILS % (AUTO) 82 % (42-75); PLATELET COUNT 380 10^3/uL (130-400); RED BLOOD COUNT 3.84 10^6/uL (4.35-5.85); RED CELL DISTRIBUTION WIDTH 15.8 % (10.0-14.5); WHITE BLOOD COUNT 8.5 10^3/uL (4.3-11.0)
[2017-12-01] MEDS: RT-BUDESONIDE NEBS 0.5 MG/2ML (PULMICORT) AMP INH SCH ×2 (06:35→23:33)
[2017-12-01 06:49] LABS: ALANINE AMINOTRANSFERASE 15 U/L (0-55); ALBUMIN 3.7 GM/DL (3.2-4.5); ALKALINE PHOSPHATASE 67 U/L (40-136); BILIRUBIN,TOTAL 0.2 MG/DL (0.1-1.0); BUN/CREATININE RATIO 30; CALCIUM 8.9 MG/DL (8.5-10.1); CARBON DIOXIDE 19 MMOL/L (21-32); CHLORIDE 107 MMOL/L (98-107); CREATININE SERUM 0.92 MG/DL (0.60-1.30); GFR ESTIMATED > 60; GLUCOSE 210 MG/DL (70-105); POTASSIUM 4.5 MMOL/L (3.6-5.0); SODIUM 138 MMOL/L (135-145); TOTAL PROTEIN 6.3 GM/DL (6.4-8.2)
[2017-12-01 08:00] VITALS: BP 134/60
[2017-12-01] MEDS ORDERED: LISI-552 PO (09:08)
[2017-12-01] MEDS ORDERED: FLUT1DIS26 IH (09:08)
[2017-12-01] MEDS ORDERED: PRED10TA22 PO (09:08)
--- NOTE | 2017-12-01 09:11 | Progress Note-Hospitalist ---
Progress Note HPI/CC on Admission CC: Wheezing HPI: This is a 67 [facility] clinic pt of mine who presented to clinic due to cough. CXR negative for pneumonia, labs all with in normal limits; blood sugars elevated due to sugars Pt Interview: Pt was having breathing treatment during interview Pt confirms seeing Dr. Pedro but is unsure if she sees him in his clinic CXR discussed and showed no pneumonia Physical exam stable. Wheeze noted on exam Pt denies seeing Dr. Rousseau since her admission. Pt was encouraged to ambulate Pt is okay with possible DC tomorrow Pt asked if she has COPD. This was discussed and pt has asthma, which she was informed is under the same umbrella Scribed by Amber Horton under direct supervision of Dr. Padma Cheatham. 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 Meng Hypertension Hyperlipidemia Diagonsis/Assessment & Plan Pt doing ok but no BM yet. Ambulating in halls No home O2 needed Still wheezing Reviewed home meds list and I don't see Advair on it. 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 Meng Hypertension Hyperlipidemia Constipation resistant Plan: Ambulate Antibiotics PO steroids Sliding scale insulin Home meds Lovenox Ambulate Lactulose + Senna DC home tomorrow . PADMA CHEATHAM DO Dec 01, 2017 09:11
[2017-12-01] MEDS ORDERED: MAGNESIUM CITRATE 300 ML BTL PO NR (09:15)
[2017-12-01] MEDS ORDERED: SENNOSIDES 8.6 MG (SENOKOT) TAB PO NR (09:15)
[2017-12-01] MEDS: glyBURIDE 2.5 MG (MICRONASE) TAB PO SCH (09:45)
[2017-12-01] MEDS: DULoxetine 30 MG (CYMBALTA) CAP PO SCH (09:45)
[2017-12-01] MEDS: ASPIRIN E.C. 81 MG (ECOTRIN) TAB PO SCH (09:46)
[2017-12-01] MEDS: LINAGLIPTIN (TRADJENTA) 5 MG TABLET PO SCH (09:46)
[2017-12-01] MEDS: FUROSEMIDE 40 MG (LASIX) TAB PO SCH (09:46)
[2017-12-01] MEDS: SENNA W/DOCUSATE (SENOKOT S) TABLET PO SCH ×2 (09:46→20:16)
[2017-12-01] MEDS: metFORMIN 500 MG (GLUCOPHAGE) TAB PO SCH ×2 (09:46→20:16)
[2017-12-01] MEDS: LEVOTHYROXINE 50 MCG (LEVOTHROID) TAB PO SCH (09:47)
[2017-12-01] MEDS: predniSONE 10 MG TAB PO SCH (09:47)
[2017-12-01] MEDS: LORATADINE (CLARITIN) 10 MG TAB PO SCH (09:47)
[2017-12-01] MEDS: VITAMIN D3 1,000 UNITS (CHOLECALCIFEROL) TABLET PO SCH (09:47)
[2017-12-01] MEDS: LACTULOSE SYRUP 10GM/15ML (ENULOSE) 30ML UDC PO SCH ×2 (09:48→20:16)
[2017-12-01] MEDS: MONTELUKAST 10 MG (SINGULAIR) TAB PO SCH (09:48)
[2017-12-01] MEDS: lisINopril 20 MG (PRINIVIL) TABLET PO SCH (09:48)
[2017-12-01 12:00] VITALS: BP 131/57
[2017-12-01] MEDS: LEVOFLOXACIN 750 MG TAB (LEVAQUIN) PO SCH (12:42)
[2017-12-01] MEDS: ENOXAPARIN 40 MG/0.4 ML (LOVENOX) SYR SC SCH (16:28)
[2017-12-01 16:35] VITALS: BP 166/69
[2017-12-01 20:09] VITALS: BP 139/68
[2017-12-02] VITALS: BP 134/59
[2017-12-02] MEDS: RT-ALBUTEROL/IPRATROPIUM 3 ML (DUONEB) VIAL INH SCH ×4 (04:04→20:53)
[2017-12-02] MEDS: inSUlin ASPART (NovoLOG) 1 UNIT/0.01 ML (CHARGE PER UNIT) SC SCH ×4 (05:53→20:48)
[2017-12-02] MEDS: KCL 10 MEQ TAB (MICRO K) PO SCH ×2 (06:10→17:08)
[2017-12-02 08:00] VITALS: BP 165/72
[2017-12-02] MEDS: predniSONE 10 MG TAB PO SCH (08:34)
[2017-12-02] MEDS: LINAGLIPTIN (TRADJENTA) 5 MG TABLET PO SCH (08:35)
[2017-12-02] MEDS: glyBURIDE 2.5 MG (MICRONASE) TAB PO SCH (08:35)
[2017-12-02] MEDS: SENNA W/DOCUSATE (SENOKOT S) TABLET PO SCH ×2 (08:36→20:44)
[2017-12-02] MEDS: metFORMIN 500 MG (GLUCOPHAGE) TAB PO SCH ×2 (08:36→20:48)
[2017-12-02] MEDS: LORATADINE (CLARITIN) 10 MG TAB PO SCH (08:37)
[2017-12-02] MEDS: lisINopril 20 MG (PRINIVIL) TABLET PO SCH (08:37)
[2017-12-02] MEDS: ASPIRIN E.C. 81 MG (ECOTRIN) TAB PO SCH (08:37)
[2017-12-02] MEDS: VITAMIN D3 1,000 UNITS (CHOLECALCIFEROL) TABLET PO SCH (08:37)
[2017-12-02] MEDS: DULoxetine 30 MG (CYMBALTA) CAP PO SCH (08:38)
[2017-12-02] MEDS: LEVOTHYROXINE 50 MCG (LEVOTHROID) TAB PO SCH (08:38)
[2017-12-02] MEDS: FUROSEMIDE 40 MG (LASIX) TAB PO SCH (08:40)
[2017-12-02] MEDS: LACTULOSE SYRUP 10GM/15ML (ENULOSE) 30ML UDC PO SCH ×2 (08:41→20:44)
[2017-12-02] MEDS: MONTELUKAST 10 MG (SINGULAIR) TAB PO SCH (08:45)
[2017-12-02] MEDS: RT-BUDESONIDE NEBS 0.5 MG/2ML (PULMICORT) AMP INH SCH ×2 (08:54→20:53)
--- NOTE | 2017-12-02 11:25 | Progress Note-Hospitalist ---
Progress Note HPI/CC on Admission CC: Wheezing HPI: This is a 67 yo[facility] clinic pt of mine who presented to clinic due to cough. CXR negative for pneumonia, labs all with in normal limits; blood sugars elevated due to sugars Pt Interview: Pt was having breathing treatment during interview Pt confirms seeing Dr. Pedro but is unsure if she sees him in his clinic CXR discussed and showed no pneumonia Physical exam stable. Wheeze noted on exam Pt denies seeing Dr. Rousseau since her admission. Pt was encouraged to ambulate Pt is okay with possible DC tomorrow Pt asked if she has COPD. This was discussed and pt has asthma, which she was informed is under the same umbrella Scribed by Amber Horton under direct supervision of Dr. Padma Cheatham. 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 Meng Hypertension Hyperlipidemia Diagonsis/Assessment & Plan Patient doing well but had a great deal of loose stools after meds were given for constipation yesterday Smelled of C. difficile so sent that to lab and before I left I was notified it was negative Patient felt a little bit difficulty swallowing this morning but otherwise doing okay but still weakened especially since the diarrhea We'll plan on discharge tomorrow but patient has had slow recovery Questionable Advair usage of which on further assessment she was not taking that on a regular basis as she had reported to me in the clinic Checked meds and labs Discontinue telemetry No fever, vitals reviewed Regular rate and rhythm, wheezing all persaud but improved from yesterday but still wheezing No edema Assessment: Acute exacerbation of asthma with continued wheezing today after IV steroids and nebulizer treatments and continued use of oxygen but now still wheezing and on PO steroids and off O2 improved today Obstructive sleep apnea non-compliant with CPAP 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 Meng Hypertension Hyperlipidemia Constipation resolved now having loose stools C diff negative Plan: Ambulate Antibiotics PO steroids Sliding scale insulin Home meds Lovenox Ambulate Hold Lactulose + Senna DC home tomorrow? . PADMA CHEATHAM DO Dec 02, 2017 11:25
[2017-12-02] MEDS: LEVOFLOXACIN 750 MG TAB (LEVAQUIN) PO SCH (11:50)
[2017-12-02 16:13] VITALS: BP 144/66
[2017-12-02] MEDS: ENOXAPARIN 40 MG/0.4 ML (LOVENOX) SYR SC SCH (17:12)
[2017-12-03 00:22] VITALS: BP 103/46
[2017-12-03] MEDS: RT-ALBUTEROL/IPRATROPIUM 3 ML (DUONEB) VIAL INH SCH ×2 (03:09→07:20)
[2017-12-03 04:43] LABS: BASOPHILS % (AUTO) 0 % (0-10); EOSINOPHILS % (AUTO) 0 % (0-10); HEMATOCRIT 33 % (35-52); HEMOGLOBIN 10.9 G/DL (11.5-16.0); LYMPHOCYTES # (AUTO) 1.9 X 10^3 (1.0-4.0); LYMPHOCYTES % (AUTO) 28 % (12-44); MEAN CORPUSCULAR HEMOGLOBIN 27 PG (25-34); MEAN CORPUSCULAR HGB CONC 33 G/DL (32-36); MEAN CORPUSCULAR VOLUME 83 FL (80-99); MEAN PLATELET VOLUME 8.8 FL (7.4-10.4); MONOCYTES # (AUTO) 0.8 X 10^3 (0.0-1.0); MONOCYTES % (AUTO) 12 % (0-12); NEUTROPHILS % (AUTO) 60 % (42-75); PLATELET COUNT 391 10^3/uL (130-400); RED BLOOD COUNT 4.01 10^6/uL (4.35-5.85); RED CELL DISTRIBUTION WIDTH 15.9 % (10.0-14.5); WHITE BLOOD COUNT 6.6 10^3/uL (4.3-11.0)
[2017-12-03] MEDS: inSUlin ASPART (NovoLOG) 1 UNIT/0.01 ML (CHARGE PER UNIT) SC SCH ×2 (04:59→12:08)
[2017-12-03] MEDS: KCL 10 MEQ TAB (MICRO K) PO SCH (04:59)
[2017-12-03 05:01] LABS: CARBON DIOXIDE 23 MMOL/L (21-32); CHLORIDE 105 MMOL/L (98-107); CREATININE SERUM 0.82 MG/DL (0.60-1.30); SODIUM 137 MMOL/L (135-145)
[2017-12-03 05:02] LABS: ALANINE AMINOTRANSFERASE 16 U/L (0-55); ALBUMIN 3.6 GM/DL (3.2-4.5); ALKALINE PHOSPHATASE 65 U/L (40-136); BILIRUBIN,TOTAL 0.3 MG/DL (0.1-1.0); BUN/CREATININE RATIO 28; CALCIUM 9.4 MG/DL (8.5-10.1); GFR ESTIMATED > 60; GLUCOSE 94 MG/DL (70-105)
[2017-12-03] MEDS: RT-BUDESONIDE NEBS 0.5 MG/2ML (PULMICORT) AMP INH SCH (07:21)
[2017-12-03 08:00] VITALS: BP 139/63
[2017-12-03] MEDS: SENNA W/DOCUSATE (SENOKOT S) TABLET PO SCH (10:33)
[2017-12-03] MEDS: LACTULOSE SYRUP 10GM/15ML (ENULOSE) 30ML UDC PO SCH (10:33)
[2017-12-03] MEDS: DULoxetine 30 MG (CYMBALTA) CAP PO SCH (10:45)
[2017-12-03] MEDS: FUROSEMIDE 40 MG (LASIX) TAB PO SCH (10:45)
[2017-12-03] MEDS: metFORMIN 500 MG (GLUCOPHAGE) TAB PO SCH (10:46)
[2017-12-03] MEDS: lisINopril 20 MG (PRINIVIL) TABLET PO SCH (10:46)
[2017-12-03] MEDS: LEVOFLOXACIN 750 MG TAB (LEVAQUIN) PO SCH (10:46)
[2017-12-03] MEDS: MONTELUKAST 10 MG (SINGULAIR) TAB PO SCH (10:46)
[2017-12-03] MEDS: ASPIRIN E.C. 81 MG (ECOTRIN) TAB PO SCH (10:46)
[2017-12-03] MEDS: VITAMIN D3 1,000 UNITS (CHOLECALCIFEROL) TABLET PO SCH (10:46)
[2017-12-03] MEDS: LEVOTHYROXINE 50 MCG (LEVOTHROID) TAB PO SCH (10:47)
[2017-12-03] MEDS: LORATADINE (CLARITIN) 10 MG TAB PO SCH (10:47)
[2017-12-03] MEDS: predniSONE 10 MG TAB PO SCH (10:47)
[2017-12-03] MEDS: LINAGLIPTIN (TRADJENTA) 5 MG TABLET PO SCH (10:47)
[2017-12-03] MEDS: glyBURIDE 2.5 MG (MICRONASE) TAB PO SCH (10:52)
[2017-12-03] MEDS ORDERED: IPRA3AMP INH (11:32)
[2017-12-03] MEDS ORDERED: FLUT1DIS26 IH (11:35)
[2017-12-03] MEDS ORDERED: PRED10TA22 PO (11:35)
[2017-12-03] MEDS ORDERED: LISI-552 PO (11:35)
--- NOTE | 2017-12-03 11:39 | Discharge Summary-Hospitalist ---
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 Meng Hypertension Hyperlipidemia Constipation resolved now having loose stools C diff negative and now resolved Plan: Ambulate Antibiotics PO steroids Sliding scale insulin Home meds Lovenox Ambulate Hold Lactulose + Senna DC home tomorrow? . Discharge Summary Discharge Physical Examination Allergies: Coded Allergies: Cephalosporins (Verified Allergy, Mild, 11/28/17) Vitals & I&Os Vital Signs Date Time Temp Pulse Resp B/P (MAP) Pulse Ox O2 Delivery O2 Flow Rate FiO2 12/03/17 08:00 98.6 107 18 139/63 (88) 94 Room Air 11/30/17 10:13 96.00 Hospital Course Hospital course: Patient did well but wheezing with severe and lengthy with prolonged status requiring IV steroids and nebulizer treatments. Patient's hyperglycemia was managed with sliding scale insulin. Dr. Pedro saw her for consultation for resistant wheezing and noncompliant with sleep apnea treatment. Hypotension was resolved with elevated dose of fosinopril 20 mg daily had loose stools after multiple laxatives and C. difficile was negative so that was resolved at time of discharge. She will E discharged prescriptions sent to [facility] after canceled [facility] I did talk to Dr. paulette Pillai about that situation and he will fill the prescriptions this afternoon. She did not require home oxygen after evaluation by RT. She will see me in clinic on Monday12/05/17. Labs (last 24 hrs) Laboratory Tests 12/02/17 16:16: Glucometer 220H 12/02/17 20:18: Glucometer 239H 12/03/17 04:20: White Blood Count 6.6, Red Blood Count 4.01L, Hemoglobin 10.9L, Hematocrit 33L, Mean Corpuscular Volume 83, Mean Corpuscular Hemoglobin 27, Mean Corpuscular Hemoglobin Concent 33, Red Cell Distribution Width 15.9H, Platelet Count 391, Mean Platelet Volume 8.8, Neutrophils (%) (Auto) 60, Lymphocytes (%) (Auto) 28, Monocytes (%) (Auto) 12, Eosinophils (%) (Auto) 0, Basophils (%) (Auto) 0, Neutrophils # (Auto) 4.0, Lymphocytes # (Auto) 1.9, Monocytes # (Auto) 0.8, Eosinophils # (Auto) 0.0, Basophils # (Auto) 0.0, Sodium Level 137, Potassium Level 4.0, Chloride Level 105, Carbon Dioxide Level 23, Anion Gap 9, Blood Urea Nitrogen 23H, Creatinine 0.82, Estimat Glomerular Filtration Rate > 60, BUN/ Creatinine Ratio 28, Glucose Level 94, Calcium Level 9.4, Total Bilirubin 0.3, Aspartate Amino Transf (AST/SGOT) 11, Alanine Aminotransferase (ALT/SGPT) 16, Alkaline Phosphatase 65, Total Protein 6.0L, Albumin 3.6 12/03/17 04:51: Glucometer 99 12/03/17 11:15: Glucometer 116H Microbiology 11/28/17 Blood Culture - Preliminary, Resulted No growth 12/02/17 C. difficile GDH Antigen & Toxins - Final, Complete 11/28/17 Influenza Types A,B Antigen (WON) - Final, Complete Pending Labs Laboratory Tests 12/03/17 04:51: Glucometer 99 12/03/17 11:15: Glucometer 116 Discussion & Recommendations Discharge Planning: <30 minutes discharge planning Discharge Home Medications: Active Scripts Active Advair 250-50 Diskus (Fluticasone/Salmeterol) 1 Each Blst.w.dev 1 Each IH BID Prednisone 10 Mg Tab.ds.pk 10 Mg PO DAILY Take 6 tabs(60mg)daily,decrease by 1 tab(10MG)daily. Lisinopril 20 Mg Tablet 20 Mg PO DAILY Iprat-Albut 0.5-3(2.5) mg/3 ml (Ipratropium/Albuterol Sulfate) 3 Ml Ampul.neb 3 Ml INH RTQ6HR Reported Albuterol Sulfate 2.5 Mg/3 Ml Vial.neb 2.5 Mg NEB BID PRN Aspirin EC (Aspirin) 81 Mg Tablet.dr 162 Mg PO DAILY TAKES 2 (81 MG) TABLETS Vitamin D (Cholecalciferol (Vitamin D3)) 1,000 Unit Capsule 1,000 Unit PO DAILY Glyburide 1.25 Mg Tablet 1.25 Mg PO DAILY Metoprolol Succinate 25 Mg Tab.er.24h 25 Mg PO DAILY Potassium Chloride 10 Meq Capsule.er 10 Meq PO BID LAST FILLED 10/03/17 #60 Lisinopril 10 Mg Tablet 10 Mg PO DAILY Januvia (Sitagliptin Phosphate) 100 Mg Tablet 100 Mg PO DAILY Levothyroxine Sodium 50 Mcg Tablet 50 Mcg PO DAILY Duloxetine HCl 60 Mg Capsule.dr 60 Mg PO DAILY Montelukast Sodium 10 Mg Tablet 10 Mg PO DAILY Atorvastatin Calcium 40 Mg Tablet 40 Mg PO HS Metformin HCl 500 Mg Tablet 1,000 Mg PO BID TAKES 2 (500 MG) TABLETS Furosemide 40 Mg Tablet 40 Mg PO DAILY Alprazolam 0.25 Mg Tablet 0.25 Mg PO Q6H PRN Instructions to patient/family Please see electronic discharge instructions given to patient. Clinical Quality Measures DVT/VTE Risk/Contraindication: Risk Factor Score Per Nursin RFS Level Per Nursing on Admit: 3=High BEE CHEATHAM DO Dec 03, 2017 11:39
== END 2017-12-03 13:20 | disposition home or self-care (01) | DRG 202 ==
LOC: 4TH 17:51 → UNDOADMOB 17:51 → 4TH 18:00 → OBSVTOIN 11-30 14:00 → INTOOBSV 11-30 14:00
PROVIDERS: ADMIT Internal Medicine; ATTEND Internal Medicine
DX: J45.901 Unspecified asthma with (acute) exacerbation (principal); E66.01 Morbid (severe) obesity due to excess calories; Z68.42 Body mass index [BMI] 45.0-49.9, adult; G47.33 Obstructive sleep apnea (adult) (pediatric); E11.65 Type 2 diabetes mellitus with hyperglycemia; I25.10 Atherosclerotic heart disease of native coronary artery without angina pectoris; I10 Essential (primary) hypertension; I35.0 Nonrheumatic aortic (valve) stenosis; F17.210 Nicotine dependence, cigarettes, uncomplicated; E78.5 Hyperlipidemia, unspecified; R01.1 Cardiac murmur, unspecified; F41.9 Anxiety disorder, unspecified; F32.9 Major depressive disorder, single episode, unspecified; K21.9 Gastro-esophageal reflux disease without esophagitis; K59.00 Constipation, unspecified; K64.9 Unspecified hemorrhoids; I65.23 Occlusion and stenosis of bilateral carotid arteries; T38.0X5A Adverse effect of glucocorticoids and synthetic analogues, initial encounter; Z79.84 Long term (current) use of oral hypoglycemic drugs; Z85.3 Personal history of malignant neoplasm of breast; Z92.3 Personal history of irradiation; Z91.19 Patient's noncompliance with other medical treatment and regimen
CPT/HCPCS: 36415; 71046; 80053; 82962; 83605; 83880; 84484; 85025; 87040; 87324; 87449; 87804; 93005; 93306; 94640; 94760; 94761; G0378

== ENCOUNTER 2018-02-08 19:52 | Outpatient (CLI) | payer MEDICARE, OTHER ==
[~2018-02-08 19:52] MED LIST changes: +ALBU2.5V4 NEB; +ALPR0.254 PO; +ASPI-983 PO; +ATOR40TA70 PO; +CHOL100048 PO; +DULO60CA58 PO; +FLUT1DIS26 IH; +FURO40TA4 PO; +GLYB1.253 PO; +IPRA3AMP INH; +LEVO50TA6 PO; +LISI-552 PO; +LISI10TA2 PO; +METF500T5 PO; +METO-387 PO; +MONT10TA24 PO; +POTA10CA43 PO; +PRED10TA22 PO; +SITA100T12 PO
== END 2018-02-09 06:50 | disposition home or self-care (01) ==
LOC: SLEEP 19:52
PROVIDERS: ATTEND Nurse Practitioner Family
DX: G47.30 Sleep apnea, unspecified (principal)
CPT/HCPCS: 95811

== ENCOUNTER → 2018-03-02 | Outpatient (CLI) | payer MEDICARE, OTHER ==
[~2018-03-02] MED LIST changes: +RT-ALBUTEROL SULF 2.5 MG/3 ML PRE-MIX VIAL INH ONE
== END ==
LOC: RT 09:17
PROVIDERS: ATTEND Nurse Practitioner Family
DX: J45.909 Unspecified asthma, uncomplicated (principal)
CPT/HCPCS: 94060; 94726; 94729

== ENCOUNTER 2018-03-15 13:01 | Outpatient (RCR) | payer MEDICARE, OTHER ==
[~2018-03-15 13:01] MED LIST changes: -IPRA3AMP INH; +IPRA3AMP31 INH; +METF-397 PO; -METF500T5 PO; -RT-ALBUTEROL SULF 2.5 MG/3 ML PRE-MIX VIAL INH ONE
[2018-03-15 13:27] LABS: BASOPHILS # (AUTO) 0.1 10^3/uL (0.0-0.1); BASOPHILS % (AUTO) 1 % (0-10); EOSINOPHILS # (AUTO) 0.4 10^3/uL (0.0-0.3); EOSINOPHILS % (AUTO) 4 % (0-10); HEMATOCRIT 36 % (35-52); HEMOGLOBIN 11.9 G/DL (11.5-16.0); LYMPHOCYTES # (AUTO) 3.1 X 10^3 (1.0-4.0); LYMPHOCYTES % (AUTO) 29 % (12-44); MEAN CORPUSCULAR HEMOGLOBIN 28 PG (25-34); MEAN CORPUSCULAR HGB CONC 33 G/DL (32-36); MEAN CORPUSCULAR VOLUME 84 FL (80-99); MEAN PLATELET VOLUME 8.9 FL (7.4-10.4); MONOCYTES # (AUTO) 0.8 X 10^3 (0.0-1.0); MONOCYTES % (AUTO) 7 % (0-12); NEUTROPHILS # (AUTO) 6.5 X 10^3 (1.8-7.8); NEUTROPHILS % (AUTO) 60 % (42-75); PLATELET COUNT 442 10^3/uL (130-400); RED BLOOD COUNT 4.28 10^6/uL (4.35-5.85); RED CELL DISTRIBUTION WIDTH 15.3 % (10.0-14.5); WHITE BLOOD COUNT 10.8 10^3/uL (4.3-11.0)
[2018-03-15 13:48] LABS: ALANINE AMINOTRANSFERASE 12 U/L (0-55); ALBUMIN 4.4 GM/DL (3.2-4.5); ALKALINE PHOSPHATASE 86 U/L (40-136); BILIRUBIN,TOTAL 0.3 MG/DL (0.1-1.0); BUN/CREATININE RATIO 30; CALCIUM 10.1 MG/DL (8.5-10.1); CARBON DIOXIDE 24 MMOL/L (21-32); CHLORIDE 107 MMOL/L (98-107); CREATININE SERUM 0.88 MG/DL (0.60-1.30); GFR ESTIMATED > 60; GLUCOSE 78 MG/DL (70-105); POTASSIUM 5.6 MMOL/L (3.6-5.0); SODIUM 139 MMOL/L (135-145); TOTAL PROTEIN 7.4 GM/DL (6.4-8.2)
[2018-03-15 14:36] LABS: BILIRUBIN,URINE NEGATIVE (NEGATIVE); CLARITY,URINE CLEAR; COLOR,URINE YELLOW; GLUCOSE, URINE (UA) NEGATIVE (NEGATIVE); KETONES,URINE NEGATIVE (NEGATIVE); LEUKOCYTE ESTERASE ,URINE 3+ (NEGATIVE); NITRITE,URINE NEGATIVE (NEGATIVE); PH,URINE 5 (5-9); PROTEIN,URINE NEGATIVE (NEGATIVE); UROBILINOGEN,URINE NORMAL (NORMAL)
[2018-03-15 14:45] LABS: BACTERIA,URINE TRACE /HPF; SQUAMOUS EPITHELIAL CELL,UR 0-2 /HPF
== END 2018-06-13 | disposition home or self-care (01) ==
LOC: ONC 13:01
PROVIDERS: ATTEND Internal Medicine Hematology & Oncology
DX: Z09 Encounter for follow-up examination after completed treatment for conditions other than malignant neoplasm (principal); Z86.000 Personal history of in-situ neoplasm of breast; D64.9 Anemia, unspecified; D47.3 Essential (hemorrhagic) thrombocythemia; E11.9 Type 2 diabetes mellitus without complications; R82.99 Other abnormal findings in urine; I25.10 Atherosclerotic heart disease of native coronary artery without angina pectoris; I10 Essential (primary) hypertension; E78.5 Hyperlipidemia, unspecified; E66.01 Morbid (severe) obesity due to excess calories; Z68.42 Body mass index [BMI] 45.0-49.9, adult; Z92.3 Personal history of irradiation; Z79.84 Long term (current) use of oral hypoglycemic drugs; Z79.899 Other long term (current) drug therapy
CPT/HCPCS: 36415; 80053; 81000; 85025; 87077; 87088; 87186; 99213

== ENCOUNTER → 2018-03-16 | Outpatient (CLI) | payer MEDICARE, OTHER ==
[~2018-03-16] MED LIST changes: +IPRA3AMP INH; -IPRA3AMP31 INH; -METF-397 PO; +METF500T5 PO
--- NOTE | 2018-03-16 12:44 | Diagnostic Imaging Report ---
INDICATION: Routine screening. COMPARISON: Comparison is made with prior mammogram from 02/22/2017 and 01/27/2016. TECHNIQUE: 2D and 3D bilateral screening mammography was performed with computer-aided detection (CAD) system. FINDINGS: Both breasts are heterogeneously dense, limiting the sensitivity of mammography. Post-lumpectomy changes in the upper-outer left breast are again noted. Lumpectomy site appears to be stable. Benign calcifications are noted bilaterally. Benign nodules on the right are stable. No new mass or malignant appearing microcalcifications are seen. The axillae are stable. IMPRESSION: Stable bilateral mammograms with no mammographic features suspicious for malignancy identified. ACR BI-RADS Category 2: Benign findings. Result letter will be mailed to the patient. Note: At least 10% of breast cancer is not imaged by mammography. Dictated by: Dictated on workstation # [id number]
== END ==
LOC: RAD 10:20
PROVIDERS: ATTEND Internal Medicine Hematology & Oncology
DX: Z12.31 Encounter for screening mammogram for malignant neoplasm of breast (principal)
CPT/HCPCS: 77067

== ENCOUNTER 2018-12-05 10:19 | Outpatient (RCR) | payer MEDICARE, OTHER ==
[2018-10-24 14:13] LABS: BASOPHILS # (AUTO) 0.1 10^3/uL (0.0-0.1); BASOPHILS % (AUTO) 0 % (0-10); EOSINOPHILS % (AUTO) 9 % (0-10); HEMATOCRIT 34 % (35-52); HEMOGLOBIN 10.6 G/DL (11.5-16.0); LYMPHOCYTES # (AUTO) 2.5 X 10^3 (1.0-4.0); LYMPHOCYTES % (AUTO) 21 % (12-44); MEAN CORPUSCULAR HEMOGLOBIN 26 PG (25-34); MEAN CORPUSCULAR HGB CONC 31 G/DL (32-36); MEAN CORPUSCULAR VOLUME 83 FL (80-99); MEAN PLATELET VOLUME 9.3 FL (7.4-10.4); MONOCYTES # (AUTO) 0.8 X 10^3 (0.0-1.0); MONOCYTES % (AUTO) 7 % (0-12); NEUTROPHILS # (AUTO) 7.3 X 10^3 (1.8-7.8); NEUTROPHILS % (AUTO) 63 % (42-75); PLATELET COUNT 464 10^3/uL (130-400); RED CELL DISTRIBUTION WIDTH 15.7 % (10.0-14.5); WHITE BLOOD COUNT 11.6 10^3/uL (4.3-11.0)
[2018-10-24 14:34] LABS: ALANINE AMINOTRANSFERASE 13 U/L (0-55); ALBUMIN 4.2 GM/DL (3.2-4.5); ALKALINE PHOSPHATASE 101 U/L (40-136); BILIRUBIN,TOTAL 0.4 MG/DL (0.1-1.0); BUN/CREATININE RATIO 29; CALCIUM 9.5 MG/DL (8.5-10.1); CARBON DIOXIDE 26 MMOL/L (21-32); CHLORIDE 102 MMOL/L (98-107); CREATININE SERUM 0.91 MG/DL (0.60-1.30); GFR ESTIMATED > 60; GLUCOSE 108 MG/DL (70-105); POTASSIUM 4.3 MMOL/L (3.6-5.0); SODIUM 141 MMOL/L (135-145); TOTAL PROTEIN 7.2 GM/DL (6.4-8.2)
[~2018-12-05 10:19] MED LIST changes: -IPRA3AMP INH; +IPRA3AMP31 INH; +METF-397 PO; -METF500T5 PO
[2018-12-05 10:38] LABS: BASOPHILS % (AUTO) 0 % (0-10); EOSINOPHILS # (AUTO) 0.5 10^3/uL (0.0-0.3); EOSINOPHILS % (AUTO) 5 % (0-10); HEMATOCRIT 35 % (35-52); HEMOGLOBIN 10.9 G/DL (11.5-16.0); LYMPHOCYTES # (AUTO) 2.3 X 10^3 (1.0-4.0); LYMPHOCYTES % (AUTO) 24 % (12-44); MEAN CORPUSCULAR HEMOGLOBIN 27 PG (25-34); MEAN CORPUSCULAR HGB CONC 32 G/DL (32-36); MEAN CORPUSCULAR VOLUME 84 FL (80-99); MEAN PLATELET VOLUME 9.2 FL (7.4-10.4); MONOCYTES # (AUTO) 0.6 X 10^3 (0.0-1.0); MONOCYTES % (AUTO) 7 % (0-12); NEUTROPHILS # (AUTO) 5.9 X 10^3 (1.8-7.8); NEUTROPHILS % (AUTO) 64 % (42-75); PLATELET COUNT 389 10^3/uL (130-400); RED CELL DISTRIBUTION WIDTH 16.4 % (10.0-14.5); WHITE BLOOD COUNT 9.3 10^3/uL (4.3-11.0)
[2018-12-05 10:56] LABS: ALANINE AMINOTRANSFERASE 16 U/L (0-55); ALBUMIN 4.4 GM/DL (3.2-4.5); ALKALINE PHOSPHATASE 97 U/L (40-136); BILIRUBIN,TOTAL 0.3 MG/DL (0.1-1.0); BUN/CREATININE RATIO 34; CALCIUM 9.6 MG/DL (8.5-10.1); CARBON DIOXIDE 22 MMOL/L (21-32); CHLORIDE 104 MMOL/L (98-107); CREATININE SERUM 0.86 MG/DL (0.60-1.30); GFR ESTIMATED > 60; GLUCOSE 147 MG/DL (70-105); POTASSIUM 4.3 MMOL/L (3.6-5.0); SODIUM 136 MMOL/L (135-145)
[2018-12-12] MEDS ORDERED: FERR325T5 PO (15:43)
[2018-12-12] MEDS ORDERED: OMEP40CA36 PO (15:43)
[2019-01-09 13:06] LABS: BASOPHILS % (AUTO) 0 % (0-10); EOSINOPHILS # (AUTO) 0.5 10^3/uL (0.0-0.3); EOSINOPHILS % (AUTO) 5 % (0-10); HEMATOCRIT 34 % (35-52); HEMOGLOBIN 10.9 G/DL (11.5-16.0); LYMPHOCYTES # (AUTO) 2.5 X 10^3 (1.0-4.0); LYMPHOCYTES % (AUTO) 25 % (12-44); MEAN CORPUSCULAR HEMOGLOBIN 27 PG (25-34); MEAN CORPUSCULAR HGB CONC 32 G/DL (32-36); MEAN CORPUSCULAR VOLUME 85 FL (80-99); MEAN PLATELET VOLUME 9.2 FL (7.4-10.4); MONOCYTES # (AUTO) 0.7 X 10^3 (0.0-1.0); MONOCYTES % (AUTO) 7 % (0-12); NEUTROPHILS # (AUTO) 6.2 X 10^3 (1.8-7.8); NEUTROPHILS % (AUTO) 62 % (42-75); PLATELET COUNT 434 10^3/uL (130-400); RED CELL DISTRIBUTION WIDTH 16.4 % (10.0-14.5)
[2019-01-09 13:23] LABS: BILIRUBIN,TOTAL 0.3 MG/DL (0.1-1.0); CALCIUM 9.5 MG/DL (8.5-10.1); CREATININE SERUM 1.04 MG/DL (0.60-1.30); POTASSIUM 4.9 MMOL/L (3.6-5.0); TOTAL PROTEIN 6.9 GM/DL (6.4-8.2)
== END 2019-01-09 12:41 | disposition home or self-care (01) ==
LOC: ONC 10:19
PROVIDERS: ATTEND Internal Medicine Hematology & Oncology
DX: Z09 Encounter for follow-up examination after completed treatment for conditions other than malignant neoplasm (principal); Z86.000 Personal history of in-situ neoplasm of breast; D64.9 Anemia, unspecified; D47.3 Essential (hemorrhagic) thrombocythemia; E11.9 Type 2 diabetes mellitus without complications; I25.10 Atherosclerotic heart disease of native coronary artery without angina pectoris; I10 Essential (primary) hypertension; E78.5 Hyperlipidemia, unspecified; E66.01 Morbid (severe) obesity due to excess calories; Z68.42 Body mass index [BMI] 45.0-49.9, adult; Z92.3 Personal history of irradiation; Z79.84 Long term (current) use of oral hypoglycemic drugs; Z79.899 Other long term (current) drug therapy
CPT/HCPCS: 36415; 80053; 82728; 83540; 85025; 99213

== ENCOUNTER 2018-12-12 05:35 | Outpatient (CLI) | payer MEDICARE, OTHER ==
[~2018-12-12] VITALS: Ht 157.5 cm; Wt 122.0 kg
[2018-12-12] MEDS ORDERED: OMEP40CA36 PO (15:43)
[2018-12-12] MEDS ORDERED: FERR325T5 PO (15:43)
== END 2018-12-12 15:45 | disposition home or self-care (01) ==
LOC: PREOP 05:35
PROVIDERS: ATTEND Surgery
DX: Z01.818 Encounter for other preprocedural examination (principal)

== ENCOUNTER 2018-12-14 12:17 | Day surgery (SDC) | payer MEDICARE, OTHER ==
[~2018-12-14] VITALS: Ht 157.5 cm; Wt 122.0 kg
[~2018-12-14 12:17] MED LIST changes: +FERR325T5 PO; +OMEP40CA36 PO
--- OUTSIDE RECORDS SUMMARY | 2018-12-14 12:22 | XMS REPORT ---
Author Author FORREST JAY Organization [facility] Address [address] [place] [address] Care Team Providers Care Logging Worker Name Role Phone FORREST JAY Unavailable PROBLEMS Type Condition ICD9-CM Code [id number] Code Onset Dates Condition Status SNOMED Code Problem Partner relational problem Z63.0 Active [id number] ALLERGIES No Information ENCOUNTERS Encounter Location Date Diagnosis [facility] [address] [place] [address] [id number] [address] Mar, Partner relational problem Z63.0 IMMUNIZATIONS No Known Immunizations SOCIAL HISTORY Never Assessed REASON FOR VISIT Couple Intake PLAN OF CARE Activity Details Follow Up Next Available Reason:BH F/U VITAL SIGNS MEDICATIONS Unknown Medications RESULTS No Results PROCEDURES Procedure Date Ordered Result Body Site RELATIONSHIP COUN March 28, 2018 INSTRUCTIONS MEDICATIONS ADMINISTERED No Known Medications
[2018-12-14 12:30] VITALS: BP 152/61
[2018-12-14] MEDS ORDERED: NS IV 500 ML 500 ML ONE (12:31)
--- OUTSIDE RECORDS SUMMARY | 2018-12-14 12:41 | XMS REPORT | Continuity of Care Document ---
Author Author [facility] Organization [facility] Address Unknown Phone Unavailable Allergies Active Description Code Type Severity Reaction Onset Reported/Identified Relationship to Patient Clinical Status Yes Cephalosporins [id number] Drug Allergy Mild N/A 11/28/2017 Medications There is no data. 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 [...] CAPPS, NUPUR Ot 233.0 10/01/2014 MAGDA CAPPS, [facility] Ot V76.11 10/14/2014 Ot 787.91 10/14/2014 Ot [...] CAPPS, DONTENATHANAEL Ot 401.9 10/14/2014 MAGDA CAPPS, [facility] Ot 414.00 10/14/2014 MAGDA CAPPS, [facility] Ot 530.81 10/14/2014 MAGDA CAPPS, NUPUR Ot [...] CAPPS, KENT-NATHANAEL Ot 414.00 10/27/2014 MAGDA CAPPS, K[facility]-ANTHANA[facility] Ot 530.81 10/27/2014 MAGDA CAPPS, KENT-NATHANAEL Ot [...] CAPPS, KENTNATHANAEL Ot 233.0 12/14/2015 MAGDA CAPPS, [facility] Ot 250.00 12/14/2015 MAGDA CAPPS, KENT-NATHANAEL Ot 401.9 12/14/2015 MAGDA CAPPS, [facility] Ot 414.00 12/14/2015 AMGDA CAPPS, [facility] Ot 530.81 12/14/2015 MAGDA CAPPS, [facility] Ot V58.69 12/15/2015 Ot 396.3 12/15/2015 Ot [...] CAPPS, KENT-NATHANAEL Ot 401.9 12/15/2015 MAGDA CAPPS, [facility] Ot 414.00 12/15/2015 MAGDA CAPPS, [facility] Ot 530.81 12/15/2015 MAGDA CAPPS, [facility] Ot V58.69 12/15/2015 RIAZ CAPPS, BASHAR [...] [place] Ot I10 01/05/2016 PAULA PA, ULISES mAes Ot I25.10 01/05/2016 PAULA PA, ULISES [place] Ot Q25.3 01/12/2016 MAGDA CAPPS, KENT[facility] Ot 233.0 01/12/2016 MAGDA CAPPS, [facility] Ot 250.00 01/12/2016 MAGDA CAPPS, [facility] Ot 401.9 01/12/2016 MAGDA CAPPS, [facility] Ot 414.00 01/12/2016 MAGDA CAPPS, [facility] Ot 530.81 01/12/2016 MAGDA CAPPS, [facility] Ot V58.69 01/19/2016 Ot 396.3 MITRAL/ [...] GANDHI Ot 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 01/19/2016 ULISES GANDHI Ot Q25.3 SUPRAVALVULAR [...] MD, Ot 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 01/27/2016 NUPUR MAN MD, Ot K21.9 GASTRO-ESOPHAGEAL REFLUX DISEASE WITHOUT 01/27/2016 NUPUR MAN MD, Ot Z68.42 BODY MASS INDEX (BMI) 45.0-49.9, ADULT 01/27/2016 NUPUR MAN MD, Ot Z79.899 OTHER CATERING SALES MANAGER (CURRENT) DRUG THERAPY 01/27/2016 NUPRU MAN MD, Ot Z92.3 PERSONAL HISTORY OF IRRADIATION 01/27/2016 ULISES GANDHI Ot E78.2 MIXED HYPERLIPIDEMIA 01/27/2016 ULISES GANDHI Ot I10 ESSENTIAL (PRIMARY) HYPERTENSION 01/27/2016 ULISES GANDHI Ot 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 01/27/2016 ULISES GANDHI Ot Q25.3 SUPRAVALVULAR [...] MD, Ot 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 02/22/2016 NUPUR MAN MD, Ot K21.9 GASTRO-ESOPHAGEAL REFLUX DISEASE WITHOUT 02/22/2016 NUPUR MAN MD, Ot Z68.42 BODY MASS INDEX (BMI) 45.0-49.9, ADULT 02/22/2016 NUPUR MAN MD, Ot Z79.899 OTHER CATERING SALES MANAGER (CURRENT) DRUG THERAPY 02/22/2016 NUPUR AMN MD, Ot Z92.3 PERSONAL HISTORY OF IRRADIATION [...] MD, Ot 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 04/18/2016 NUPUR MAN MD, Ot K21.9 GASTRO-ESOPHAGEAL REFLUX DISEASE WITHOUT 04/18/2016 NUPUR MAN MD, Ot Z68.42 BODY MASS INDEX (BMI) 45.0-49.9, ADULT 04/18/2016 NUPUR MAN MD, Ot Z79.899 OTHER SENIOR LIVING (CURRENT) DRUG THERAPY 04/18/2016 NUPUR MAN MD, [...] MD, Ot 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 11/15/2016 NUPUR MAN MD, Ot K21.9 GASTRO-ESOPHAGEAL REFLUX DISEASE WITHOUT 11/15/2016 NUPUR MAN MD, Ot Z68.42 BODY MASS INDEX (BMI) 45.0-49.9, ADULT 11/15/2016 NUPUR MAN MD, Ot Z79.899 OTHER SENIOR LIVING (CURRENT) DRUG THERAPY 11/15/2016 NUPUR MAN MD, [...] MD, Ot 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 11/16/2016 NUPUR MAN MD, Ot K21.9 GASTRO-ESOPHAGEAL REFLUX DISEASE WITHOUT 11/16/2016 NUPUR MAN MD, Ot Z68.42 BODY MASS INDEX (BMI) 45.0-49.9, ADULT 11/16/2016 NUUPR MAN MD Ot Z79.899 OTHER CATERING SALES MANAGER (CURRENT) DRUG THERAPY 11/16/2016 NUPUR MAN MD [...] Ot V58.69 OTH MED,LT,CURRENT USE 01/27/2017 RIAZ CAPSP, RAJI Cannon Ot 396.3 MITRAL/AORTIC ROBI INSUFF [...] GANDHI Ot 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 01/27/2017 ULISES GANDHI Ot Q25.3 SUPRAVALVULAR [...] RAJI MELLO MD Ot 429.3 CARDIOMEGALY 02/22/2017 NPUUR MAN MD Ot 174.9 MALIGN NEOPL BREAST [...] GANDHI Ot 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 02/22/2017 ULISES GANDHI Ot Q25.3 SUPRAVALVULAR [...] MD Ot 401.9 HYPERTENSION NOS 02/22/2017 NUPUR MNA MD Ot 414.00 CORON ATHEROSCLER NOS TYPE [...] GANDHI Ot 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 02/22/2017 ULISES GANDHI Ot Q25.3 SUPRAVALVULAR [...] MD, Ot 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 03/24/2017 NUPUR MAN MD, Ot Z68.42 BODY MASS INDEX (BMI) 45.0-49.9, ADULT 03/24/2017 NUPUR MAN MD, Ot Z79.84 CATERING SALES MANAGER (CURRENT) USE OF ORAL HYPOGLYC 03/24/2017 NUPUR MAN MD, Ot Z79.899 OTHER CATERING SALES MANAGER (CURRENT) DRUG THERAPY 03/24/2017 NUPUR MAN MD, [...] MD, Ot 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 05/23/2017 NUPUR MAN MD, Ot Z68.42 BODY MASS INDEX (BMI) 45.0-49.9, ADULT 05/23/2017 NUPUR MAN MD, Ot Z79.84 SENIOR LIVING (CURRENT) USE OF ORAL HYPOGLYC 05/23/2017 NUPUR MAN MD Ot Z79.899 OTHER CATERING SALES MANAGER (CURRENT) DRUG THERAPY 05/23/2017 NUPUR MAN MD, Ot Z92.3 PERSONAL HISTORY OF IRRADIATION 05/29/2017 NUPUR MAN MD, Ot 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 05/29/2017 NUPUR MAN MD, Ot D64.9 ANEMIA, UNSPECIFIED 05/29/2017 NUPUR MAN MD Ot E11.9 TYPE 2 DIABETES MELLITUS WITHOUT COMPLIC 05/29/2017 NUPUR MAN MD, Ot E66.01 MORBID (SEVERE) OBESITY DUE TO EXCESS CA 05/29/2017 NUPUR MAN MD, Ot E78.5 HYPERLIPIDEMIA, UNSPECIFIED 05/29/2017 NUPUR MAN MD Ot I10 ESSENTIAL (PRIMARY) HYPERTENSION 05/29/2017 NUPUR MAN MD Ot 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 05/29/2017 NUPUR MAN MD, Ot Z68.42 BODY MASS INDEX (BMI) 45.0-49.9, ADULT 05/29/2017 NUPUR MAN MD, Ot Z79.84 CATERING SALES MANAGER (CURRENT) USE OF ORAL HYPOGLYC 05/29/2017 NUPUR MAN MD, Ot Z79.899 OTHER CATERING SALES MANAGER (CURRENT) DRUG THERAPY 05/29/2017 NUPUR MAN MD, Ot Z92.3 PERSONAL HISTORY OF IRRADIATION 11/29/2017 NUPUR MAN MD, Ot 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 11/29/2017 NUPUR MAN MD Ot D64.9 ANEMIA, UNSPECIFIED 11/29/2017 NUPUR MAN MD, Ot E11.9 TYPE 2 DIABETES MELLITUS WITHOUT COMPLIC 11/29/2017 NUPUR MAN MD Ot E66.01 MORBID (SEVERE) OBESITY DUE TO EXCESS CA 11/29/2017 NUPUR MAN MD Ot E78.5 HYPERLIPIDEMIA, UNSPECIFIED 11/29/2017 NUPUR MAN MD Ot I10 ESSENTIAL (PRIMARY) HYPERTENSION 11/29/2017 NUPUR MAN MD Ot 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 11/29/2017 NUPUR MAN MD, Ot Z68.42 BODY MASS INDEX (BMI) 45.0-49.9, ADULT 11/29/2017 NUPUR MAN MD Ot Z79.84 CATERING SALES MANAGER (CURRENT) USE OF ORAL HYPOGLYC 11/29/2017 NUPUR MAN MD Ot Z79.899 OTHER CATERING SALES MANAGER (CURRENT) DRUG THERAPY 11/29/2017 NUPUR MAN MD Ot Z92.3 PERSONAL HISTORY OF IRRADIATION 12/03/2017 BEE CHEATHAM DO Ot E11.65 TYPE 2 DIABETES MELLITUS WITH HYPERGLYCE 12/03/2017 LEATHA CHEATHAM DOI Ot E66.01 MORBID (SEVERE) OBESITY DUE TO EXCESS CA 12/03/2017 LEATHA CHEATHAM DOI Ot E78.5 HYPERLIPIDEMIA, UNSPECIFIED 12/03/2017 CHAPARRITA MCCLURE BEE Ot F17.210 NICOTINE DEPENDENCE, CIGARETTES, UNCOMPL 12/03/2017 LEATHA CHEATHAM DOI Ot F32.9 MAJOR DEPRESSIVE DISORDER, SINGLE EPISOD 12/03/2017 LEATHA CHEATHAM DOI Ot F41.9 ANXIETY DISORDER, UNSPECIFIED 12/03/2017 LEATHA CHEATHAM DOI Ot G47.33 OBSTRUCTIVE SLEEP APNEA (ADULT) (PEDIATR 12/03/2017 CHAPARRITA MCCLURE BEE Ot I10 ESSENTIAL (PRIMARY) HYPERTENSION 12/03/2017 LEATHA CHEATHAM DOI Ot 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 12/03/2017 LEATHA CHEATHAM DOI Ot I35.0 NONRHEUMATIC AORTIC (VALVE) STENOSIS 12/03/2017 CHAPARRITA MCCLURE BEE Ot I65.23 OCCLUSION AND STENOSIS OF BILATERAL JOY 12/03/2017 LEATHA CHEATHAM DOI Ot J45.901 UNSPECIFIED ASTHMA WITH (ACUTE) EXACERBA 12/03/2017 CHAPARRITA MCCLURE BEE Ot K21.9 GASTRO-ESOPHAGEAL REFLUX DISEASE WITHOUT 12/03/2017 CHAPARRITA MCCLURE BEE Ot K59.00 CONSTIPATION, UNSPECIFIED 12/03/2017 LEATHA CHEATHAM DOI Ot K64.9 UNSPECIFIED HEMORRHOIDS 12/03/2017 LEATHA CHEATHAM DOI Ot R01.1 CARDIAC MURMUR, UNSPECIFIED 12/03/2017 BEE CHEATHAM DO Ot T38.0X5A ADVERSE EFFECT OF GLUCOCORT/SYNTH ANALOG 12/03/2017 BEE CHEATHAM DO Ot Z68.42 BODY MASS INDEX (BMI) 45.0-49.9, ADULT 12/03/2017 BEE CHEATHAM DO Ot Z79.84 CATERING SALES MANAGER (CURRENT) USE OF ORAL HYPOGLYC 12/03/2017 BEE CHEATHAM DO Ot Z85.3 PERSONAL HISTORY OF MALIGNANT NEOPLASM O 12/03/2017 BEE CHEATHAM DO Ot Z91.19 PATIENT'S NONCOMPLIANCE W OT MEDICAL TR 12/03/2017 BEE CHEATHAM DO Ot Z92.3 PERSONAL HISTORY OF IRRADIATION 01/12/2018 LENIN MCGINNIS APRN Ot G47.30 SLEEP APNEA, UNSPECIFIED 02/09/2018 LENIN MCGINNIS APRN Ot G47.30 SLEEP APNEA, UNSPECIFIED 02/09/2018 LENIN MCGINNIS APRN Ot G47.30 SLEEP APNEA, UNSPECIFIED 03/05/2018 LENIN MCGINNIS APRN Ot J45.909 UNSPECIFIED ASTHMA, UNCOMPLICATED 03/15/2018 NUPUR MAN MD Ot Z12.31 ENCNTR SCREEN MAMMOGRAM FOR MALIGNANT NE 03/16/2018 NUPUR MAN MD Ot Z12.31 ENCNTR SCREEN MAMMOGRAM FOR MALIGNANT NE 03/19/2018 NUPUR MAN MD Ot Z12.31 ENCNTR SCREEN MAMMOGRAM FOR MALIGNANT NE 03/19/2018 NUPUR MAN MD Ot Z12.31 ENCNTR SCREEN MAMMOGRAM FOR MALIGNANT NE 03/19/2018 NUPUR MAN MD Ot Z12.31 ENCNTR SCREEN MAMMOGRAM FOR MALIGNANT NE 03/23/2018 LENIN MCGINNIS APRN Ot J45.909 UNSPECIFIED ASTHMA, UNCOMPLICATED 04/09/2018 NUPUR MAN MD Ot Z12.31 ENCNTR SCREEN MAMMOGRAM FOR MALIGNANT NE 04/23/2018 NUPUR MAN MD Ot D47.3 ESSENTIAL (HEMORRHAGIC) THROMBOCYTHEMIA 04/23/2018 NUPUR MAN MD Ot D64.9 ANEMIA, UNSPECIFIED 04/23/2018 NUPUR MAN MD Ot E11.9 TYPE 2 DIABETES MELLITUS WITHOUT COMPLIC 04/23/2018 NUPUR MAN MD Ot E66.01 MORBID (SEVERE) OBESITY DUE TO EXCESS CA 04/23/2018 NUPUR MAN MD Ot E78.5 HYPERLIPIDEMIA, UNSPECIFIED 04/23/2018 NUPUR MAN MD Ot I10 ESSENTIAL (PRIMARY) HYPERTENSION 04/23/2018 NUPUR MAN MD, Ot 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 04/23/2018 NUPUR MAN MD, Ot R82.99 OTHER ABNORMAL FINDINGS IN URINE 04/23/2018 NUPUR MAN MD, Ot Z09 ENCNTR FOR F/U EXAM AFT TRTMT FOR COND O 04/23/2018 NUPUR MAN MD, Ot Z68.42 BODY MASS INDEX (BMI) 45.0-49.9, ADULT 04/23/2018 NUPUR MAN MD, Ot Z79.84 SENIOR LIVING (CURRENT) USE OF ORAL HYPOGLYC 04/23/2018 NUPUR MAN MD, Ot Z79.899 OTHER CATERING SALES MANAGER (CURRENT) DRUG THERAPY 04/23/2018 NUPUR MAN MD, Ot Z86.000 PERSONAL HISTORY OF IN-SITU NEOPLASM OF 04/23/2018 NUPUR MAN MD, Ot Z92.3 PERSONAL HISTORY OF IRRADIATION 06/13/2018 NUPUR MAN MD, Ot D47.3 ESSENTIAL (HEMORRHAGIC) THROMBOCYTHEMIA 06/13/2018 NUPUR MAN MD, Ot D64.9 ANEMIA, UNSPECIFIED 06/13/2018 NUPUR MAN MD Ot E11.9 TYPE 2 DIABETES MELLITUS WITHOUT COMPLIC 06/13/2018 NUPUR MAN MD, Ot E66.01 MORBID (SEVERE) OBESITY DUE TO EXCESS CA 06/13/2018 NUPUR MAN MD Ot E78.5 HYPERLIPIDEMIA, UNSPECIFIED 06/13/2018 NUPUR MAN MD Ot I10 ESSENTIAL (PRIMARY) HYPERTENSION 06/13/2018 NUPUR MAN MD, Ot 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 06/13/2018 NUPUR MAN MD, Ot R82.99 OTHER ABNORMAL FINDINGS IN URINE 06/13/2018 NUPUR MAN MD, Ot Z09 ENCNTR FOR F/U EXAM AFT TRTMT FOR COND O 06/13/2018 NUPUR MAN MD, Ot Z68.42 BODY MASS INDEX (BMI) 45.0-49.9, ADULT 06/13/2018 NUPUR MAN MD, Ot Z79.84 SENIOR LIVING (CURRENT) USE OF ORAL HYPOGLYC 06/13/2018 NUPUR MAN MD, Ot Z79.899 OTHER SENIOR LIVING (CURRENT) DRUG THERAPY 06/13/2018 NUPUR MAN MD, Ot Z86.000 PERSONAL HISTORY OF IN-SITU NEOPLASM OF 06/13/2018 NUPUR MAN MD, Ot Z92.3 PERSONAL HISTORY OF IRRADIATION 06/14/2018 NUPUR MAN MD, Ot D47.3 ESSENTIAL (HEMORRHAGIC) THROMBOCYTHEMIA 06/14/2018 NUPUR MAN MD, Ot D64.9 ANEMIA, UNSPECIFIED 06/14/2018 NUPUR MAN MD, Ot E11.9 TYPE 2 DIABETES MELLITUS WITHOUT COMPLIC 06/14/2018 NUPUR MAN MD, Ot E66.01 MORBID (SEVERE) OBESITY DUE TO EXCESS CA 06/14/2018 NUPUR MAN MD, Ot E78.5 HYPERLIPIDEMIA, UNSPECIFIED 06/14/2018 NUPUR MAN MD, Ot I10 ESSENTIAL (PRIMARY) HYPERTENSION 06/14/2018 NUPUR MAN MD, Ot 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 06/14/2018 NUPUR MAN MD, Ot R82.99 OTHER ABNORMAL FINDINGS IN URINE 06/14/2018 NUPUR MAN MD, Ot Z09 ENCNTR FOR F/U EXAM AFT TRTMT FOR COND O 06/14/2018 NUPUR MAN MD, Ot Z68.42 BODY MASS INDEX (BMI) 45.0-49.9, ADULT 06/14/2018 NUPUR MAN MD, Ot Z79.84 CATERING SALES MANAGER (CURRENT) USE OF ORAL HYPOGLYC 06/14/2018 NUPUR MAN MD, Ot Z79.899 OTHER SENIOR LIVING (CURRENT) DRUG THERAPY 06/14/2018 NUPUR MAN MD, Ot Z86.000 PERSONAL HISTORY OF IN-SITU NEOPLASM OF 06/14/2018 NUPUR MAN MD, Ot Z92.3 PERSONAL HISTORY OF IRRADIATION 11/23/2018 NUPUR MAN MD, Ot D47.3 ESSENTIAL (HEMORRHAGIC) THROMBOCYTHEMIA 11/23/2018 NUPUR MAN MD, Ot D64.9 ANEMIA, UNSPECIFIED 11/23/2018 NUPUR MAN MD, Ot E11.9 TYPE 2 DIABETES MELLITUS WITHOUT COMPLIC 11/23/2018 NUPUR MAN MD, Ot E66.01 MORBID (SEVERE) OBESITY DUE TO EXCESS CA 11/23/2018 NUPUR MAN MD, Ot E78.5 HYPERLIPIDEMIA, UNSPECIFIED 11/23/2018 NUPUR MAN MD, Ot I10 ESSENTIAL (PRIMARY) HYPERTENSION 11/23/2018 NUPUR MAN MD, Ot 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 Results Test Result Range Complete blood count (CBC) with automated white blood cell (WBC) differential - 11/28/17 18:40 Blood leukocytes automated count (number/volume) 6.4 10*3/uL 4.3-11.0 Blood erythrocytes automated count (number/volume) 4.00 10*6/uL 4.35-5.85 Venous blood hemoglobin measurement (mass/volume) 10.8 g/dL 11.5-16.0 Blood hematocrit (volume fraction) 33 % 35-52 Automated erythrocyte mean corpuscular volume 83 [foz_us] 80-99 Automated erythrocyte mean corpuscular hemoglobin (mass per erythrocyte) 27 pg 25-34 Automated erythrocyte mean corpuscular hemoglobin concentration measurement ( mass/volume) 33 g/dL 32-36 Automated erythrocyte distribution width ratio 15.6 % 10.0-14.5 Automated blood platelet count (count/volume) 344 10*3/uL 130-400 Automated blood platelet mean volume measurement 9.2 [foz_us] 7.4-10.4 Automated blood neutrophils/100 leukocytes 52 % 42-75 Automated blood lymphocytes/100 leukocytes 34 % 12-44 Blood monocytes/100 leukocytes 8 % 0-12 Automated blood eosinophils/100 leukocytes 6 % 0-10 Automated blood basophils/100 leukocytes 1 % 0-10 Blood neutrophils automated count (number/volume) 3.3 10*3 1.8-7.8 Blood lymphocytes automated count (number/volume) 2.2 10*3 1.0-4.0 Blood monocytes automated count (number/volume) 0.5 10*3 0.0-1.0 Automated eosinophil count 0.4 10*3/uL 0.0-0.3 Automated blood basophil count (count/volume) 0.1 10*3/uL 0.0-0.1 Blood lactic acid measurement (moles/volume) - 11/28/17 18:40 Blood lactic acid measurement (moles/volume) 1.38 mmol/L 0.50-2.00 Comprehensive metabolic panel - 11/28/17 18:40 Serum or plasma sodium measurement (moles/volume) 138 mmol/L 135-145 Serum or plasma potassium measurement (moles/volume) 4.0 mmol/L 3.6-5.0 Serum or plasma chloride measurement (moles/volume) 106 mmol/L 98-107 Carbon dioxide 23 mmol/L 21-32 Serum or plasma anion gap determination (moles/volume) 9 mmol/L 5-14 Serum or plasma urea nitrogen measurement (mass/volume) 16 mg/dL 7-18 Serum or plasma creatinine measurement (mass/volume) 0.88 mg/dL 0.60-1.30 Serum or plasma urea nitrogen/creatinine mass ratio 18 NRG Serum or plasma creatinine measurement with calculation of estimated glomerular filtration rate > NRG Serum or plasma glucose measurement (mass/volume) 81 mg/dL 70-105 Serum or plasma calcium measurement (mass/volume) 8.8 mg/dL 8.5-10.1 Serum or plasma total bilirubin measurement (mass/volume) 0.3 mg/dL 0.1-1.0 Serum or plasma alkaline phosphatase measurement (enzymatic activity/volume) 99 U/L 40-136 Serum or plasma aspartate aminotransferase measurement (enzymatic activity/ volume) 17 U/L 5-34 Serum or plasma alanine aminotransferase measurement (enzymatic activity/volume ) 20 U/L 0-55 Serum or plasma protein measurement (mass/volume) 6.9 g/dL 6.4-8.2 Serum or plasma albumin measurement (mass/volume) 3.9 g/dL 3.2-4.5 Serum or plasma troponin i.cardiac measurement (mass/volume) - 11/28/17 18:40 Serum or plasma troponin i.cardiac measurement (mass/volume) < ng/ mL <0.30 Serum or plasma lithium measurement (moles/volume) - 11/28/17 18:40 BNP level 40.4 pg/mL <100.0 Bacterial blood culture - 11/28/17 18:40 Bacterial blood culture NG NRG Bacterial blood culture - 11/28/17 18:47 Bacterial blood culture NG NRG Influenza virus A and B antigen detection - 11/28/17 18:50 FLU RESULT NEGATIVE FOR INFLUENZA A AND B ANTIGENS BY IA NRG Capillary blood glucose measurement by glucometer (mass/volume) - 11/28/17 21: 03 Capillary blood glucose measurement by glucometer (mass/volume) 137 mg/dL 70-110 Capillary blood glucose measurement by glucometer (mass/volume) - 11/29/17 04: 29 Capillary blood glucose measurement by glucometer (mass/volume) 166 mg/dL 70-110 Complete blood count (CBC) with automated white blood cell (WBC) differential - 11/29/17 05:17 Blood leukocytes automated count (number/volume) 4.4 10*3/uL 4.3-11.0 Blood erythrocytes automated count (number/volume) 4.22 10*6/uL 4.35-5.85 Venous blood hemoglobin measurement (mass/volume) 11.3 g/dL 11.5-16.0 Blood hematocrit (volume fraction) 35 % 35-52 Automated erythrocyte mean corpuscular volume 83 [foz_us] 80-99 Automated erythrocyte mean corpuscular hemoglobin (mass per erythrocyte) 27 pg 25-34 Automated erythrocyte mean corpuscular hemoglobin concentration measurement ( mass/volume) 33 g/dL 32-36 Automated erythrocyte distribution width ratio 15.4 % 10.0-14.5 Automated blood platelet count (count/volume) 313 10*3/uL 130-400 Automated blood platelet mean volume measurement 9.3 [foz_us] 7.4-10.4 Automated blood neutrophils/100 leukocytes 73 % 42-75 Automated blood lymphocytes/100 leukocytes 24 % 12-44 Blood monocytes/100 leukocytes 2 % 0-12 Automated blood eosinophils/100 leukocytes 1 % 0-10 Automated blood basophils/100 leukocytes 1 % 0-10 Blood neutrophils automated count (number/volume) 3.2 10*3 1.8-7.8 Blood lymphocytes automated count (number/volume) 1.0 10*3 1.0-4.0 Blood monocytes automated count (number/volume) 0.1 10*3 0.0-1.0 Automated eosinophil count 0.0 10*3/uL 0.0-0.3 Automated blood basophil count (count/volume) 0.0 10*3/uL 0.0-0.1 Comprehensive metabolic panel - 11/29/17 05:17 Serum or plasma sodium measurement (moles/volume) 136 mmol/L 135-145 Serum or plasma potassium measurement (moles/volume) 4.6 mmol/L 3.6-5.0 Serum or plasma chloride measurement (moles/volume) 106 mmol/L 98-107 Carbon dioxide 20 mmol/L 21-32 Serum or plasma anion gap determination (moles/volume) 10 mmol/L 5-14 Serum or plasma urea nitrogen measurement (mass/volume) 18 mg/dL 7-18 Serum or plasma creatinine measurement (mass/volume) 0.89 mg/dL 0.60-1.30 Serum or plasma urea nitrogen/creatinine mass ratio 20 NRG Serum or plasma creatinine measurement with calculation of estimated glomerular filtration rate > NRG Serum or plasma glucose measurement (mass/volume) 196 mg/dL 70-105 Serum or plasma calcium measurement (mass/volume) 8.7 mg/dL 8.5-10.1 Serum or plasma total bilirubin measurement (mass/volume) 0.2 mg/dL 0.1-1.0 Serum or plasma alkaline phosphatase measurement (enzymatic activity/volume) 93 U/L 40-136 Serum or plasma aspartate aminotransferase measurement (enzymatic activity/ volume) 18 U/L 5-34 Serum or plasma alanine aminotransferase measurement (enzymatic activity/volume ) 18 U/L 0-55 Serum or plasma protein measurement (mass/volume) 6.8 g/dL 6.4-8.2 Serum or plasma albumin measurement (mass/volume) 3.8 g/dL 3.2-4.5 Capillary blood glucose measurement by glucometer (mass/volume) - 11/29/17 10: 58 Capillary blood glucose measurement by glucometer (mass/volume) 233 mg/dL 70-110 Capillary blood glucose measurement by glucometer (mass/volume) - 11/29/17 15: 44 Capillary blood glucose measurement by glucometer (mass/volume) 233 mg/dL 70-110 Capillary blood glucose measurement by glucometer (mass/volume) - 11/29/17 21: 12 Capillary blood glucose measurement by glucometer (mass/volume) 336 mg/dL 70-110 Complete blood count (CBC) with automated white blood cell (WBC) differential - 11/30/17 06:20 Blood leukocytes automated count (number/volume) 7.4 10*3/uL 4.3-11.0 Blood erythrocytes automated count (number/volume) 3.80 10*6/uL 4.35-5.85 Venous blood hemoglobin measurement (mass/volume) 10.3 g/dL 11.5-16.0 Blood hematocrit (volume fraction) 32 % 35-52 Automated erythrocyte mean corpuscular volume 83 [foz_us] 80-99 Automated erythrocyte mean corpuscular hemoglobin (mass per erythrocyte) 27 pg 25-34 Automated erythrocyte mean corpuscular hemoglobin concentration measurement ( mass/volume) 33 g/dL 32-36 Automated erythrocyte distribution width ratio 15.4 % 10.0-14.5 Automated blood platelet count (count/volume) 335 10*3/uL 130-400 Automated blood platelet mean volume measurement 8.0 [foz_us] 7.4-10.4 Automated blood neutrophils/100 leukocytes 81 % 42-75 Automated blood lymphocytes/100 leukocytes 13 % 12-44 Blood monocytes/100 leukocytes 6 % 0-12 Automated blood eosinophils/100 leukocytes 0 % 0-10 Automated blood basophils/100 leukocytes 0 % 0-10 Blood neutrophils automated count (number/volume) 5.4 10*3 1.8-7.8 Blood lymphocytes automated count (number/volume) 0.9 10*3 1.0-4.0 Blood monocytes automated count (number/volume) 0.4 10*3 0.0-1.0 Automated eosinophil count 0.0 10*3/uL 0.0-0.3 Automated blood basophil count (count/volume) 0.0 10*3/uL 0.0-0.1 Comprehensive metabolic panel - 11/30/17 06:20 Serum or plasma sodium measurement (moles/volume) 137 mmol/L 135-145 Serum or plasma potassium measurement (moles/volume) 4.5 mmol/L 3.6-5.0 Serum or plasma chloride measurement (moles/volume) 106 mmol/L 98-107 Carbon dioxide 18 mmol/L 21-32 Serum or plasma anion gap determination (moles/volume) 13 mmol/L 5-14 Serum or plasma urea nitrogen measurement (mass/volume) 23 mg/dL 7-18 Serum or plasma creatinine measurement (mass/volume) 0.89 mg/dL 0.60-1.30 Serum or plasma urea nitrogen/creatinine mass ratio 26 NRG Serum or plasma creatinine measurement with calculation of estimated glomerular filtration rate > NRG Serum or plasma glucose measurement (mass/volume) 257 mg/dL 70-105 Serum or plasma calcium measurement (mass/volume) 8.7 mg/dL 8.5-10.1 Serum or plasma total bilirubin measurement (mass/volume) 0.2 mg/dL 0.1-1.0 Serum or plasma alkaline phosphatase measurement (enzymatic activity/volume) 81 U/L 40-136 Serum or plasma aspartate aminotransferase measurement (enzymatic activity/ volume) 11 U/L 5-34 Serum or plasma alanine aminotransferase measurement (enzymatic activity/volume ) 18 U/L 0-55 Serum or plasma protein measurement (mass/volume) 6.3 g/dL 6.4-8.2 Serum or plasma albumin measurement (mass/volume) 3.9 g/dL 3.2-4.5 Capillary blood glucose measurement by glucometer (mass/volume) - 11/30/17 06: 54 Capillary blood glucose measurement by glucometer (mass/volume) 249 mg/dL 70-110 Capillary blood glucose measurement by glucometer (mass/volume) - 11/30/17 12: 07 Capillary blood glucose measurement by glucometer (mass/volume) 218 mg/dL 70-110 Capillary blood glucose measurement by glucometer (mass/volume) - 11/30/17 15: 52 Capillary blood glucose measurement by glucometer (mass/volume) 105 mg/dL 70-110 Capillary blood glucose measurement by glucometer (mass/volume) - 11/30/17 20: 32 Capillary blood glucose measurement by glucometer (mass/volume) 183 mg/dL 70-110 Capillary blood glucose measurement by glucometer (mass/volume) - 12/01/17 05: 30 Capillary blood glucose measurement by glucometer (mass/volume) 193 mg/dL 70-110 Complete blood count (CBC) with automated white blood cell (WBC) differential - 12/01/17 06:10 Blood leukocytes automated count (number/volume) 8.5 10*3/uL 4.3-11.0 Blood erythrocytes automated count (number/volume) 3.84 10*6/uL 4.35-5.85 Venous blood hemoglobin measurement (mass/volume) 10.5 g/dL 11.5-16.0 Blood hematocrit (volume fraction) 32 % 35-52 Automated erythrocyte mean corpuscular volume 83 [foz_us] 80-99 Automated erythrocyte mean corpuscular hemoglobin (mass per erythrocyte) 27 pg 25-34 Automated erythrocyte mean corpuscular hemoglobin concentration measurement ( mass/volume) 33 g/dL 32-36 Automated erythrocyte distribution width ratio 15.8 % 10.0-14.5 Automated blood platelet count (count/volume) 380 10*3/uL 130-400 Automated blood platelet mean volume measurement 8.8 [foz_us] 7.4-10.4 Automated blood neutrophils/100 leukocytes 82 % 42-75 Automated blood lymphocytes/100 leukocytes 12 % 12-44 Blood monocytes/100 leukocytes 7 % 0-12 Automated blood eosinophils/100 leukocytes 0 % 0-10 Automated blood basophils/100 leukocytes 0 % 0-10 Blood neutrophils automated count (number/volume) 7.0 10*3 1.8-7.8 Blood lymphocytes automated count (number/volume) 1.0 10*3 1.0-4.0 Blood monocytes automated count (number/volume) 0.6 10*3 0.0-1.0 Automated eosinophil count 0.0 10*3/uL 0.0-0.3 Automated blood basophil count (count/volume) 0.0 10*3/uL 0.0-0.1 Comprehensive metabolic panel - 12/01/17 06:10 Serum or plasma sodium measurement (moles/volume) 138 mmol/L 135-145 Serum or plasma potassium measurement (moles/volume) 4.5 mmol/L 3.6-5.0 Serum or plasma chloride measurement (moles/volume) 107 mmol/L 98-107 Carbon dioxide 19 mmol/L 21-32 Serum or plasma anion gap determination (moles/volume) 12 mmol/L 5-14 Serum or plasma urea nitrogen measurement (mass/volume) 28 mg/dL 7-18 Serum or plasma creatinine measurement (mass/volume) 0.92 mg/dL 0.60-1.30 Serum or plasma urea nitrogen/creatinine mass ratio 30 NRG Serum or plasma creatinine measurement with calculation of estimated glomerular filtration rate > NRG Serum or plasma glucose measurement (mass/volume) 210 mg/dL 70-105 Serum or plasma calcium measurement (mass/volume) 8.9 mg/dL 8.5-10.1 Serum or plasma total bilirubin measurement (mass/volume) 0.2 mg/dL 0.1-1.0 Serum or plasma alkaline phosphatase measurement (enzymatic activity/volume) 67 U/L 40-136 Serum or plasma aspartate aminotransferase measurement (enzymatic activity/ volume) 12 U/L 5-34 Serum or plasma alanine aminotransferase measurement (enzymatic activity/volume ) 15 U/L 0-55 Serum or plasma protein measurement (mass/volume) 6.3 g/dL 6.4-8.2 Serum or plasma albumin measurement (mass/volume) 3.7 g/dL 3.2-4.5 Capillary blood glucose measurement by glucometer (mass/volume) - 12/01/17 10: 51 Capillary blood glucose measurement by glucometer (mass/volume) 178 mg/dL 70-110 Capillary blood glucose measurement by glucometer (mass/volume) - 12/01/17 16: 16 Capillary blood glucose measurement by glucometer (mass/volume) 186 mg/dL 70-110 Capillary blood glucose measurement by glucometer (mass/volume) - 12/01/17 20: 01 Capillary blood glucose measurement by glucometer (mass/volume) 246 mg/dL 70-110 Capillary blood glucose measurement by glucometer (mass/volume) - 12/02/17 05: 51 Capillary blood glucose measurement by glucometer (mass/volume) 95 mg/dL 70-110 C DIFFICILE AG + TOXIN A/B. - 12/02/17 10:34 RESULTS NEGATIVE FOR ANTIGEN AND TOXIN A/B NRG Capillary blood glucose measurement by glucometer (mass/volume) - 12/02/17 11: 19 Capillary blood glucose measurement by glucometer (mass/volume) 125 mg/dL 70-110 Capillary blood glucose measurement by glucometer (mass/volume) - 12/02/17 16: 16 Capillary blood glucose measurement by glucometer (mass/volume) 220 mg/dL 70-110 Capillary blood glucose measurement by glucometer (mass/volume) - 12/02/17 20: 18 Capillary blood glucose measurement by glucometer (mass/volume) 239 mg/dL 70-110 Complete blood count (CBC) with automated white blood cell (WBC) differential - 12/03/17 04:20 Blood leukocytes automated count (number/volume) 6.6 10*3/uL 4.3-11.0 Blood erythrocytes automated count (number/volume) 4.01 10*6/uL 4.35-5.85 Venous blood hemoglobin measurement (mass/volume) 10.9 g/dL 11.5-16.0 Blood hematocrit (volume fraction) 33 % 35-52 Automated erythrocyte mean corpuscular volume 83 [foz_us] 80-99 Automated erythrocyte mean corpuscular hemoglobin (mass per erythrocyte) 27 pg 25-34 Automated erythrocyte mean corpuscular hemoglobin concentration measurement ( mass/volume) 33 g/dL 32-36 Automated erythrocyte distribution width ratio 15.9 % 10.0-14.5 Automated blood platelet count (count/volume) 391 10*3/uL 130-400 Automated blood platelet mean volume measurement 8.8 [foz_us] 7.4-10.4 Automated blood neutrophils/100 leukocytes 60 % 42-75 Automated blood lymphocytes/100 leukocytes 28 % 12-44 Blood monocytes/100 leukocytes 12 % 0-12 Automated blood eosinophils/100 leukocytes 0 % 0-10 Automated blood basophils/100 leukocytes 0 % 0-10 Blood neutrophils automated count (number/volume) 4.0 10*3 1.8-7.8 Blood lymphocytes automated count (number/volume) 1.9 10*3 1.0-4.0 Blood monocytes automated count (number/volume) 0.8 10*3 0.0-1.0 Automated eosinophil count 0.0 10*3/uL 0.0-0.3 Automated blood basophil count (count/volume) 0.0 10*3/uL 0.0-0.1 Comprehensive metabolic panel - 12/03/17 04:20 Serum or plasma sodium measurement (moles/volume) 137 mmol/L 135-145 Serum or plasma potassium measurement (moles/volume) 4.0 mmol/L 3.6-5.0 Serum or plasma chloride measurement (moles/volume) 105 mmol/L 98-107 Carbon dioxide 23 mmol/L 21-32 Serum or plasma anion gap determination (moles/volume) 9 mmol/L 5-14 Serum or plasma urea nitrogen measurement (mass/volume) 23 mg/dL 7-18 Serum or plasma creatinine measurement (mass/volume) 0.82 mg/dL 0.60-1.30 Serum or plasma urea nitrogen/creatinine mass ratio 28 NRG Serum or plasma creatinine measurement with calculation of estimated glomerular filtration rate > NRG Serum or plasma glucose measurement (mass/volume) 94 mg/dL 70-105 Serum or plasma calcium measurement (mass/volume) 9.4 mg/dL 8.5-10.1 Serum or plasma total bilirubin measurement (mass/volume) 0.3 mg/dL 0.1-1.0 Serum or plasma alkaline phosphatase measurement (enzymatic activity/volume) 65 U/L 40-136 Serum or plasma aspartate aminotransferase measurement (enzymatic activity/ volume) 11 U/L 5-34 Serum or plasma alanine aminotransferase measurement (enzymatic activity/volume ) 16 U/L 0-55 Serum or plasma protein measurement (mass/volume) 6.0 g/dL 6.4-8.2 Serum or plasma albumin measurement (mass/volume) 3.6 g/dL 3.2-4.5 Capillary blood glucose measurement by glucometer (mass/volume) - 12/03/17 04: 51 Capillary blood glucose measurement by glucometer (mass/volume) 99 mg/dL 70-110 Capillary blood glucose measurement by glucometer (mass/volume) - 12/03/17 11: 15 Capillary blood glucose measurement by glucometer (mass/volume) 116 mg/dL 70-110 Bacterial urine culture - 03/15/18 14:25 Bacterial urine culture [id number] NRG COLONY COUNT >100,000/ML NRG FTX;REPORTABLE SUSCEPTIBILITY REPORTED AT 0906, 03-17-18 NR FREE TEXT ENTRY 2 RM FINAL REPORT [facility] Sensitivity Panel - 03/15/18 14:25 Gentamicin susceptibility test by minimum inhibitory concentration < = NRG Trimethoprim/sulfamethoxazole susceptibility test by minimum inhibitoryconcentration <= NRG Levofloxacin susceptibility test by minimum inhibitory concentration <= NRG Ampicillin susceptibility test by minimum inhibitory concentration < = NRG Cefazolin susceptibility test by minimum inhibitory concentration 2 NRG Ceftriaxone susceptibility test by minimum inhibitory concentration <= NRG Ciprofloxacin susceptibility test by minimum inhibitory concentration <= NRG Meropenem susceptibility test by minimum inhibitory concentration < = NRG Nitrofurantoin susceptibility test by minimum inhibitory concentration <= NRG Amoxicillin and clavulanate potassium susc WON = NRG Encounters ACCT No. Visit Date/Time Discharge Status Pt. Type Provider Facility Loc./Unit Complaint [id number] 12/12/2018 05:35:00 12/12/2018 15:45:00 DIS Outpatient KAI JIANG MD [facility] PREOP EGD/COLO [id number] 12/05/2018 10:19:00 12/05/2018 23:59:59 CLS Outpatient NUPUR MAN MD [facility] ONC [id number] 03/15/2018 13:01:00 06/13/2018 00:01:00 DIS Outpatient NUPUR MAN MD [facility] ONC [id number] 03/16/2018 10:20:00 03/16/2018 23:59:59 CLS Outpatient NUPUR MAN MD [facility] RAD ENCOUNTER FOR SCREENING MAMMOGRAM FOR BREAST CANCE [id number] 03/02/2018 09:17:00 03/02/2018 23:59:59 CLS Outpatient LENIN MCGINNIS APRN [facility] RT ASTHMA [id number] 02/08/2018 19:52:00 02/09/2018 06:50:00 DIS Outpatient LENIN MCGINNIS APRN [facility] SLEEP G47.30 SLEEP APNEA [id number] 01/17/2018 09:45:00 01/17/2018 23:59:59 CLS Preadmit LENIN MCGINNIS APRN [facility] RT J45.909 ASTHMA [id number] 11/30/2017 14:00:00 12/03/2017 13:20:00 DIS Inpatient BEE CHEATHAM DO [facility] 4TH WHEEZING [id number] 02/22/2017 12:53:00 05/23/2017 00:01:00 DIS Outpatient NUPUR MAN MD [facility] ONC [id number] 02/22/2017 11:42:00 02/22/2017 23:59:59 CLS Outpatient NUPUR MAN MD [facility] RAD SCREENING [id number] 08/17/2016 13:29:00 11/15/2016 00:01:00 DIS Outpatient NUPUR MAN MD [facility] ONC [id number] 01/19/2016 09:07:00 04/18/2016 00:01:00 DIS Outpatient NUPUR MAN MD [facility] ONC [id number] 01/27/2016 10:47:00 01/27/2016 23:59:59 CLS Outpatient NUPUR MAN MD [facility] RAD SCREENING [id number] 12/15/2015 10:06:00 12/15/2015 23:59:59 CLS Outpatient ULISES AGNDHI [facility] CARD AORTIC STENOSIS,HTN,MIXED HLP,CAD [id number] 10/14/2014 11:12:00 10/14/2014 23:59:59 CLS Outpatient RAJI MELLO MD [facility] CARD CAD,HTN, [id number] 09/17/2014 13:32:00 09/17/2014 23:59:59 CLS Outpatient NUPUR MAN MD [facility] ONC [id number] 09/11/2014 09:31:00 09/11/2014 23:59:59 CLS Outpatient NUPUR MAN MD [facility] RAD SCREENING [id number] 05/07/2014 07:15:00 05/07/2014 23:59:59 CLS Outpatient BEE CHEATHAM DO [facility] RT ASTHMA [id number] 02/12/2014 08:32:00 02/12/2014 23:59:59 CLS Outpatient RAJI MELLO MD [facility] CARD CAD,HYPERTENSION,AORTIC STENOSIS [id number] 11/26/2013 10:08:00 11/26/2013 23:59:59 CLS Outpatient NUPUR MAN MD [facility] ONC [id number] 09/10/2013 08:30:00 09/10/2013 23:59:59 CLS Outpatient NUPUR MAN MD [facility] RAD LT BREAST CA [id number] 05/06/2013 09:31:00 05/06/2013 23:59:59 CLS Outpatient NUPUR MAN MD [facility] ONC [id number] 02/14/2013 10:02:00 02/14/2013 23:59:59 CLS Outpatient NUPUR MAN MD [facility] RAD RT AXILLARY PALPABLE NODULE,HX BREAST CA [id number] 02/06/2013 14:06:00 02/06/2013 23:59:59 CLS Outpatient NUPUR MAN MD [facility] ONC [id number] 01/29/2013 09:51:00 01/29/2013 23:59:59 CLS Outpatient RIAZ CAPPS, RAJI Cannon [facility] CARD [id number] 12/14/2018 12:17:00 ACT Outpatient KAI JIANG MD [facility] ENDO ABD PAIN/REFLUX [id number] 10/14/2014 11:12:00 Document Registration [id number] 10/14/2014 11:12:00 Document Registration [id number] 09/08/2012 07:51:00 Document Registration [id number] 09/07/2012 13:37:00 Document Registration [id number] 07/10/2012 13:24:00 Document Registration [id number] 04/03/2012 14:26:00 Document Registration [id number] 03/14/2012 14:30:00 Document Registration [id number] 01/25/2012 13:39:00 Document Registration [id number] 11/02/2011 13:39:00 Document Registration [id number] 10/12/2011 14:25:00 Document Registration [id number] 09/22/2011 05:36:00 Document Registration [id number] 09/19/2011 09:24:00 Document Registration [id number] 09/07/2011 07:02:00 Document Registration [id number] 08/01/2011 13:27:00 Document Registration [id number] 07/06/2011 16:20:00 Document Registration [id number] 02/25/2011 21:17:00 Document Registration [id number] 01/14/2011 08:03:00 Document Registration [id number] 01/11/2011 09:28:00 Document Registration [id number] 05/20/2010 12:18:00 Document Registration [id number] 05/12/2010 10:33:00 Document Registration [id number] 05/19/2009 13:07:00 Document Registration [id number] 05/04/2009 00:00:00 Document Registration [id number] 02/02/2009 10:46:00 Document Registration [id number] 03/28/2018 17:00:00 03/28/2018 23:59:59 CLS Outpatient [id number] 10/14/2014 11:13:38 ACT Document Registration
[2018-12-14] MEDS ORDERED: NS IV 500 ML 500 ML IV PRN (12:42)
--- NOTE | 2018-12-14 12:43 | Conscious Sedation/ASA ---
Conscious Sedation Pre-Proced Time 12:30 ASA Score 2 For ASA 3 and 4: Consider anesthesia and medical clearance. Also, for patients with a history of failed moderate sedation consider anesthesia. Airway Lungs Heart ASA score ASA 1: a normal healthy patient ASA 2: a patient with a mild systemic disease (mid diabetes, controlled hypertension, obesity ASA 3: a patient with a severe systemic disease that limits activity (angina , COPD, prior Myocardial infarction) ASA 4: a patient with an incapacitating disease that is a constant threat to life (CHF, renal failure) ASA 5: a moribund patient not expected to survive 24 hrs. (ruptured aneurysm) ASA 6: a declared brain- patient whose organs are being harvested. For emergent operations, add the letter E after the classification Mallampati Classification Grade 2 Sedation Plan Analgesia, Amnesia, Plan communicated to team members, Discussed options with patient/fam, Discussed risks with patient/fam The patient is an appropriate candidate to undergo the planned procedure, sedation, and anesthesia. The patient immediately re-assessed prior to indication. KAI JIANG MD Dec 14, 2018 12:43
--- NOTE | 2018-12-14 12:44 | Progress Note-Pre Operative ---
Pre-Operative Progress Note H&P Reviewed The H&P was reviewed, patient examined and no changes noted. Date Seen by Provider: Dec 14, 2018 Time Seen by Provider: 12:30 Date H&P Reviewed: Dec 14, 2018 Time H&P Reviewed: 12:30 Pre-Operative Diagnosis: anemia, GERD, change bowel habits KAI JIANG MD Dec 14, 2018 12:44
[2018-12-14] MEDS ORDERED: morphine INJ 10 MG/ML 1ML (SYR OR VIAL) IV PRN (12:45)
[2018-12-14] MEDS ORDERED: HYDROcodone/APAP 5 MG/325 MG (LORTAB) TAB PO PRN (12:45)
[2018-12-14] MEDS ORDERED: MIDAZOLAM 2 MG/2 ML (VERSED) VIAL IVP ONE (12:45)
[2018-12-14] MEDS ORDERED: ONDANSETRON 4 MG/2 ML (SDV) Z0FRAN IV PRN (12:45)
[2018-12-14] MEDS ORDERED: HURRICAINE EXT TUBE (BENZOCAINE) XX PRN (12:45)
[2018-12-14] MEDS ORDERED: LIDOCAINE JELLY 2% 6 ML SYRINGE MM PRN (12:45)
[2018-12-14] MEDS ORDERED: ACETAMINOPHEN 325 MG TABLET PO PRN (12:45)
[2018-12-14] MEDS ORDERED: fentaNYL INJECTION 100 MCG/2 ML AMP IVP ONE (12:45)
--- NOTE | 2018-12-14 12:50 | Discharge Inst-Surgical ---
D/C Lap Instructions-KIDO New, Converted, or Re-Newed RX: RX on Chart Follow Up PRN Activity as tolerated protonix 40mg daily. High Fiber Diet 25g or more per day Avoid Alcohol, Caffeine, Spicy [place] and Acid foods. Drink 64 fluid oz or more of fluids per day. Symptoms to Report: Fever over 101 degree F, Nausea/Vomiting If any problems/questions: Contact your physician or go to Emergency Room KAI JIANG MD Dec 14, 2018 12:50
[2018-12-14 14:00] VITALS: BP 143/65
[2018-12-14 14:30] VITALS: BP 137/86
[2018-12-14 14:40] VITALS: BP 137/86
--- NOTE | 2018-12-14 21:37 | OPERATIVE REPORT ---
DATE OF SERVICE: 12/14/2018 ATTENDING PRIMARY CARE PHYSICIAN: Dr. Sanchez. PREOPERATIVE DIAGNOSES: 1. Anemia. 2. Left lower quadrant abdominal pain. 3. Gastroesophageal reflux disease. POSTOPERATIVE DIAGNOSES: Reflux esophagitis stage II. No hiatal hernia. A small type 1 gastric ulcer along the lesser curvature, no active bleeding. Mild chronic stage II external and internal hemorrhoids. Remainder of the rectum and colon were normal. PROCEDURES: EGD with biopsy, colonoscopy. SURGEON: Vinod Longoria MD ANESTHESIA: Conscious sedation. ESTIMATED BLOOD LOSS: Minimal. FINDINGS: Reflux esophagitis stage II. No hiatal hernia. A small type 1 gastric ulcer along the lesser curvature, no active bleeding. Mild chronic stage II external and internal hemorrhoids. Remainder of the rectum and colon were normal. DISPOSITION: The patient tolerated the procedure well. INDICATIONS: The patient is a 68-year-old female known to us. She has a history of DCIS of the left breast and underwent a lumpectomy and sentinel node in 09/2011. She also did undergo a colonoscopy and at this time, was found to have mild hemorrhoids as well as mild diverticulosis; however, no abnormalities. She was recently seen in the office for left lower quadrant abdominal pain for the past six months on an intermittent basis. She also does report nausea and vomiting after eating a meal. She also states that she did have laboratory work drawn and she was found to be anemic and was started on iron. DESCRIPTION OF PROCEDURE: The patient was brought to the operating room, laid in left lateral decubitus position with head slightly elevated. After adequate IV pain and sedative medications and conscious sedation anesthesia, the mouthpiece was applied. The endoscope was placed in the mouth, visualizing the pharynx and hypopharyngeal region. Vocal cords, epiglottis and vallecula identified and appeared to be normal. The endoscope was gently intubated at the esophageal opening and esophagus was insufflated. Endoscope was then advanced to the first, second and third portion of the esophagus. At the level of the GE junction, a reflux esophagitis stage II identified. There were no ulcers or strictures identified in this region. A biopsy was taken of the GE junction with forceps with visualization of good hemostasis. Endoscope was then advanced into the stomach and endoscope retroflexed visualizing no hiatal hernia. There was a small lesser curvature ulceration, which appeared to be old and chronic and small and less than 2 mm in size. This was biopsied using forceps with visualization of good hemostasis. Mild gastritis was noted at the stomach antrum; however, no ulcerations. A biopsy was taken of the antrum to rule out H. pylori with visualization of good hemostasis. The endoscope was then advanced to the pylorus and the first and second portion of the duodenum, which appeared normal with no distal obstructions or ulcerations. The endoscope was then slowly withdrawn while taking a second look and suctioning of residual air with no additional findings. The patient tolerated this portion of the procedure well. We will replace her omeprazole 40 mg daily to Pantoprazole 40 mg daily. This appears to be a type 1 ulcer, which is not related to hyper acidemia; however, we will recommend the necessary lifestyle and diet and accommodation including small and more frequent meals, avoidance of eating at night as well as head elevation while lying supine. We will also recommend avoidance of caffeinated beverages, spicy, greasy and acidic foods. Under the same anesthesia, we then proceeded with the colonoscopy portion of the procedure. A digital rectal examination was performed, which revealed chronic stage II external and internal hemorrhoids, not actively edematous nor inflamed with no bleeding. Normal sphincter tone was felt and there were no palpable masses. The endoscope was then intubated into the anus and rectum was gently insufflated. The endoscope was then advanced to the valves of [place] of the rectum with no polyps or any neoplasms identified. Through the sigmoid colon, there were no diverticulosis identified at this time. The endoscope was then advanced through the remainder of the descending, transverse, ascending colon to the cecum. These segments were normal. There were no polyps, neoplasms or any mucosal inflammatory changes identified. The endoscope was then slowly withdrawn while taking a second look and suctioning of residual air with no additional findings. The patient tolerated this portion of procedure well. We will treat her for the small ulcer; however, if her symptoms may be more related to her gallbladder, we will proceed with gallbladder ultrasound and if this does not show any abnormalities, we will then proceed with a HIDA scan to look for the possibility of biliary dyskinesia. Job ID: [id number] DocumentID: [id number] Dictated Date: 12/14/2018 13:48:22 Bi Report Developer Date: 12/14/2018 21:36:44 Dictated By: MD MADELYN BRANTLEY
== END 2018-12-14 14:45 | disposition home or self-care (01) ==
LOC: ENDO 12:17
PROVIDERS: ATTEND Surgery
DX: K21.0 Gastro-esophageal reflux disease with esophagitis (principal); K25.9 Gastric ulcer, unspecified as acute or chronic, without hemorrhage or perforation; K64.1 Second degree hemorrhoids; D50.9 Iron deficiency anemia, unspecified; Z87.19 Personal history of other diseases of the digestive system; E11.9 Type 2 diabetes mellitus without complications; E78.00 Pure hypercholesterolemia, unspecified; I10 Essential (primary) hypertension; E03.9 Hypothyroidism, unspecified; R60.0 Localized edema; F32.9 Major depressive disorder, single episode, unspecified; Z85.3 Personal history of malignant neoplasm of breast; Z79.84 Long term (current) use of oral hypoglycemic drugs; Z79.899 Other long term (current) drug therapy; Z87.891 Personal history of nicotine dependence
CPT/HCPCS: 82962

== ENCOUNTER → 2018-12-24 | Outpatient (CLI) | payer MEDICARE, OTHER ==
--- NOTE | 2018-12-24 08:21 | Diagnostic Imaging Report ---
INDICATION: Right upper quadrant pain. TECHNIQUE: Multiple grayscale sonographic images were obtained of the right upper quadrant of the abdomen. CORRELATION STUDY: None FINDINGS: LIVER: There is increased echotexture within the visualized portions of the liver, suggesting hepatic steatosis. There is normal, hepatopedal direction of flow within the main portal vein. Enlarged at 20 cm. GALLBLADDER: The gallbladder demonstrates no definitive shadowing gallstones. No abnormal gallbladder wall thickening or pericholecystic fluid. COMMON BILE DUCT: Nondilated at 3 mm. PANCREAS: Largely obscured RIGHT KIDNEY: Measures 8.8 x 5.4 x 5.5 cm. No hydronephrosis. AORTA/IVC: Not well visualized. OTHER: None. IMPRESSION: 1. Hepatomegaly with likely changes reflecting hepatic steatosis. Dictated by: Dictated on workstation # [id number]
== END ==
LOC: RAD 06:33
PROVIDERS: ATTEND Surgery
DX: R10.11 Right upper quadrant pain (principal); R16.0 Hepatomegaly, not elsewhere classified
CPT/HCPCS: 76705

== ENCOUNTER → 2018-12-27 | Outpatient (CLI) | payer MEDICARE, OTHER ==
[~2018-12-27] MED LIST changes: +CATHETER FLUSH 10 ML SYR IV PRN
--- NOTE | 2018-12-27 12:45 | Diagnostic Imaging Report ---
INDICATION: Right upper quadrant pain. TECHNIQUE: The patient was administered 5.4 mCi technetium 99m Choletec intravenously and imaging over the abdomen was performed. At 45 minutes, patient ingested 8 ounces of Ensure and a gallbladder ejection fraction was calculated. FINDINGS: There is homogeneous uptake of activity by the liver. There is prompt excretion of activity into the common duct and gallbladder with normal passage of activity into the small bowel. Gallbladder ejection fraction is normal at 39%. IMPRESSION: Normal HIDA scan and gallbladder ejection fraction. Dictated by: Dictated on workstation # [id number]
== END ==
LOC: CARD 09:12
PROVIDERS: ATTEND Surgery
DX: R10.11 Right upper quadrant pain (principal)
CPT/HCPCS: 78227

== ENCOUNTER 2019-02-05 10:43 | Emergency (ER) | payer MEDICARE, OTHER ==
[~2019-02-05] VITALS: Ht 157.5 cm; Wt 122.5 kg
[~2019-02-05 10:43] MED LIST changes: -CATHETER FLUSH 10 ML SYR IV PRN
--- NOTE | 2019-02-05 11:38 | ED Lower Extremity ---
General Chief Complaint: Lower Extremity Stated Complaint: R LEG SWELLING/PAIN Nursing Triage Note: PT AMB TO [facility] 4 WITH COMPLAINT OF RIGHT LEG SWELLING AND TINGLING. DENIES INJURY. STATES THAT HER RIGHT ARM WAS ALSO TINGLING. Nursing Sepsis Screen: No Definite Risk History of Present Illness Date Seen by Provider: February 05, 2019 Time Seen by Provider: 11:20 Initial Comments 68-year-old female presents for swelling in her right leg. She denies a previous history of DVT. She takes aspirin one daily at home. She states when she awoke this morning, her right arm felt swollen, she didn't visually see swelling. She also feels her right knee, calf, ankle and foot are swollen, though she denies them looking more swollen. She denies weakness in either extremity or difficulty speaking/chewing/swallowing. She also had intermittent tingling in her right foot, but it has improved. She is a type II diabetic, without history of peripheral neuropathy. She reports taking Lasix and has not missed any doses. She denies any injuries or falls. She reports suffering from depression, she is not overly active, however she denies being on bedrest. She has significant arthritis in her right knee and needs a TKR but was told she needed bariatric surgery first. Onset: this morning Pain/Injury Location: right leg Method of Injury: unknown Allergies and Home Medications Allergies Coded Allergies: Cephalosporins (Verified Allergy, Mild, 11/28/17) Home Medications Albuterol Sulfate 2.5 Mg/3 Ml Vial.neb, 2.5 MG NEB BID PRN for SHORTNESS OF BREATH, (Reported) Atorvastatin Calcium 40 Mg Tablet, 40 MG PO HS, (Reported) Duloxetine HCl 60 Mg Capsule.dr, 60 MG PO DAILY, (Reported) Ferrous Sulfate 325 Mg Tablet.dr, 325 MG PO BID, (Reported) Furosemide 40 Mg Tablet, 40 MG PO DAILY, (Reported) Glyburide 1.25 Mg Tablet, 1.25 MG PO DAILY, (Reported) Levothyroxine Sodium 50 Mcg Tablet, 50 MCG PO DAILY, (Reported) Lisinopril 20 Mg Tablet, 20 MG PO DAILY Prescribed by: BEE CHEATHAM on 12/03/17 7500 Metoprolol Succinate 25 Mg Tab.er.24h, 25 MG PO DAILY, (Reported) Montelukast Sodium 10 Mg Tablet, 10 MG PO DAILY, (Reported) Omeprazole 40 Mg Capsule.dr, 40 MG PO DAILY, (Reported) Patient Home Medication List Home Medication List Reviewed: Yes Review of Systems Constitutional: no symptoms reported, see HPI Musculoskeletal: see HPI, muscle pain (right calf), other (Feels swelling and pain right lower extremity) All Other Systems Reviewed Negative Unless Noted: Yes Past Lgigyum-Sopeel-Ydhwtg Hx Past Med/Social Hx: Reviewed Nursing Past Med/Soc Hx Patient Social History Alcohol Use: Denies Use Number of Drinks Today: GG Alcohol Beverage of Choice: Whiskey Recreational Drug Use: No Smoking Status: Former Smoker Type Used: Cigarettes Former Smoker, Quit: Nov 28, 1999 Recent Foreign Travel: No Contact w/Someone Who Travel: No Recent Infectious Disease Expo: No Recent Hopitalizations: No Immunizations Up To Date Date of Pneumonia Vaccine: Oct 28, 2017 Date of Influenza Vaccine: Aug 02, 2017 Seasonal Allergies Seasonal Allergies: Yes Past Medical History Surgeries: No (fistula repair, toenails removed) Breast, Tonsillectomy Respiratory: Yes Asthma, Chronic Bronchitis, Sleep Apnea Currently Using CPAP: Yes Currently Using BIPAP: No Cardiac: Yes (HEART MURMUR, CAD) Coronary Artery Disease, High Cholesterol, Hypertension Neurological: No Reproductive Disorders: No Sexually Transmitted Disease: No Genitourinary: Yes Bladder Infection Gastrointestinal: Yes Gastroesophageal Reflux, Hemorrhoids Musculoskeletal: Yes Degenerate Disk Disease, Arthritis Endocrine: Yes Diabetes, Non-Insulin dep HEENT: No Cancer: Yes Breast Did You Recieve Any Treatments: Yes What Type of Treatment Did You: Radiation, Surgical Intervention Psychosocial: Yes Anxiety, Depression Integumentary: No Blood Disorders: Yes (anemia) Family Medical History Patient reports no known family medical history. Physical Exam Vital Signs Vital Signs - First Documented 02/05/19 11:00 Temp 98.1 Pulse 64 Resp 18 B/P (MAP) 174/86 (115) Pulse Ox 96 O2 Delivery Room Air Capillary Refill : Less Than 3 Seconds Height, Weight, BMI Height: 5'2.00" Weight: 270lbs. 0.0oz. 122.520151iv; 49.2 BMI Method:Stated General Appearance: WD/WN, no apparent distress Neck: non-tender, full range of motion, supple, normal inspection Cardiovascular: normal peripheral pulses, regular rate, rhythm; No no edema (2 + edema, bilat LE); no murmur Respiratory: chest non-tender, lungs clear, normal breath sounds Gastrointestinal: normal bowel sounds, non tender, soft Back: normal inspection, no CVA tenderness, no vertebral tenderness; No muscle spasm, No vertebral tenderness; other (Power V/V L4-S1 bilat. ) Hips: bilateral hip non-tender, bilateral hip normal inspection Legs: bilateral leg normal inspection (with exception of 2+ edema), bilateral leg no evidence of injury; right leg other (+ Enriqutea) Knees: bilateral knee bone tenderness, bilateral knee joint effusion, bilateral knee soft tissue tenderness Ankles: bilateral ankle non-tender, bilateral ankle normal range of motion, bilateral ankle no evidence of injury Feet: bilateral foot non-tender, bilateral foot normal range of motion, bilateral foot no evidence of injury Neurologic/Tendon: normal sensation, normal motor functions, normal tendon functions Neurologic/Psychiatric: no motor/sensory deficits, alert, normal mood/affect, oriented x 3 Skin: normal color, warm/dry Lymphatic: no adenopathy Extremity measurements: Left and right forearm 11.5 in; Right bicep 19.5 in; Left bicep 19.25 in Left calf and right calf 17 in. Progress/Results/Core Measures Results/Orders Lab Results Laboratory Tests Test 02/05/19 12:44 Range/Units Glucometer 95 70-110 MG/DL My Orders Orders - DARION SILVA Venous Lower Ext Rt (02/05/19 11:28) Accucheck Stat ONCE (02/05/19 12:31) Vital Signs/I&O 02/05/19 02/05/19 11:00 13:01 Temp 98.1 98.1 Pulse 64 66 Resp 18 17 B/P (MAP) 174/86 (115) 155/80 (105) Pulse Ox 96 97 O2 Delivery Room Air Room Air Blood Pressure Mean: 115 Progress Progress Note : Time: 11:20 Progress Note Patient seen and evaluated, NIH 0. No indications to suggest need for CT Head. We'll obtain ultrasound right lower extremity. Accu-Chek 95. She is unaware of her last hemoglobin A1c, explained she could have some peripheral from her diabetes. 1230 ultrasound negative for DVT. Patient requesting discharge, as she has a [place]. States her leg and arm feel better, just "feel swollen" Will have her take additional Lasix 20 mg today (already took 40 mg) and take 60mg tomorrow, then resume 40 mg daily. Discharge instructions and return precautions reviewed. Diagnostic Imaging Diagonstic Imaging: Ultrasound Comments NAME: EB HOLLEY [facility] REC#: [id number] PHYSICIAN: DARION SILVA CC: DARION SILVA; JESSICA SIMPSON MD Page 1 of 1 RADIOLOGY REPORT [facility] [place] [place] CC: DARION SILVA; JESSICA SIMPSON MD Page 1 of 1 RADIOLOGY REPORT NAME: EB HOLLEY [facility] REC#: [id number] PT STATUS: REG ER : 1950 PHYSICIAN: DARION SILVA ADMIT DATE: 02/05/19/ER Signed Date of Exam: 02/05/19 US VENOUS LOWER EXT RT INDICATION: Right leg pain. Right leg venous Doppler study was performed in the routine fashion with color flow Doppler and waveform analysis. FINDINGS: The right common femoral vein, superficial femoral vein, popliteal vein and visualized portion of the tibial veins show normal compressibility and venous flow patterns. There is normal augmentation. IMPRESSION: No evidence of deep vein thrombosis of the major veins of the right leg. Dictated by: Dictated on workstation # [id number] Dict: 02/05/19 1211 Trans: 02/05/19 1211 Interpreted by: JESSICA SIMPSON MD Electronically signed by: JESSICA SIMPSON MD 02/05/19 121 Reviewed: Reviewed/Discussed Departure Impression Primary Impression: Right leg paresthesias Additional Impression: Type II diabetes mellitus Qualified Codes: E11.9 - Type 2 diabetes mellitus without complications Disposition: HOME, SELF-CARE Condition: Improved Departure-Patient Inst. Decision time for Depature: 12:40 Referrals: BEE CHEATHAM DO (PCP/Family) Primary Care Physician Patient Instructions: Diabetic Neuropathy (DC) Add. Discharge Instructions: Take 60 mg of Lasix today and tomorrow and then resume her 40 mg daily. Get up and walk for 5-10 minutes every hour while awake. Elevate your legs when feeling they are swollen. Follow-up with Dr. Cheatham if symptoms are not improving or worsen. Return to emergency department for new, urgent health care needs. All discharge instructions reviewed with patient and/or family. Voiced understanding. DARION SILVA February 05, 2019 11:38
--- NOTE | 2019-02-05 12:14 | Diagnostic Imaging Report ---
INDICATION: Right leg pain. Right leg venous Doppler study was performed in the routine fashion with color flow Doppler and waveform analysis. FINDINGS: The right common femoral vein, superficial femoral vein, popliteal vein and visualized portion of the tibial veins show normal compressibility and venous flow patterns. There is normal augmentation. IMPRESSION: No evidence of deep vein thrombosis of the major veins of the right leg. Dictated by: Dictated on workstation # [id number]
[2019-02-05 13:01] VITALS: BP 155/80
== END 2019-02-05 13:01 | disposition home or self-care (01) ==
LOC: EDUNIT# 10:43 → ER 10:44
DX: R20.2 Paresthesia of skin (principal); E11.9 Type 2 diabetes mellitus without complications; J44.9 Chronic obstructive pulmonary disease, unspecified; G47.30 Sleep apnea, unspecified; I25.10 Atherosclerotic heart disease of native coronary artery without angina pectoris; I10 Essential (primary) hypertension; K21.9 Gastro-esophageal reflux disease without esophagitis; F41.9 Anxiety disorder, unspecified; F32.9 Major depressive disorder, single episode, unspecified; D64.9 Anemia, unspecified; E78.00 Pure hypercholesterolemia, unspecified; Z88.1 Allergy status to other antibiotic agents; Z87.448 Personal history of other diseases of urinary system; Z92.21 Personal history of antineoplastic chemotherapy; Z85.3 Personal history of malignant neoplasm of breast; Z87.19 Personal history of other diseases of the digestive system; Z79.4 Long term (current) use of insulin; Z87.891 Personal history of nicotine dependence; Z90.89 Acquired absence of other organs
CPT/HCPCS: 82962

== ENCOUNTER 2019-03-06 12:37 | Outpatient (RCR) | payer MEDICARE, OTHER ==
[2019-03-06 13:12] LABS: BASOPHILS % (AUTO) 0 % (0-10); EOSINOPHILS # (AUTO) 0.5 10^3/uL (0.0-0.3); EOSINOPHILS % (AUTO) 6 % (0-10); HEMATOCRIT 34 % (35-52); HEMOGLOBIN 10.8 G/DL (11.5-16.0); LYMPHOCYTES # (AUTO) 2.2 X 10^3 (1.0-4.0); LYMPHOCYTES % (AUTO) 24 % (12-44); MEAN CORPUSCULAR HEMOGLOBIN 28 PG (25-34); MEAN CORPUSCULAR HGB CONC 32 G/DL (32-36); MEAN CORPUSCULAR VOLUME 88 FL (80-99); MEAN PLATELET VOLUME 9.4 FL (7.4-10.4); MONOCYTES # (AUTO) 0.6 X 10^3 (0.0-1.0); MONOCYTES % (AUTO) 7 % (0-12); NEUTROPHILS % (AUTO) 64 % (42-75); PLATELET COUNT 382 10^3/uL (130-400); RED CELL DISTRIBUTION WIDTH 15.5 % (10.0-14.5); WHITE BLOOD COUNT 9.4 10^3/uL (4.3-11.0)
[2019-03-06 13:32] LABS: ALANINE AMINOTRANSFERASE 15 U/L (0-55); ALBUMIN 4.1 GM/DL (3.2-4.5); ALKALINE PHOSPHATASE 112 U/L (40-136); BILIRUBIN,TOTAL 0.2 MG/DL (0.1-1.0); BUN/CREATININE RATIO 24; CALCIUM 9.2 MG/DL (8.5-10.1); CARBON DIOXIDE 24 MMOL/L (21-32); CHLORIDE 103 MMOL/L (98-107); CREATININE SERUM 0.91 MG/DL (0.60-1.30); GFR ESTIMATED > 60; GLUCOSE 100 MG/DL (70-105); POTASSIUM 4.2 MMOL/L (3.6-5.0); SODIUM 139 MMOL/L (135-145); TOTAL PROTEIN 6.9 GM/DL (6.4-8.2)
== END 2019-04-09 | disposition home or self-care (01) ==
LOC: ONC 12:37
PROVIDERS: ATTEND Internal Medicine Hematology & Oncology
DX: Z09 Encounter for follow-up examination after completed treatment for conditions other than malignant neoplasm (principal); Z86.000 Personal history of in-situ neoplasm of breast; D64.9 Anemia, unspecified; D47.3 Essential (hemorrhagic) thrombocythemia; E11.9 Type 2 diabetes mellitus without complications; I25.10 Atherosclerotic heart disease of native coronary artery without angina pectoris; I10 Essential (primary) hypertension; E78.5 Hyperlipidemia, unspecified; E66.01 Morbid (severe) obesity due to excess calories; Z68.42 Body mass index [BMI] 45.0-49.9, adult; Z92.3 Personal history of irradiation; Z79.84 Long term (current) use of oral hypoglycemic drugs; Z79.899 Other long term (current) drug therapy
CPT/HCPCS: 36415; 80053; 82728; 83540; 85025; 99213

== ENCOUNTER → 2019-03-18 | Outpatient (CLI) | payer MEDICARE, OTHER ==
--- NOTE | 2019-03-18 11:24 | Diagnostic Imaging Report ---
Indication: Routine screening. Comparison is made with prior mammogram from 03/16/2018 and 02/22/2017. 2-D and 3-D bilateral screening mammography was performed with CAD. Scattered fibroglandular densities are identified bilaterally. Post lumpectomy changes in the left breast are again noted. Benign nodular densities right breast are stable. There are scattered benign calcifications bilaterally. No new mass or malignant appearing microcalcifications are seen. The axillae are unremarkable. Surgical clips left axilla is noted. Impression: BI-RADS category 2 No mammographic features suspicious for malignancy are identified. ACR BI-RADS Category 2: Benign findings. Result letter will be mailed to the patient. Note: At least 10% of breast cancer is not imaged by mammography. Dictated by: Dictated on workstation # [id number]
== END ==
LOC: RAD 09:38
PROVIDERS: ATTEND Internal Medicine Hematology & Oncology
DX: Z12.31 Encounter for screening mammogram for malignant neoplasm of breast (principal); Z98.890 Other specified postprocedural states
CPT/HCPCS: 77067

== ENCOUNTER 2019-07-16 12:59 | Outpatient (RCR) | payer MEDICARE, OTHER ==
[2019-05-20 13:27] LABS: BASOPHILS # (AUTO) 0.1 10^3/uL (0.0-0.1); BASOPHILS % (AUTO) 1 % (0-10); EOSINOPHILS # (AUTO) 0.6 10^3/uL (0.0-0.3); EOSINOPHILS % (AUTO) 7 % (0-10); HEMATOCRIT 36 % (35-52); HEMOGLOBIN 11.4 G/DL (11.5-16.0); LYMPHOCYTES # (AUTO) 2.1 X 10^3 (1.0-4.0); LYMPHOCYTES % (AUTO) 22 % (12-44); MEAN CORPUSCULAR HEMOGLOBIN 27 PG (25-34); MEAN CORPUSCULAR HGB CONC 32 G/DL (32-36); MEAN CORPUSCULAR VOLUME 85 FL (80-99); MEAN PLATELET VOLUME 9.2 FL (7.4-10.4); MONOCYTES # (AUTO) 0.7 X 10^3 (0.0-1.0); MONOCYTES % (AUTO) 7 % (0-12); NEUTROPHILS # (AUTO) 6.4 X 10^3 (1.8-7.8); NEUTROPHILS % (AUTO) 65 % (42-75); PLATELET COUNT 419 10^3/uL (130-400); RED CELL DISTRIBUTION WIDTH 14.3 % (10.0-14.5); WHITE BLOOD COUNT 9.9 10^3/uL (4.3-11.0)
[2019-05-20 13:45] LABS: ALBUMIN 4.2 GM/DL (3.2-4.5); BILIRUBIN,TOTAL 0.4 MG/DL (0.1-1.0); CALCIUM 9.4 MG/DL (8.5-10.1); CREATININE SERUM 0.93 MG/DL (0.60-1.30); TOTAL PROTEIN 7.3 GM/DL (6.4-8.2)
[~2019-07-16 12:59] MED LIST changes: -DULO60CA58 PO; +DULO60CA59 PO
[2019-07-16 13:30] LABS: BASOPHILS # (AUTO) 0.1 10^3/uL (0.0-0.1); BASOPHILS % (AUTO) 0 % (0-10); EOSINOPHILS # (AUTO) 0.6 10^3/uL (0.0-0.3); EOSINOPHILS % (AUTO) 5 % (0-10); HEMATOCRIT 35 % (35-52); HEMOGLOBIN 11.3 G/DL (11.5-16.0); LYMPHOCYTES # (AUTO) 2.7 X 10^3 (1.0-4.0); LYMPHOCYTES % (AUTO) 23 % (12-44); MEAN CORPUSCULAR HEMOGLOBIN 28 PG (25-34); MEAN CORPUSCULAR HGB CONC 32 G/DL (32-36); MEAN CORPUSCULAR VOLUME 86 FL (80-99); MEAN PLATELET VOLUME 9.4 FL (7.4-10.4); MONOCYTES # (AUTO) 0.7 X 10^3 (0.0-1.0); MONOCYTES % (AUTO) 6 % (0-12); NEUTROPHILS # (AUTO) 7.6 X 10^3 (1.8-7.8); NEUTROPHILS % (AUTO) 65 % (42-75); PLATELET COUNT 430 10^3/uL (130-400); WHITE BLOOD COUNT 11.6 10^3/uL (4.3-11.0)
[2019-07-16 13:59] LABS: ALBUMIN 4.4 GM/DL (3.2-4.5); BILIRUBIN,TOTAL 0.4 MG/DL (0.1-1.0); CALCIUM 9.7 MG/DL (8.5-10.1); CREATININE SERUM 0.98 MG/DL (0.60-1.30); POTASSIUM 4.1 MMOL/L (3.6-5.0); TOTAL PROTEIN 7.3 GM/DL (6.4-8.2)
== END 2019-08-18 | disposition home or self-care (01) ==
LOC: ONC 12:59
PROVIDERS: ATTEND Internal Medicine Hematology & Oncology
DX: Z09 Encounter for follow-up examination after completed treatment for conditions other than malignant neoplasm (principal); Z86.000 Personal history of in-situ neoplasm of breast; D64.9 Anemia, unspecified; D47.3 Essential (hemorrhagic) thrombocythemia; E11.9 Type 2 diabetes mellitus without complications; I25.10 Atherosclerotic heart disease of native coronary artery without angina pectoris; I10 Essential (primary) hypertension; E78.5 Hyperlipidemia, unspecified; E66.01 Morbid (severe) obesity due to excess calories; Z68.42 Body mass index [BMI] 45.0-49.9, adult; Z92.3 Personal history of irradiation; Z79.84 Long term (current) use of oral hypoglycemic drugs; Z79.899 Other long term (current) drug therapy
CPT/HCPCS: 36415; 80053; 82728; 83540; 84443; 85025; 99213

== ENCOUNTER → 2020-03-19 | Outpatient (CLI) | payer MEDICARE, OTHER ==
[~2020-03-19] MED LIST changes: -METO-387 PO; -MONT10TA24 PO; +MONT10TA26 PO; +MTP25TSR PO; +OMEP40CA27 PO; -OMEP40CA36 PO
--- NOTE | 2020-03-19 19:06 | Diagnostic Imaging Report ---
INDICATION: Routine screening. COMPARISON: Prior mammogram from 03/18/2019 and 03/16/2018. EXAMINATION: 2D and 3D bilateral screening mammography was performed with CAD. FINDINGS: Both breasts remain heterogeneously dense, limiting the sensitivity of mammography. Circumscribed nodular densities in the right breast appear stable. There are postlumpectomy changes in the outer left breast, stable. Scattered benign calcifications in both breasts are seen. No malignant appearing microcalcifications are identified. There are surgical clips in left axilla. IMPRESSION: No mammographic features suspicious for malignancy are identified. ACR BI-RADS Category 2: Benign findings. Result letter will be mailed to the patient. Note: At least 10% of breast cancer is not imaged by mammography. Dictated by: Dictated on workstation # [id number]
== END ==
LOC: RAD 09:53
PROVIDERS: ATTEND Internal Medicine
DX: Z12.31 Encounter for screening mammogram for malignant neoplasm of breast (principal)
CPT/HCPCS: 77063; 77067

== ENCOUNTER 2020-03-23 11:29 | Outpatient (CLI) | payer MEDICARE, OTHER | END 2020-03-23 11:55 | disposition home or self-care (01) | LOC: SLEEP 11:29 | PROVIDERS: ATTEND Nurse Practitioner Family | DX: G47.33 Obstructive sleep apnea (adult) (pediatric) (principal); J45.909 Unspecified asthma, uncomplicated; E66.01 Morbid (severe) obesity due to excess calories ==

== ENCOUNTER → 2020-03-25 | Outpatient (CLI) | payer MEDICARE, OTHER ==
[2020-03-25 14:11] LABS: BASOPHILS % (AUTO) 0 % (0-10); EOSINOPHILS # (AUTO) 0.5 10^3/uL (0.0-0.3); EOSINOPHILS % (AUTO) 4 % (0-10); HEMATOCRIT 35 % (35-52); HEMOGLOBIN 11.2 G/DL (11.5-16.0); LYMPHOCYTES # (AUTO) 2.8 X 10^3 (1.0-4.0); LYMPHOCYTES % (AUTO) 23 % (12-44); MEAN CORPUSCULAR HEMOGLOBIN 29 PG (25-34); MEAN CORPUSCULAR HGB CONC 32 G/DL (32-36); MEAN CORPUSCULAR VOLUME 89 FL (80-99); MONOCYTES % (AUTO) 8 % (0-12); NEUTROPHILS % (AUTO) 64 % (42-75); PLATELET COUNT 443 10^3/uL (130-400); RED CELL DISTRIBUTION WIDTH 15.1 % (10.0-14.5); WHITE BLOOD COUNT 12.4 10^3/uL (4.3-11.0)
[2020-03-25 14:32] LABS: ALBUMIN 4.1 GM/DL (3.2-4.5); BILIRUBIN,TOTAL 0.3 MG/DL (0.1-1.0); CALCIUM 9.6 MG/DL (8.5-10.1); CREATININE SERUM 0.96 MG/DL (0.60-1.30); POTASSIUM 4.5 MMOL/L (3.6-5.0); TOTAL PROTEIN 7.1 GM/DL (6.4-8.2)
== END ==
LOC: EDSTATUS 08-19 10:51 → ONC 15:04
PROVIDERS: ATTEND Internal Medicine Hematology & Oncology
DX: Z09 Encounter for follow-up examination after completed treatment for conditions other than malignant neoplasm (principal); Z86.000 Personal history of in-situ neoplasm of breast; D47.3 Essential (hemorrhagic) thrombocythemia; E11.9 Type 2 diabetes mellitus without complications; I25.10 Atherosclerotic heart disease of native coronary artery without angina pectoris; E78.5 Hyperlipidemia, unspecified; E66.01 Morbid (severe) obesity due to excess calories; Z68.42 Body mass index [BMI] 45.0-49.9, adult; Z92.3 Personal history of irradiation; Z79.84 Long term (current) use of oral hypoglycemic drugs; Z79.899 Other long term (current) drug therapy
CPT/HCPCS: 80053; 82728; 83540; 85025; G0463; 99213

== ENCOUNTER → 2020-04-20 | Outpatient (CLI) | payer MEDICARE, OTHER | LOC: CARD 13:58 | PROVIDERS: ATTEND Internal Medicine Cardiovascular Disease | DX: I25.10 Atherosclerotic heart disease of native coronary artery without angina pectoris (principal); I10 Essential (primary) hypertension; E78.2 Mixed hyperlipidemia; G47.33 Obstructive sleep apnea (adult) (pediatric); E11.9 Type 2 diabetes mellitus without complications | CPT/HCPCS: 93306 ==

== ENCOUNTER 2020-06-07 11:42 | Emergency (ER) | payer MEDICARE, OTHER ==
[~2020-06-07] VITALS: Ht 157 cm; Wt 129.0 kg
[~2020-06-07 11:42] MED LIST changes: +ASPI-1238 PO; -ASPI-983 PO
--- NOTE | 2020-06-07 11:53 | ED Fall/Injury ---
General Stated Complaint: FALL - HEAD LAC Source: patient, spouse Exam Limitations: no limitations History of Present Illness Date Seen by Provider: Jun 07, 2020 Time Seen by Provider: 11:39 Initial Comments Patient presents to ER by private conveyance from home with chief complaint that she had a fall just prior to arrival. She tripped over a brick. She does not think she lost consciousness. She struck the back of her head quite hard. She is on aspirin but no blood thinners. She's not having any weakness numbness dysuria cough shortness of breath. She has asthma at baseline and follows with Dr. Cheatham. She does not feel like her asthma is [id number]-[id number] this time. She has diabetes on metformin. Her last tetanus vaccination was greater than 5 years ago. Allergies and Home Medications Allergies Coded Allergies: Cephalosporins (Verified Allergy, Mild, 11/28/17) Home Medications Albuterol Sulfate 2.5 Mg/3 Ml Vial.neb, 2.5 MG NEB BID PRN for SHORTNESS OF BREATH, (Reported) Atorvastatin Calcium 40 Mg Tablet, 40 MG PO HS, (Reported) Duloxetine HCl 60 Mg Capsule.dr, 60 MG PO DAILY, (Reported) Ferrous Sulfate 325 Mg Tablet.dr, 325 MG PO BID, (Reported) Furosemide 40 Mg Tablet, 40 MG PO DAILY, (Reported) Glyburide 1.25 Mg Tablet, 1.25 MG PO DAILY, (Reported) Levothyroxine Sodium 50 Mcg Tablet, 50 MCG PO DAILY, (Reported) Lisinopril 20 Mg Tablet, 20 MG PO DAILY Prescribed by: BEE CHEATHAM on 12/03/17 1135 Metoprolol Succinate 25 Mg Tab.er.24h, 25 MG PO DAILY, (Reported) Montelukast Sodium 10 Mg Tablet, 10 MG PO DAILY, (Reported) Omeprazole 40 Mg Capsule.dr, 40 MG PO DAILY, (Reported) Patient Home Medication List Home Medication List Reviewed: Yes Review of Systems Review of Systems Constitutional: No chills, No diaphoresis Eyes: Denies Blindness, Denies Blurred Vision Ears, Nose, Mouth, Throat: denies ear pain, denies ear discharge Respiratory: No cough, No short of breath Cardiovascular: No chest pain, No edema Gastrointestinal: No abdominal pain, No nausea Genitourinary: No discharge, No dysuria Musculoskeletal: No back pain, No joint pain, No neck pain Skin: No pruritus, No rash All Other Systems Reviewed Negative Unless Noted: Yes Past Wdgmkql-Dcqcec-Ancfaf Hx Patient Social History Alcohol Use: Occasionally Uses Alcohol Beverage of Choice: Whiskey Recreational Drug Use: No Smoking Status: Former Smoker Type Used: Cigarettes Former Smoker, Quit: Nov 28, 1999 Recent Foreign Travel: No Contact w/Someone Who Travel: No Recent Hopitalizations: No Immunizations Up To Date Date of Pneumonia Vaccine: Oct 28, 2017 Date of Influenza Vaccine: Aug 02, 2017 Seasonal Allergies Seasonal Allergies: Yes Past Medical History Surgeries: No (fistula repair, toenails removed) Breast, Tonsillectomy Respiratory: Yes Asthma, Chronic Bronchitis, Sleep Apnea Currently Using CPAP: Yes Currently Using BIPAP: No Cardiac: Yes (HEART MURMUR, CAD) Coronary Artery Disease, High Cholesterol, Hypertension Neurological: No Reproductive Disorders: No Sexually Transmitted Disease: No Genitourinary: Yes Bladder Infection Gastrointestinal: Yes Gastroesophageal Reflux, Hemorrhoids Musculoskeletal: Yes Degenerate Disk Disease, Arthritis Endocrine: Yes Diabetes, Non-Insulin dep HEENT: No Cancer: Yes Breast Did You Recieve Any Treatments: Yes What Type of Treatment Did You: Radiation, Surgical Intervention Psychosocial: Yes Anxiety, Depression Integumentary: No Blood Disorders: Yes (anemia) Family Medical History Patient reports no known family medical history. Physical Exam Vital Signs Vital Signs - First Documented 06/07/20 11:45 Temp 37.0 Pulse 70 Resp 16 B/P (MAP) 194/96 (128) Pulse Ox 91 O2 Delivery Room Air Capillary Refill : Height, Weight, BMI Height: 5'2.00" Weight: 270lbs. 0.0oz. 122.329165uk; 49.2 BMI Method:Stated General Appearance: mild distress, obese HEENT: PERRL/EOMI, normal ENT inspection, TMs normal, pharynx normal, other (5 cm hematoma over the left occiput.) Neck: non-tender, full range of motion, supple, normal inspection Cardiovascular: normal peripheral pulses, regular rate, rhythm Respiratory: lungs clear, normal breath sounds, no respiratory distress, no accessory muscle use Peripheral Pulses: 2+ Radial Pulses (R), 2+ Radial Pulses (L) Gastrointestinal: normal bowel sounds, non tender, soft Extremities: normal range of motion, non-tender, normal capillary refill Neurologic/Psychiatric: alert, normal mood/affect, oriented x 3 Ilda Coma Score Best Eye Response: (4) Open Spontaneously Best Verbal Response: (5) Oriented Best Motor Response: (6) Obeys Commands Lucinda Total: 15 Procedures/Interventions Wound Location: Scalp Other Wound Location Left occiput Wound Length (cm): 4 Wound's Depth, Shape: superficial, linear Wound Explored: no foreign body removed Irrigated w/ Saline (ccs): 250 Betadine Prep?: Yes (chlorhexidine and sterile saline) Anesthesia: Lidocaine w/ Epi (2%) Volume Anesthetic (ccs): 5 Wound Debrided: minimal Staple Repair: Stapler 35W Number of Sutures: 9 Progress/Results/Core Measures Results/Orders Lab Results Laboratory Tests Test 06/07/20 11:55 Range/Units White Blood Count 10.0 4.3-11.0 10^3/uL Red Blood Count 3.48 L 4.35-5.85 10^6/uL Hemoglobin 9.9 L 11.5-16.0 G/DL Hematocrit 31 L 35-52 % Mean Corpuscular Volume 89 80-99 FL Mean Corpuscular Hemoglobin 28 25-34 PG Mean Corpuscular Hemoglobin Concent 32 32-36 G/DL Red Cell Distribution Width 14.9 H 10.0-14.5 % Platelet Count 391 130-400 10^3/uL Mean Platelet Volume 9.2 7.4-10.4 FL Neutrophils (%) (Auto) 68 42-75 % Lymphocytes (%) (Auto) 20 12-44 % Monocytes (%) (Auto) 6 0-12 % Eosinophils (%) (Auto) 6 0-10 % Basophils (%) (Auto) 0 0-10 % Neutrophils # (Auto) 6.8 1.8-7.8 X 10^3 Lymphocytes # (Auto) 2.0 1.0-4.0 X 10^3 Monocytes # (Auto) 0.6 0.0-1.0 X 10^3 Eosinophils # (Auto) 0.6 H 0.0-0.3 10^3/uL Basophils # (Auto) 0.0 0.0-0.1 10^3/uL Sodium Level 136 135-145 MMOL/L Potassium Level 4.5 3.6-5.0 MMOL/L Chloride Level 102 98-107 MMOL/L Carbon Dioxide Level 22 21-32 MMOL/L Anion Gap 12 5-14 MMOL/L Blood Urea Nitrogen 23 H 7-18 MG/DL Creatinine 0.94 0.60-1.30 MG/DL Estimat Glomerular Filtration Rate 59 BUN/Creatinine Ratio 24 Glucose Level 139 H 70-105 MG/DL Calcium Level 8.8 8.5-10.1 MG/DL Corrected Calcium 8.9 8.5-10.1 MG/DL Total Bilirubin 0.3 0.1-1.0 MG/DL Aspartate Amino Transf (AST/SGOT) 13 5-34 U/L Alanine Aminotransferase (ALT/SGPT) 15 0-55 U/L Alkaline Phosphatase 88 40-136 U/L Total Protein 6.6 6.4-8.2 GM/DL Albumin 3.9 3.2-4.5 GM/DL My Orders Orders - EDE SCHULER Ct Head/Cervical Spine Wo (06/07/20 11:48) Cbc With Automated Diff (06/07/20 11:48) Comprehensive Metabolic Panel (06/07/20 11:48) Dipht,Pertuss(Acell),Tet Adult (Boostrix (06/07/20 14:30) Lidocaine/Epi 2% 1:100,000 (Xylocaine/Ep (06/07/20 15:15) Lidocaine/Epi 2% 1:100,000 (Xylocaine/Ep (06/07/20 15:07) Vital Signs/I&O 06/07/20 11:45 Temp 37.0 Pulse 70 Resp 16 B/P (MAP) 194/96 (128) Pulse Ox 91 O2 Delivery Room Air Progress Progress Note : Time: 11:52 Progress Note Tetanus vaccine. CT of the head and C-spine. Plan to clean up her wound and close it as necessary. We'll check some basic labs to look at her hemoglobin since her concern is that she has lost a lot of blood. Diagnostic Imaging Diagonstic Imaging: CT Plain Films/CT/US/NM/MRI: c-spine, head Comments NAME: EB HOLLEY [facility] REC#: [id number] PT STATUS: REG ER : 1950 PHYSICIAN: EDE SCHULER MD ADMIT DATE: 06/07/20/ER Signed Date of Exam:09/06/20 CT HEAD/CERVICAL SPINE WO PROCEDURE: CT head and CT cervical spine without contrast. TECHNIQUE: Multiple contiguous axial images were obtained through the brain and cervical spine without the use of intravenous contrast. Sagittal and coronal reformations through the cervical spine were then performed. Auto Exposure Controls were utilized during the CT exam to meet ALARA standards for radiation dose reduction. INDICATION: Fell and hit head. Scalp contusion. Neck pain. COMPARISON: 02/14/2013. FINDINGS: CT head: No large acute territorial ischemia, mass, or hemorrhage. No midline shift or mass effect. Decreased attenuation is seen in the periventricular and subcortical white matter. The ventricles and cortical sulci are prominent. The basilar cisterns are patent and unremarkable. The calvarium is intact. Scalp contusion is noted overlying the left parietal region. The visualized paranasal sinuses are clear. CT cervical spine: No acute fracture or dislocation is seen in the cervical spine. No focal osseous lesions. Osseous fusion of the posterior elements on the left are noted at C2-C3. Vertebral body heights are well-maintained. The craniocervical junction is well-maintained. Xemi-pr-zhzxrqwh degenerative changes are seen in the cervical spine with disc osteophyte complexes and uncovertebral arthropathy. Soft tissues of the neck are unremarkable. IMPRESSION: 1. No hemorrhage or focal intra-axial mass. No CT evidence of large acute territorial ischemia. 2. No acute fracture or dislocation in the cervical spine. 3. Generalized parenchymal volume loss with chronic microvascular disease. 4. Scalp contusion overlying the left parietal region. No underlying calvarial fracture. Dictated by: Dictated on workstation # [id number] Dict: 06/07/20 1228 Trans: 06/07/20 1234 [facility] [id number] Interpreted by: BRIANDA RAM DO Electronically signed by: BRIANDA RAM DO 06/07/20 1234 Reviewed: Reviewed by Me Departure Impression Primary Impression: Fall Qualified Codes: W19.XXXA - Unspecified fall, initial encounter Additional Impressions: Laceration of head Qualified Codes: S01.01XA - Laceration without foreign body of scalp, initial encounter Stapled skin wound Brain concussion Qualified Codes: S06.0X0A - Concussion without loss of consciousness, in itial encounter Disposition: HOME, SELF-CARE Condition: Stable Departure-Patient Inst. Decision time for Depature: 15:20 Referrals: BEE CHEATHAM DO (PCP/Family) Primary Care Physician Patient Instructions: Concussion in Adults, Laceration Repair With [place] (DC) Add. Discharge Instructions: Keep wound clean with regular soap and water. Shampoo is okay. If it starts to bleed apply direct pressure to it for 20 minutes. If he cannot get it to stop you may return to the ER. Return to have the jose out in 7 days. Ice applied directly to the head for the first couple days for swelling. Low stimuli environment for the first couple days. If you start to have headache, nausea, unsteady gait or irritability this is a sign or concussion is getting worse then you need to get sleep. Tylenol 1000 g every 8 hours as necessary for headache. Ondansetron one tablet every 6 hours as necessary for nausea or vomiting. Scripts Ondansetron (Ondansetron Odt) 4 Mg Tab.rapdis 4 MG PO Q6H PRN for NAUSEA/VOMITING, #8 TAB 0 Refills Prov: EDE SCHULER 06/07/20 EDE SCHULER Jun 07, 2020 11:53
[2020-06-07 12:02] LABS: BASOPHILS % (AUTO) 0 % (0-10); EOSINOPHILS # (AUTO) 0.6 10^3/uL (0.0-0.3); EOSINOPHILS % (AUTO) 6 % (0-10); HEMATOCRIT 31 % (35-52); HEMOGLOBIN 9.9 G/DL (11.5-16.0); LYMPHOCYTES % (AUTO) 20 % (12-44); MEAN CORPUSCULAR HEMOGLOBIN 28 PG (25-34); MEAN CORPUSCULAR HGB CONC 32 G/DL (32-36); MEAN CORPUSCULAR VOLUME 89 FL (80-99); MEAN PLATELET VOLUME 9.2 FL (7.4-10.4); MONOCYTES # (AUTO) 0.6 X 10^3 (0.0-1.0); MONOCYTES % (AUTO) 6 % (0-12); NEUTROPHILS # (AUTO) 6.8 X 10^3 (1.8-7.8); NEUTROPHILS % (AUTO) 68 % (42-75); PLATELET COUNT 391 10^3/uL (130-400)
[2020-06-07 12:08] LABS: ALBUMIN 3.9 GM/DL (3.2-4.5)
[2020-06-07 12:09] LABS: POTASSIUM 4.5 MMOL/L (3.6-5.0)
[2020-06-07 12:10] LABS: CALCIUM 8.8 MG/DL (8.5-10.1)
[2020-06-07 12:11] LABS: TOTAL PROTEIN 6.6 GM/DL (6.4-8.2)
[2020-06-07 12:13] LABS: BILIRUBIN,TOTAL 0.3 MG/DL (0.1-1.0)
[2020-06-07 12:15] LABS: CREATININE SERUM 0.94 MG/DL (0.60-1.30)
--- NOTE | 2020-06-07 12:33 | Diagnostic Imaging Report ---
PROCEDURE: CT head and CT cervical spine without contrast. TECHNIQUE: Multiple contiguous axial images were obtained through the brain and cervical spine without the use of intravenous contrast. Sagittal and coronal reformations through the cervical spine were then performed. Auto Exposure Controls were utilized during the CT exam to meet ALARA standards for radiation dose reduction. INDICATION: Fell and hit head. Scalp contusion. Neck pain. COMPARISON: 02/14/2013. FINDINGS: CT head: No large acute territorial ischemia, mass, or hemorrhage. No midline shift or mass effect. Decreased attenuation is seen in the periventricular and subcortical white matter. The ventricles and cortical sulci are prominent. The basilar cisterns are patent and unremarkable. The calvarium is intact. Scalp contusion is noted overlying the left parietal region. The visualized paranasal sinuses are clear. CT cervical spine: No acute fracture or dislocation is seen in the cervical spine. No focal osseous lesions. Osseous fusion of the posterior elements on the left are noted at C2-C3. Vertebral body heights are well-maintained. The craniocervical junction is well-maintained. Eeiw-ux-zplwfprm degenerative changes are seen in the cervical spine with disc osteophyte complexes and uncovertebral arthropathy. Soft tissues of the neck are unremarkable. IMPRESSION: 1. No hemorrhage or focal intra-axial mass. No CT evidence of large acute territorial ischemia. 2. No acute fracture or dislocation in the cervical spine. 3. Generalized parenchymal volume loss with chronic microvascular disease. 4. Scalp contusion overlying the left parietal region. No underlying calvarial fracture. Dictated by: Dictated on workstation # [id number]
--- NOTE | 2020-06-07 13:44 | NUR ---
PT UP TO BATHROOM ET AMBULATED WITHOUT DIFFICULTY. NOTIFIED DR WOULD BE IN SOON HE COULD.
[2020-06-07] MEDS ORDERED: TETANUS,DIPTH,PERTUSS P/F (BOOSTRIX) 0.5 ML VIAL IM ONE (14:30)
--- NOTE | 2020-06-07 14:54 | NUR ---
IN TALKING TO THE PT AT THIS TIME.
[2020-06-07] MEDS ORDERED: LIDOCAINE/EPI 2% 1:100,00 (XYLOCAINE) 20 ML VIAL ONE (15:07)
[2020-06-07] MEDS ORDERED: LIDOCAINE/EPI 2% 1:100,00 (XYLOCAINE) 20 ML VIAL INJ ONE (15:15)
[2020-06-07] MEDS ORDERED: ONDA4TAB11 PO (15:22)
[2020-06-07 15:39] VITALS: BP 114/59
== END 2020-06-07 15:39 | disposition home or self-care (01) ==
LOC: EDUNIT# 11:42 → ER 11:43
DX: S06.0X0A Concussion without loss of consciousness, initial encounter (principal); S01.01XA Laceration without foreign body of scalp, initial encounter; E11.9 Type 2 diabetes mellitus without complications; I10 Essential (primary) hypertension; J45.909 Unspecified asthma, uncomplicated; E78.00 Pure hypercholesterolemia, unspecified; I25.10 Atherosclerotic heart disease of native coronary artery without angina pectoris; K21.9 Gastro-esophageal reflux disease without esophagitis; D64.9 Anemia, unspecified; F41.9 Anxiety disorder, unspecified; F32.9 Major depressive disorder, single episode, unspecified; Z88.1 Allergy status to other antibiotic agents; Z79.82 Long term (current) use of aspirin; Z23 Encounter for immunization; Z87.891 Personal history of nicotine dependence; Z85.3 Personal history of malignant neoplasm of breast; Z79.84 Long term (current) use of oral hypoglycemic drugs; W01.10XA Fall on same level from slipping, tripping and stumbling with subsequent striking against unspecified object, initial encounter
CPT/HCPCS: 36415; 70450; 72125; 80053; 85025; 90715

== ENCOUNTER 2020-06-13 18:31 | Emergency (ER) | payer MEDICARE, OTHER ==
[~2020-06-13] VITALS: Ht 157 cm; Wt 129.0 kg
[~2020-06-13 18:31] MED LIST changes: +ONDA4TAB11 PO
[2020-06-13 18:58] VITALS: BP 213/81
== END 2020-06-13 19:08 | disposition home or self-care (01) ==
LOC: EDUNIT# 18:31 → ER 18:32
DX: S01.91XD Laceration without foreign body of unspecified part of head, subsequent encounter (principal); X58.XXXD Exposure to other specified factors, subsequent encounter

== ENCOUNTER 2020-10-28 14:15 | Outpatient (RCR) | payer MEDICARE, OTHER ==
[~2020-10-28 14:15] MED LIST changes: +ALPR.25T PO; -ALPR0.254 PO; -MONT10TA26 PO; +MONT10TA97 PO
== END 2020-10-28 16:00 | disposition home or self-care (01) ==
PROVIDERS: ATTEND Internal Medicine
DX: I89.0 Lymphedema, not elsewhere classified (principal)

== ENCOUNTER → 2020-11-30 | Outpatient (CLI) | payer MEDICARE, OTHER ==
[~2020-11-30] MED LIST changes: -LISI-552 PO; -LISI10TA2 PO; +LISI10TA25 PO; +LISI20TA26 PO; +MONT10TA32 PO; -MONT10TA97 PO; +RT-ALBUTEROL SULF 2.5 MG/3 ML PRE-MIX VIAL INH ONE
== END ==
LOC: RT 12:59
PROVIDERS: ATTEND Nurse Practitioner Family
DX: J45.909 Unspecified asthma, uncomplicated (principal)
CPT/HCPCS: 94060; 94726; 94729

== ENCOUNTER → 2020-12-10 | Outpatient (CLI) | payer MEDICARE, OTHER ==
[~2020-12-10] MED LIST changes: +CATHETER FLUSH 10 ML SYR IV PRN; +HOLD METFORMIN - RECEIVED CONTRAST 20 ML VIAL IV SCH; +IOHEXOL 350 MG/ML 100 ML (OMNIPAQUE 350) VIAL IV ONE; +NS 100 ML (IVPB) BAG IV ONE; -RT-ALBUTEROL SULF 2.5 MG/3 ML PRE-MIX VIAL INH ONE
--- NOTE | 2020-12-10 17:32 | Diagnostic Imaging Report ---
PROCEDURE: US Venous Lower Ext John. TECHNIQUE: Multiple real-time grayscale images were obtained over the lower extremities in various projections, bilaterally. Additional duplex Doppler and color Doppler images were also obtained. INDICATION: Bilateral lower extremity swelling. FINDINGS: There is no evidence of right or left lower extremity DVT. Both lower extremity deep venous systems show normal compressibility with normal response to augmentation and Valsalva. No fluid collection or mass is detected. IMPRESSION: No evidence of right or left lower extremity DVT. Dictated by: Dictated on workstation # [id number]
--- NOTE | 2020-12-10 17:39 | Diagnostic Imaging Report ---
PROCEDURE: CT angiography of the chest with contrast. TECHNIQUE: Multiple contiguous axial images were obtained through the chest after uneventful bolus administration of intravenous contrast. 3D reconstructed CTA MIP acquisitions were also performed. Auto Exposure Controls were utilized during the CT exam to meet ALARA standards for radiation dose reduction. INDICATION: Shortness of air. No prior studies are available for comparison. Evaluation of the pulmonary arterial system is without evidence of thromboembolism. No filling defects are seen within central, lobar or segmental branches. Thoracic aorta is normal caliber. There is no dissection. No pericardial or pleural fluid is identified. There is a 5 mm subpleural nodule posterior lateral left lower lobe, image 89 series 2. There is a juxta fissural nodule right lower lobe image 75 series 2 measuring 4 mm. A tiny nodule more inferiorly in the lateral right lower lobe is also noted. No other significant abnormality is seen. Upper abdomen is unremarkable. IMPRESSION: 1. No evidence of pulmonary embolism or thoracic aortic dissection. 2. Pulmonary micronodules, indeterminate. Follow-up based on patient's risk factors is recommended. Dictated by: Dictated on workstation # [id number]
== END ==
LOC: RAD 11:58
PROVIDERS: ATTEND Nurse Practitioner Family
DX: Z03.89 Encounter for observation for other suspected diseases and conditions ruled out (principal); M79.89 Other specified soft tissue disorders; M79.609 Pain in unspecified limb; R91.8 Other nonspecific abnormal finding of lung field; R06.00 Dyspnea, unspecified
CPT/HCPCS: 71275; 93970

== ENCOUNTER 2021-01-11 12:46 | Outpatient (RCR) | payer MEDICARE, OTHER ==
[2021-01-01] MEDS: IRON SUCROSE 200 MG/10 ML (VENOFER) VIAL IV SCH (13:35)
[2021-01-01 14:20] VITALS: BP 140/55
[2021-01-04] MEDS: IRON SUCROSE 200 MG/10 ML (VENOFER) VIAL IV SCH (13:13)
[2021-01-04 13:17] VITALS: BP 170/58
[2021-01-06] MEDS: IRON SUCROSE 200 MG/10 ML (VENOFER) VIAL IV SCH (13:00)
[2021-01-06 13:04] VITALS: BP 162/64
[2021-01-08 13:15] VITALS: BP 142/63
[2021-01-08] MEDS: IRON SUCROSE 200 MG/10 ML (VENOFER) VIAL IV SCH (13:19)
[~2021-01-11] VITALS: Ht 160 cm; Wt 129.0 kg
[~2021-01-11 12:46] MED LIST changes: -CATHETER FLUSH 10 ML SYR IV PRN; -HOLD METFORMIN - RECEIVED CONTRAST 20 ML VIAL IV SCH; -IOHEXOL 350 MG/ML 100 ML (OMNIPAQUE 350) VIAL IV ONE; +IRON SUCROSE 200 MG/10 ML (VENOFER) VIAL IV ONE; -NS 100 ML (IVPB) BAG IV ONE
[2021-01-11 13:05] VITALS: BP 128/68
[2021-01-11] MEDS: IRON SUCROSE 200 MG/10 ML (VENOFER) VIAL IV SCH (13:05)
== END 2021-01-11 13:35 | disposition home or self-care (01) ==
LOC: SDC 12:46
PROVIDERS: ATTEND Internal Medicine
DX: E61.1 Iron deficiency (principal)
CPT/HCPCS: 96365; 96374

== ENCOUNTER → 2021-03-22 | Outpatient (CLI) | payer MEDICARE, OTHER ==
[~2021-03-22] MED LIST changes: -IRON SUCROSE 200 MG/10 ML (VENOFER) VIAL IV ONE
--- NOTE | 2021-03-23 12:56 | Diagnostic Imaging Report ---
INDICATION: Routine screening. Comparison is made with prior mammogram 03/19/2020 and 03/18/2019. 2-D and 3-D bilateral screening mammography was performed with CAD. Both breasts are heterogeneously dense, limiting the sensitivity of mammography. Lumpectomy changes in the outer left breast are again noted. Lumpectomy site appears to be stable. Circumscribed nodules right breast are stable. There are scattered benign calcifications bilaterally. No new mass or malignant appearing microcalcifications are seen. IMPRESSION: BI-RADS Category 2 No mammographic features suspicious for malignancy are identified. ACR BI-RADS Category 2: Benign findings. Result letter will be mailed to the patient. Note: At least 10% of breast cancer is not imaged by mammography. Dictated by: Dictated on workstation # [id number]
== END ==
LOC: RAD 11:15
PROVIDERS: ATTEND Internal Medicine
DX: Z12.31 Encounter for screening mammogram for malignant neoplasm of breast (principal)
CPT/HCPCS: 77063; 77067

== ENCOUNTER → 2021-03-24 | Outpatient (CLI) | payer MEDICARE, OTHER ==
[~2021-03-24] MED LIST changes: -OMEP40CA27 PO; +OMEP40CA6 PO
[2021-03-24 13:35] LABS: BASOPHILS # (AUTO) 0.1 10^3/uL (0.0-0.1); BASOPHILS % (AUTO) 1 % (0-10); EOSINOPHILS # (AUTO) 0.6 10^3/uL (0.0-0.3); EOSINOPHILS % (AUTO) 7 % (0-10); HEMATOCRIT 34 % (35-52); HEMOGLOBIN 10.8 g/dL (11.5-16.0); LYMPHOCYTES # (AUTO) 2.1 10^3/uL (1.0-4.0); LYMPHOCYTES % (AUTO) 22 % (12-44); MEAN CORPUSCULAR HEMOGLOBIN 29 pg (25-34); MEAN CORPUSCULAR HGB CONC 32 g/dL (32-36); MEAN CORPUSCULAR VOLUME 91 fL (80-99); MONOCYTES # (AUTO) 0.7 10^3/uL (0.0-1.0); MONOCYTES % (AUTO) 7 % (0-12); NEUTROPHILS # (AUTO) 6.2 10^3/uL (1.8-7.8); NEUTROPHILS % (AUTO) 63 % (42-75); PLATELET COUNT 365 10^3/uL (130-400); WHITE BLOOD COUNT 9.8 10^3/uL (4.3-11.0)
[2021-03-24 13:58] LABS: ALBUMIN 3.7 GM/DL (3.2-4.5); BILIRUBIN,TOTAL 0.3 MG/DL (0.1-1.0); CALCIUM 9.1 MG/DL (8.5-10.1); CREATININE SERUM 1.14 MG/DL (0.60-1.30); POTASSIUM 4.6 MMOL/L (3.6-5.0); TOTAL PROTEIN 6.3 GM/DL (6.4-8.2)
== END ==
LOC: ONC 13:18
PROVIDERS: ATTEND Internal Medicine Hematology & Oncology
DX: D64.9 Anemia, unspecified (principal); J45.909 Unspecified asthma, uncomplicated; G47.33 Obstructive sleep apnea (adult) (pediatric); I25.10 Atherosclerotic heart disease of native coronary artery without angina pectoris; I10 Essential (primary) hypertension; E11.9 Type 2 diabetes mellitus without complications; E78.2 Mixed hyperlipidemia; E66.01 Morbid (severe) obesity due to excess calories; R91.8 Other nonspecific abnormal finding of lung field; Z87.891 Personal history of nicotine dependence
CPT/HCPCS: 80053; 82728; 83540; 83550; 85025; G0463; 99213

== ENCOUNTER → 2021-05-26 | Outpatient (CLI) | payer MEDICARE, OTHER ==
[~2021-05-26] MED LIST changes: +CATHETER FLUSH 10 ML SYR IV PRN; +REGADENOSON 0.4 MG/5 ML SYR (LEXISCAN) IV ONE
[2021-05-26 13:22] VITALS: BP 169/86
--- NOTE | 2021-05-26 15:29 | Cardiology Stress Test Report ---
Stress Test Report Date of Procedure/Referring: Date of Procedure: May 26, 2021 Dorothy Chaidez Admitting Physician Padma Sanchez DO Indications: CAD Baseline Heart Rate: 62 Baseline Blood Pressure: Blood Pressure Systolic: 169 Blood Pressure Diastolic: 86 Baseline Vitals Vital Signs Date Time Temp Pulse Resp B/P (MAP) Pulse Ox O2 Delivery O2 Flow Rate FiO2 05/26/21 13:22 66 169/86 (113) 98 Baseline EKG: Baseline EKG: NSR Summary After explaining the procedure to the patient, she signed a consent and then brought to the stress nuclear laboratory. Patient received 0.4 mg Lexiscan for stress test, ECG, heart rate and blood pressure were monitored continuously. Resting and stress dose of radio tracer were injected, imaging was acquired and reviewed in short axis, horizontal long axis and vertical long axis views. TID: 1.13 SSS: 3 SDS: 5 EF: 66 1. Patient tolerated Lexiscan well 2. Extracardiac attenuation affecting the quality of the images, there is questionable decreased uptake involving the mid to apical inferior wall with mild reversibility. It could be secondary to diaphragmatic attenuation. 3. Normal left ventricular size, EF 66% RAJI MELLO MD May 26, 2021 15:29
== END ==
LOC: CARD 12:00
PROVIDERS: ATTEND Physician Assistant
DX: I11.9 Hypertensive heart disease without heart failure (principal); I35.0 Nonrheumatic aortic (valve) stenosis; I25.10 Atherosclerotic heart disease of native coronary artery without angina pectoris
CPT/HCPCS: 78452; 93017; 93306; A9502

== ENCOUNTER 2021-06-09 08:00 | Day surgery (SDC) | payer MEDICARE, OTHER ==
[~2021-06-09] VITALS: Ht 157 cm; Wt 127.0 kg
[2021-06-09 07:14] VITALS: BP 155/79
[2021-06-09 07:19] LABS: BILIRUBIN,URINE NEGATIVE (NEGATIVE); CLARITY,URINE CLEAR; COLOR,URINE YELLOW; GLUCOSE, URINE (UA) NEGATIVE (NEGATIVE); KETONES,URINE NEGATIVE (NEGATIVE); LEUKOCYTE ESTERASE ,URINE 2+ (NEGATIVE); NITRITE,URINE NEGATIVE (NEGATIVE); PROTEIN,URINE NEGATIVE (NEGATIVE)
[2021-06-09 07:21] LABS: HEMATOCRIT 38 % (35-52); HEMOGLOBIN 11.8 g/dL (11.5-16.0); MEAN CORPUSCULAR HEMOGLOBIN 29 pg (25-34); MEAN CORPUSCULAR HGB CONC 32 g/dL (32-36); MEAN CORPUSCULAR VOLUME 92 fL (80-99); MEAN PLATELET VOLUME 9.1 fL (9.0-12.2); PLATELET COUNT 393 10^3/uL (130-400); WHITE BLOOD COUNT 10.1 10^3/uL (4.3-11.0)
[2021-06-09 07:30] LABS: BACTERIA,URINE MODERATE /HPF; WBC,URINE 25-50 /HPF
[2021-06-09 07:32] LABS: CALCIUM 9.4 MG/DL (8.5-10.1)
[2021-06-09 07:35] LABS: BILIRUBIN,TOTAL 0.3 MG/DL (0.1-1.0)
[2021-06-09 07:37] LABS: CREATININE SERUM 1.01 MG/DL (0.60-1.30); INR 0.9 (0.8-1.4); PROTHROMBIN TIME PATIENT 12.6 SEC (12.2-14.7)
--- NOTE | 2021-06-09 07:46 | Conscious Sedation/ASA ---
Conscious Sedation Pre-Proced Time 07:46 ASA Score 3 For ASA 3 and 4: Consider anesthesia and medical clearance. Also, for patients with a history of failed moderate sedation consider anesthesia. Airway Lungs Heart ASA score ASA 1: a normal healthy patient ASA 2: a patient with a mild systemic disease (mid diabetes, controlled hypertension, obesity x ASA 3: a patient with a severe systemic disease that limits activity (angina, COPD, prior Myocardial infarction) ASA 4: a patient with an incapacitating disease that is a constant threat to life (CHF, renal failure) ASA 5: a moribund patient not expected to survive 24 hrs. (ruptured aneurysm) ASA 6: a declared brain- patient whose organs are being harvested. For emergent operations, add the letter E after the classification Mallampati Classification Grade 3 Sedation Plan Analgesia, Amnesia, Plan communicated to team members, Discussed options with patient/fam, Discussed risks with patient/fam The patient is an appropriate candidate to undergo the planned procedure, sedation, and anesthesia. The patient immediately re-assessed prior to indication. RAJI MELLO MD Jun 09, 2021 07:46
[~2021-06-09 08:00] MED LIST changes: -CATHETER FLUSH 10 ML SYR IV PRN; +HEParin (CATH LAB) 2,000 ML IV ONE; +LIDOCAINE 1% INJ 20 ML 20 ML VIAL ONE; +NS IV 1000 ML 1,000 ML IV SCH; +NS IV 1000 ML 1,000 ML ONE; -REGADENOSON 0.4 MG/5 ML SYR (LEXISCAN) IV ONE
[2021-06-09] MEDS ORDERED: LEVO75TA6 PO (08:05)
[2021-06-09] MEDS ORDERED: OMEG10005 PO (08:05)
[2021-06-09] MEDS ORDERED: ASPI-1238 PO (08:05)
[2021-06-09] MEDS ORDERED: ERGO400C PO (08:05)
[2021-06-09] MEDS ORDERED: METF-397 PO ×2 (08:05→08:45)
[2021-06-09] MEDS ORDERED: FLUT9.9S NS (08:05)
[2021-06-09] MEDS ORDERED: PANT40TA52 PO (08:05)
[2021-06-09] MEDS ORDERED: CETI10TA17 PO (08:05)
[2021-06-09] MEDS ORDERED: POTA10CA43 PO (08:05)
[2021-06-09] MEDS ORDERED: FLUT12AE4 IH (08:05)
[2021-06-09] MEDS ORDERED: LISI20TA26 PO (08:05)
[2021-06-09] MEDS ORDERED: NITRO DRIP 25000 MCG/D5W 250 ML IV ONE (08:08)
[2021-06-09] MEDS ORDERED: HEParin 1000 UNIT/ML (10ML VIAL) FOR BOLUS ONE (08:08)
[2021-06-09] MEDS ORDERED: VERAPAMIL 5 MG/2 ML (CALAN) VIAL IV ONE (08:08)
[2021-06-09] MEDS ORDERED: NS IV 1000 ML 1,000 ML IV SCH (08:45)
--- NOTE | 2021-06-09 08:46 | Discharge Inst-Post CATH ---
Discharge Inst-CATH/EP Problems Reviewed?: Yes Post Cardiac Cath/EP D/C Inst Follow Up/Plan Hold Metformin for [address] Rousseau in 2-4 weeks <b>CARDIAC CATH/EP PROCEDURE DISCHARGE INSTRUCTIONS</b> ACTIVITY * Go Home directly and rest. * Limit activity of the leg (or wrist if it was used) for 7 days including aerobics, swimming, jogging, bicycling, etc. * Restrict stair-climbing for 7 days if possible, if not, climb up with your non-cath leg, then bring together on the same step. * Avoid lifting, pushing, pulling or excessive movement of the affected extremity for 7 days. * Customary sexual activity may be resumed after 2 days-use caution not to use a position that strains or causes pain to the affected extremity. * No driving for 24 hours. * NO SMOKING. * Avoid straining for bowel movements for 7 days. * Gentle walking on level ground is allowed. * Returning to work will depend on the type of procedure and the results. Your doctor will discuss this with you. CALL YOUR DOCTOR FOR ANY OF THE FOLLOWING: *If bleeding from the puncture site occurs- Apply gentle pressure to site with clean cloth and call your doctor or EMS. * If a knot or lump forms under the skin, increases in size, or causes pain. * If bruising appears to be worsening or moving further down your leg instead of disappearing. * Temperature above 101 F. CARE OF YOUR GROIN INCISION; * Bruising or purple discoloration of the skin near the puncture site is common. * You may shower only, no bathtub bathing for 5 days. Be careful to avoid slipping as your leg may feel stiff. * If a closure device was used on your femoral artery, please see the attached guide regarding care of the device and your leg. * Leave dressing on FOR 24 hours. CARE OF YOUR WRIST INCISION; * Bruising or purple discoloration of the skin near the puncture site is common. * You may shower. * DO NOT submerge wrist. * Leave dressing on FOR 24 hours. RAJI ROUSSEAU MD Jun 09, 2021 08:46
[2021-06-09 08:56] VITALS: BP 127/62
--- NOTE | 2021-06-09 08:58 | Cardiac Cath Report ---
Cardiac Cath Report Physician (s)/Farm Management Agent (s) Physician RAJI MELLO MD Pre-Procedure Diagnosis Pre-Procedure Diagnosis: Coronary artery disease Post-Procedure Note Procedure Start Date: Jun 09, 2021 Name of Procedure: Coronary angiogram Aortic arch angiogram Findings/Procedure Note PROCEDURE NOTE: 70-year-old lady with history of diabetes mellitus, hypertension hyperlipidemia, had an abnormal stress test, scheduled for cardiac catheterization possible PTCA After explaining the procedure to the patient, all pros and cons were explained, all questions were answered. The patient signed the consent and then she was placed on the cardiac catheterization laboratory. Groin was prepped SL fashion local anesthesia was used. Sheath placed in the right radial artery, Bradford catheter advanced, I was unable to cross the aortic valve, intubated the right and left coronary system, angiogram was done, pulled back to the aortic arch, had significant tortuosity with advancing the wire initially I decided to evaluate angiogram to the aortic arch At the end of the procedure the sheath was removed. Vascular band deployed FINDINGS: ANATOMY: Left Main is very short almost separate ostium to the LAD and circumflex artery Left Anterior Descending slightly tortuous with mild disease nonobstructive disease Left Circumflex is moderate in size, the proximal portion of the circumflex artery looks a little bit hazy, mild to moderate disease nonobstructive disease Right Coronary Artery is dominant artery with moderate disease in the midportion nonobstructive disease Aorta evaluation done with aortic arch angiogram showing normal aortic arch some calcification in the brachiocephalic artery, some tortuosity was noted, no obstructive disease, the left carotid artery appeared normal, left subclavian is normal CONCLUSION: 1. Very short left main almost separate ostium to the LAD and circumflex artery, the proximal circumflex artery has mild to moderate disease in the proximal portion nonobstructive disease. 2. Right coronary artery is dominant with moderate disease in the midportion, nonobstructive disease 3. Some calcification in the aortic arch, no dissection or aneurysm, normal origin in the brachiocephalic artery with some tortuosity and calcification, normal left carotid and left subclavian arteries DISCUSSION AND RECOMMENDATION: Maximize medical therapy. Continue to monitor Anesthesia Type: Conscious Sedation Estimated blood loss (mL): 10 ml Contrast Amount: 64 ml Total Radiation Dose: 732 mGy Post-Procedure Diagnosis Post-operative diagnosis: Coronary artery disease Hypertension Hyperlipidemia Diabetes mellitus RAJI MELLO MD Jun 09, 2021 08:58
[2021-06-09 12:00] VITALS: BP 150/84
--- NOTE | 2021-06-10 15:39 | Diagnostic Imaging Report ---
EXAMINATION: Chest radiograph, portable AP view. DATE: 06/09/2021 7:45 AM. INDICATION: 70-year-old female, presurgical planning. COMPARISON: None. FINDINGS: The heart size and mediastinal contours are within normal limits. There is no identified pneumothorax. There is no large pleural effusion. There is no identified focal airspace consolidation. IMPRESSION: No identified acute cardiopulmonary abnormality. Dictated by: Dictated on workstation # [id number]
== END 2021-06-09 12:00 | disposition home or self-care (01) ==
LOC: CSD 09:09 → CATH 12:00
PROVIDERS: ATTEND Internal Medicine Cardiovascular Disease
DX: I25.10 Atherosclerotic heart disease of native coronary artery without angina pectoris (principal); I11.9 Hypertensive heart disease without heart failure; E78.5 Hyperlipidemia, unspecified; E11.9 Type 2 diabetes mellitus without complications; E78.2 Mixed hyperlipidemia; E66.09 Other obesity due to excess calories; J45.909 Unspecified asthma, uncomplicated; K21.9 Gastro-esophageal reflux disease without esophagitis; I35.0 Nonrheumatic aortic (valve) stenosis; R00.2 Palpitations; I65.23 Occlusion and stenosis of bilateral carotid arteries; G47.33 Obstructive sleep apnea (adult) (pediatric); Z87.891 Personal history of nicotine dependence; Z79.899 Other long term (current) drug therapy; Z79.84 Long term (current) use of oral hypoglycemic drugs; Z79.890 Hormone replacement therapy; Z88.8 Allergy status to other drugs, medicaments and biological substances; Z88.1 Allergy status to other antibiotic agents; Z68.43 Body mass index [BMI] 50.0-59.9, adult; Z11.2 Encounter for screening for other bacterial diseases; Z85.3 Personal history of malignant neoplasm of breast
CPT/HCPCS: 36221; 71045; 80053; 80061; 81000; 85027; 85610; 85730; 87077; 87081; 87088; 93458; C1894; 36415

== ENCOUNTER 2021-09-13 13:36 | Emergency (ER) | payer MEDICARE, OTHER ==
[~2021-09-13] VITALS: Ht 160 cm; Wt 125.0 kg
[~2021-09-13 13:36] MED LIST changes: +CETI10TA17 PO; +ERGO400C PO; +FLUT12AE4 IH; +FLUT9.9S NS; -HEParin (CATH LAB) 2,000 ML IV ONE; +LEVO75TA6 PO; -LIDOCAINE 1% INJ 20 ML 20 ML VIAL ONE; +MONT-40 PO; -MONT10TA32 PO; -NS IV 1000 ML 1,000 ML IV SCH; -NS IV 1000 ML 1,000 ML ONE; +OMEG10005 PO; +PANT40TA52 PO
--- NOTE | 2021-09-13 14:28 | ED General ---
General Chief Complaint: Trauma-Non Activation Stated Complaint: RUNNY NOSE;COUGH Nursing Triage Note: PT TO RM 10 PER W/C PT STATES SLIPPED AND FELL THIS AM INJURING R KNEE AND HIT R SIDE OF HEAD. PT DENIES LOC PT STATES HAS HAD COUGH AND RUNNY NOSE FOR A WEEK. PT STATES HAD COVID BOOSTER LAST WEEK. Source of Information: Patient Exam Limitations: No Limitations History of Present Illness Date Seen by Provider: Sep 13, 2021 Time Seen by Provider: 14:25 Initial Comments Patient got a Covid booster and flu vaccine on 09/06/2021. 3 to 4 days after that she developed rhinorrhea and a cough. She is chronically oxygen dependent. She reports chills but no measured fevers. No nausea vomiting or body aches. She tripped and fell this morning injuring her right knee for which she already needs surgery she states. She also struck the right side of her head. No loss of consciousness or neck pain. She is on a baby aspirin only. She also reports that she awakened with some pain in the right side of her abdomen that radiated up into her chest and into her neck. It was worsened by any movement and is gone now. Location Injury Occurred: HOME Timing/Duration: 1-2 Days Severity: Moderate Associated Systoms: Cough, Fever/Chills Allergies and Home Medications Allergies Coded Allergies: Cephalosporins (Verified Allergy, Mild, 11/28/17) Patient Home Medication List Home Medication List Reviewed: Yes Aspirin (Aspirin EC) 81 Mg Tablet., 81 MG PO DAILY, (Reported) Entered as Reported by: JUNIE RIVERA on 06/09/21804 Atorvastatin Calcium (Atorvastatin Calcium) 40 Mg Tablet, 40 MG PO HS, (R eported) Entered as Reported by: MAURO LIMA on 11/28/171822 Cetirizine HCl (Cetirizine HCl) 10 Mg Tablet, 10 MG PO DAILY, (Reported) Entered as Reported by: JUNIE RIVERA on 06/09/21804 Cholecalciferol (Vitamin D3) (Vitamin D3) 10 Mcg Capsule, 10 MCG PO DAILY, (Reported) Entered as Reported by: JUNIE RIVERA on 06/09/21804 Duloxetine HCl (Duloxetine HCl) 60 Mg Capsule., 60 MG PO DAILY, (Reported) Entered as Reported by: MAURO LIMA on 11/28/171822 Fluticasone Propionate (Flonase Allergy Relief) 9.9 Ml [place].susp, 1 SPRAY NS DAILY, (Reported) Entered as Reported by: JUNIE RIVERA on 06/09/21804 Fluticasone/Salmeterol (Advair Hfa 115-21 Mcg Inhaler) 12 Gm Hfa.aer.ad, 2 PUFF IH BID, (Reported) Entered as Reported by: JUNIE RIVERA on 06/09/21804 Furosemide (Furosemide) 40 Mg Tablet, 40 MG PO DAILY, (Reported) Entered as Reported by: MAURO LIMA on 11/28/171822 Glyburide (Glyburide) 1.25 Mg Tablet, 1.25 MG PO DAILY, (Reported) Entered as Reported by: MAURO LIMA on 11/28/171834 Levothyroxine Sodium (Levothyroxine Sodium) 75 Mcg Tablet, 75 MCG PO DAILY, (Reported) Entered as Reported by: JUNIE RIVERA on 06/09/21804 Lisinopril (Lisinopril) 20 Mg Tablet, 20 MG PO DAILY, (Reported) Entered as Reported by: JUNIE RIVERA on 06/09/21804 Metformin HCl (Metformin HCl) 500 Mg Tablet, 1,000 MG PO BID Prescribed by: RAJI MELLO on 06/09/21844 Metoprolol Succinate (Metoprolol Succinate) 25 Mg Tab.er.24h, 25 MG PO DAILY, (Reported) Entered as Reported by: MAURO LIMA on 11/28/171822 Montelukast Sodium (Montelukast Sodium) 10 Mg Tablet, 10 MG PO DAILY, (Reported) Entered as Reported by: MAURO LIMA on 11/28/171822 [place]-3 Fatty Acids ([place]-3) 1,000 Mg Capsule, 1,000 MG PO DAILY, (Reported) Entered as Reported by: JUNIE RIVERA on 06/09/21804 Pantoprazole Sodium (Pantoprazole Sodium) 40 Mg Tablet.dr, 40 MG PO DAILY PRN for STOMACH UPSET, (Reported) Entered as Reported by: JUNIE RIVERA on 06/09/21804 Potassium Chloride (Potassium Chloride) 10 Meq Capsule.er, 10 MEQ PO DAILY, (Reported) Entered as Reported by: JUNIE RIVERA on 06/09/21 0805 Review of Systems Review of Systems Constitutional: see HPI EENTM: see HPI Respiratory: see HPI, cough Cardiovascular: no symptoms reported Genitourinary: no symptoms reported Musculoskeletal: no symptoms reported Skin: no symptoms reported Psychiatric/Neurological: No Symptoms Reported Hematologic/Lymphatic: No Symptoms Reported Immunological/Allergic: no symptoms reported Past Jpmzykb-Kovdxa-Fdmwym Hx Patient Social History Tobacco Use?: No Use of E-Cig and/or Vaping dev: No Substance use?: No Alcohol Use?: No Pt feels they are or have been: No Immunizations Up To Date Tetanus Booster (TDap): More than 5yrs Seasonal Allergies Seasonal Allergies: Yes Past Medical History Surgeries: No (fistula repair, toenails removed) Breast, Tonsillectomy Respiratory: Yes Asthma, Chronic Bronchitis, Sleep Apnea Currently Using CPAP: Yes Currently Using BIPAP: No Cardiac: Yes (HEART MURMUR, CAD) Coronary Artery Disease, High Cholesterol, Hypertension Neurological: No Reproductive Disorders: No Sexually Transmitted Disease: No Genitourinary: Yes Bladder Infection Gastrointestinal: Yes Gastroesophageal Reflux, Hemorrhoids Musculoskeletal: Yes Degenerate Disk Disease, Arthritis Endocrine: Yes Diabetes, Non-Insulin dep HEENT: No Cancer: Yes Breast Did You Recieve Any Treatments: Yes What Type of Treatment Did You: Radiation, Surgical Intervention Psychosocial: Yes Anxiety, Depression Integumentary: No Blood Disorders: Yes (anemia) Family Medical History Patient reports no known family medical history. Physical Exam Vital Signs Vital Signs - First Documented 09/13/21 09/13/21 13:45 14:02 Temp 37.4 Pulse 70 Resp 18 B/P (MAP) 151/94 (113) Pulse Ox 93 O2 Delivery Nasal Cannula O2 Flow Rate 2.00 Capillary Refill : Less Than 3 Seconds Height, Weight, BMI Height: 5'2.00" Weight: 270lbs. 0.0oz. 122.588676fw; 48.00 BMI Method:Stated General Appearance: No Apparent Distress, WD/WN Eyes: Bilateral Eye Normal Inspection, Bilateral Eye PERRL, Bilateral Eye EOMI Neck: Full Range of Motion, Normal Inspection Respiratory: Normal Breath Sounds, No Accessory Muscle Use, No Respiratory Distress Cardiovascular: Regular Rate, Rhythm, Normal Peripheral Pulses Gastrointestinal: Normal Bowel Sounds, Non Tender, Soft Neurologic/Psychiatric: Alert, Oriented x3 Skin: Normal Color, Warm/Dry Progress/Results/Core Measures Suspected Sepsis Recent Fever Within 48 Hours: No New/Unexplained Altered Menta: No SIRS Temperature: Pulse: 70 Respiratory Rate: 14 Laboratory Tests 09/13/21 14:35: White Blood Count 13.0H Blood Pressure 151 /94 Mean: 113 Laboratory Tests 09/13/21 14:35: Creatinine 1.30, Platelet Count 327, Total Bilirubin 0.6 Results/Orders Lab Results Laboratory Tests Test 09/13/21 13:48 09/13/21 14:35 Range/Units Influenza Type A (RT-PCR) Not Detected Not Detecte Influenza Type B (RT-PCR) Not Detected Not Detecte SARS-CoV-2 RNA (RT-PCR) Not Detected Not Detecte White Blood Count 13.0 H 4.3-11.0 10^3/uL Red Blood Count 3.82 3.80-5.11 10^6/uL Hemoglobin 10.9 L 11.5-16.0 g/dL Hematocrit 34 L 35-52 % Mean Corpuscular Volume 88 80-99 fL Mean Corpuscular Hemoglobin 29 25-34 pg Mean Corpuscular Hemoglobin Concent 32 32-36 g/dL Red Cell Distribution Width 14.8 H 10.0-14.5 % Platelet Count 327 130-400 10^3/uL Mean Platelet Volume 9.0 9.0-12.2 fL Immature Granulocyte % (Auto) 1 % Neutrophils (%) (Auto) 77 H 42-75 % Lymphocytes (%) (Auto) 14 12-44 % Monocytes (%) (Auto) 6 0-12 % Eosinophils (%) (Auto) 2 0-10 % Basophils (%) (Auto) 0 0-10 % Neutrophils # (Auto) 10.1 H 1.8-7.8 10^3/uL Lymphocytes # (Auto) 1.8 1.0-4.0 10^3/uL Monocytes # (Auto) 0.8 0.0-1.0 10^3/uL Eosinophils # (Auto) 0.2 0.0-0.3 10^3/uL Basophils # (Auto) 0.0 0.0-0.1 10^3/uL Immature Granulocyte # (Auto) 0.1 0.0-0.1 10^3/uL Sodium Level 134 L 135-145 MMOL/L Potassium Level 4.3 3.6-5.0 MMOL/L Chloride Level 101 98-107 MMOL/L Carbon Dioxide Level 23 21-32 MMOL/L Anion Gap 10 5-14 MMOL/L Blood Urea Nitrogen 22 H 7-18 MG/DL Creatinine 1.30 0.60-1.30 MG/DL Estimat Glomerular Filtration Rate 40 BUN/Creatinine Ratio 17 Glucose Level 175 H 70-105 MG/DL Calcium Level 8.8 8.5-10.1 MG/DL Corrected Calcium 9.0 8.5-10.1 MG/DL Total Bilirubin 0.6 0.1-1.0 MG/DL Aspartate Amino Transf (AST/SGOT) 12 5-34 U/L Alanine Aminotransferase (ALT/SGPT) 13 0-55 U/L Alkaline Phosphatase 95 40-136 U/L Total Protein 6.9 6.4-8.2 GM/DL Albumin 3.8 3.2-4.5 GM/DL My Orders Orders - TAMEKA LEE APRN Influenza A And B By Pcr (09/13/21 13:50) Covid 19 Inhouse Test (09/13/21 13:50) Chest 1 View, Ap/Pa Only (09/13/21 13:50) Cbc With Automated Diff (09/13/21 14:23) Comprehensive Metabolic Panel (09/13/21 14:23) Ua Culture If Indicated (09/13/21 14:23) Ed Iv/Invasive Line Start (09/13/21 14:23) Ct Head/Cervical Spine Wo (09/13/21 14:23) Knee, Right, 3 Views (09/13/21 14:23) Vital Signs/I&O 09/13/21 09/13/21 13:45 14:02 Temp 37.4 37.4 Pulse 70 70 Resp 18 14 B/P (MAP) 151/94 (113) 151/94 (113) Pulse Ox 93 93 O2 Delivery Nasal Cannula Nasal Cannula O2 Flow Rate 2.00 Capillary Refill : Less Than 3 Seconds Blood Pressure Mean: 113 Diagnostic Imaging Diagonstic Imaging: CT Comments NAME: [facility] REC#: [id number] PT STATUS: REG ER : 1950 PHYSICIAN: TAMEKA LEE APRN ADMIT DATE: 09/13/21/ER Draft Date of Exam:09/13/21 CT HEAD/CERVICAL SPINE WO PROCEDURE: CT head and CT cervical spine without contrast. TECHNIQUE: Multiple contiguous axial images were obtained through the brain and cervical spine without the use of intravenous contrast. Sagittal and coronal reformations through the cervical spine were then performed. Auto Exposure Controls were utilized during the CT exam to meet ALARA standards for radiation dose reduction. INDICATION: Head and cervical region pain. COMPARISON: 06/07/2020. FINDINGS: CT HEAD: The ventricles and sulci are within normal limits for size. There is no intracranial hemorrhage identified. There is no abnormal mass effect or shift of midline structures. IMPRESSION: Unremarkable CT of the head. CT CERVICAL SPINE: The cervical curvature and alignment are within normal limits. The vertebral body heights and disc spaces are maintained without evidence of fracture or subluxation. There is no paraspinous hematoma. There is continued lower cervical degenerative disc disease with disc space narrowing and endplate spurring. IMPRESSION: No CT evidence of acute cervical spinal abnormality. Dictated on workstation # [id number] Dict: 09/13/21 1514 Trans: 09/13/21 1524 [id number] Interpreted by: LALITO BOYER MD Electronically signed by: Departure Communication (Admissions) She is 97% on her baseline 2 L Impression Primary Impression: Fall Qualified Codes: W19.XXXA - Unspecified fall, initial encounter Additional Impression: Upper respiratory infection Qualified Codes: J06.9 - Acute upper respiratory infection, unspecified Disposition: HOME, SELF-CARE Condition: Stable Departure-Patient Inst. Decision time for Depature: 15:29 Referrals: BEE CHEATHAM DO (PCP/Family) Primary Care Physician Patient Instructions: Viral Syndrome (DC) Copy Copies To 1: BEE CHEATHAM PETER J APRN Sep 13, 2021 14:28
[2021-09-13 14:43] LABS: BASOPHILS % (AUTO) 0 % (0-10); EOSINOPHILS # (AUTO) 0.2 10^3/uL (0.0-0.3); EOSINOPHILS % (AUTO) 2 % (0-10); HEMATOCRIT 34 % (35-52); HEMOGLOBIN 10.9 g/dL (11.5-16.0); LYMPHOCYTES # (AUTO) 1.8 10^3/uL (1.0-4.0); LYMPHOCYTES % (AUTO) 14 % (12-44); MEAN CORPUSCULAR HEMOGLOBIN 29 pg (25-34); MEAN CORPUSCULAR HGB CONC 32 g/dL (32-36); MEAN CORPUSCULAR VOLUME 88 fL (80-99); MONOCYTES # (AUTO) 0.8 10^3/uL (0.0-1.0); MONOCYTES % (AUTO) 6 % (0-12); NEUTROPHILS # (AUTO) 10.1 10^3/uL (1.8-7.8); NEUTROPHILS % (AUTO) 77 % (42-75); PLATELET COUNT 327 10^3/uL (130-400)
[2021-09-13 14:53] LABS: ALBUMIN 3.8 GM/DL (3.2-4.5); POTASSIUM 4.3 MMOL/L (3.6-5.0)
[2021-09-13 14:54] LABS: CALCIUM 8.8 MG/DL (8.5-10.1)
[2021-09-13 14:56] LABS: TOTAL PROTEIN 6.9 GM/DL (6.4-8.2)
[2021-09-13 14:57] LABS: BILIRUBIN,TOTAL 0.6 MG/DL (0.1-1.0)
[2021-09-13 14:59] LABS: CREATININE SERUM 1.3 MG/DL (0.60-1.30)
--- NOTE | 2021-09-13 15:04 | Diagnostic Imaging Report ---
EXAMINATION: Chest 1 view HISTORY: Cough. Chest pain. COMPARISON: 06/09/2021. FINDINGS: Patchy perihilar and basilar opacities are present. The cardiac silhouette is prominent. Small right-sided pleural effusion is seen. No pneumothorax. No acute osseous abnormalities. IMPRESSION: 1. Patchy perihilar and basilar opacities which may represent edema or infection. Cardiomegaly is also noted. 2. Small right pleural effusion. Dictated by: Dictated on workstation # [id number]
--- NOTE | 2021-09-13 15:05 | Diagnostic Imaging Report ---
CLINICAL HISTORY: Fall. Right knee pain. COMPARISON: None. TECHNIQUE: Three views of the right knee. FINDINGS: There is no acute fracture or dislocation of the right knee. Advanced degenerative changes are seen in the right knee with joint space loss, marginal osteophytes, and subchondral sclerosis. These are greatest in the medial compartment. Small joint effusion is seen in the right knee. IMPRESSION: 1. No acute fracture or dislocation in the right knee. 2. Advanced osteoarthritis in the right knee, greatest in the medial compartment. Dictated by: Dictated on workstation # [id number]
--- NOTE | 2021-09-13 15:24 | Diagnostic Imaging Report ---
PROCEDURE: CT head and CT cervical spine without contrast. TECHNIQUE: Multiple contiguous axial images were obtained through the brain and cervical spine without the use of intravenous contrast. Sagittal and coronal reformations through the cervical spine were then performed. Auto Exposure Controls were utilized during the CT exam to meet ALARA standards for radiation dose reduction. INDICATION: Head and cervical region pain. COMPARISON: 06/07/2020. FINDINGS: CT HEAD: The ventricles and sulci are within normal limits for size. There is no intracranial hemorrhage identified. There is no abnormal mass effect or shift of midline structures. IMPRESSION: Unremarkable CT of the head. CT CERVICAL SPINE: The cervical curvature and alignment are within normal limits. The vertebral body heights and disc spaces are maintained without evidence of fracture or subluxation. There is no paraspinous hematoma. There is continued lower cervical degenerative disc disease with disc space narrowing and endplate spurring. IMPRESSION: No CT evidence of acute cervical spinal abnormality. Dictated by: Dictated on workstation # [id number]
[2021-09-13 16:00] VITALS: BP 136/82
[2021-09-13 16:01] LABS: BILIRUBIN,URINE NEGATIVE (NEGATIVE); CLARITY,URINE SL CLOUDY; COLOR,URINE DARK YELLOW; GLUCOSE, URINE (UA) NEGATIVE (NEGATIVE); KETONES,URINE NEGATIVE (NEGATIVE); LEUKOCYTE ESTERASE ,URINE 1+ (NEGATIVE); NITRITE,URINE NEGATIVE (NEGATIVE); PH,URINE 5.5 (5-9); PROTEIN,URINE 1+ (NEGATIVE)
[2021-09-13 16:21] LABS: BACTERIA,URINE FEW /HPF
== END 2021-09-13 16:02 | disposition home or self-care (01) ==
LOC: EDUNIT# 13:36 → ER 13:37
DX: J06.9 Acute upper respiratory infection, unspecified (principal); J45.909 Unspecified asthma, uncomplicated; G47.30 Sleep apnea, unspecified; I10 Essential (primary) hypertension; K21.9 Gastro-esophageal reflux disease without esophagitis; I25.10 Atherosclerotic heart disease of native coronary artery without angina pectoris; E78.00 Pure hypercholesterolemia, unspecified; E11.9 Type 2 diabetes mellitus without complications; F41.9 Anxiety disorder, unspecified; F32.9 Major depressive disorder, single episode, unspecified; Z20.822 Contact with and (suspected) exposure to COVID-19; Z79.84 Long term (current) use of oral hypoglycemic drugs; Z79.899 Other long term (current) drug therapy; Z79.82 Long term (current) use of aspirin
CPT/HCPCS: 36415; 70450; 71045; 72125; 73562; 80053; 81000; 85025; 87088; 87636

== ENCOUNTER → 2022-04-14 | Outpatient (CLI) | payer MEDICARE, OTHER ==
--- NOTE | 2022-04-14 16:31 | Diagnostic Imaging Report ---
INDICATION: Routine screening. Comparison is made with prior mammogram from 03/23/2021 and 03/19/2020. 2-D and 3-D bilateral screening mammography was performed with CAD. Both breasts are heterogeneously dense, limiting the sensitivity of mammography. Numerous circumscribed nodules in the right breast appears stable. Post-lumpectomy changes in the outer left breast appear to be stable. There are scattered benign calcifications in both breasts. No new mass or malignant-appearing microcalcifications are seen. Right axilla is unremarkable. Left axilla contains multiple clips. IMPRESSION: No mammographic features suspicious for malignancy are identified. ACR BI-RADS Category 2: Benign findings. Result letter will be mailed to the patient. Note: At least 10% of breast cancer is not imaged by mammography. BI-RADS Category 2 Dictated by: Dictated on workstation # [id number]
== END ==
LOC: RAD 11:30
PROVIDERS: ATTEND Internal Medicine
DX: Z12.31 Encounter for screening mammogram for malignant neoplasm of breast (principal)
CPT/HCPCS: 77063; 77067

== ENCOUNTER 2022-06-17 15:44 | Inpatient (IN) | payer MEDICARE, OTHER ==
[~2022-06-17] VITALS: Ht 157.5 cm; Wt 127.3 kg
[2022-06-17] MEDS ORDERED: diphenhydrAMINE 25 MG TAB (BENADRYL) PO PRN (16:15)
[2022-06-17] MEDS ORDERED: ONDANSETRON 4 MG/2 ML (SDV) Z0FRAN IV PRN (16:15)
[2022-06-17] MEDS ORDERED: ANTACID SUSP 30 ML UDC (MYLANTA) PO PRN (16:15)
[2022-06-17] MEDS ORDERED: MILK OF MAGNESIA 400 MG/5 ML 30 ML UDC PO PRN (16:15)
[2022-06-17] MEDS ORDERED: BISACODYL 10 MG SUPP (DULCOLAX) PR PRN (16:15)
[2022-06-17] MEDS ORDERED: ALPRAZolam 0.25 MG (XANAX) TAB PO PRN (16:15)
[2022-06-17] MEDS ORDERED: ONDANSETRON 4 MG (ZOFRAN) ORAL DISSOLVE TAB PO PRN (16:15)
[2022-06-17] MEDS ORDERED: ACETAMINOPHEN 325 MG TABLET PO PRN (16:15)
[2022-06-17] MEDS ORDERED: MELATONIN 3 MG TABLET PO PRN (16:15)
[2022-06-17] MEDS ORDERED: CALCIUM CARBONATE 500 MG (TUMS) TAB.CHEW PO PRN (16:15)
[2022-06-17] MEDS ORDERED: LACTULOSE SYRUP 10GM/15ML (ENULOSE) 30ML UDC PO PRN (16:15)
[2022-06-17] MEDS ORDERED: polyethylene glycoL POWDER 17 GM (MIRALAX) PACK PO PRN (16:15)
[2022-06-17] MEDS ORDERED: ENOXAPARIN 40 MG/0.4 ML (LOVENOX) SYR SC SCH (16:15)
[2022-06-17] MEDS ORDERED: morphine INJ 4 MG/ML 1 ML (VIAL/SYRINGE) IV PRN (16:15)
[2022-06-17] MEDS ORDERED: diphenhydrAMINE 50 MG/ML INJ (BENADRYL) IVP PRN (16:15)
[2022-06-17] MEDS ORDERED: cloNIDine 0.1 MG (CATAPRES) TAB PO PRN (16:15)
[2022-06-17] MEDS ORDERED: AZITHROMYCIN INJECTION 500 MG in NS (IVPB) 250 ML IV ONE (16:45)
--- NOTE | 2022-06-17 16:52 | Diagnostic Imaging Report ---
CLINICAL INDICATION: Patient with dyspnea. EXAM: Portable chest x-ray upright view. COMPARISON: Chest x-ray dated 09/13/2021. FINDINGS: Lungs/pleura: Lungs are clear. There is no pneumothorax. There is no pleural effusion. Mediastinum: Unremarkable. Pulmonary vasculature: Unremarkable. Heart: There is cardiomegaly. Bones/extrathoracic soft tissue: There are degenerative spurs involving the thoracic spine. IMPRESSION: 1: There is cardiomegaly with no significant pulmonary vascular congestion. 2: There is no lung infiltrate. Dictated by: Dictated on workstation # [id number]
[2022-06-17 16:58] LABS: ABG BASE EXCESS 0.6 MMOL/L (-2.5-2.5); ABG OXYGEN SATURATION 94 % (94-100); ABG PCO2 40 MMHG (35-45); ABG PH 7.41 (7.37-7.43); ABG PO2 60 MMHG (79-93)
[2022-06-17 17:00] LABS: ALLENS TEST Y; PATIENT TEMP 37; VENTILATOR NO
[2022-06-17 17:30] LABS: BASOPHILS # (AUTO) 0.1 10^3/uL (0.0-0.1); BASOPHILS % (AUTO) 1 % (0-10); EOSINOPHILS # (AUTO) 0.5 10^3/uL (0.0-0.3); EOSINOPHILS % (AUTO) 5 % (0-10); HEMATOCRIT 34 % (35-52); HEMOGLOBIN 10.7 g/dL (11.5-16.0); LYMPHOCYTES # (AUTO) 2.1 10^3/uL (1.0-4.0); LYMPHOCYTES % (AUTO) 21 % (12-44); MEAN CORPUSCULAR HEMOGLOBIN 28 pg (25-34); MEAN CORPUSCULAR HGB CONC 32 g/dL (32-36); MEAN CORPUSCULAR VOLUME 88 fL (80-99); MEAN PLATELET VOLUME 9.5 fL (9.0-12.2); MONOCYTES # (AUTO) 0.7 10^3/uL (0.0-1.0); MONOCYTES % (AUTO) 7 % (0-12); NEUTROPHILS # (AUTO) 6.4 10^3/uL (1.8-7.8); NEUTROPHILS % (AUTO) 65 % (42-75); PLATELET COUNT 421 10^3/uL (130-400); WHITE BLOOD COUNT 9.8 10^3/uL (4.3-11.0)
[2022-06-17] MEDS: methylPREDNISolone 40 MG/ML (Solu-MEDROL) VIAL IV SCH (17:39)
[2022-06-17 17:44] LABS: ALBUMIN 4.1 GM/DL (3.2-4.5); CHLORIDE 104 MMOL/L (98-107); POTASSIUM 4.3 MMOL/L (3.6-5.0); SODIUM 144 MMOL/L (135-145)
[2022-06-17 17:45] LABS: CALCIUM 9.7 MG/DL (8.5-10.1)
[2022-06-17 17:46] LABS: GLUCOSE 96 MG/DL (70-105); TOTAL PROTEIN 7.4 GM/DL (6.4-8.2)
[2022-06-17 17:47] LABS: CARBON DIOXIDE 23 MMOL/L (21-32)
[2022-06-17 17:48] LABS: BILIRUBIN,TOTAL 0.5 MG/DL (0.1-1.0)
[2022-06-17 17:50] LABS: ALKALINE PHOSPHATASE 115 U/L (40-136); CREATININE SERUM 1.04 MG/DL (0.60-1.30); GFR ESTIMATED 57
[2022-06-17 17:51] LABS: BUN/CREATININE RATIO 22
[2022-06-17 17:53] LABS: ALANINE AMINOTRANSFERASE 14 U/L (0-55)
[2022-06-17] MEDS: RT-ALBUTEROL SULF 2.5 MG/3 ML PRE-MIX VIAL INH SCH ×2 (18:30→21:28)
[2022-06-17 19:13] VITALS: BP 144/67
[2022-06-17] MEDS: DOCUSATE SODIUM 100 MG (COLACE) CAP PO SCH (20:12)
[2022-06-17] MEDS: SENNOSIDES 8.6 MG (SENOKOT) TAB PO SCH (20:12)
[2022-06-17] MEDS: inSUlin ASPART (NovoLOG) 1 UNIT/0.01 ML (CHARGE PER UNIT) SC SCH (20:38)
[2022-06-18] MEDS: methylPREDNISolone 40 MG/ML (Solu-MEDROL) VIAL IV SCH ×2 (00:01→06:53)
[2022-06-18 00:19] VITALS: BP 155/63
[2022-06-18] MEDS: RT-ALBUTEROL SULF 2.5 MG/3 ML PRE-MIX VIAL INH SCH ×6 (02:25→21:38)
[2022-06-18 04:04] VITALS: BP 154/58
[2022-06-18 05:53] LABS: BASOPHILS % (AUTO) 0 % (0-10); EOSINOPHILS % (AUTO) 0 % (0-10); HEMATOCRIT 30 % (35-52); HEMOGLOBIN 9.7 g/dL (11.5-16.0); LYMPHOCYTES # (AUTO) 0.7 10^3/uL (1.0-4.0); LYMPHOCYTES % (AUTO) 9 % (12-44); MEAN CORPUSCULAR HEMOGLOBIN 28 pg (25-34); MEAN CORPUSCULAR HGB CONC 32 g/dL (32-36); MEAN CORPUSCULAR VOLUME 87 fL (80-99); MEAN PLATELET VOLUME 9.5 fL (9.0-12.2); MONOCYTES # (AUTO) 0.1 10^3/uL (0.0-1.0); MONOCYTES % (AUTO) 1 % (0-12); NEUTROPHILS # (AUTO) 7.6 10^3/uL (1.8-7.8); NEUTROPHILS % (AUTO) 90 % (42-75); PLATELET COUNT 384 10^3/uL (130-400); WHITE BLOOD COUNT 8.5 10^3/uL (4.3-11.0)
[2022-06-18 06:14] LABS: ALBUMIN 3.6 GM/DL (3.2-4.5); BILIRUBIN,TOTAL 0.4 MG/DL (0.1-1.0); CALCIUM 9.2 MG/DL (8.5-10.1); CREATININE SERUM 1.09 MG/DL (0.60-1.30); POTASSIUM 4.6 MMOL/L (3.6-5.0); TOTAL PROTEIN 6.5 GM/DL (6.4-8.2)
[2022-06-18 06:18] LABS: NEUTROPHILS % (MANUAL) 92 %
[2022-06-18 06:19] LABS: LYMPHOCYTES % (MANUAL) 7 %; MONOCYTES % (MANUAL) 1 %; RBC MORPH NORMAL
[2022-06-18] MEDS: inSUlin ASPART (NovoLOG) 1 UNIT/0.01 ML (CHARGE PER UNIT) SC SCH ×4 (06:53→21:10)
[2022-06-18] MEDS ORDERED: FUROSEMIDE 40 MG/4 ML INJ (LASIX) IVP ONE (07:15)
[2022-06-18 08:30] VITALS: BP 174/66
[2022-06-18] MEDS ORDERED: HOLD METFORMIN - RECEIVED CONTRAST 20 ML VIAL IV SCH (11:15)
[2022-06-18] MEDS ORDERED: IOHEXOL 350 MG/ML 100 ML (OMNIPAQUE 350) VIAL IV ONE (11:15)
[2022-06-18] MEDS: DOCUSATE SODIUM 100 MG (COLACE) CAP PO SCH ×2 (11:32→21:10)
[2022-06-18] MEDS: SENNOSIDES 8.6 MG (SENOKOT) TAB PO SCH ×2 (11:32→21:10)
[2022-06-18] MEDS: ENOXAPARIN 60 MG/0.6 ML (LOVENOX) SYR SC SCH ×2 (11:32→21:11)
--- NOTE | 2022-06-18 11:53 | Diagnostic Imaging Report ---
PROCEDURE: CT angiography Chest TECHNIQUE: After intravenous administration of contrast, thin section axial CT angiography of the chest was performed. 3D MIP reconstructions were made. All CT scans use one or more of the following dose optimizing techniques: automated exposure control, MA and/or KvP adjustment based on a patient size and exam type, or iterative reconstruction. INDICATION: Dyspnea COMPARISON: CTA chest from 12/10/2020 FINDINGS: Vasculature: No pulmonary emboli. No CT evidence of pulmonary hypertension or right ventricular strain. Thoracic aorta is normal in caliber. No aortic dissection or pseudoaneurysm. Heart and mediastinum: Visualized thyroid is normal. No supraclavicular, axillary, or intra-thoracic lymphadenopathy. The heart is normal in size without pericardial effusion. Pleura: Small right pleural effusion is nonloculated. No pneumothorax. Lungs and airway: No endoluminal lesion in the trachea or central bronchi. There is no pneumonia or edema. Stable subpleural 4 mm right lower lobe pulmonary nodule. A few smaller left lower lobe pulmonary nodules are also stable. No suspicious pulmonary nodules have developed. Upper abdomen: Allowing for the phase of contrast, no acute abnormality in the upper abdomen is seen. Musculoskeletal: No concerning osseous lesion. IMPRESSION: 1. No pulmonary emboli or acute aortic syndrome. 2. Small right pleural effusion. 3. No pneumonia or edema. Dictated by: Dictated on workstation # [id number]
[2022-06-18] MEDS ORDERED: FUROSEMIDE 40 MG/4 ML INJ (LASIX) IVP NR (12:00)
[2022-06-18 12:02] VITALS: BP 174/70
[2022-06-18 16:23] VITALS: BP 153/67
[2022-06-18] MEDS ORDERED: LEVO100T7 PO (16:53)
[2022-06-18] MEDS ORDERED: PATIENT MAY USE OWN MED,SINGLE MED PO SCH ×13 (17:00)
[2022-06-18] MEDS ORDERED: methylPREDNISolone 40 MG/ML (Solu-MEDROL) VIAL IV SCH (18:00)
--- NOTE | 2022-06-18 18:38 | History & Physical-Hospitalist ---
History of Present Illness HPI/Chief Complaint Kya Perez is a 71 year old female with PMH HTN, T2DM, HLD, asthma, LAZARA on CPAP, obesity, who presented with shortness of breath. She has been wheezing. She denies fevers and chills. She has some cough. She denies chest pain. She denies abdominal pain. She denies nausea and vomiting. She has been taking her medications. She is feeling better, but worried about going home. Source: patient Exam Limitations: no limitations Date Seen 06/18/22 Time Seen by a Provider: 10:15 Attending Physician Padma Sanchez DO PCP Admitting Physician: Padma Sanchez DO Attending Physician: Aurora Sanabria MD Referring Physician Date of Admission Jun 17, 2022 at 16:06 Home Medications & Allergies Home Medications Reviewed patient Home Medication Reconciliation performed by pharmacy medication reconciliations chemical waste management technician and/or nursing. Patients Allergies have been reviewed. Allergies Allergies Coded Allergies Cephalosporins (Verified Allergy, Mild, 11/28/17) Past Npokxde-Wyrtpt-Gaommf Hx Patient Social History Tobacco Use?: No Smoking Status: Former Smoker Smokeless Tobacco Frequency: Former User Use of E-Cig and/or Vaping dev: No Substance use?: No Alcohol Use?: No Pt feels they are or have been: No Immunizations Up To Date Date of Influenza Vaccine: Aug 02, 2017 Date of Pneumonia Vaccine: Oct 28, 2017 Seasonal Allergies Seasonal Allergies: Yes Current Status status: No status: No Advance Directives: No Communicates: Verbally Primary Language: [place] Preferred Spoken Language: [place] Is interpretation needed?: No Sensory deficits: Other Additional sensory deficits: reading glasses Implanted or Applied Medical D: None Past Medical History Surgeries: Breast, Tonsillectomy Asthma, Chronic Bronchitis, Sleep Apnea Currently Using CPAP: Yes Currently Using BIPAP: No Coronary Artery Disease, High Cholesterol, Hypertension Sexually Transmitted Disease: No Bladder Infection Gastroesophageal Reflux, Hemorrhoids Degenerate Disk Disease, Arthritis Diabetes, Non-Insulin dep Breast Did You Recieve Any Treatments: Yes What Type of Treatment Did You: Radiation, Surgical Intervention Anxiety, Depression Blood Disorders: Yes (anemia) Family Medical History Patient reports no known family medical history. No Pertinent Family Hx Review of Systems Constitutional: no symptoms reported EENTM: no symptoms reported Respiratory: cough, short of breath, wheezing Cardiovascular: no symptoms reported Gastrointestinal: no symptoms reported Physical Exam Physical Exam Vital Signs Vital Signs - First Documented 06/17/22 06/17/22 06/17/22 17:40 18:17 19:13 Temp 36.3 Pulse 42 Resp 18 B/P (MAP) 144/67 (92) O2 Delivery Room Air Capillary Refill : Height, Weight, BMI Height: 5'2.00" Weight: 270lbs. 0.0oz. 122.448128lp; 51.27 BMI Method:Stated General Appearance: No Apparent Distress, Obese HEENT: PERRL/EOMI, Pharynx Normal Neck: Normal Inspection, Supple Respiratory: No Respiratory Distress, Decreased Breath Sounds, Wheezing Cardiovascular: Regular Rate, Rhythm, No Murmur Gastrointestinal: Normal Bowel Sounds, Non Tender, Soft Extremity: Normal Inspection, No Pedal Edema Neurologic/Psychiatric: Alert, No Motor/Sensory Deficits, Normal Mood/Affect Skin: Normal Color, Warm/Dry Results Results/Procedures Labs Laboratory Tests 06/17/22 17:16 06/18/22 05:35 Patient resulted labs reviewed. Imaging: Reviewed Imaging Report Assessment/Plan Admission Diagnosis Asthma exacerbation Admission Status: Observation Assessment and Plan Asthma exacerbation Bronchitis Steroids MAT protocol No supplemental oxygen requirement Azithromycin HTN Continue home meds Clonidine as needed T2DM Continue home meds Sliding scale insulin HLD Hypothyroidism Continue home meds LAZARA on CPAP Nocturnal oxygen DVT prophylaxis: Lovenox Diagnosis/Problems Diagnosis/Problems (1) Asthma exacerbation Status: Acute (2) Bronchitis Status: Acute (3) HTN (hypertension) Status: Acute (4) T2DM (type 2 diabetes mellitus) Status: Acute Qualifiers: Diabetes mellitus long-term insulin use: without marine oil terminal superintendent use Diabetes mellitus complication status: with hyperglycemia Qualified Codes: E11.65 - T ype 2 diabetes mellitus with hyperglycemia (5) HLD (hyperlipidemia) Status: Chronic (6) Hypothyroid Status: Chronic (7) LAZARA on CPAP Status: Chronic (8) Obesity Status: Chronic Qualifiers: Obesity type: unspecified obesity type Serious obesity comorbidity presence: with serious comorbidity Body mass index: BMI 50.0-59.9 AURORA SANABRIA MD Jun 18, 2022 18:38
[2022-06-18 20:21] VITALS: BP 165/62
[2022-06-19] VITALS: BP 126/63
[2022-06-19] MEDS: RT-ALBUTEROL SULF 2.5 MG/3 ML PRE-MIX VIAL INH SCH ×6 (01:59→22:00)
[2022-06-19 04:09] VITALS: BP 131/57
[2022-06-19 05:44] LABS: BASOPHILS % (AUTO) 0 % (0-10); EOSINOPHILS % (AUTO) 0 % (0-10); MEAN CORPUSCULAR HEMOGLOBIN 28 pg (25-34); MEAN PLATELET VOLUME 10.4 fL (9.0-12.2)
[2022-06-19 05:46] LABS: HEMATOCRIT 30 % (35-52); HEMOGLOBIN 9.5 g/dL (11.5-16.0); LYMPHOCYTES % (AUTO) 7 % (12-44); MEAN CORPUSCULAR HGB CONC 32 g/dL (32-36); MEAN CORPUSCULAR VOLUME 89 fL (80-99); MONOCYTES # (AUTO) 0.8 10^3/uL (0.0-1.0); MONOCYTES % (AUTO) 6 % (0-12); NEUTROPHILS # (AUTO) 11.9 10^3/uL (1.8-7.8); NEUTROPHILS % (AUTO) 86 % (42-75); PLATELET COUNT 344 10^3/uL (130-400); WHITE BLOOD COUNT 13.8 10^3/uL (4.3-11.0)
[2022-06-19 06:07] LABS: ALBUMIN 3.6 GM/DL (3.2-4.5); BILIRUBIN,TOTAL 0.2 MG/DL (0.1-1.0); CREATININE SERUM 1.43 MG/DL (0.60-1.30); POTASSIUM 5.1 MMOL/L (3.6-5.0); TOTAL PROTEIN 6.7 GM/DL (6.4-8.2)
[2022-06-19] MEDS: inSUlin ASPART (NovoLOG) 1 UNIT/0.01 ML (CHARGE PER UNIT) SC SCH ×5 (06:43→20:44)
[2022-06-19] MEDS: predniSONE 20 MG TAB PO SCH (06:43)
[2022-06-19 07:17] VITALS: BP 144/64
--- NOTE | 2022-06-19 08:29 | Progress Note ---
Subjective Date Seen by a Provider: Jun 19, 2022 Time Seen by a Provider: 15:30 Subjective/Events-last exam Doing better but stil wheezing CT chest no evidence of PE with ddimer elevation BM+ Urinating well No pain Labs reviewed Creatinine increased also Review of Systems Pulmonary: Dyspnea Focused Exam Lactate Level 06/17/22 17:16: Lactic Acid Level 0.64 Objective Exam Last Set of Vital Signs Vital Signs Date Time Temp Pulse Resp B/P (MAP) Pulse Ox O2 Delivery O2 Flow Rate FiO2 06/19/22 07:17 35.7 64 18 144/64 (90) 97 Nasal Cannula 3.00 Capillary Refill : I&O Intake and Output 06/19/22 00:00 Intake Total 2850 ml Balance 2850 ml Intake Oral 2700 ml IV Total 150 ml # Voids 8 # Bowel Movements 1 General: Alert, Oriented X3, Cooperative, No Acute Distress Lungs: Other (wheezing noted all persaud) Heart: Regular Rate, Normal S1, Normal S2, No Murmurs Neuro: Normal Gait, Normal Speech, Strength at 5/5 X4 Ext, Normal Tone Psych/Mental Status: Mental Status NL, Mood NL Results Lab Laboratory Tests 06/18/22 11:19: Glucometer 350H 06/18/22 16:12: Glucometer 361H 06/18/22 21:03: Glucometer 367H 06/19/22 05:10: White Blood Count 13.8H, Red Blood Count 3.34L, Hemoglobin 9.5L, Hematocrit 30L, Mean Corpuscular Volume 89, Mean Corpuscular Hemoglobin 28, Mean Corpuscular Hemoglobin Concent 32, Red Cell Distribution Width 14.6H, Platelet Count 344, Mean Platelet Volume 10.4, Immature Granulocyte % (Auto) 1, Neutrophils (%) (Auto) 86H, Lymphocytes (%) (Auto) 7L, Monocytes (%) (Auto) 6, Eosinophils (%) (Auto) 0, Basophils (%) (Auto) 0, Neutrophils # (Auto) 11.9H, Lymphocytes # (Auto) 1.0, Monocytes # (Auto) 0.8, Eosinophils # (Auto) 0.0, Basophils # (Auto) 0.0, Immature Granulocyte # (Auto) 0.1, Percent Immature Platelet Fraction 4.3, Sodium Level 134L, Potassium Level 5.1H, Chloride Level 103, Carbon Dioxide Level 17L, Anion Gap 14, Blood Urea Nitrogen 40H, Creatinine 1.43H, Estimat Glomerular Filtration Rate 39, BUN/Creatinine Ratio 28, Glucose Level 247H, Calcium Level 9.0, Corrected Calcium 9.3, Total Bilirubin 0.2, Aspartate Amino Transf (AST/SGOT) 18, Alanine Aminotransferase (ALT/SGPT) 14, Alkaline Phosphatase 90, Total Protein 6.7, Albumin 3.6 06/19/22 05:40: Glucometer 237H Microbiology 06/17/22 Blood Culture - Preliminary, Resulted No growth Assessment/Plan Assessment/Plan Assess & Plan/Chief Complaint Assessment: Acute respiratory failure Exacerbation of asthma LAZARA HTN DM Obesity BMI 51 Chronic lymphedema DEANN Hypothyroidism h/o breast cancer Plan: IV steroids Nebs O2 Home meds Monitor sugar BEE CHEATHAM DO Jun 19, 2022 08:29
[2022-06-19] MEDS: SENNOSIDES 8.6 MG (SENOKOT) TAB PO SCH ×2 (08:58→20:36)
[2022-06-19] MEDS: DOCUSATE SODIUM 100 MG (COLACE) CAP PO SCH ×2 (08:58→20:36)
[2022-06-19] MEDS: ENOXAPARIN 60 MG/0.6 ML (LOVENOX) SYR SC SCH ×2 (08:59→20:43)
[2022-06-19] MEDS ORDERED: AZITHROMYCIN 250 MG TAB (ZITHROMAX) PO SCH (09:00)
[2022-06-19 11:15] VITALS: BP 172/74
[2022-06-19 15:45] VITALS: BP 149/61
[2022-06-19] MEDS ORDERED: PATIENT MAY USE OWN MEDS, ALL MC SCH (18:30)
[2022-06-19 19:52] VITALS: BP 129/46
[2022-06-20 00:20] VITALS: BP 144/67
[2022-06-20] MEDS: RT-ALBUTEROL SULF 2.5 MG/3 ML PRE-MIX VIAL INH SCH ×6 (02:14→22:48)
[2022-06-20 03:49] VITALS: BP 123/55
[2022-06-20] MEDS: inSUlin ASPART (NovoLOG) 1 UNIT/0.01 ML (CHARGE PER UNIT) SC SCH ×4 (05:52→20:36)
[2022-06-20] MEDS: predniSONE 20 MG TAB PO SCH (05:56)
[2022-06-20 06:08] LABS: BASOPHILS % (AUTO) 0 % (0-10); EOSINOPHILS % (AUTO) 0 % (0-10); HEMATOCRIT 30 % (35-52); HEMOGLOBIN 9.5 g/dL (11.5-16.0); LYMPHOCYTES # (AUTO) 2.3 10^3/uL (1.0-4.0); LYMPHOCYTES % (AUTO) 21 % (12-44); MEAN CORPUSCULAR HEMOGLOBIN 28 pg (25-34); MEAN CORPUSCULAR HGB CONC 32 g/dL (32-36); MEAN CORPUSCULAR VOLUME 90 fL (80-99); MEAN PLATELET VOLUME 9.6 fL (9.0-12.2); MONOCYTES % (AUTO) 9 % (0-12); NEUTROPHILS # (AUTO) 7.9 10^3/uL (1.8-7.8); NEUTROPHILS % (AUTO) 69 % (42-75); PLATELET COUNT 368 10^3/uL (130-400); WHITE BLOOD COUNT 11.4 10^3/uL (4.3-11.0)
[2022-06-20 06:19] LABS: ALBUMIN 3.7 GM/DL (3.2-4.5)
[2022-06-20 06:21] LABS: TOTAL PROTEIN 6.3 GM/DL (6.4-8.2)
[2022-06-20 06:23] LABS: BILIRUBIN,TOTAL 0.3 MG/DL (0.1-1.0)
[2022-06-20 06:25] LABS: CREATININE SERUM 1.53 MG/DL (0.60-1.30)
[2022-06-20 08:00] VITALS: BP 152/67
[2022-06-20] MEDS ORDERED: CHOL-34 PO (09:12)
[2022-06-20] MEDS: DOCUSATE SODIUM 100 MG (COLACE) CAP PO SCH ×2 (09:15→20:36)
[2022-06-20] MEDS: SENNOSIDES 8.6 MG (SENOKOT) TAB PO SCH ×2 (09:15→20:36)
[2022-06-20] MEDS: ENOXAPARIN 60 MG/0.6 ML (LOVENOX) SYR SC SCH ×2 (09:16→20:36)
[2022-06-20 11:09] VITALS: BP 132/76
--- NOTE | 2022-06-20 12:05 | Physical Therapy Evaluation ---
PT Evaluation-General Medical Diagnosis Admission Date Jun 19, 2022 at 08:29 Medical Diagnosis: asthma exacerbation Onset Date: Jun 19, 2022 Therapy Diagnosis Therapy Diagnosis: debility/weakness Height/Weight Height (Feet): 5 Height (Inches): 2.00 Weight (Pounds): 270 Weight (Ounces): 0.0 Precautions Precautions/Isolations: Standard Precautions Referral Physician: Daniel Reason for Referral: Evaluation/Treatment Medical History Pertinent Medical History: CAD, DM, HTN History of Falls (past yr): Yes Prior Surgery (last 100 days): No Current History Admit secondary to edema/asthma Reviewed History: Yes Social History Home: Single Level Current Living Status: Spouse Entry Into Home: Level Entry Prior Prior Level of Function SCALE: Activities may be completed with or without assistive devices. 7-Htbiiucvgl-rriydcm completes the activity by him/herself with no assistance from a helper. 5-Set-up or Clean-up Assistance-helper sets up or cleans up; patient completes activity. [place] assists only prior to or following the activity. 4-Supervision or Touching Assistance-helper provides verbal cues and/or touching/steadying and/or contact guard assistance as patient completes activity. Assistance may be provided throughout the activity or intermittently. 3-Partial/Moderate Assistance-helper does LESS THAN HALF the effort. [place] lifts, holds or supports trunk or limbs, but provides less than half the effort. 2-Substantial/Maximal Assistance-helper does MORE THAN HALF the effort. [place] lifts or holds trunk or limbs and provides more than half the effort. 5-Opnzxuuen-pzwzbe does ALL the effort. Patient does none of the effort to complete the activity. Or, the assistance of 2 or more helpers is required for the patient to complete the activity. If activity was not attempted, code reason: 7-Patient Refused. 9-Not Applicable-not attempted and the patient did not perform the activity before the current illness, exacerbation or injury. 10-Not Attempted due to Environmental Limitations-(lack of equipment, weather restraints, etc.). 88-Not Attempted due to Medical Conditions or Safety Concerns. Bed Mobility: 6 Transfers (B,C,W/C): 6 Gait: 6 Indoor Mobility (Ambulation): Independent Stairs: Independent Prior Devices Use: Other-see list below Prior Device Use: cane PT Evaluation-Current Subjective Patient agrees to PT. Objective Patient Orientation: Normal For Age ROM/Strength ROM Lower Extremities bilateral LE WFL Strength Lower Extremities 4/5 grossly bilateral LE all planes Integumentary/Posture Bowel Incontinence: No Bladder Incontinence: No Posture WFL Neuromuscular (Tone, Coordination, Reflexes) grossly intact Sensory Vision: Functional Hearing: Functional Transfers Lying to Sitting/Side of Bed(Q: 6 Sit to Stand (QC): 6 Chair/Hpp-zj-Ltoxk Xfer(QC): 6 Gait Mode of Locomotion: Walk Anticipated Mode of Locomotion: Walk Walk 10 feet (QC): 6 Walk 50 ft with 2 Turns(QC): 6 Walk 150 ft (QC): 6 Distance: 150' Gait Assistive Device: None Comments/Gait Description uses cane PLOF, utilized hand rail/safe and functional gait sequence with no deviation Balance Sitting Static: Normal Sitting Dynamic: Normal Standing Static: Good Standing Dynamic: Good Assessment/Needs Patient is currently at independent PLOF with all gross motor skills and does not require skilled PT intervention. Rehab Potential: Fair PT Plan Treatment/Plan Treatment Plan: Discontinue PT, goals met Treatment Duration: Jun 20, 2022 Frequency: 1 time per week Estimated Hrs Per Day: .25 hour per day Patient and/or Family Agrees t: Yes Time/GCodes Time In: 1135 Time Out: 1145 Total Billed Treatment Time: 10 Total Billed Treatment 1 visit EVMod 10 min DOROTHEA CHRIS PT Jun 20, 2022 12:05
--- NOTE | 2022-06-20 13:24 | Occ Therapy Progress Note ---
Therapy Progress Note OT orders received and chart reviewed. OT visited with pt who indicates she is at her PLOF and independent with ADLs. Pt is up independently in her room, able to toilet and feed herself independently. Pt declines further OT services, as she is at her PLOF. D/C from OT. 1, visit 1310 CINDY MIRELES OT Jun 20, 2022 13:24
--- NOTE | 2022-06-20 13:48 | Progress Note ---
BOO MORENO 06/20/22 1348: Subjective Date Seen by a Provider: Jun 20, 2022 Time Seen by a Provider: 13:41 Subjective/Events-last exam Patient is feeling improved today Still complains of a mild wheeze Did sleep okay, but had increased coughing Bowel movements and voiding are active Feeling her SOB and respiratory effort is improving Labs Reviewed Only concern at this time is her strength, still feels weak Focused Exam Lactate Level 06/17/22 17:16: Lactic Acid Level 0.64 Objective Exam Last Set of Vital Signs Vital Signs Date Time Temp Pulse Resp B/P (MAP) Pulse Ox O2 Delivery O2 Flow Rate FiO2 06/20/22 11:09 36.3 62 18 132/76 (94) 93 Room Air 06/20/22 07:09 2.00 Capillary Refill : I&O Intake and Output 06/20/22 00:00 Intake Total 2850 ml Balance 2850 ml Intake Oral 2850 ml # Voids 11 # Bowel Movements 1 General: Alert, Oriented X3 HEENT: Atraumatic Neck: Supple, No JVD Lungs: Other (Expriatory wheeze) Heart: Regular Rate, No Murmurs Abdomen: Normal Bowel Sounds, Soft Extremities: No Clubbing, No Cyanosis Skin: No Rashes, No Breakdown Neuro: Normal Speech, Normal Tone Results Lab Laboratory Tests 06/19/22 15:53: Glucometer 258H 06/19/22 20:31: Glucometer 208H 06/20/22 05:33: White Blood Count 11.4H, Red Blood Count 3.36L, Hemoglobin 9.5L, Hematocrit 30L, Mean Corpuscular Volume 90, Mean Corpuscular Hemoglobin 28, Mean Corpuscular Hemoglobin Concent 32, Red Cell Distribution Width 14.7H, Platelet Count 368, Mean Platelet Volume 9.6, Immature Granulocyte % (Auto) 1, Neutrophils (%) (Auto) 69, Lymphocytes (%) (Auto) 21, Monocytes (%) (Auto) 9, Eosinophils (%) (Auto) 0, Basophils (%) (Auto) 0, Neutrophils # (Auto) 7.9H, Lymphocytes # (Auto) 2.3, Monocytes # (Auto) 1.0, Eosinophils # (Auto) 0.0, Basophils # (Auto) 0.0, Immature Granulocyte # (Auto) 0.1, Sodium Level 143, Potassium Level 4.0, Chloride Level 107, Carbon Dioxide Level 21, Anion Gap 15H, Blood Urea Nitrogen 41H, Creatinine 1.53H, Estimat Glomerular Filtration Rate 36, BUN/Creatinine Ratio 27, Glucose Level 123H, Calcium Level 9.0, Corrected Calcium 9.2, Total Bilirubin 0.3, Aspartate Amino Transf (AST/SGOT) 13, Alanine Aminotransferase (ALT/SGPT) 15, Alkaline Phosphatase 77, Total Protein 6.3L, Albumin 3.7 06/20/22 05:47: Glucometer 123H 06/20/22 11:06: Glucometer 316H Microbiology 06/17/22 Blood Culture - Preliminary, Resulted No growth Assessment/Plan Assessment/Plan Assess & Plan/Chief Complaint Assessment / Plan: Acute respiratory failure Exacerbation of asthma Continue prednisone Continue nebulizer breathing treatments Continue antibiotics Debility: Consult/Start PT and OT LAZARA Encourage CPAP use HTN Monitor BP and continue home medications DM Monitior Blood glucose Use sliding scale insulin Obesity BMI 51 Chronic lymphedema DEANN Creatinine of 1.53 Hypothyroidism Continue home medications History of breast cancer PADMA CHEATHAM DO 06/21/22 0508: Subjective Subjective/Events-last exam Pt is doing a lot better Will initiate PT and OT because she is frightened with how much weakness is affecting her Asthma is much better controlled, less wheezing on exam Discharge planned for tomorrow Review of Systems General: Fatigue, Malaise Pulmonary: Dyspnea Objective Exam General: Alert, Oriented X3, Cooperative, No Acute Distress Lungs: Other (Expriatory wheeze) Heart: Regular Rate Psych/Mental Status: Mental Status NL, Mood NL Assessment/Plan Assessment/Plan Assess & Plan/Chief Complaint DC tomorrow Supervisory-Addendum Brief Verification & Attestation Participated in pt care: history, MDM, physical Personally performed: exam, history, MDM, supervision of care Care discussed with: Medical Student Procedures: n/a Results interpretation: Verified all documentation Verification and Attestation of Medical Student E/M Service A medical student performed and documented this service in my presence. I reviewed and verified all information documented by the medical student and made modifications to such information, when appropriate. I personally performed the physical exam and medical decision making. Padma Cheatham Jun 21, 2022,05:08 BOO MORENO Jun 20, 2022 13:48 PADMA CHEATHAM DO Jun 21, 2022 05:08
[2022-06-20 15:39] VITALS: BP 144/97
[2022-06-20 20:00] VITALS: BP 146/65
[2022-06-21 00:35] VITALS: BP 150/70
[2022-06-21] MEDS: RT-ALBUTEROL SULF 2.5 MG/3 ML PRE-MIX VIAL INH SCH ×2 (02:41→06:44)
[2022-06-21 04:32] VITALS: BP 160/75
[2022-06-21] MEDS: inSUlin ASPART (NovoLOG) 1 UNIT/0.01 ML (CHARGE PER UNIT) SC SCH ×2 (05:48→11:26)
[2022-06-21 05:54] LABS: BASOPHILS % (AUTO) 0 % (0-10); EOSINOPHILS # (AUTO) 0.2 10^3/uL (0.0-0.3); EOSINOPHILS % (AUTO) 2 % (0-10); HEMATOCRIT 29 % (35-52); HEMOGLOBIN 9.3 g/dL (11.5-16.0); LYMPHOCYTES # (AUTO) 2.4 10^3/uL (1.0-4.0); LYMPHOCYTES % (AUTO) 24 % (12-44); MEAN CORPUSCULAR HEMOGLOBIN 28 pg (25-34); MEAN CORPUSCULAR HGB CONC 32 g/dL (32-36); MEAN CORPUSCULAR VOLUME 90 fL (80-99); MEAN PLATELET VOLUME 9.4 fL (9.0-12.2); MONOCYTES # (AUTO) 0.9 10^3/uL (0.0-1.0); MONOCYTES % (AUTO) 9 % (0-12); NEUTROPHILS # (AUTO) 6.4 10^3/uL (1.8-7.8); NEUTROPHILS % (AUTO) 64 % (42-75); PLATELET COUNT 354 10^3/uL (130-400); WHITE BLOOD COUNT 9.9 10^3/uL (4.3-11.0)
[2022-06-21] MEDS: predniSONE 20 MG TAB PO SCH (05:56)
[2022-06-21 06:20] LABS: ALBUMIN 3.5 GM/DL (3.2-4.5); BILIRUBIN,TOTAL 0.3 MG/DL (0.1-1.0); CALCIUM 8.8 MG/DL (8.5-10.1); CREATININE SERUM 1.3 MG/DL (0.60-1.30); POTASSIUM 3.7 MMOL/L (3.6-5.0); TOTAL PROTEIN 5.8 GM/DL (6.4-8.2)
[2022-06-21 06:47] VITALS: BP 160/75
[2022-06-21 08:00] VITALS: BP 125/58
[2022-06-21] MEDS: DOCUSATE SODIUM 100 MG (COLACE) CAP PO SCH (08:52)
[2022-06-21] MEDS: SENNOSIDES 8.6 MG (SENOKOT) TAB PO SCH (08:52)
[2022-06-21] MEDS: ENOXAPARIN 60 MG/0.6 ML (LOVENOX) SYR SC SCH (08:52)
[2022-06-21] MEDS ORDERED: PRED10TA22 PO (10:08)
[2022-06-21] MEDS ORDERED: LEVO750T PO (10:08)
--- NOTE | 2022-06-21 10:08 | Discharge Summary ---
Diagnosis/Chief Complaint Date of Admission Jun 19, 2022 at 08:29 Date of Discharge Discharge Date: Jun 21, 2022 Discharge Diagnosis Assessment: Acute respiratory failure Exacerbation of asthma LAZARA HTN DM Obesity BMI 51 Chronic lymphedema DEANN Hypothyroidism h/o breast cancer Plan: IV steroids Nebs O2 Home meds Monitor sugar Discharge Summary Discharge Physical Examination Allergies: Coded Allergies: Cephalosporins (Verified Allergy, Mild, 11/28/17) Vitals & I&Os Vital Signs Date Time Temp Pulse Resp B/P (MAP) Pulse Ox O2 Delivery O2 Flow Rate FiO2 06/21/22 11:35 36.2 60 18 125/58 100 Nasal Cannula 0.00 General Appearance: Alert, Oriented X3, Cooperative Respiratory: Clear to Auscultation Cardiovascular: Regular Rate Psych/Mental Status: Mental Status NL Hospital Course Was the Problem List Reviewed?: Yes Patient is a 71 year old obese female with past medical history of HTN, T2DM, HLD, asthma, LAZARA on CPAP, who presented to the hospital with shortness of breath and was admitted on 06-17-2022. She was subsequently placed on IV steroids, azithromycin and lovenox. She was tested for COVID-19 which was negative. She was placed on scheduled albuterol nebulizer treatments. She has had a persistent expiatory wheezing throughout stay. She had a chest x-ray performed on 06-17-2022 which showed no pulmonary congestion or infiltrate. She also had a CTA chest performed on 06-18-2022 which showed no PE, no pneumonia, and small right sided plural effusion. She was later placed on levofloxacin and placed on oral prednisone. Physical therapy and occupational therapy were both consulted for evaluation. Her blood glucose was properly managed throughout her stay. She is regaining her strength each day and making improvements in her respiratory effort. She feels strong enough at this time to return home. She will be keep on her breathing treatments and prednisone at home. She will follow up with her PCP in a week after discharge. Labs (last 24 hrs) Laboratory Tests 06/17/22 16:34: Influenza Type A (RT-PCR) Not Detected, Influenza Type B (RT-PCR) Not Detected, SARS-CoV-2 RNA (RT-PCR) Not Detected 06/17/22 16:48: Blood Gas Puncture Site RAD, Blood Gas Patient Temperature 37, Arterial Blood pH 7.41, Arterial Blood Partial Pressure CO2 40, Arterial Blood Partial Pressure O2 60L, Arterial Blood HCO3 25, Arterial Blood Total CO2 26.0, Arterial Blood Oxygen Saturation 94, Arterial Blood Base Excess 0.6, Parth Test Y, Blood Gas Ventilator Setting NO, Blood Gas Inspired Oxygen NA 06/17/22 17:16: White Blood Count 9.8, Red Blood Count 3.81, Hemoglobin 10.7L, Hematocrit 34L, Mean Corpuscular Volume 88, Mean Corpuscular Hemoglobin 28, Mean Corpuscular Hemoglobin Concent 32, Red Cell Distribution Width 14.5, Platelet Count 421H, Mean Platelet Volume 9.5, Immature Granulocyte % (Auto) 0, Neutrophils (%) (Auto) 65, Lymphocytes (%) (Auto) 21, Monocytes (%) (Auto) 7, Eosinophils (%) (Auto) 5, Basophils (%) (Auto) 1, Neutrophils # (Auto) 6.4, Lymphocytes # (Auto) 2.1, Monocytes # (Auto) 0.7, Eosinophils # (Auto) 0.5H, Basophils # (Auto) 0.1, Immature Granulocyte # (Auto) 0.0, D-Dimer 1.53H, Sodium Level 144, Potassium Level 4.3, Chloride Level 104, Carbon Dioxide Level 23, Anion Gap 17H, Blood Urea Nitrogen 23H, Creatinine 1.04, Estimat Glomerular Filtration Rate 57, BUN/Creatinine Ratio 22, Glucose Level 96, Lactic Acid Level 0.64, Calcium Level 9.7, Corrected Calcium 9.6, Total Bilirubin 0.5, Aspartate Amino Transf (AST/SGOT) 14, Alanine Aminotransferase (ALT/SGPT) 14, Alkaline Phosphatase 115, Troponin I < 0.028, B-Type Natriuretic Peptide 412.5H, Total Protein 7.4, Albumin 4.1 06/17/22 20:31: Glucometer 230H 06/18/22 05:24: Glucometer 276H 06/18/22 05:35: White Blood Count 8.5, Red Blood Count 3.44L, Hemoglobin 9.7L, Hematocrit 30L, Mean Corpuscular Volume 87, Mean Corpuscular Hemoglobin 28, Mean Corpuscular Hemoglobin Concent 32, Red Cell Distribution Width 14.4, Platelet Count 384, Mean Platelet Volume 9.5, Immature Granulocyte % (Auto) 1, Neutrophils (%) (Auto) 90H, Lymphocytes (%) (Auto) 9L, Monocytes (%) (Auto) 1, Eosinophils (%) (Auto) 0, Basophils (%) (Auto) 0, Neutrophils # (Auto) 7.6, Lymphocytes # (Auto) 0.7L, Monocytes # (Auto) 0.1, Eosinophils # (Auto) 0.0, Basophils # (Auto) 0.0, Immature Granulocyte # (Auto) 0.0, Neutrophils % (Manual) 92, Lymphocytes % (Manual) 7, Monocytes % (Manual) 1, Blood Morphology Comment NORMAL, Sodium Level 138, Potassium Level 4.6, Chloride Level 106, Carbon Dioxide Level 19L, Anion Gap 13, Blood Urea Nitrogen 26H, Creatinine 1.09, Estimat Glomerular Filtration Rate 54, BUN/Creatinine Ratio 24, Glucose Level 301H, Calcium Level 9.2, Corrected Calcium 9.5, Total Bilirubin 0.4, Aspartate Amino Transf (AST/SGOT) 10, Alanine Aminotransferase (ALT/SGPT) 14, Alkaline Phosphatase 103, Total Protein 6.5, Albumin 3.6 06/18/22 11:19: Glucometer 350H 06/18/22 16:12: Glucometer 361H 06/18/22 21:03: Glucometer 367H 06/19/22 05:10: White Blood Count 13.8H, Red Blood Count 3.34L, Hemoglobin 9.5L, Hematocrit 30L, Mean Corpuscular Volume 89, Mean Corpuscular Hemoglobin 28, Mean Corpuscular Hemoglobin Concent 32, Red Cell Distribution Width 14.6H, Platelet Count 344, Mean Platelet Volume 10.4, Immature Granulocyte % (Auto) 1, Neutrophils (%) (Auto) 86H, Lymphocytes (%) (Auto) 7L, Monocytes (%) (Auto) 6, Eosinophils (%) (Auto) 0, Basophils (%) (Auto) 0, Neutrophils # (Auto) 11.9H, Lymphocytes # (Auto) 1.0, Monocytes # (Auto) 0.8, Eosinophils # (Auto) 0.0, Basophils # (Auto) 0.0, Immature Granulocyte # (Auto) 0.1, Percent Immature Platelet Fraction 4.3, Sodium Level 134L, Potassium Level 5.1H, Chloride Level 103, Carbon Dioxide Level 17L, Anion Gap 14, Blood Urea Nitrogen 40H, Creatinine 1.43H, Estimat Glomerular Filtration Rate 39, BUN/Creatinine Ratio 28, Glucose Level 247H, Calcium Level 9.0, Corrected Calcium 9.3, Total Bilirubin 0.2, Aspartate Amino Transf (AST/SGOT) 18, Alanine Aminotransferase (ALT/SGPT) 14, Alkaline Phosphatase 90, Total Protein 6.7, Albumin 3.6 06/19/22 05:40: Glucometer 237H 06/19/22 11:17: Glucometer 367H 06/19/22 15:53: Glucometer 258H 06/19/22 20:31: Glucometer 208H 06/20/22 05:33: White Blood Count 11.4H, Red Blood Count 3.36L, Hemoglobin 9.5L, Hematocrit 30L, Mean Corpuscular Volume 90, Mean Corpuscular Hemoglobin 28, Mean Corpuscular Hemoglobin Concent 32, Red Cell Distribution Width 14.7H, Platelet Count 368, Mean Platelet Volume 9.6, Immature Granulocyte % (Auto) 1, Neutrophils (%) (Auto) 69, Lymphocytes (%) (Auto) 21, Monocytes (%) (Auto) 9, Eosinophils (%) (Auto) 0, Basophils (%) (Auto) 0, Neutrophils # (Auto) 7.9H, Lymphocytes # (Auto) 2.3, Monocytes # (Auto) 1.0, Eosinophils # (Auto) 0.0, Basophils # (Auto) 0.0, Immature Granulocyte # (Auto) 0.1, Sodium Level 143, Potassium Level 4.0, Chloride Level 107, Carbon Dioxide Level 21, Anion Gap 15H, Blood Urea Nitrogen 41H, Creatinine 1.53H, Estimat Glomerular Filtration Rate 36, BUN/Creatinine Ratio 27, Glucose Level 123H, Calcium Level 9.0, Corrected Calcium 9.2, Total Bilirubin 0.3, Aspartate Amino Transf (AST/SGOT) 13, Alanine Aminotransferase (ALT/SGPT) 15, Alkaline Phosphatase 77, Total Protein 6.3L, Albumin 3.7 06/20/22 05:47: Glucometer 123H 06/20/22 11:06: Glucometer 316H 06/20/22 15:44: Glucometer 270H 06/20/22 20:29: Glucometer 260H 06/21/22 05:33: White Blood Count 9.9, Red Blood Count 3.27L, Hemoglobin 9.3L, Hematocrit 29L, Mean Corpuscular Volume 90, Mean Corpuscular Hemoglobin 28, Mean Corpuscular Hemoglobin Concent 32, Red Cell Distribution Width 14.8H, Platelet Count 354, Mean Platelet Volume 9.4, Immature Granulocyte % (Auto) 1, Neutrophils (%) ( Auto) 64, Lymphocytes (%) (Auto) 24, Monocytes (%) (Auto) 9, Eosinophils (%) (Auto) 2, Basophils (%) (Auto) 0, Neutrophils # (Auto) 6.4, Lymphocytes # (Auto) 2.4, Monocytes # (Auto) 0.9, Eosinophils # (Auto) 0.2, Basophils # (Auto) 0.0, Immature Granulocyte # (Auto) 0.1, Sodium Level 141, Potassium Level 3.7, Chloride Level 108H, Carbon Dioxide Level 23, Anion Gap 10, Blood Urea Nitrogen 37H, Creatinine 1.30, Estimat Glomerular Filtration Rate 44, BUN/Creatinine Rat io 28, Glucose Level 134H, Calcium Level 8.8, Corrected Calcium 9.2, Total Bilirubin 0.3, Aspartate Amino Transf (AST/SGOT) 10, Alanine Aminotransferase (ALT/SGPT) 20, Alkaline Phosphatase 82, Total Protein 5.8L, Albumin 3.5 06/21/22 05:38: Glucometer 137H 06/21/22 10:24: Glucometer 262H Microbiology 06/17/22 Blood Culture - Preliminary, Resulted No growth Pending Labs Microbiology Date/Time Source Procedure Growth Status 06/17/22 17:16 Peripheral Lt Ac Blood Culture - Preliminary No growth Resulted 06/17/22 17:16 Peripheral Rt Ac Blood Culture - Preliminary Coryneform bacteria Resulted Laboratory Tests 06/17/22 16:34: Influenza Type A (RT-PCR) Not Detected, Influenza Type B (RT-PCR) Not Detected, SARS-CoV-2 RNA (RT-PCR) Not Detected 06/17/22 16:48: Blood Gas Puncture Site RAD, Blood Gas Patient Temperature 37, Arterial Blood pH 7.41, Arterial Blood Partial Pressure CO2 40, Arterial Blood Partial Pressure O2 60, Arterial Blood HCO3 25, Arterial Blood Total CO2 26.0, Arterial Blood Oxygen Saturation 94, Arterial Blood Base Excess 0.6, Parth Test Y, Blood Gas Ventilator Setting NO, Blood Gas Inspired Oxygen NA 06/17/22 17:16: White Blood Count 9.8, Red Blood Count 3.81, Hemoglobin 10.7, Hematocrit 34, Mean Corpuscular Volume 88, Mean Corpuscular Hemoglobin 28, Mean Corpuscular Hemoglobin Concent 32, Red Cell Distribution Width 14.5, Platelet Count 421, Mean Platelet Volume 9.5, Immature Granulocyte % (Auto) 0, Neutrophils (%) (Auto) 65, Lymphocytes (%) (Auto) 21, Monocytes (%) (Auto) 7, Eosinophils (%) (Auto) 5, Basophils (%) (Auto) 1, Neutrophils # (Auto) 6.4, Lymphocytes # (Auto) 2.1, Monocytes # (Auto) 0.7, Eosinophils # (Auto) 0.5, Basophils # (Auto) 0.1, Immature Granulocyte # (Auto) 0.0, D-Dimer 1.53, Sodium Level 144, Potassium Level 4.3, Chloride Level 104, Carbon Dioxide Level 23, Anion Gap 17, Blood Urea Nitrogen 23, Creatinine 1.04, Estimat Glomerular Filtration Rate 57, BUN/Creatinine Ratio 22, Glucose Level 96, Lactic Acid Level 0.64, Calcium Level 9.7, Corrected Calcium 9.6, Total Bilirubin 0.5, Aspartate Amino Transf (AST/SGOT) 14, Alanine Aminotransferase (ALT/SGPT) 14, Alkaline Phosphatase 115, Troponin I < 0.028, B-Type Natriuretic Peptide 412.5, Total Protein 7.4, Albumin 4.1 06/17/22 20:31: Glucometer 230 06/18/22 05:24: Glucometer 276 06/18/22 05:35: White Blood Count 8.5, Red Blood Count 3.44, Hemoglobin 9.7, Hematocrit 30, Mean Corpuscular Volume 87, Mean Corpuscular Hemoglobin 28, Mean Corpuscular Hemoglobin Concent 32, Red Cell Distribution Width 14.4, Platelet Count 384, Mean Platelet Volume 9.5, Immature Granulocyte % (Auto) 1, Neutrophils (%) (Auto) 90, Lymphocytes (%) (Auto) 9, Monocytes (%) (Auto) 1, Eosinophils (%) (Auto) 0, Basophils (%) (Auto) 0, Neutrophils # (Auto) 7.6, Lymphocytes # (Auto) 0.7, Monocytes # (Auto) 0.1, Eosinophils # (Auto) 0.0, Basophils # (Auto) 0.0, Immature Granulocyte # (Auto) 0.0, Neutrophils % (Manual) 92, Lymphocytes % (Ma nual) 7, Monocytes % (Manual) 1, Blood Morphology Comment NORMAL, Sodium Level 138, Potassium Level 4.6, Chloride Level 106, Carbon Dioxide Level 19, Anion Gap 13, Blood Urea Nitrogen 26, Creatinine 1.09, Estimat Glomerular Filtration Rate 54, BUN/Creatinine Ratio 24, Glucose Level 301, Calcium Level 9.2, Corrected Calcium 9.5, Total Bilirubin 0.4, Aspartate Amino Transf (AST/SGOT) 10, Alanine Aminotransferase (ALT/SGPT) 14, Alkaline Phosphatase 103, Total Protein 6.5, Albumin 3.6 06/18/22 11:19: Glucometer 350 06/18/22 16:12: Glucometer 361 06/18/22 21:03: Glucometer 367 06/19/22 05:10: White Blood Count 13.8, Red Blood Count 3.34, Hemoglobin 9.5, Hematocrit 30, Mean Corpuscular Volume 89, Mean Corpuscular Hemoglobin 28, Mean Corpuscular Hemoglobin Concent 32, Red Cell Distribution Width 14.6, Platelet Count 344, Mean Platelet Volume 10.4, Immature Granulocyte % (Auto) 1, Neutrophils (%) (Auto) 86, Lymphocytes (%) (Auto) 7, Monocytes (%) (Auto) 6, Eosinophils (%) (Auto) 0, Basophils (%) (Auto) 0, Neutrophils # (Auto) 11.9, Lymphocytes # (Auto) 1.0, Monocytes # (Auto) 0.8, Eosinophils # (Auto) 0.0, Basophils # (Auto) 0.0, Immature Granulocyte # (Auto) 0.1, Percent Immature Platelet Fraction 4.3, Sodium Level 134, Potassium Level 5.1, Chloride Level 103, Carbon Dioxide Level 17, Anion Gap 14, Blood Urea Nitrogen 40, Creatinine 1.43, Estimat Glomerular Filtration Rate 39, BUN/Creatinine Ratio 28, Glucose Level 247, Calcium Level 9.0, Corrected Calcium 9.3, Total Bilirubin 0.2, Aspartate Amino Transf (AST/SGOT) 18, Alanine Aminotransferase (ALT/SGPT) 14, Alkaline Phosphatase 90, Total Protein 6.7, Albumin 3.6 06/19/22 05:40: Glucometer 237 06/19/22 11:17: Glucometer 367 06/19/22 15:53: Glucometer 258 06/19/22 20:31: Glucometer 208 06/20/22 05:33: White Blood Count 11.4, Red Blood Count 3.36, Hemoglobin 9.5, Hematocrit 30, Mean Corpuscular Volume 90, Mean Corpuscular Hemoglobin 28, Mean Corpuscular Hemoglobin Concent 32, Red Cell Distribution Width 14.7, Platelet Count 368, Mean Platelet Volume 9.6, Immature Granulocyte % (Auto) 1, Neutrophils (%) (Auto) 69, Lymphocytes (%) (Auto) 21, Monocytes (%) (Auto) 9, Eosinophils (%) (Auto) 0, Basophils (%) (Auto) 0, Neutrophils # (Auto) 7.9, Lymphocytes # (Auto) 2.3, Monocytes # (Auto) 1.0, Eosinophils # (Auto) 0.0, Basophils # (Auto) 0.0, Immature Granulocyte # (Auto) 0.1, Sodium Level 143, Potassium Level 4.0, Chloride Level 107, Carbon Dioxide Level 21, Anion Gap 15, Blood Urea Nitrogen 41, Creatinine 1.53, Estimat Glomerular Filtration Rate 36, BUN/Creatinine Ratio 27, Glucose Level 123, Calcium Level 9.0, Corrected Calcium 9.2, Total Bilirubin 0.3, Aspartate Amino Transf (AST/SGOT) 13, Alanine Aminotransferase (ALT/SGPT) 15, Alkaline Phosphatase 77, Total Protein 6.3, Albumin 3.7 06/20/22 05:47: Glucometer 123 06/20/22 11:06: Glucometer 316 06/20/22 15:44: Glucometer 270 06/20/22 20:29: Glucometer 260 06/21/22 05:33: White Blood Count 9.9, Red Blood Count 3.27, Hemoglobin 9.3, Hematocrit 29, Mean Corpuscular Volume 90, Mean Corpuscular Hemoglobin 28, Mean Corpuscular Hemoglobin Concent 32, Red Cell Distribution Width 14.8, Platelet Count 354, Mean Platelet Volume 9.4, Immature Granulocyte % (Auto) 1, Neutrophils (%) (Auto) 64, Lymphocytes (%) (Auto) 24, Monocytes (%) (Auto) 9, Eosinophils (%) (Auto) 2, Basophils (%) (Auto) 0, Neutrophils # (Auto) 6.4, Lymphocytes # (Auto) 2.4, Monocytes # (Auto) 0.9, Eosinophils # (Auto) 0.2, Basophils # (Auto) 0.0, Immature Granulocyte # (Auto) 0.1, Sodium Level 141, Potassium Level 3.7, Chloride Level 108, Carbon Dioxide Level 23, Anion Gap 10, Blood Urea Nitrogen 37, Creatinine 1.30, Estimat Glomerular Filtration Rate 44, BUN/Creatinine Ratio 28, Glucose Level 134, Calcium Level 8.8, Corrected Calcium 9.2, Total Bilirubin 0.3, Aspartate Amino Transf (AST/SGOT) 10, Alanine Aminotransferase (ALT/SGPT) 20, Alkaline Phosphatase 82, Total Protein 5.8, Albumin 3.5 06/21/22 05:38: Glucometer 137 06/21/22 10:24: Glucometer 262 Discharge Home Medications: Active Scripts Active Prednisone 10 Mg Tab.ds.pk 10 Mg PO DAILY Take 6 tabs(60mg)daily,decrease by 1 tab(10MG)daily. Levofloxacin 750 Mg Tablet 750 Mg PO Q48H Reported Vitamin D3 (Cholecalciferol (Vitamin D3)) 25 Mcg (1000 Unit) Tablet 25 Mcg PO DAILY Levothyroxine Sodium 100 Mcg Tablet 100 Mcg PO DAILY Aspirin EC (Aspirin) 81 Mg Tablet.dr 81 Mg PO DAILY Cetirizine HCl 10 Mg Tablet 10 Mg PO DAILY Potassium Chloride 10 Meq Capsule.er 10 Meq PO DAILY Lisinopril 20 Mg Tablet 20 Mg PO DAILY Flonase Allergy Relief (Fluticasone Propionate) 9.9 Ml [place].susp 1 [place] NS DAILY Advair Hfa 115-21 Mcg Inhaler (Fluticasone/Salmeterol) 12 Gm Hfa.aer.ad 2 Puff IH BID Glyburide 1.25 Mg Tablet 1.25 Mg PO DAILY Metoprolol Succinate 25 Mg Tab.er.24h 25 Mg PO DAILY Duloxetine HCl 60 Mg Capsule.dr 60 Mg PO DAILY Montelukast Sodium 10 Mg Tablet 10 Mg PO DAILY Atorvastatin Calcium 40 Mg Tablet 40 Mg PO HS Furosemide 40 Mg Tablet 40 Mg PO DAILY Instructions to patient/family Please see electronic discharge instructions given to patient. BEE CHEATHAM DO Jun 21, 2022 10:08
[2022-06-21 11:35] VITALS: BP 125/58
--- NOTE | 2022-06-21 12:16 | Progress Note ---
BOO MORENO 06/21/22 1216: Progress Note Patient is a 71 year old obese female with past medical history of HTN, T2DM, HLD, asthma, LAZARA on CPAP, who presented to the hospital with shortness of breath and was admitted on 06-17-2022. She was subsequently placed on IV steroids, azithromycin and lovenox. She was tested for COVID-19 which was negative. She was placed on scheduled albuterol nebulizer treatments. She has had a persistent expiatory wheezing throughout stay. She had a chest x-ray performed on 06-17-2022 which showed no pulmonary congestion or infiltrate. She also had a CTA chest performed on 06-18-2022 which showed no PE, no pneumonia, and small right sided plural effusion. She was later placed on levofloxacin and placed on oral prednisone. Physical therapy and occupational therapy were both consulted for evaluation. Her blood glucose was properly managed throughout her stay. She is regaining her strength each day and making improvements in her respiratory effort. She feels strong enough at this time to return home. She will be keep on her breathing treatments and prednisone at home. She will follow up with her PCP in a week after discharge. PADMA CHEATHAM DO 06/21/222044: Supervisory-Addendum Brief Verification & Attestation Participated in pt care: history, MDM, physical Personally performed: exam, history, MDM, supervision of care Care discussed with: Medical Student Procedures: n/a Results interpretation: Verified all documentation Verification and Attestation of Medical Student E/M Service A medical student performed and documented this service in my presence. I reviewed and verified all information documented by the medical student and made modifications to such information, when appropriate. I personally performed the physical exam and medical decision making. Padma Cheahtam, Jun 21, 2022,20:45 BOO MORENO Jun 21, 2022 12:16 PADMA CHEATHAM DO Jun 21, 2022 20:45
[2022-06-21] MEDS ORDERED: RT-ALBUTEROL SULF 2.5 MG/3 ML PRE-MIX VIAL INH SCH (15:00)
== END 2022-06-21 11:35 | disposition home or self-care (01) | DRG 189 ==
LOC: 4TH 16:06 → OBSVTOIN 06-19 08:29
PROVIDERS: ADMIT Internal Medicine; ATTEND Internal Medicine
DX: J96.00 Acute respiratory failure, unspecified whether with hypoxia or hypercapnia (principal); J45.901 Unspecified asthma with (acute) exacerbation; N17.9 Acute kidney failure, unspecified; Z68.43 Body mass index [BMI] 50.0-59.9, adult; J20.9 Acute bronchitis, unspecified; I89.0 Lymphedema, not elsewhere classified; I25.10 Atherosclerotic heart disease of native coronary artery without angina pectoris; I10 Essential (primary) hypertension; Z20.822 Contact with and (suspected) exposure to COVID-19; E11.9 Type 2 diabetes mellitus without complications; E78.00 Pure hypercholesterolemia, unspecified; E03.9 Hypothyroidism, unspecified; G47.33 Obstructive sleep apnea (adult) (pediatric); E66.9 Obesity, unspecified; K21.9 Gastro-esophageal reflux disease without esophagitis; F41.9 Anxiety disorder, unspecified; F32.A Depression, unspecified; Z85.3 Personal history of malignant neoplasm of breast; Z88.1 Allergy status to other antibiotic agents
CPT/HCPCS: 36415; 36600; 71045; 71275; 80053; 82805; 82947; 83605; 83880; 84484; 85007; 85025; 85027; 85379; 87040; 87636; 94640; 94760; G0378

== ENCOUNTER → 2022-08-22 | Outpatient (CLI) | payer MEDICARE, OTHER ==
[~2022-08-22] MED LIST changes: +CHOL-34 PO; +LEVO100T7 PO; +LEVO750T PO
--- NOTE | 2022-08-22 16:23 | Diagnostic Imaging Report ---
EXAMINATION: Chest 2 view HISTORY: Sleep apnea COMPARISON: 06/17/2022 FINDINGS: The lungs are clear without edema or pneumonia. No pleural effusion or pneumothorax. Heart size is normal. IMPRESSION: 1. Clear lungs. Dictated by: Dictated on workstation # [id number]
== END ==
LOC: CARD 10:48
PROVIDERS: ATTEND Internal Medicine Critical Care Medicine
DX: J44.9 Chronic obstructive pulmonary disease, unspecified (principal); G47.33 Obstructive sleep apnea (adult) (pediatric); G47.34 Idiopathic sleep related nonobstructive alveolar hypoventilation
CPT/HCPCS: 71046; C8929; 93306

== ENCOUNTER 2022-10-01 20:52 | Observation (INO) | payer MEDICARE, OTHER ==
[~2022-10-01] VITALS: Ht 157.5 cm; Wt 130.8 kg
[2022-10-01] MEDS ORDERED: ASPIRIN 81 MG CHEW (CHILDREN'S ASA) PO ONE (21:00)
[2022-10-01] MEDS ORDERED: NITROGLYCERIN 0.4 MG SL TABS BTL 25'S SL PRN (21:00)
--- NOTE | 2022-10-01 21:11 | ED Chest Pain ---
General Chief Complaint: Chest Pain Stated Complaint: CHEST/NECK/LEFT SHOULDER PAIN Source: patient History of Present Illness Date Seen by Provider: Oct 01, 2022 Time Seen by Provider: 20:55 Initial Comments PT ARRIVES VIA POV FROM HOME C/O CHEST PAIN THAT WOKE HER UP IN THE MIDDLE OF THE NIGHT AT 0100 PAIN IS IN LEFT SIDE OF CHEST AND RADIATES INTO HER NECK AND LEFT JAW AND CHEEK PAIN WAS 8/10, NOW 6/10 PAIN COMES AND GOES, NOTHING WORSENS OR IMPROVES PAIN INCREASE IN CHRONIC SHORTNESS OF BREATH NO INCREASE IN CHRONIC LEG SWELLING NO SWEATS NO NAUSEA/VOMITING NO DIZZINESS OR SYNCOPE NO PALPITATIONS NO HISTORY OF SIMILAR PT TOOK 81 MG ASPIRIN PRIOR TO ARRIVAL PT IS DIABETIC, HAS HTN AND HYPERLIPIDEMIA, HEART MURUMR, WELL ASTHMA AND OBESITY. SHE DENIES ANY MISSED DOSES OF MEDICATIONS OR CHANGES IN DOSES, OTHER THAN HE ASTHMA INHALER WAS CHANGED A COUPLE OF MONTHS AGO, BUT DOES NOT KNOW THE NAME OF MEDICATION SHE DENIES ANY PRIOR OF HISTORY OF CHEST PAIN, BUT HAS HAD A CARDIAC CATH IN THE PAST CARDIAC CATH 06/09/[address] MELLO: CONCLUSION: 1. Very short left main almost separate ostium to the LAD and circumflex artery, the proximal circumflex artery has mild to moderate disease in the proximal portion nonobstructive disease. 2. Right coronary artery is dominant with moderate disease in the midportion, nonobstructive disease 3. Some calcification in the aortic arch, no dissection or aneurysm, normal origin in the brachiocephalic artery with some tortuosity and calcification, normal left carotid and left subclavian arteries DISCUSSION AND RECOMMENDATION: Maximize medical therapy. Continue to monitor PCP: DR. ESCALANTE TOWBOAT OPERATOR: DR. MELLO Allergies and Home Medications Allergies Coded Allergies: Cephalosporins (Verified Allergy, Mild, 11/28/17) Patient Home Medication List Home Medication List Reviewed: Yes Aspirin (Aspirin EC) 81 Mg Tablet., 81 MG PO DAILY, (Reported) Entered as Reported by: JUNIE RIVERA on 06/09/21 08 Atorvastatin Calcium (Atorvastatin Calcium) 40 Mg Tablet, 40 MG PO HS, (Reported) Entered as Reported by: MAURO LIMA on 11/28/17 182 Cetirizine HCl (Cetirizine HCl) 10 Mg Tablet, 10 MG PO DAILY, (Reported) Entered as Reported by: JUNIE RIVERA on 06/09/21804 Cholecalciferol (Vitamin D3) (Vitamin D3) 25 Mcg (1000 Unit) Tablet, 25 MCG PO DAILY, (Reported) Entered as Reported by: SUKHJINDER VERGARA on 06/20/22 09 Duloxetine HCl (Duloxetine HCl) 60 Mg Capsule.dr, 60 MG PO DAILY, (Reported) Entered as Reported by: MAURO LIMA on 11/28/171822 Fluticasone Propionate (Flonase Allergy Relief) 9.9 Ml [place].susp, 1 SPRAY NS DAILY, (Reported) Entered as Reported by: JUNIE RIVERA on 06/09/21804 Fluticasone/Salmeterol (Advair Hfa 115-21 Mcg Inhaler) 12 Gm Hfa.aer.ad, 2 PUFF IH BID, (Reported) Entered as Reported by: JUNIE RIVERA on 06/09/21804 Furosemide (Furosemide) 40 Mg Tablet, 40 MG PO DAILY, (Reported) Entered as Reported by: MAURO LIMA on 11/28/171822 Glyburide (Glyburide) 1.25 Mg Tablet, 1.25 MG PO DAILY, (Reported) Entered as Reported by: MAURO LIMA on 11/28/17 183 Levofloxacin (Levofloxacin) 750 Mg Tablet, 750 MG PO Q48H Prescribed by: BEE CHEATHAM on 06/21/22 1008 Levothyroxine Sodium (Levothyroxine Sodium) 100 Mcg Tablet, 100 MCG PO DAILY, (Reported) Entered as Reported by: KIMBERLY ALFREDO on 06/18/22 165 Lisinopril (Lisinopril) 20 Mg Tablet, 20 MG PO DAILY, (Reported) Entered as Reported by: JUNIE RIVERA on 06/09/21804 Metoprolol Succinate (Metoprolol Succinate) 25 Mg Tab.er.24h, 25 MG PO DAILY, (Reported) Entered as Reported by: MAURO LIMA on 11/28/171822 Montelukast Sodium (Montelukast Sodium) 10 Mg Tablet, 10 MG PO DAILY, (Reported) Entered as Reported by: MAURO LIMA on 11/28/171822 Potassium Chloride (Potassium Chloride) 10 Meq Capsule.er, 10 MEQ PO DAILY, (Reported) Entered as Reported by: JUNIE RIVERA on 9/8/21 0805 Prednisone (Prednisone) 10 Mg Tab.ds.pk, 10 MG PO DAILY Prescribed by: BEE CHEATHAM on 06/21/22 1008 Review of Systems Review of Systems Constitutional: no symptoms reported EENTM: No Symptoms Reported Respiratory: See HPI Cardiovascular: See HPI, Chest Pain; Denies Edema, Denies Irregular Heart Rate, Denies Lightheadedness, Denies Palpitations, Denies Syncope Gastrointestinal: See HPI; Denies Abdominal Pain; Nausea, Vomiting Genitourinary: No Symptoms Reported Musculoskeletal: no symptoms reported Skin: no symptoms reported Psychiatric/Neurological: No Symptoms Reported Endocrine: No Symptoms Reported Hematologic/Lymphatic: No Symptoms Reported Past Uhlybmu-Fvynvj-Ldnzne Hx Patient Social History Tobacco Use?: Yes Tobacco type used: Cigarettes Smoking Status: Former Smoker Substance use?: No Alcohol Use?: Yes Pt feels they are or have been: No Immunizations Up To Date Tetanus Booster (TDap): More than 5yrs Seasonal Allergies Seasonal Allergies: Yes Past Medical History Surgery/Hospitalization HX: BREAST, T/A NIDDM, HTN, HIGH CHOLESTEROL, ASTHMA, LAZARA, CAD, GERD, DJD, ANXIETY, DEPRESSION Surgeries: No (fistula repair, toenails removed) Breast, Tonsillectomy Respiratory: Yes Asthma, Chronic Bronchitis, Sleep Apnea Currently Using CPAP: Yes Currently Using BIPAP: No Cardiac: Yes (HEART MURMUR, CAD) Coronary Artery Disease, High Cholesterol, Hypertension Neurological: No Reproductive Disorders: No Sexually Transmitted Disease: No Genitourinary: Yes Bladder Infection Gastrointestinal: Yes Gastroesophageal Reflux, Hemorrhoids Musculoskeletal: Yes Degenerate Disk Disease, Arthritis Endocrine: Yes Diabetes, Non-Insulin dep HEENT: No Cancer: Yes Breast Did You Recieve Any Treatments: Yes What Type of Treatment Did You: Radiation, Surgical Intervention Psychosocial: Yes Anxiety, Depression Integumentary: No Blood Disorders: Yes (anemia) Family Medical History Patient reports no known family medical history. No Pertinent Family Hx CARDIAC CATH 06/09/[address] MELLO: CONCLUSION: 1. Very short left main almost separate ostium to the LAD and circumflex artery, the proximal circumflex artery has mild to moderate disease in the proximal portion nonobstructive disease. 2. Right coronary artery is dominant with moderate disease in the midportion, nonobstructive disease 3. Some calcification in the aortic arch, no dissection or aneurysm, normal origin in the brachiocephalic artery with some tortuosity and calcification, normal left carotid and left subclavian arteries DISCUSSION AND RECOMMENDATION: Maximize medical therapy. Continue to monitor Physical Exam Vital Signs Vital Signs - First Documented 10/01/22 20:55 Temp 36.2 Pulse 62 Resp 20 B/P (MAP) 149/77 (101) Pulse Ox 100 O2 Delivery Room Air Capillary Refill : Height, Weight, BMI Height: 5'2.00" Weight: 270lbs. 0.0oz. 122.479171pz; 51.39 BMI Method:Stated Progress/Results/Core Measures Results/Orders Lab Results Laboratory Tests Test 10/01/22 21:06 Range/Units White Blood Count 11.9 H 4.3-11.0 10^3/uL Red Blood Count 3.75 L 3.80-5.11 10^6/uL Hemoglobin 10.7 L 11.5-16.0 g/dL Hematocrit 33 L 35-52 % Mean Corpuscular Volume 88 80-99 fL Mean Corpuscular Hemoglobin 29 25-34 pg Mean Corpuscular Hemoglobin Concent 32 32-36 g/dL Red Cell Distribution Width 14.5 10.0-14.5 % Platelet Count 393 130-400 10^3/uL Mean Platelet Volume 8.7 L 9.0-12.2 fL Immature Granulocyte % (Auto) 0 % Neutrophils (%) (Auto) 65 42-75 % Lymphocytes (%) (Auto) 22 12-44 % Monocytes (%) (Auto) 8 0-12 % Eosinophils (%) (Auto) 4 0-10 % Basophils (%) (Auto) 0 0-10 % Neutrophils # (Auto) 7.7 1.8-7.8 10^3/uL Lymphocytes # (Auto) 2.6 1.0-4.0 10^3/uL Monocytes # (Auto) 1.0 0.0-1.0 10^3/uL Eosinophils # (Auto) 0.4 H 0.0-0.3 10^3/uL Basophils # (Auto) 0.1 0.0-0.1 10^3/uL Immature Granulocyte # (Auto) 0.1 0.0-0.1 10^3/uL Prothrombin Time 13.2 12.2-14.7 SEC INR Comment 1.0 0.8-1.4 Activated Partial Thromboplast Time 31 24-35 SEC D-Dimer 1.06 H 0.00-0.49 UG/ML Sodium Level 137 135-145 MMOL/L Potassium Level 4.4 3.6-5.0 MMOL/L Chloride Level 103 98-107 MMOL/L Carbon Dioxide Level 24 21-32 MMOL/L Anion Gap 10 5-14 MMOL/L Blood Urea Nitrogen 31 H 7-18 MG/DL Creatinine 1.52 H 0.60-1.30 MG/DL Estimat Glomerular Filtration Rate 36 BUN/Creatinine Ratio 20 Glucose Level 166 H 70-105 MG/DL Calcium Level 9.1 8.5-10.1 MG/DL Corrected Calcium 9.1 8.5-10.1 MG/DL Magnesium Level 2.0 1.6-2.4 MG/DL Total Bilirubin 0.4 0.1-1.0 MG/DL Aspartate Amino Transf (AST/SGOT) 13 5-34 U/L Alanine Aminotransferase (ALT/SGPT) 13 0-55 U/L Alkaline Phosphatase 119 40-136 U/L Total Creatine Kinase 73 29-168 U/L Creatine Kinase MB 1.0 <6.6 NG/ML Myoglobin 49.8 10.0-92.0 NG/ML Troponin I < 0.028 <0.028 NG/ML B-Type Natriuretic Peptide 250.0 H <100.0 PG/ML Total Protein 7.2 6.4-8.2 GM/DL Albumin 4.0 3.2-4.5 GM/DL Amylase Level 26 25-125 U/L Lipase 6 L 8-78 U/L My Orders Orders - JESUS MILES DO Ekg Tracing (10/01/22 20:55) Troponin I [place] (10/01/22 20:55) Nitroglycerin 0.4 Mg Btl 25's (Nitrostat (10/01/22 21:00) Aspirin Chewable Tablet (Baby Aspirin Ch (10/01/22 21:00) Cbc With Automated Diff (10/01/22 20:55) Magnesium (10/01/22 20:55) Chest 1 View, Ap/Pa Only (10/01/22 20:55) Comprehensive Metabolic Panel (10/01/22 20:55) Myoglobin Serum (10/01/22 20:55) Protime With Inr (10/01/22 20:55) Partial Thromboplastin Time (10/01/22 20:55) O2 (10/01/22 20:55) Monitor-Rhythm Ecg Trace Only (10/01/22 20:55) Ed Iv/Invasive Line Start (10/01/22 20:55) Creatine Kinase (10/01/22 20:55) Creatine Kinase Mb (10/01/22 20:55) Lipase (10/01/22 20:55) Amylase (10/01/22 20:55) Bnp [place] (10/01/22 20:55) Fibrin Degradation Products (10/01/22 21:06) Ed Iv/Invasive Line Start (10/01/22 21:54) Ns Iv 1000 Ml (Sodium Chloride 0.9%) (10/01/22 22:00) Medications Given in ED Current Medications Medications Dose Ordered Sig/Caroline Route Start Time Stop Time Status Last Admin Dose Admin Aspirin 324 mg ONCE ONCE PO 10/01/22 21:00 10/01/22 21:01 DC 10/01/22 21:15 324 MG Nitroglycerin 0.4 mg UD PRN SL 10/01/22 21:00 10/01/22 21:15 0.4 MG Vital Signs/I&O 10/01/22 20:55 Temp 36.2 Pulse 62 Resp 20 B/P (MAP) 149/77 (101) Pulse Ox 100 O2 Delivery Room Air Progress Progress Note : Progress Note CHEST PAIN PROTOCOL INITIATED PT WAS GIVEN: -ASPIRIN -NTG SL Diagnostic Imaging Comments CXR--PER RADIOLOGIST REPORT AT 2121 FINDINGS: The cardiac silhouette is enlarged, likely accentuated by patient body habitus and technique. No significant pulmonary vascular congestion. The lungs are clear of focal pulmonary opacity. No pleural effusion. No pneumothorax. No acute osseous abnormality. IMPRESSION: Enlargement of the cardiac silhouette, likely accentuated by technique and patient body habitus. No pulmonary vascular congestion. No additional superimposed acute cardiopulmonary abnormality. Reviewed: Reviewed by Me Departure Departure-Patient Inst. Referrals: BEE CHEATHAM DO (PCP/Family) Primary Care Physician JESUS MILES DO Oct 01, 2022 21:11
[2022-10-01 21:13] LABS: BASOPHILS # (AUTO) 0.1 10^3/uL (0.0-0.1); BASOPHILS % (AUTO) 0 % (0-10); EOSINOPHILS # (AUTO) 0.4 10^3/uL (0.0-0.3); EOSINOPHILS % (AUTO) 4 % (0-10); HEMATOCRIT 33 % (35-52); HEMOGLOBIN 10.7 g/dL (11.5-16.0); LYMPHOCYTES # (AUTO) 2.6 10^3/uL (1.0-4.0); LYMPHOCYTES % (AUTO) 22 % (12-44); MEAN CORPUSCULAR HEMOGLOBIN 29 pg (25-34); MEAN CORPUSCULAR HGB CONC 32 g/dL (32-36); MEAN CORPUSCULAR VOLUME 88 fL (80-99); MEAN PLATELET VOLUME 8.7 fL (9.0-12.2); MONOCYTES % (AUTO) 8 % (0-12); NEUTROPHILS # (AUTO) 7.7 10^3/uL (1.8-7.8); NEUTROPHILS % (AUTO) 65 % (42-75); PLATELET COUNT 393 10^3/uL (130-400); WHITE BLOOD COUNT 11.9 10^3/uL (4.3-11.0)
--- NOTE | 2022-10-01 21:16 | Diagnostic Imaging Report ---
INDICATION: Chest pain. COMPARISON: 08/22/2022. TECHNIQUE: Single radiograph of the chest dated October 01, 2022. FINDINGS: The cardiac silhouette is enlarged, likely accentuated by patient body habitus and technique. No significant pulmonary vascular congestion. The lungs are clear of focal pulmonary opacity. No pleural effusion. No pneumothorax. No acute osseous abnormality. IMPRESSION: Enlargement of the cardiac silhouette, likely accentuated by technique and patient body habitus. No pulmonary vascular congestion. No additional superimposed acute cardiopulmonary abnormality. Dictated by: Dictated on workstation # [id number]
[2022-10-01 21:29] LABS: POTASSIUM 4.4 MMOL/L (3.6-5.0)
[2022-10-01 21:30] LABS: CALCIUM 9.1 MG/DL (8.5-10.1)
[2022-10-01 21:32] LABS: TOTAL PROTEIN 7.2 GM/DL (6.4-8.2)
[2022-10-01 21:33] LABS: BILIRUBIN,TOTAL 0.4 MG/DL (0.1-1.0)
[2022-10-01 21:36] LABS: CREATININE SERUM 1.52 MG/DL (0.60-1.30)
[2022-10-01 21:49] LABS: FIBRIN DEGRADATION PRODUCTS 1.06 UG/ML (0.00-0.49); PROTHROMBIN TIME PATIENT 13.2 SEC (12.2-14.7)
[2022-10-01] MEDS ORDERED: NS IV 1000 ML 1,000 ML IV SCH ×2 (22:00→23:45)
[2022-10-01] MEDS ORDERED: ENOXAPARIN INJECTION 30 MG/0.3 ML SYR SC ONE (22:15)
[2022-10-01] MEDS ORDERED: ENOXAPARIN 100 MG/1 ML (LOVENOX) SYR SC ONE (22:15)
[2022-10-01 22:59] VITALS: BP 146/61
[2022-10-01 23:03] VITALS: BP 142/113
[2022-10-01 23:15] VITALS: BP 139/67
[2022-10-01 23:30] VITALS: BP 142/84
[2022-10-01 23:45] VITALS: BP 108/99
[2022-10-02] VITALS (8 sets, daily range): BP systolic 123–149; BP diastolic 53–87
[2022-10-02] MEDS ORDERED: morphine INJ 4 MG/ML 1 ML (VIAL/SYRINGE) IV PRN
[2022-10-02] MEDS ORDERED: NITROGLYCERIN 0.4 MG SL TABS BTL 25'S SL PRN
[2022-10-02] MEDS ORDERED: ONDANSETRON 4 MG/2 ML (SDV) Z0FRAN IVP PRN
--- NOTE | 2022-10-02 05:20 | Short Stay Summary ---
History of Present Illness History of Present Illness Reason for visit/HPI Chief complaint: Chest pain HPI: This is a 71-year-old female clinic patient of [facility] who has a past medical history of severe asthma and non-smoker, obstructive sleep apnea on CPAP, obesity, diabetes, hypertension, breast cancer in remission who presented to the ER after 2-day history of chest pain which worsened. She reports the pain went into her back. She has remained stable throughout the night. Her primary maid supervisor Dr Rousseau will see her and perform risk stratification Date of Admission Oct 01, 2022 at 22:09 Date of Discharge 10/01/22 Time Seen by Provider: 05:30 Attending Physician Padma Cheatham DO Admitting Physician Admitting Physician: Padma hCeatham DO Attending Physician: Padma Cheatham DO Consult Allergies and Home Medications Allergies Coded Allergies: Cephalosporins (Verified Allergy, Mild, 11/28/17) Patient Home Medication List Home Medication List Reviewed: Yes Aspirin (Aspirin EC) 81 Mg Tablet., 81 MG PO DAILY, (Reported) Entered as Reported by: JUNIE RIVERA on 06/09/21804 Atorvastatin Calcium (Atorvastatin Calcium) 40 Mg Tablet, 40 MG PO HS, (Reported) Entered as Reported by: MAURO LIMA on 11/28/17 182 Cetirizine HCl (Cetirizine HCl) 10 Mg Tablet, 10 MG PO DAILY, (Reported) Entered as Reported by: JUNIE RIVERA on 06/09/21804 Cholecalciferol (Vitamin D3) (Vitamin D3) 25 Mcg (1000 Unit) Tablet, 25 MCG PO DAILY, (Reported) Entered as Reported by: SUKHJINDER VERGARA on 06/20/22 09 Duloxetine HCl (Duloxetine HCl) 60 Mg Capsule., 60 MG PO DAILY, (Reported) Entered as Reported by: MAURO LIMA on 11/28/17 182 Fluticasone Propionate (Flonase Allergy Relief) 9.9 Ml [place].susp, 1 SPRAY NS DAILY, (Reported) Entered as Reported by: JUNIE RIVERA on 06/09/21804 Fluticasone/Salmeterol (Advair Hfa 115-21 Mcg Inhaler) 12 Gm Hfa.aer.ad, 2 PUFF IH BID, (Reported) Entered as Reported by: JUNIE RIVERA on 9/8/21 0805 Furosemide (Furosemide) 40 Mg Tablet, 40 MG PO DAILY, (Reported) Entered as Reported by: MAURO LIMA on 11/28/17 182 Glyburide (Glyburide) 1.25 Mg Tablet, 1.25 MG PO DAILY, (Reported) Entered as Reported by: MAURO LIMA on 11/28/17 1835 Levofloxacin (Levofloxacin) 750 Mg Tablet, 750 MG PO Q48H Prescribed by: PADMA CHEATHAM on 06/21/22 1008 Levothyroxine Sodium (Levothyroxine Sodium) 100 Mcg Tablet, 100 MCG PO DAILY, (Reported) Entered as Reported by: KIMBERLY ALFREDO on 06/18/22 1653 Lisinopril (Lisinopril) 20 Mg Tablet, 20 MG PO DAILY, (Reported) Entered as Reported by: JUNIE RIVERA on 06/09/21 0805 Metoprolol Succinate (Metoprolol Succinate) 25 Mg Tab.er.24h, 25 MG PO DAILY, (Reported) Entered as Reported by: MAURO LIMA on 11/28/17 182 Montelukast Sodium (Montelukast Sodium) 10 Mg Tablet, 10 MG PO DAILY, (Reported) Entered as Reported by: MAURO LIMA on 11/28/17 182 Potassium Chloride (Potassium Chloride) 10 Meq Capsule.er, 10 MEQ PO DAILY, (Reported) Entered as Reported by: JUNIE RIVERA on 06/09/21 0805 Prednisone (Prednisone) 10 Mg Tab.ds.pk, 10 MG PO DAILY Prescribed by: PADMA CHEATHAM on 06/21/22 1008 Past Odjjyzb-[place]ep[place]-Fwomnh Hx Patient Social History Marrital Status: Employed/Student: retired Alcohol Beverage of Choice: Ignyta Smoking Status: Former Smoker Former Smoker, Quit: Nov 28, 1999 Recent Hopitalizations: No Have you traveled recently?: No Alcohol Use?: Yes Pt feels they are or have been: No Immunizations Up To Date Tetanus Booster (TDap): More than 5yrs Date of Pneumonia Vaccine: Oct 28, 2017 Date of Influenza Vaccine: Aug 02, 2017 Seasonal Allergies Seasonal Allergies: Yes Surgeries No (fistula repair, toenails removed) Breast, Tonsillectomy Respiratory Yes Asthma, COPD, Sleep Apnea Currently Using CPAP: Yes Currently Using BIPAP: No Cardiovascular Yes (HEART MURMUR, CAD) Coronary Artery Disease, High Cholesterol, Hypertension Neurological No Reproductive System Hx Reproductive Disorders: No Sexually Transmitted Disease: No Genitourinary Yes Bladder Infection Gastrointestinal Yes Gastroesophageal Reflux, Hemorrhoids Musculoskeletal Yes Degenerate Disk Disease, Arthritis Endocrine History of Endocrine Disorders: Yes Endocrine Disorders: Diabetes, Non-Insulin dep HEENT History of HEENT Disorders: No Cancer Yes Breast Did You Recieve Any Treatments: Yes Type of Treatment: Radiation, Surgical Intervention Psychosocial History of Psychiatric Problem: Yes Behavioral Health Disorders: Anxiety, Depression Integumentary History of Skin or Integumenta: No Blood Transfusions History of Blood Disorders: Yes (anemia) Family Medical History Significant Family History: No Pertinent Family Hx Other Significan Family Hx: CARDIAC CATH 06/09/[address] ROUSSEAU: CONCLUSION: 1. Very short left main almost separate ostium to the LAD and circumflex artery, the proximal circumflex artery has mild to moderate disease in the proximal portion nonobstructive disease. 2. Right coronary artery is dominant with moderate disease in the midportion, nonobstructive disease 3. Some calcification in the aortic arch, no dissection or aneurysm, normal origin in the brachiocephalic artery with some tortuosity and calcification, normal left carotid and left subclavian arteries DISCUSSION AND RECOMMENDATION: Maximize medical therapy. Continue to monitor Family Hx: Patient reports no known family medical history. Review of Systems Constitutional: see HPI EENTM: no symptoms reported Respiratory: dyspnea on exertion Cardiovascular: chest pain Gastrointestinal: no symptoms reported Genitourinary: no symptoms reported Musculoskeletal: back pain Skin: no symptoms reported Psychiatric/Neurological: No Symptoms Reported All Other Systems Reviewed Negative Unless Noted: Yes Physical Exam Vital Signs Vital Signs - First Documented 10/01/22 20:55 Temp 36.2 Pulse 62 Resp 20 B/P (MAP) 149/77 (101) Pulse Ox 100 O2 Delivery Room Air Capillary Refill : Less Than 3 Seconds Height, Weight, BMI Height: 5'2.00" Weight: 270lbs. 0.0oz. 122.322819ym; 52.72 BMI Method:Stated General Appearance: No Apparent Distress, WD/WN, Chronically ill, Obese Eyes: Bilateral Eye Normal Inspection, Bilateral Eye PERRL, Bilateral Eye EOMI HEENT: PERRL/EOMI, Normal ENT Inspection, Pharynx Normal Neck: Full Range of Motion, Normal Inspection, Non Tender, Supple, Carotid Bruit Respiratory: Chest Non Tender, Lungs Clear, Normal Breath Sounds, No Accessory Muscle Use, No Respiratory Distress Cardiovascular: Regular Rate, Rhythm, No Edema, No Gallop, No JVD, No Murmur, Normal Peripheral Pulses Gastrointestinal: Normal Bowel Sounds, No Organomegaly, No Pulsatile Mass, Non Tender, Soft Back: Normal Inspection, No CVA Tenderness, No Vertebral Tenderness Extremity: Normal Capillary Refill, Normal Inspection, Normal Range of Motion, Non Tender, No Calf Tenderness, No Pedal Edema Neurologic/Psychiatric: Alert, Oriented x3, No Motor/Sensory Deficits, Normal Mood/Affect, [employer] II-XII Norm as Tested Skin: Normal Color, Warm/Dry Lymphatic: No Adenopathy Clinical Quality Measures AMI/AHF: ASA po Prior to arrival: Yes Short Stay Diagnosis Discharge Diagnosis-Short Stay Admission Diagnosis: Assessment: Chest pain rule out ACS Asthma LAZARA HTN DM Obesity BMI 51 Chronic lymphedema DEANN Hypothyroidism h/o breast cancer Final Discharge Diagnosis: Assessment: Chest pain rule out ACS Asthma LAZARA HTN DM Obesity BMI 51 Chronic lymphedema DEANN Hypothyroidism h/o breast cancer Conclusion Labs Laboratory Tests 10/01/22 21:06: White Blood Count 11.9H, Red Blood Count 3.75L, Hemoglobin 10.7L, Hematocrit 33L , Mean Corpuscular Volume 88, Mean Corpuscular Hemoglobin 29, Mean Corpuscular Hemoglobin Concent 32, Red Cell Distribution Width 14.5, Platelet Count 393, Mean Platelet Volume 8.7L, Immature Granulocyte % (Auto) 0, Neutrophils (%) (Auto) 65, Lymphocytes (%) (Auto) 22, Monocytes (%) (Auto) 8, Eosinophils (%) (Auto) 4, Basophils (%) (Auto) 0, Neutrophils # (Auto) 7.7, Lymphocytes # (Auto) 2.6, Monocytes # (Auto) 1.0, Eosinophils # (Auto) 0.4H, Basophils # (Auto) 0.1, Immature Granulocyte # (Auto) 0.1, Prothrombin Time 13.2, INR Comment 1.0, Activated Partial Thromboplast Time 31, D-Dimer 1.06H, Sodium Level 137, Potassium Level 4.4, Chloride Level 103, Carbon Dioxide Level 24, Anion Gap 10, Blood Urea Nitrogen 31H, Creatinine 1.52H, Estimat Glomerular Filtration Rate 36, BUN/Creatinine Ratio 20, Glucose Level 166H, Calcium Level 9.1, Corrected Calcium 9.1, Magnesium Level 2.0, Total Bilirubin 0.4, Aspartate Amino Transf (AST/SGOT) 13, Alanine Aminotransferase (ALT/SGPT) 13, Alkaline Phosphatase 119, Total Creatine Kinase 73, Creatine Kinase MB 1.0, Myoglobin 49.8, Troponin I < 0.028, B-Type Natriuretic Peptide 250.0H, Total Protein 7.2, Albumin 4.0, Amylase Level 26, Lipase 6L 10/02/22 01:20: Troponin I < 0.028 10/02/22 04:50: Conclusion/Plan Cardiology evaluation PADMA CHEATHAM DO Oct 02, 2022 05:20
[2022-10-02 05:28] LABS: TRIGLYCERIDES 89 MG/DL (<150); VLDL CHOLESTEROL 18 MG/DL (5-40)
[2022-10-02 05:33] LABS: CHOLESTEROL 129 MG/DL (< 200); HDL CHOLESTEROL 29 MG/DL (40-60)
[2022-10-02] MEDS: inSUlin ASPART (NovoLOG) 1 UNIT/0.01 ML (CHARGE PER UNIT) SC SCH ×3 (06:28→16:05)
[2022-10-02] MEDS ORDERED: ASPIRIN E.C. 81 MG (ECOTRIN) TAB PO SCH (09:00)
[2022-10-02 10:57] LABS: BASOPHILS % (AUTO) 1 % (0-10); EOSINOPHILS # (AUTO) 0.3 10^3/uL (0.0-0.3); EOSINOPHILS % (AUTO) 4 % (0-10); HEMATOCRIT 30 % (35-52); HEMOGLOBIN 9.5 g/dL (11.5-16.0); LYMPHOCYTES # (AUTO) 1.6 10^3/uL (1.0-4.0); LYMPHOCYTES % (AUTO) 19 % (12-44); MEAN CORPUSCULAR HEMOGLOBIN 28 pg (25-34); MEAN CORPUSCULAR HGB CONC 32 g/dL (32-36); MEAN CORPUSCULAR VOLUME 89 fL (80-99); MEAN PLATELET VOLUME 9.2 fL (9.0-12.2); MONOCYTES # (AUTO) 0.7 10^3/uL (0.0-1.0); MONOCYTES % (AUTO) 8 % (0-12); NEUTROPHILS # (AUTO) 5.7 10^3/uL (1.8-7.8); NEUTROPHILS % (AUTO) 68 % (42-75); PLATELET COUNT 341 10^3/uL (130-400); WHITE BLOOD COUNT 8.4 10^3/uL (4.3-11.0)
[2022-10-02 11:11] LABS: ALBUMIN 3.4 GM/DL (3.2-4.5)
[2022-10-02 11:12] LABS: POTASSIUM 4.4 MMOL/L (3.6-5.0)
[2022-10-02 11:13] LABS: CALCIUM 8.7 MG/DL (8.5-10.1)
[2022-10-02 11:14] LABS: TOTAL PROTEIN 6.1 GM/DL (6.4-8.2)
[2022-10-02 11:16] LABS: BILIRUBIN,TOTAL 0.6 MG/DL (0.1-1.0)
[2022-10-02 11:18] LABS: CREATININE SERUM 1.05 MG/DL (0.60-1.30)
--- NOTE | 2022-10-02 11:27 | Consultation-Cardiology ---
HPI-Cardiology Cardiology Consultation Date of Consultation 10/02/22 Date of Admission Time Seen by Provider: 11:24 Indication: Chest pain HPI 71-year-old lady with history of hypertension, obesity, started to have chest pain on the retrosternal area and left side of her chest, came into the emergency room for evaluation. EKG and cardiac enzymes continue to be normal. Patient is feeling better today, no further episodes of chest pain. Reported episode of neck pain radiating to both arms and back pain. Home Medications & Allergies Allergies: Coded Allergies: Cephalosporins (Verified Allergy, Mild, 11/28/17) Home Medication List Reviewed: Yes [id number] Hx Patient Social History Marital Status: Employed/Student: retired Smoking Status: Former Smoker Type Used: Cigarettes Recent Hopitalizations: No Have you traveled recently?: No Alcohol Use?: Yes Immunizations Up To Date Tetanus Booster (TDap): More than 5yrs Date of Pneumonia Vaccine: Oct 28, 2017 Date of Influenza Vaccine: Aug 02, 2017 Past Medical History Discussed below Family Medical History Significant Family History: No Pertinent Family Hx Family History: Patient reports no known family medical history. Review of Systems-General Review of Systems Constitutional: see HPI EENTM: no symptoms reported Respiratory: see HPI, dyspnea on exertion Cardiovascular: see HPI, chest pain; No edema, No Hx of Intervention, No p alpitations, No syncope, No vascular heart diseas, No other Gastrointestinal: no symptoms reported Genitourinary: no symptoms reported Musculoskeletal: back pain Skin: no symptoms reported Psychiatric/Neurological: No Symptoms Reported All Other Systems Reviewed Negative Unless Noted: Yes Reviewed Test Results Reviewed Test Results Lab Laboratory Tests Test 10/01/22 21:06 10/02/22 01:20 10/02/22 04:50 10/02/22 06:22 Range/Units White Blood Count 11.9 H 4.3-11.0 10^3/uL Red Blood Count 3.75 L 3.80-5.11 10^6/uL Hemoglobin 10.7 L 11.5-16.0 g/dL Hematocrit 33 L 35-52 % Mean Corpuscular Volume 88 80-99 fL Mean Corpuscular Hemoglobin 29 25-34 pg Mean Corpuscular Hemoglobin Concent 32 32-36 g/dL Red Cell Distribution Width 14.5 10.0-14.5 % Platelet Count 393 130-400 10^3/uL Mean Platelet Volume 8.7 L 9.0-12.2 fL Immature Granulocyte % (Auto) 0 % Neutrophils (%) (Auto) 65 42-75 % Lymphocytes (%) (Auto) 22 12-44 % Monocytes (%) (Auto) 8 0-12 % Eosinophils (%) (Auto) 4 0-10 % Basophils (%) (Auto) 0 0-10 % Neutrophils # (Auto) 7.7 1.8-7.8 10^3/uL Lymphocytes # (Auto) 2.6 1.0-4.0 10^3/uL Monocytes # (Auto) 1.0 0.0-1.0 10^3/uL Eosinophils # (Auto) 0.4 H 0.0-0.3 10^3/uL Basophils # (Auto) 0.1 0.0-0.1 10^3/uL Immature Granulocyte # (Auto) 0.1 0.0-0.1 10^3/uL Prothrombin Time 13.2 12.2-14.7 SEC INR Comment 1.0 0.8-1.4 Activated Partial Thromboplast Time 31 24-35 SEC D-Dimer 1.06 H 0.00-0.49 UG/ML Sodium Level 137 135-145 MMOL/L Potassium Level 4.4 3.6-5.0 MMOL/L Chloride Level 103 98-107 MMOL/L Carbon Dioxide Level 24 21-32 MMOL/L Anion Gap 10 5-14 MMOL/L Blood Urea Nitrogen 31 H 7-18 MG/DL Creatinine 1.52 H 0.60-1.30 MG/DL Estimat Glomerular Filtration Rate 36 BUN/Creatinine Ratio 20 Glucose Level 166 H 70-105 MG/DL Calcium Level 9.1 8.5-10.1 MG/DL Corrected Calcium 9.1 8.5-10.1 MG/DL Magnesium Level 2.0 1.6-2.4 MG/DL Total Bilirubin 0.4 0.1-1.0 MG/DL Aspartate Amino Transf (AST/SGOT) 13 5-34 U/L Alanine Aminotransferase (ALT/SGPT) 13 0-55 U/L Alkaline Phosphatase 119 40-136 U/L Total Creatine Kinase 73 29-168 U/L Creatine Kinase MB 1.0 <6.6 NG/ML Myoglobin 49.8 10.0-92.0 NG/ML Troponin I < 0.028 < 0.028 < 0.028 <0.028 NG/ML B-Type Natriuretic Peptide 250.0 H <100.0 PG/ML Total Protein 7.2 6.4-8.2 GM/DL Albumin 4.0 3.2-4.5 GM/DL Amylase Level 26 25-125 U/L Lipase 6 L 8-78 U/L Triglycerides Level 89 <150 MG/DL Cholesterol Level 129 < 200 MG/DL LDL Cholesterol Direct 80 1-129 MG/DL VLDL Cholesterol 18 5-40 MG/DL HDL Cholesterol 29 L 40-60 MG/DL Glucometer 145 H 70-110 MG/DL Test 10/02/22 10:49 Range/Units White Blood Count 8.4 4.3-11.0 10^3/uL Red Blood Count 3.38 L 3.80-5.11 10^6/uL Hemoglobin 9.5 L 11.5-16.0 g/dL Hematocrit 30 L 35-52 % Mean Corpuscular Volume 89 80-99 fL Mean Corpuscular Hemoglobin 28 25-34 pg Mean Corpuscular Hemoglobin Concent 32 32-36 g/dL Red Cell Distribution Width 14.6 H 10.0-14.5 % Platelet Count 341 130-400 10^3/uL Mean Platelet Volume 9.2 9.0-12.2 fL Immature Granulocyte % (Auto) 1 % Neutrophils (%) (Auto) 68 42-75 % Lymphocytes (%) (Auto) 19 12-44 % Monocytes (%) (Auto) 8 0-12 % Eosinophils (%) (Auto) 4 0-10 % Basophils (%) (Auto) 1 0-10 % Neutrophils # (Auto) 5.7 1.8-7.8 10^3/uL Lymphocytes # (Auto) 1.6 1.0-4.0 10^3/uL Monocytes # (Auto) 0.7 0.0-1.0 10^3/uL Eosinophils # (Auto) 0.3 0.0-0.3 10^3/uL Basophils # (Auto) 0.0 0.0-0.1 10^3/uL Immature Granulocyte # (Auto) 0.0 0.0-0.1 10^3/uL Sodium Level 139 135-145 MMOL/L Potassium Level 4.4 3.6-5.0 MMOL/L Chloride Level 107 98-107 MMOL/L Carbon Dioxide Level 24 21-32 MMOL/L Anion Gap 8 5-14 MMOL/L Blood Urea Nitrogen 24 H 7-18 MG/DL Creatinine 1.05 0.60-1.30 MG/DL Estimat Glomerular Filtration Rate 57 BUN/Creatinine Ratio 23 Glucose Level 127 H 70-105 MG/DL Calcium Level 8.7 8.5-10.1 MG/DL Corrected Calcium 9.2 8.5-10.1 MG/DL Total Bilirubin 0.6 0.1-1.0 MG/DL Aspartate Amino Transf (AST/SGOT) 10 5-34 U/L Alanine Aminotransferase (ALT/SGPT) 10 0-55 U/L Alkaline Phosphatase 98 40-136 U/L Total Protein 6.1 L 6.4-8.2 GM/DL Albumin 3.4 3.2-4.5 GM/DL Physical Exam Physical Exam Vital Signs Vital Signs - First Documented 10/01/22 20:55 Temp 36.2 Pulse 62 Resp 20 B/P (MAP) 149/77 (101) Pulse Ox 100 O2 Delivery Room Air Capillary Refill : Less Than 3 Seconds Height, Weight, BMI Height: 5'2.00" Weight: 270lbs. 0.0oz. 122.702785ac; 52.72 BMI Method:Stated General Appearance: No Apparent Distress, WD/WN, Chronically ill, Obese Eyes: Bilateral Eye Normal Inspection, Bilateral Eye PERRL, Bilateral Eye EOMI HEENT: PERRL/EOMI, Normal ENT Inspection, Pharynx Normal Neck: Full Range of Motion, Normal Inspection, Non Tender, Supple, Carotid Bruit Respiratory: Chest Non Tender, Lungs Clear, Normal Breath Sounds, No Accessory Muscle Use, No Respiratory Distress Cardiovascular: Regular Rate, Rhythm, No Edema, No Gallop, No JVD, No Murmur, Normal Peripheral Pulses Gastrointestinal: Normal Bowel Sounds, No Organomegaly, No Pulsatile Mass, Non Tender, Soft Back: Normal Inspection, No CVA Tenderness, No Vertebral Tenderness Extremity: Normal Capillary Refill, Normal Inspection, Normal Range of Motion, Non Tender, No Calf Tenderness, No Pedal Edema Neurologic/Psychiatric: Alert, Oriented x3, No Motor/Sensory Deficits, Normal 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 Had underlying renal insufficiency, could not have CTA. Dyspnea, history of bronchial asthma. Feeling better. Coronary artery disease Cardiac catheterization done in 2010 showing mild disease nonobstructive disease Repeat cardiac catheterization was done in June 2021 with mild disease nonobstructive disease Hypertension, restart home medication monitor blood pressure History of palpitation, Holter monitor showed atrial and ventricular premature contractions. Maintained on beta-blockers Hyperlipidemia, monitor lipids Mild bilateral carotid stenosis, ultrasound was done in December 2015. 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 Echevarria, history of lumpectomy and radiation therapy Obesity, BMI is 52, discussed diet and exercise for weight loss. Diabetes mellitus, followed and managed by primary care physician. Gastroesophageal reflux disease, currently asymptomatic. 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 Clinical Quality Measures AMI/AHF: ASA po Prior to arrival: Yes RAJI MELLO MD Oct 02, 2022 11:27
[2022-10-02 15:27] LABS: BILIRUBIN,URINE NEGATIVE (NEGATIVE); CLARITY,URINE TURBID; COLOR,URINE YELLOW; GLUCOSE, URINE (UA) NEGATIVE (NEGATIVE); KETONES,URINE NEGATIVE (NEGATIVE); LEUKOCYTE ESTERASE ,URINE 2+ (NEGATIVE); NITRITE,URINE NEGATIVE (NEGATIVE); PH,URINE 6.5 (5-9); PROTEIN,URINE 2+ (NEGATIVE)
[2022-10-02 15:49] LABS: BACTERIA,URINE MODERATE /HPF; SQUAMOUS EPITHELIAL CELL,UR 0-2 /HPF; WBC,URINE >100 /HPF
[2022-10-02] MEDS ORDERED: CIPR500T5 PO (16:13)
[2022-10-02] MEDS ORDERED: ENOXAPARIN 150 MG/ML (LOVENOX) SYR SQ SCH (22:30)
== END 2022-10-02 16:13 | disposition home or self-care (01) ==
LOC: EDUNIT# 20:52 → ER 20:55 → CSD 22:09
PROVIDERS: ADMIT Internal Medicine; ATTEND Internal Medicine
DX: R07.9 Chest pain, unspecified (principal); J45.909 Unspecified asthma, uncomplicated; G47.33 Obstructive sleep apnea (adult) (pediatric); I10 Essential (primary) hypertension; E11.9 Type 2 diabetes mellitus without complications; E66.9 Obesity, unspecified; N17.9 Acute kidney failure, unspecified; E03.9 Hypothyroidism, unspecified; I89.0 Lymphedema, not elsewhere classified; R06.00 Dyspnea, unspecified; I65.23 Occlusion and stenosis of bilateral carotid arteries; E78.5 Hyperlipidemia, unspecified; Z85.3 Personal history of malignant neoplasm of breast; Z68.43 Body mass index [BMI] 50.0-59.9, adult; Z87.891 Personal history of nicotine dependence
CPT/HCPCS: 36415; 71045; 80053; 80061; 81000; 82150; 82550; 82553; 82947; 83690; 83735; 83874; 83880; 84484; 85025; 85379; 85610; 85730; 87077; 87088; 93005; 93041; 96360; 96372

== ENCOUNTER 2022-10-27 18:47 | Outpatient (CLI) | payer MEDICARE, OTHER ==
[~2022-10-27 18:47] MED LIST changes: +CIPR500T5 PO; -POTA10CA43 PO; +POTA10CA44 PO
== END 2022-10-28 06:44 | disposition home or self-care (01) ==
LOC: SLEEP 18:47
PROVIDERS: ATTEND Internal Medicine Critical Care Medicine
DX: G47.33 Obstructive sleep apnea (adult) (pediatric) (principal); G47.10 Hypersomnia, unspecified; G47.36 Sleep related hypoventilation in conditions classified elsewhere
CPT/HCPCS: 95811

== ENCOUNTER → 2023-01-19 | Outpatient (CLI) | payer MEDICARE, OTHER | LOC: CARD 09:05 | PROVIDERS: ATTEND Internal Medicine Cardiovascular Disease | DX: I10 Essential (primary) hypertension (principal); I25.10 Atherosclerotic heart disease of native coronary artery without angina pectoris | CPT/HCPCS: 93306 ==

== ENCOUNTER 2023-07-07 07:40 | Day surgery (SDC) | payer MEDICARE, OTHER ==
[~2023-07-07] VITALS: Ht 157.5 cm; Wt 122.3 kg
[~2023-07-07 07:40] MED LIST changes: -POTA10CA44 PO; +POTA10CA84 PO; +SEMA1PEN3 SQ
[2023-07-07] MEDS ORDERED: POVIDONE IODINE OPHTH SOLN 5% 30 ML OP ONE (08:00)
[2023-07-07] MEDS ORDERED: MOXIFLOXACIN OPHTH SOLN 5 MG/ML 0.5 ML SYRINGE OP ONE (08:00)
[2023-07-07] MEDS ORDERED: TIMOLOL 0.5% (CATARACTS) 0.3 ML BTL OU PRN (08:00)
[2023-07-07] MEDS: TETRACAINE 0.5% OPHTH SOLN 4 ML BTL (SINGLE DOSE ONLY) OU PRN ×4 (08:00→08:16)
[2023-07-07] MEDS ORDERED: LIDOCAINE PF 1% 2 ML VIAL IR PRN (08:00)
[2023-07-07] MEDS: TROPICAMIDE 1% OPH SOLN (MYDRIACYL) 15 ML BTL OP SCH ×3 (08:07→08:17)
[2023-07-07] MEDS: PHENYLEPHRINE 10% OPHTH SOLN 5 ML BTL OU SCH ×3 (08:07→08:17)
[2023-07-07 08:10] VITALS: BP 138/48
--- NOTE | 2023-07-07 08:22 | Ophthalmologist Pre-Op Note ---
Pre-Operative Progress Note H&P Reviewed The H&P was reviewed, patient examined and no changes noted. Date H&P Reviewed: Jul 07, 2023 Time H&P Reviewed: 08:21 Pre-Op Dx Cataract, Left Eye MAHAMED KULKARNI MD Jul 07, 2023 08:22
[2023-07-07] MEDS ORDERED: MIDAZOLAM INJ 2 MG/2 ML VIAL ONE (08:26)
--- NOTE | 2023-07-07 08:43 | Ophthalmology Operative Report ---
Cataract removal/placement IOL PREOPERATIVE DIAGNOSIS: Cataract Left Eye POSTOPERATIVE DIAGNOSIS: Cataract Left Eye PROCEDURE: Cataract removal and placement of posterior chamber implant, left eye SURGEON: Marcial Kulkarni ANESTHESIA: Topical with sedation COMPLICATIONS: None ESTIMATED BLOOD LOSS: Minimal DESCRIPTION OF PROCEDURE: After proper informed consent was obtained, the patient, a 72 female, was taken to the Operating Room and the left eye was anesthetized with tetracaine. The left eye was then prepped and draped in the usual manner. A wire lid speculum was placed. A paracentesis was made at the left hand position. Preservative free lidocaine was injected into the anterior chamber followed by viscoelastic. A clear corneal incision was made in the temporal position. A capsulorrhexis was preformed and the central nuclear and cortical material were removed. The posterior capsule was polished and an Yan 19.5 CNA0T0 was placed into the capsular bag. The residual viscoelastic was aspirated and balanced saline solution was injected into the anterior chamber. Moxifloxacin was injected into the anterior chamber. The wound was checked and found to be water tight. The patient tolerated the procedure well without complications. MARCIAL KULKARNI MD Jul 07, 2023 08:43
[2023-07-07 08:48] VITALS: BP 176/66
--- NOTE | 2023-07-07 12:10 | Anesthesia-General Post-Op ---
MAC Patient Condition Mental Status/LOC: Same as Preop Cardiovascular: Satisfactory Nausea/Vomiting: Absent Respiratory: Satisfactory Pain: Controlled Complications: Absent Post Op Complications Complications None Follow Up Care/Instructions Patient Instructions None needed. Anesthesiology Discharge Order Discharge Order Patient was doing well this morning after the procedure with no complaints, stable vital signs, no apparent adverse anesthesia problems. No complications reported per nursing. NO GIANG DO Jul 07, 2023 12:10
== END 2023-07-07 08:52 | disposition home or self-care (01) ==
LOC: SDC 07:40
PROVIDERS: ATTEND Specialist
DX: E11.36 Type 2 diabetes mellitus with diabetic cataract (principal); H25.9 Unspecified age-related cataract; E66.9 Obesity, unspecified; Z87.891 Personal history of nicotine dependence; Z79.84 Long term (current) use of oral hypoglycemic drugs; Z68.42 Body mass index [BMI] 45.0-49.9, adult
CPT/HCPCS: 66984; V2632

== ENCOUNTER 2023-07-20 12:11 | Outpatient (CLI) | payer MEDICARE, OTHER ==
[~2023-07-20] VITALS: Ht 157.5 cm; Wt 122.3 kg
== END 2023-07-21 07:55 | disposition home or self-care (01) ==
LOC: PREOP 12:11
PROVIDERS: ATTEND Specialist
DX: Z01.818 Encounter for other preprocedural examination (principal)

== ENCOUNTER 2023-07-21 10:25 | Day surgery (SDC) | payer MEDICARE, OTHER ==
[~2023-07-21] VITALS: Ht 157.5 cm; Wt 122.3 kg
[2023-07-21] MEDS ORDERED: POVIDONE IODINE OPHTH SOLN 5% 30 ML OP ONE (10:30)
[2023-07-21] MEDS ORDERED: MOXIFLOXACIN OPHTH SOLN 5 MG/ML 0.5 ML SYRINGE OP ONE (10:30)
[2023-07-21] MEDS ORDERED: LIDOCAINE PF 1% 2 ML VIAL IR PRN (10:30)
[2023-07-21] MEDS ORDERED: TIMOLOL 0.5% (CATARACTS) 0.3 ML BTL OU PRN (10:30)
[2023-07-21] MEDS: TETRACAINE 0.5% OPHTH SOLN 4 ML BTL (SINGLE DOSE ONLY) OU PRN ×4 (10:38→10:57)
[2023-07-21 10:39] VITALS: BP 163/73
[2023-07-21] MEDS: TROPICAMIDE 1% OPH SOLN (MYDRIACYL) 15 ML BTL OP SCH ×3 (10:47→10:57)
[2023-07-21] MEDS: PHENYLEPHRINE 10% OPHTH SOLN 5 ML BTL OU SCH ×3 (10:47→10:57)
--- NOTE | 2023-07-21 11:15 | Ophthalmologist Pre-Op Note ---
Pre-Operative Progress Note H&P Reviewed The H&P was reviewed, patient examined and no changes noted. Date H&P Reviewed: Jul 21, 2023 Time H&P Reviewed: 11:15 Pre-Op Dx Cataract, Right Eye MAHAMED KULKARNI MD Jul 21, 2023 11:15
[2023-07-21] MEDS ORDERED: MIDAZOLAM INJ 2 MG/2 ML VIAL ONE (11:17)
--- NOTE | 2023-07-21 11:34 | Ophthalmology Operative Report ---
Cataract removal/placement IOL PREOPERATIVE DIAGNOSIS: Cataract Right Eye POSTOPERATIVE DIAGNOSIS: Cataract Right Eye PROCEDURE: Cataract removal and placement of posterior chamber implant, right eye SURGEON: Marcial Kulkarni ANESTHESIA: Topical with sedation COMPLICATIONS: None ESTIMATED BLOOD LOSS: Minimal DESCRIPTION OF PROCEDURE: After proper informed consent was obtained, the patient, a 72 female, was taken to the Operating Room and the right eye was anesthetized with tetracaine. The right eye was then prepped and draped in the usual manner. A wire lid speculum was placed. A paracentesis was made at the left hand position. Preservative free lidocaine was injected into the anterior chamber followed by viscoelastic. A clear corneal incision was made in the temporal position. A capsulorrhexis was preformed and the central nuclear and cortical material were removed. The posterior capsule was polished and Yan 20.0 CNA0T0 IOL was placed into the capsular bag. The residual viscoelastic was aspirated and balanced saline solution was injected into the anterior chamber. Moxifloxacin was injected into the anterior chamber. The wound was checked and found to be water tight. The patient tolerated the procedure well without complications. MARCIAL KULKARNI MD Jul 21, 2023 11:34
[2023-07-21 11:45] VITALS: BP 159/61
== END 2023-07-21 11:45 | disposition home or self-care (01) ==
LOC: SDC 10:25
PROVIDERS: ATTEND Specialist
DX: E11.36 Type 2 diabetes mellitus with diabetic cataract (principal); H25.9 Unspecified age-related cataract; G47.33 Obstructive sleep apnea (adult) (pediatric); Z87.891 Personal history of nicotine dependence
CPT/HCPCS: 66984; 82947; V2632